=== PATIENT | female | born 1955 | race Hispanic/Latino ===

== ENCOUNTER 2017-08-01 07:33 | Emergency (ER) | payer MEDICAID, OTHER ==
[2017-08-01] MEDS: diphenhydrAMINE INJ 50MG/ML VIAL (J1200) IV (08:08)
[2017-08-01] MEDS: PROMETHAZINE INJ 25 MG/ML VIAL (J2550) IV (08:15)
[2017-08-01] MEDS: NS 1,000 ML IV (08:15)
[2017-08-01 09:16] LABS: ALBUMIN 3.6 GM/DL (3.2-5.2); ALBUMIN/GLOBULIN RATIO 1.03 (1.00-1.93); ALKALINE PHOSPHATASE 126 U/L (45-117); ALT/SGPT 15 U/L (12-78); ANION GAP 7 MEQ/L (8-16); AST/SGOT 33 U/L (7-37); BILIRUBIN,TOTAL 0.3 MG/DL (0.2-1.0); BLOOD UREA NITROGEN 14 MG/DL (7-18); CALCIUM LEVEL 8.7 MG/DL (8.8-10.2); CARBON DIOXIDE LEVEL 27 MEQ/L (21-32); CHLORIDE LEVEL 109 MEQ/L (98-107); CREATININE FOR GFR 0.67 MG/DL (0.55-1.02); GLOMERULAR FILTRATION RATE > 60.0 (>45); GLUCOSE, FASTING 91 MG/DL (80-110); SODIUM LEVEL 143 MEQ/L (136-145); TOTAL PROTEIN 7.1 GM/DL (6.4-8.2)
[2017-08-01 09:25] LABS: LITHIUM LEVEL < 0.20 MEQ/L (0.60-1.20); POTASSIUM SERUM 4.3 MEQ/L (3.5-5.1)
[2017-08-01 09:27] LABS: ERYTHROCYTE SEDIMENTATION RATE 2 mm/hr (0-30)
[2017-08-01] MEDS: KETOROLAC 30 MG/ML VIAL (J1885) IV (10:09)
== END 2017-08-01 10:41 | disposition home or self-care (01) ==
LOC: M ED 07:33
DX: R51 Headache (principal); E07.9 Disorder of thyroid, unspecified; Z79.890 Hormone replacement therapy; Z79.899 Other long term (current) drug therapy; Z88.8 Allergy status to other drugs, medicaments and biological substances; Z88.1 Allergy status to other antibiotic agents; Z88.2 Allergy status to sulfonamides; Z85.07 Personal history of malignant neoplasm of pancreas; Z98.890 Other specified postprocedural states
CPT/HCPCS: J1200

== ENCOUNTER → 2017-08-15 | Outpatient (REF) | payer MEDICAID ==
[2017-08-15 15:17] LABS: VITAMIN B12 LEVEL 491 PG/ML (247-911)
[2017-08-15 15:18] LABS: FOLATE 17.7 NG/ML (>5.4)
[2017-08-15 15:19] LABS: BASO # 0.1 10^3/uL (0.0-0.2); BASO % 1.3 % (0.0-1.0); EOS # 0.5 10^3/uL (0.0-0.50); EOS % 5.1 % (0.0-3.0); HEMATOCRIT 42.6 % (36.0-47.0); HEMOGLOBIN 13.3 g/dl (12.0-16.0); IMMATURE GRANULOCYTE % 0.2 % (0-0); LYMPH # 2.7 10^3/uL (1.5-4.5); LYMPH % 29.6 % (24.0-44.0); MEAN CORPUSCULAR HEMOGLOBIN 25.1 pg (27.0-33.0); MEAN CORPUSCULAR HGB CONC 31.2 g/dl (32.0-36.5); MEAN CORPUSCULAR VOLUME 80.4 fl (80.0-96.0); MONO # 0.5 10^3/uL (0.0-0.8); MONO % 5.9 % (0.0-5.0); NEUTROPHILS # 5.2 10^3/uL (1.8-7.7); NEUTROPHILS % 57.9 % (36.0-66.0); PLATELET COUNT, AUTOMATED 269 10^3/uL (150-450); RED CELL DISTRIBUTION WIDTH 15.6 % (11.5-14.5); WHITE BLOOD COUNT 9.1 10^3/uL (4.0-10.0)
[2017-08-15 15:58] LABS: ALBUMIN 3.7 GM/DL (3.2-5.2); ALBUMIN/GLOBULIN RATIO 1.06 (1.00-1.93); ALKALINE PHOSPHATASE 127 U/L (45-117); ALT/SGPT 16 U/L (12-78); ANION GAP 9 MEQ/L (8-16); AST/SGOT 20 U/L (7-37); BILIRUBIN,TOTAL 0.4 MG/DL (0.2-1.0); BLOOD UREA NITROGEN 16 MG/DL (7-18); CALCIUM LEVEL 8.8 MG/DL (8.8-10.2); CARBON DIOXIDE LEVEL 24 MEQ/L (21-32); CHLORIDE LEVEL 106 MEQ/L (98-107); CREATININE FOR GFR 0.96 MG/DL (0.55-1.30); FREE T4 0.92 NG/DL (0.76-1.46); GLOMERULAR FILTRATION RATE > 60.0 (>45); GLUCOSE, FASTING 144 MG/DL (70-100); POTASSIUM SERUM 3.9 MEQ/L (3.5-5.1); SODIUM LEVEL 139 MEQ/L (136-145); TOTAL PROTEIN 7.2 GM/DL (6.4-8.2)
[2017-08-15 16:14] LABS: LITHIUM LEVEL < 0.20 MEQ/L (0.60-1.20)
== END ==
LOC: M LAB REF 13:53
DX: Z86.2 Personal history of diseases of the blood and blood-forming organs and certain disorders involving the immune mechanism (principal)

== ENCOUNTER → 2017-08-28 | Outpatient (CLI) | payer OTHER | LOC: M RAD 13:35 | DX: T85.49XD Other mechanical complication of breast prosthesis and implant, subsequent encounter (principal) | CPT/HCPCS: 77065 ==

== ENCOUNTER → 2017-08-29 | Outpatient (CLI) | payer OTHER, MEDICAID | LOC: M RAD 08:10 | DX: N28.1 Cyst of kidney, acquired (principal) | CPT/HCPCS: 76775 ==

== ENCOUNTER → 2017-09-17 | Outpatient (CLI) | payer OTHER ==
[2017-09-17 15:12] LABS: GAMMA GLUTAMYLTRANSPEPTIDASE 24 U/L (5-55)
== END ==
LOC: M LAB 13:48
DX: R74.8 Abnormal levels of other serum enzymes (principal)
CPT/HCPCS: 82977

== ENCOUNTER → 2017-09-17 | Outpatient (CLI) | payer OTHER ==
[2017-09-17 15:17] LABS: BASO # 0.1 10^3/uL (0.0-0.2); BASO % 0.8 % (0.0-1.0); EOS # 0.6 10^3/uL (0.0-0.50); EOS % 7.3 % (0.0-3.0); HEMATOCRIT 39.8 % (36.0-47.0); HEMOGLOBIN 12.8 g/dl (12.0-16.0); IMMATURE GRANULOCYTE % 0.4 % (0-3.0); LYMPH # 2.6 10^3/uL (1.5-4.5); LYMPH % 30.7 % (24.0-44.0); MEAN CORPUSCULAR HEMOGLOBIN 25.8 pg (27.0-33.0); MEAN CORPUSCULAR HGB CONC 32.2 g/dl (32.0-36.5); MEAN CORPUSCULAR VOLUME 80.2 fl (80.0-96.0); MONO # 0.5 10^3/uL (0.0-0.8); MONO % 6.2 % (0.0-5.0); NEUTROPHILS # 4.6 10^3/uL (1.8-7.7); NEUTROPHILS % 54.6 % (36.0-66.0); PLATELET COUNT, AUTOMATED 222 10^3/uL (150-450); RED BLOOD COUNT 4.96 10^6/uL (4.00-5.40); WHITE BLOOD COUNT 8.5 10^3/uL (4.0-10.0)
[2017-09-17 15:27] LABS: ALBUMIN 3.3 GM/DL (3.2-5.2); ALKALINE PHOSPHATASE 126 U/L (45-117); ALT/SGPT 18 U/L (12-78); ANION GAP 8 MEQ/L (8-16); AST/SGOT 19 U/L (7-37); BILIRUBIN,TOTAL 0.2 MG/DL (0.2-1.0); BLOOD UREA NITROGEN 13 MG/DL (7-18); CALCIUM LEVEL 8.5 MG/DL (8.8-10.2); CARBON DIOXIDE LEVEL 27 MEQ/L (21-32); CHLORIDE LEVEL 109 MEQ/L (98-107); CREATININE FOR GFR 0.74 MG/DL (0.55-1.30); GLOMERULAR FILTRATION RATE > 60.0 (>45); GLUCOSE, FASTING 92 MG/DL (70-100); POTASSIUM SERUM 4.2 MEQ/L (3.5-5.1); SODIUM LEVEL 144 MEQ/L (136-145); TOTAL PROTEIN 6.6 GM/DL (6.4-8.2)
[2017-09-17 15:35] LABS: VITAMIN B12 LEVEL 625 PG/ML
[2017-09-17 15:36] LABS: FOLATE 13.5 NG/ML
[2017-09-18 14:01] LABS: ALBUMIN 3.88 GM/DL (3.29-5.55); ALBUMIN % 58.8 % (55.8-66.1); ALPHA-1-GLOBULIN % 4.6 % (2.9-4.9); ALPHA-2-GLOBULINS % 11.8 % (7.1-11.8); BETA-1-GLOBULINS % 8.2 % (4.7-7.2); BETA-2-GLOBULINS % 5.4 % (3.2-6.5); GAMMA GLOBULIN % 11.2 % (11.1-18.8)
[2017-09-18 14:02] LABS: ALPHA-2-GLOBULINS 0.78 GM/DL (0.42-0.99); BETA-1-GLOBULINS 0.54 GM/DL (0.28-0.60); BETA-2-GLOBULINS 0.36 GM/DL (0.19-0.55); GAMMA GLOBULINS 0.74 GM/DL (0.65-1.58); SPEP INTERPRETATION SEE COMM
== END ==
LOC: M LAB 13:51
DX: G62.9 Polyneuropathy, unspecified (principal)
CPT/HCPCS: 82746

== ENCOUNTER → 2017-09-23 | Outpatient (REF) | payer OTHER ==
[2017-09-24 09:54] LABS: CARCINOEMBRYONIC ANTIGEN 4.8 NG/ML (<2.5)
[2017-09-24 10:23] LABS: CA19-9 TUMOR MARKER,CARBOHYDRA 1.2 U/ML (<35.0)
== END ==
LOC: M LAB REF 17:40
DX: C24.0 Malignant neoplasm of extrahepatic bile duct (principal); C7A.098 Malignant carcinoid tumors of other sites

== ENCOUNTER → 2017-09-25 | Outpatient (REF) | payer OTHER, MEDICAID ==
[2017-09-25 13:40] LABS: FERRITIN 15 NG/ML (8-252)
[2017-09-25 13:40] LABS: IRON (FE) 74 UG/DL (50-170)
[2017-09-25 14:23] LABS: FOLATE 16.3 NG/ML; VITAMIN B12 LEVEL 557 PG/ML
== END ==
LOC: M LAB REF 11:47
DX: R53.83 Other fatigue (principal)

== ENCOUNTER → 2017-09-25 | Outpatient (CLI) | payer OTHER ==
[~2017-09-25] MED LIST: GASTROGRAFIN SOLUTION 30ML (Q9963) As Ordered; ISOVUE-370 76% 100ML VIAL (Q9967) As Ordered
== END ==
LOC: M RAD 11:15
DX: R10.9 Unspecified abdominal pain (principal); R06.02 Shortness of breath; M54.9 Dorsalgia, unspecified; Z85.07 Personal history of malignant neoplasm of pancreas; N28.1 Cyst of kidney, acquired; Z98.890 Other specified postprocedural states
CPT/HCPCS: Q9963

== ENCOUNTER → 2017-11-08 | Outpatient (CLI) | payer OTHER ==
[2017-11-08 15:06] LABS: LITHIUM LEVEL 0.34 MEQ/L (0.60-1.20)
== END ==
LOC: M LAB 14:00
DX: F31.4 Bipolar disorder, current episode depressed, severe, without psychotic features (principal)
CPT/HCPCS: 80178

== ENCOUNTER → 2017-11-08 | Outpatient (CLI) | payer OTHER ==
[2017-11-08 14:52] LABS: BASO # 0.1 10^3/uL (0.0-0.2); BASO % 0.7 % (0.0-1.0); EOS # 0.5 10^3/uL (0.0-0.50); EOS % 5.1 % (0.0-3.0); HEMATOCRIT 38.6 % (36.0-47.0); HEMOGLOBIN 12.6 g/dl (12.0-15.5); IMMATURE GRANULOCYTE % 0.5 % (0-3.0); LYMPH # 2.9 10^3/uL (1.5-4.5); LYMPH % 33.1 % (24.0-44.0); MEAN CORPUSCULAR HEMOGLOBIN 26.1 pg (27.0-33.0); MEAN CORPUSCULAR HGB CONC 32.6 g/dl (32.0-36.5); MEAN CORPUSCULAR VOLUME 79.9 fl (80.0-96.0); MONO # 0.7 10^3/uL (0.0-0.8); MONO % 7.6 % (0.0-5.0); NEUTROPHILS # 4.7 10^3/uL (1.8-7.7); PLATELET COUNT, AUTOMATED 245 10^3/uL (150-450); RED BLOOD COUNT 4.83 10^6/uL (4.00-5.40); RED CELL DISTRIBUTION WIDTH 14.6 % (11.5-14.5); WHITE BLOOD COUNT 8.8 10^3/uL (4.0-10.0)
[2017-11-08 14:58] LABS: ESTIMATED AVERAGE GLUCOSE 126 MG/DL (60-110)
[2017-11-08 15:10] LABS: ALBUMIN 3.5 GM/DL (3.2-5.2); ALBUMIN/GLOBULIN RATIO 1.03 (1.00-1.93); ALKALINE PHOSPHATASE 121 U/L (45-117); ALT/SGPT 20 U/L (12-78); ANION GAP 6 MEQ/L (8-16); AST/SGOT 24 U/L (7-37); BILIRUBIN,TOTAL 0.5 MG/DL (0.2-1.0); BLOOD UREA NITROGEN 14 MG/DL (7-18); CALCIUM LEVEL 8.6 MG/DL (8.8-10.2); CARBON DIOXIDE LEVEL 27 MEQ/L (21-32); CHLORIDE LEVEL 110 MEQ/L (98-107); CHOLESTEROL LEVEL 275 MG/DL (<200); CHOLESTEROL RISK RATIO 3.618 (<5); CREATININE FOR GFR 0.86 MG/DL (0.55-1.30); GLOMERULAR FILTRATION RATE > 60.0 (>45); GLUCOSE, FASTING 80 MG/DL (70-100); HDL CHOLESTEROL 76 MG/DL (>40); LDL CHOLESTEROL 170.6 MG/DL (<100); NON-HDL-C 199 MG/DL; POTASSIUM SERUM 4.4 MEQ/L (3.5-5.1); SODIUM LEVEL 143 MEQ/L (136-145); TOTAL PROTEIN 6.9 GM/DL (6.4-8.2); TRIGLYCERIDES LEVEL 142 MG/DL (<150)
[2017-11-08 15:14] LABS: PTH INTACT 88.9 PG/ML (18.5-88.0)
== END ==
LOC: M LAB 13:57
DX: F31.60 Bipolar disorder, current episode mixed, unspecified (principal); E66.3 Overweight; E78.5 Hyperlipidemia, unspecified; E55.9 Vitamin D deficiency, unspecified
CPT/HCPCS: 84443

== ENCOUNTER 2017-11-21 12:14 | Day surgery (SDC) | payer OTHER ==
[2017-11-21] MEDS: NS 1,000 ML IV (12:30)
[2017-11-21] MEDS ORDERED: LIDOCAINE 2% INJ 100 MG/5 ML SDV (FOR ANES.) As Ordered (14:02)
[2017-11-21] MEDS ORDERED: PROPOFOL 200 MG/20 ML VIAL As Ordered (14:02)
[2017-11-21] MEDS ORDERED: fentaNYL 100 MCG/2 ML INJECTION (J3010) As Ordered (14:25)
== END 2017-11-21 15:43 | disposition home or self-care (01) ==
LOC: M OPP 12:14
DX: K64.8 Other hemorrhoids (principal); K57.30 Diverticulosis of large intestine without perforation or abscess without bleeding; K92.1 Melena; K30 Functional dyspepsia; Z98.0 Intestinal bypass and anastomosis status; F32.9 Major depressive disorder, single episode, unspecified; F41.9 Anxiety disorder, unspecified; E78.00 Pure hypercholesterolemia, unspecified; E07.9 Disorder of thyroid, unspecified; Z79.899 Other long term (current) drug therapy; Z88.8 Allergy status to other drugs, medicaments and biological substances; Z90.711 Acquired absence of uterus with remaining cervical stump; Z87.19 Personal history of other diseases of the digestive system; Z86.79 Personal history of other diseases of the circulatory system; Z82.49 Family history of ischemic heart disease and other diseases of the circulatory system; Z82.3 Family history of stroke; Z80.0 Family history of malignant neoplasm of digestive organs
CPT/HCPCS: 45378

== ENCOUNTER → 2017-12-03 | Outpatient (CLI) | payer OTHER | LOC: M WHC 09:42 | DX: Z12.31 Encounter for screening mammogram for malignant neoplasm of breast (principal); M81.0 Age-related osteoporosis without current pathological fracture | CPT/HCPCS: 77067 ==

== ENCOUNTER → 2018-01-06 | Outpatient (REF) | payer OTHER ==
[2018-01-07 09:18] LABS: CARCINOEMBRYONIC ANTIGEN 3.7 NG/ML (<2.5)
[2018-01-11 00:07] LABS: CHROMOGRANIN A 2 nmol/L (0-5)
== END ==
LOC: M LAB REF 17:12
DX: K62.5 Hemorrhage of anus and rectum (principal)
CPT/HCPCS: 82378

== ENCOUNTER 2018-02-23 07:52 | Emergency (ER) | payer OTHER ==
[2018-02-23] MEDS: HYDROMORPHONE HCL 0.5 MG/ 0.5 ML SYRINGE (J1170 PER 1) IV ×2 (08:29)
[2018-02-23] MEDS: ONDANSETRON 4MG/2ML VIAL (J2405) IV ×2 (08:29)
[2018-02-23] MEDS: NS 1,000 ML IV ×2 (08:29)
[2018-02-23 08:32] LABS: BASO # 0.1 10^3/uL (0.0-0.2); BASO % 0.8 % (0.0-1.0); EOS # 0.7 10^3/uL (0.0-0.50); EOS % 7.5 % (0.0-3.0); HEMATOCRIT 42.2 % (36.0-47.0); HEMOGLOBIN 13.3 g/dl (12.0-15.5); IMMATURE GRANULOCYTE % 0.2 % (0-3.0); LYMPH # 3.2 10^3/uL (1.5-4.5); LYMPH % 33.1 % (24.0-44.0); MEAN CORPUSCULAR HEMOGLOBIN 25.5 pg (27.0-33.0); MEAN CORPUSCULAR HGB CONC 31.5 g/dl (32.0-36.5); MEAN CORPUSCULAR VOLUME 80.8 fl (80.0-96.0); MONO # 0.6 10^3/uL (0.0-0.8); MONO % 5.9 % (0.0-5.0); NEUTROPHILS # 5.1 10^3/uL (1.8-7.7); NEUTROPHILS % 52.5 % (36.0-66.0); PLATELET COUNT, AUTOMATED 176 10^3/uL (150-450); RED BLOOD COUNT 5.22 10^6/uL (4.00-5.40); RED CELL DISTRIBUTION WIDTH 14.4 % (11.5-14.5); WHITE BLOOD COUNT 9.7 10^3/uL (4.0-10.0)
[2018-02-23 08:39] LABS: KETONE, URINE AUTO RFX NEGATIVE (NEGATIVE); LEUKOCYTE ESTERASE UR AUTO RFX NEGATIVE (NEGATIVE); MUCUS, URINE RFX SMALL (NEGATIVE); NITRITE, URINE AUTO RFX NEGATIVE (NEGATIVE); RBC, URINE AUTO RFX 0 /HPF (0-3); SPECIFIC GRAVITY UR AUTO RFX 1.008 (1.002-1.035); SQUAM EPITHELIAL CELL UR AURFX 0 /HPF (0-6); WBC, URINE AUTO RFX 0 /HPF (0-3)
[2018-02-23 09:23] LABS: ALBUMIN 3.1 GM/DL (3.2-5.2); ALBUMIN/GLOBULIN RATIO 0.97 (1.00-1.93); ALKALINE PHOSPHATASE 110 U/L (45-117); ALT/SGPT 23 U/L (12-78); AMYLASE 66 U/L (25-115); ANION GAP 4 MEQ/L (8-16); AST/SGOT 20 U/L (7-37); BILIRUBIN,DIRECT < 0.1 MG/DL (0.0-0.2); BLOOD UREA NITROGEN 15 MG/DL (7-18); CALCIUM LEVEL 8.1 MG/DL (8.8-10.2); CARBON DIOXIDE LEVEL 29 MEQ/L (21-32); CHLORIDE LEVEL 111 MEQ/L (98-107); CPK CREATINE PHOSPHOKINASE 57 U/L (26-192); CREATININE FOR GFR 0.84 MG/DL (0.55-1.30); GLOMERULAR FILTRATION RATE > 60.0 (>45); GLUCOSE, FASTING 101 MG/DL (70-100); LIPASE 89 U/L (73-393); POTASSIUM SERUM 4.5 MEQ/L (3.5-5.1); SODIUM LEVEL 144 MEQ/L (136-145); TOTAL PROTEIN 6.3 GM/DL (6.4-8.2); TROPONIN I < 0.02 NG/ML (< 0.10)
[2018-02-23 09:28] LABS: BILIRUBIN,TOTAL 0.2 MG/DL (0.2-1.0); CK-MB VALUE MASS 1.1 NG/ML (<3.6); MB/CK RELATIVE INDEX 1.92 (< OR =4)
[2018-02-23] MEDS ORDERED: ISOVUE-370 76% 100ML VIAL (Q9967) As Ordered ×2 (09:36)
== END 2018-02-23 10:35 | disposition home or self-care (01) ==
LOC: M ED 07:52
DX: K52.9 Noninfective gastroenteritis and colitis, unspecified (principal); E78.5 Hyperlipidemia, unspecified; Z85.07 Personal history of malignant neoplasm of pancreas; Z87.891 Personal history of nicotine dependence
CPT/HCPCS: J2405

== ENCOUNTER 2018-03-09 06:36 | Emergency (ER) | payer OTHER ==
[2018-03-09 07:11] LABS: BASO # 0.1 10^3/uL (0.0-0.2); HEMATOCRIT 42.3 % (36.0-47.0); HEMOGLOBIN 13.7 g/dl (12.0-15.5); IMMATURE GRANULOCYTE % 0.3 % (0-3.0); LYMPH # 3.6 10^3/uL (1.5-4.5); LYMPH % 34.7 % (24.0-44.0); MEAN CORPUSCULAR HEMOGLOBIN 25.8 pg (27.0-33.0); MEAN CORPUSCULAR HGB CONC 32.4 g/dl (32.0-36.5); MEAN CORPUSCULAR VOLUME 79.7 fl (80.0-96.0); MONO # 0.8 10^3/uL (0.0-0.8); MONO % 7.3 % (0.0-5.0); NEUTROPHILS # 4.8 10^3/uL (1.8-7.7); NEUTROPHILS % 46.7 % (36.0-66.0); PLATELET COUNT, AUTOMATED 194 10^3/uL (150-450); RED BLOOD COUNT 5.31 10^6/uL (4.00-5.40); RED CELL DISTRIBUTION WIDTH 14.8 % (11.5-14.5); WHITE BLOOD COUNT 10.3 10^3/uL (4.0-10.0)
[2018-03-09] MEDS ORDERED: ISOVUE-370 76% 100ML VIAL (Q9967) As Ordered (08:25)
[2018-03-09 08:27] LABS: ANION GAP 7 MEQ/L (8-16); BLOOD UREA NITROGEN 13 MG/DL (7-18); CALCIUM LEVEL 8.8 MG/DL (8.8-10.2); CARBON DIOXIDE LEVEL 28 MEQ/L (21-32); CHLORIDE LEVEL 110 MEQ/L (98-107); CK-MB VALUE MASS < 1.0 NG/ML (<3.6); CPK CREATINE PHOSPHOKINASE 67 U/L (26-192); CREATININE FOR GFR 0.85 MG/DL (0.55-1.30); GLOMERULAR FILTRATION RATE > 60.0 (>45); GLUCOSE, FASTING 106 MG/DL (70-100); MB/CK RELATIVE INDEX 1.49 (< OR =4); POTASSIUM SERUM 4.2 MEQ/L (3.5-5.1); SODIUM LEVEL 145 MEQ/L (136-145); TROPONIN I < 0.02 NG/ML (< 0.10)
[2018-03-09] MEDS: GI COCKTAIL 50ML BTL(HYOSCYAMINE/MAALOX/LIDOCAINE VISCOUS)(1:3:1) PO (08:31)
[2018-03-09] MEDS: SUCRALFATE 1 GM TAB PO (08:31)
[2018-03-09] MEDS: FAMOTIDINE 20 MG TAB PO (08:31)
== END 2018-03-09 10:32 | disposition home or self-care (01) ==
LOC: M ED 06:36
DX: K21.9 Gastro-esophageal reflux disease without esophagitis (principal); M19.90 Unspecified osteoarthritis, unspecified site; Z86.718 Personal history of other venous thrombosis and embolism; Z87.891 Personal history of nicotine dependence; Z82.49 Family history of ischemic heart disease and other diseases of the circulatory system; Z82.3 Family history of stroke; Z88.8 Allergy status to other drugs, medicaments and biological substances; Z88.1 Allergy status to other antibiotic agents; Z88.2 Allergy status to sulfonamides; Z79.899 Other long term (current) drug therapy
CPT/HCPCS: Q9967

== ENCOUNTER → 2018-03-12 | Outpatient (CLI) | payer OTHER | LOC: M PAIN 14:00 | DX: M79.1 Myalgia (principal); M96.1 Postlaminectomy syndrome, not elsewhere classified; M54.12 Radiculopathy, cervical region; F31.9 Bipolar disorder, unspecified; E78.5 Hyperlipidemia, unspecified; E03.9 Hypothyroidism, unspecified; J45.909 Unspecified asthma, uncomplicated; K21.9 Gastro-esophageal reflux disease without esophagitis; Z79.899 Other long term (current) drug therapy; Z88.2 Allergy status to sulfonamides; Z88.6 Allergy status to analgesic agent; Z88.8 Allergy status to other drugs, medicaments and biological substances; Z87.890 Personal history of sex reassignment; Z98.890 Other specified postprocedural states | CPT/HCPCS: G0463 ==

== ENCOUNTER → 2018-03-26 | Outpatient (CLI) | payer OTHER | LOC: M SLEEP HO 14:02 | DX: R07.9 Chest pain, unspecified (principal) | CPT/HCPCS: G0399 ==

== ENCOUNTER → 2018-04-03 | Outpatient (CLI) | payer OTHER ==
[~2018-04-03] MED LIST changes: +BUPIVACAINE HCL 0.25% 10 ML VIAL As Ordered; +BUPIVACAINE HCL 0.25% 30 ML VIAL As Ordered; -GASTROGRAFIN SOLUTION 30ML (Q9963) As Ordered; -ISOVUE-370 76% 100ML VIAL (Q9967) As Ordered; +TRIAMCINOLONE ACETONIDE SUSP 40 MG/ML VIAL (J3301) As Ordered; +diazePAM 5 MG TAB As Ordered; +oxyCODONE 5MG TAB As Ordered
== END ==
LOC: M PAIN 11:15
DX: M79.1 Myalgia (principal); K21.9 Gastro-esophageal reflux disease without esophagitis; F31.9 Bipolar disorder, unspecified; E78.5 Hyperlipidemia, unspecified; E03.9 Hypothyroidism, unspecified; Z98.1 Arthrodesis status; Z87.891 Personal history of nicotine dependence; Z85.09 Personal history of malignant neoplasm of other digestive organs; Z86.718 Personal history of other venous thrombosis and embolism; Z90.49 Acquired absence of other specified parts of digestive tract; Z90.710 Acquired absence of both cervix and uterus; Z88.2 Allergy status to sulfonamides; Z88.6 Allergy status to analgesic agent; Z88.8 Allergy status to other drugs, medicaments and biological substances; Z79.899 Other long term (current) drug therapy
CPT/HCPCS: J3301

== ENCOUNTER 2018-04-17 05:21 | Emergency (ER) | payer OTHER ==
[2018-04-17 05:58] LABS: BASO # 0.1 10^3/uL (0.0-0.2); BASO % 0.6 % (0.0-1.0); EOS # 0.5 10^3/uL (0.0-0.50); EOS % 4.3 % (0.0-3.0); HEMATOCRIT 40.6 % (36.0-47.0); HEMOGLOBIN 12.9 g/dl (12.0-15.5); IMMATURE GRANULOCYTE % 0.4 % (0-3.0); LYMPH # 2.6 10^3/uL (1.5-4.5); LYMPH % 25.3 % (24.0-44.0); MEAN CORPUSCULAR HEMOGLOBIN 25.9 pg (27.0-33.0); MEAN CORPUSCULAR HGB CONC 31.8 g/dl (32.0-36.5); MEAN CORPUSCULAR VOLUME 81.4 fl (80.0-96.0); MONO # 0.7 10^3/uL (0.0-0.8); MONO % 6.3 % (0.0-5.0); NEUTROPHILS # 6.6 10^3/uL (1.8-7.7); NEUTROPHILS % 63.1 % (36.0-66.0); PLATELET COUNT, AUTOMATED 227 10^3/uL (150-450); RED BLOOD COUNT 4.99 10^6/uL (4.00-5.40); RED CELL DISTRIBUTION WIDTH 15.5 % (11.5-14.5); WHITE BLOOD COUNT 10.4 10^3/uL (4.0-10.0)
[2018-04-17 06:25] LABS: BLOOD UREA NITROGEN 13 MG/DL (7-18); CREATININE FOR GFR 0.91 MG/DL (0.55-1.30); GLUCOSE, FASTING 109 MG/DL (70-100)
[2018-04-17 06:26] LABS: ANION GAP 7 MEQ/L (8-16); CALCIUM LEVEL 8.8 MG/DL (8.8-10.2); CARBON DIOXIDE LEVEL 27 MEQ/L (21-32); CHLORIDE LEVEL 109 MEQ/L (98-107); CK-MB VALUE MASS < 1.0 NG/ML (<3.6); CPK CREATINE PHOSPHOKINASE 84 U/L (26-192); GLOMERULAR FILTRATION RATE > 60.0 (>45); MB/CK RELATIVE INDEX 1.19 (< OR =4); SODIUM LEVEL 143 MEQ/L (136-145); TROPONIN I < 0.02 NG/ML (< 0.10)
[2018-04-17] MEDS: GI COCKTAIL 50ML BTL(HYOSCYAMINE/MAALOX/LIDOCAINE VISCOUS)(1:3:1) PO (06:54)
[2018-04-17] MEDS ORDERED: ISOVUE-370 76% 100ML VIAL (Q9967) As Ordered (07:16)
[2018-04-17 07:25] LABS: ALBUMIN 3.5 GM/DL (3.2-5.2); ALBUMIN/GLOBULIN RATIO 1.13 (1.00-1.93); ALKALINE PHOSPHATASE 120 U/L (45-117); ALT/SGPT 22 U/L (12-78); AST/SGOT 19 U/L (7-37); BILIRUBIN,DIRECT 0.1 MG/DL (0.0-0.2); BILIRUBIN,TOTAL 0.3 MG/DL (0.2-1.0); LIPASE 77 U/L (73-393); LITHIUM LEVEL < 0.20 MEQ/L (0.60-1.20); TOTAL PROTEIN 6.6 GM/DL (6.4-8.2)
[2018-04-17] MEDS: IBUPROFEN 600 MG TAB PO (07:45)
[2018-04-17] MEDS: METOCLOPRAMIDE INJ 10MG/2ML VIAL (J2765) IV (11:13)
[2018-04-17 12:00] LABS: CK-MB VALUE MASS < 1.0 NG/ML (<3.6); CPK CREATINE PHOSPHOKINASE 70 U/L (26-192); MB/CK RELATIVE INDEX 1.43 (< OR =4); TROPONIN I < 0.02 NG/ML (< 0.10)
== END 2018-04-17 12:55 | disposition home or self-care (01) ==
LOC: M ED 05:21
DX: R07.9 Chest pain, unspecified (principal); R06.02 Shortness of breath; J45.909 Unspecified asthma, uncomplicated; E78.5 Hyperlipidemia, unspecified; K21.9 Gastro-esophageal reflux disease without esophagitis; F31.9 Bipolar disorder, unspecified; E07.9 Disorder of thyroid, unspecified; Z88.8 Allergy status to other drugs, medicaments and biological substances; Z87.891 Personal history of nicotine dependence
CPT/HCPCS: Q9967

== ENCOUNTER → 2018-04-23 | Outpatient (CLI) | payer OTHER | LOC: M PAIN 13:30 | DX: M79.10 Myalgia, unspecified site (principal); M96.1 Postlaminectomy syndrome, not elsewhere classified; M54.12 Radiculopathy, cervical region; K21.9 Gastro-esophageal reflux disease without esophagitis; F31.9 Bipolar disorder, unspecified; E78.5 Hyperlipidemia, unspecified; E03.9 Hypothyroidism, unspecified; M50.31 Other cervical disc degeneration, high cervical region; M50.33 Other cervical disc degeneration, cervicothoracic region; M47.892 Other spondylosis, cervical region; Z98.1 Arthrodesis status; Z90.49 Acquired absence of other specified parts of digestive tract; Z85.09 Personal history of malignant neoplasm of other digestive organs; Z86.718 Personal history of other venous thrombosis and embolism; Z87.891 Personal history of nicotine dependence; Z79.899 Other long term (current) drug therapy; Z88.2 Allergy status to sulfonamides; Z88.6 Allergy status to analgesic agent; Z88.8 Allergy status to other drugs, medicaments and biological substances | CPT/HCPCS: G0463 ==

== ENCOUNTER → 2018-04-28 | Outpatient (REF) | payer OTHER ==
[2018-04-28 12:56] LABS: APPEARANCE, URINE CLEAR (CLEAR); BACTERIA, URINE AUTO NEGATIVE (NEGATIVE); BILIRUBIN, URINE AUTO NEGATIVE (NEGATIVE); BLOOD, URINE BLOOD 1+ (NEGATIVE); COLOR, URINE YELLOW (YELLOW); GLUCOSE, URINE (UA) AUTO NEGATIVE (NEGATIVE); KETONE, URINE AUTO NEGATIVE (NEGATIVE); LEUKOCYTE ESTERASE, URINE AUTO NEGATIVE (NEGATIVE); MUCUS, URINE SMALL (NEGATIVE); NITRITE, URINE AUTO NEGATIVE (NEGATIVE); PROTEIN, URINE AUTO NEGATIVE (NEGATIVE); RBC, URINE AUTO 2 /HPF (0-3); SPECIFIC GRAVITY URINE AUTO 1.011 (1.002-1.035); SQUAMOUS EPITHELIAL CELL UR AU 2 /HPF (0-6); UROBILINOGEN, URINE AUTO 0.2 mg/dL (0.0-2.0); WBC, URINE AUTO 0 /HPF (0-3)
== END ==
LOC: M SFHCPLAZ 11:56
DX: R10.30 Lower abdominal pain, unspecified (principal)

== ENCOUNTER → 2018-05-02 | Outpatient (CLI) | payer OTHER | LOC: M RAD 12:59 | DX: R10.30 Lower abdominal pain, unspecified (principal) | CPT/HCPCS: 76857 ==

== ENCOUNTER → 2018-05-23 | Outpatient (CLI) | payer OTHER | LOC: M PAIN 14:30 | DX: M96.1 Postlaminectomy syndrome, not elsewhere classified (principal); M54.12 Radiculopathy, cervical region; M79.7 Fibromyalgia; K21.9 Gastro-esophageal reflux disease without esophagitis; F31.9 Bipolar disorder, unspecified; E78.5 Hyperlipidemia, unspecified; E03.9 Hypothyroidism, unspecified; Z79.51 Long term (current) use of inhaled steroids; Z79.899 Other long term (current) drug therapy; Z88.2 Allergy status to sulfonamides; Z88.6 Allergy status to analgesic agent; Z88.8 Allergy status to other drugs, medicaments and biological substances; Z98.82 Breast implant status; Z85.09 Personal history of malignant neoplasm of other digestive organs; Z87.891 Personal history of nicotine dependence | CPT/HCPCS: G0463 ==

== ENCOUNTER → 2018-06-12 | Outpatient (CLI) | payer OTHER | LOC: M SLEEP 19:52 | DX: G47.33 Obstructive sleep apnea (adult) (pediatric) (principal) | CPT/HCPCS: 95810 ==

== ENCOUNTER → 2018-07-25 | Outpatient (CLI) | payer OTHER ==
[~2018-07-25] MED LIST changes: +ACET650S3 PR; +ALPR0.25; +ATOR1TAB21; -BUPIVACAINE HCL 0.25% 10 ML VIAL As Ordered; -BUPIVACAINE HCL 0.25% 30 ML VIAL As Ordered; +CETI10TA; +CICL8SOL3; +CREO24CA; +ESTR1TAB PO; +FLUTISP; +LITH150C PO; +LORA0.5T11 PO; +MIRT1TAB PO; +OMEP40CA2 PO; +PANT20TA2 PO; +POLYPOW9 XX; +PROAAER10 INH; +SENN8.6C PO; +STOO100C PO; +TRAM50TA2 PO; +TRIA1CR TOP; -TRIAMCINOLONE ACETONIDE SUSP 40 MG/ML VIAL (J3301) As Ordered; +VENL37TA PO; +ZOFR4TAB14 PO; -diazePAM 5 MG TAB As Ordered; -oxyCODONE 5MG TAB As Ordered
--- NOTE | 2018-07-29 11:17 | SLEEPCENT ---
DATE OF STUDY: 07/25/2018 ORDERED BY: SARAH Vizcarra Nocturnal polysomnography was performed for the titration of pressure therapy in this patient with obstructive sleep apnea syndrome, apnea-hypopnea index 15.8. For testing, the patient was fit with a ResMed AirFit F20 medium sized mask, 4 cm of water pressure were applied to the circuit and the lights extinguished. 8 hours and 3 minutes of data were reviewed. There were 259 minutes of sleep identified. Sleep latency was prolonged at 44 minutes. REM latency was quite prolonged at 405 minutes. Sleep architecture showed poor progression and a prolonged period of wake in the middle of the study resulting in reduced sleep efficiency of 54%. The patient's electrocardiogram showed a sinus rhythm with small complexes, average heart rate 58 beats per minute. EEG showed coarsening in the background. No focal events were identified. Occurrence of obstructive respiratory events late in the study prompted an increase in pressure therapy. Pressure was titrated from the initial 4 to a maximal of 17. Best sleep was seen on CPAP pressure +15. There was minimal activity in the limb leads and remaining measures of sleep physiology were normal. IMPRESSION: Obstructive sleep apnea syndrome (G47.33). RECOMMENDATION: Nightly use of pressure therapy, 15 cm of water.
== END ==
LOC: M SLEEP 19:27
PROVIDERS: ATTEND Physician Assistant
DX: G47.33 Obstructive sleep apnea (adult) (pediatric) (principal)

== ENCOUNTER → 2018-07-28 | Outpatient (REF) | payer OTHER ==
[2018-07-28 12:42] LABS: BASO # 0.1 10^3/uL (0.0-0.2); BASO % 0.9 % (0.0-1.0); EOS # 0.6 10^3/uL (0.0-0.50); HEMATOCRIT 39.2 % (36.0-47.0); HEMOGLOBIN 12.5 g/dl (12.0-15.5); LYMPH % 30.9 % (24.0-44.0); MEAN CORPUSCULAR HEMOGLOBIN 25.7 pg (27.0-33.0); MEAN CORPUSCULAR HGB CONC 31.9 g/dl (32.0-36.5); MEAN CORPUSCULAR VOLUME 80.7 fl (80.0-96.0); MONO # 0.6 10^3/uL (0.0-0.8); MONO % 6.4 % (0.0-5.0); NEUTROPHILS # 5.3 10^3/uL (1.8-7.7); NEUTROPHILS % 55.5 % (36.0-66.0); PLATELET COUNT, AUTOMATED 238 10^3/uL (150-450); RED BLOOD COUNT 4.86 10^6/uL (4.00-5.40); WHITE BLOOD COUNT 9.6 10^3/uL (4.0-10.0)
[2018-07-28 12:59] LABS: CHOLESTEROL LEVEL 304 MG/DL (<200); CHOLESTEROL RISK RATIO 4.108 (<5); FERRITIN 7 NG/ML (8-252); FOLATE 15.4 NG/ML (>5.4); HDL CHOLESTEROL 74 MG/DL (>40); IRON (FE) 57 UG/DL (50-170); LDL CHOLESTEROL 188 MG/DL (<100); LITHIUM LEVEL < 0.20 MEQ/L (0.60-1.20); NON-HDL-C 230 MG/DL; PERCENT SATURATION 12.4 % (13.2-45.0); PTH INTACT 57.5 PG/ML (18.5-88.0); TOTAL 25(OH) VITAMIN D 27.3 NG/ML (30.0-100.0); TOTAL IRON BINDING CAPACITY 459 UG/DL (250-450); TRIGLYCERIDES LEVEL 212 MG/DL (<150); VITAMIN B12 LEVEL 1001 PG/ML (247-911)
[2018-07-28 14:24] LABS: HEMOGLOBIN A1c 6.3 %
[2018-07-28 15:56] LABS: FREE T4 0.86 NG/DL (0.76-1.46)
== END ==
LOC: M SFHCPLAZ 10:16
PROVIDERS: ATTEND Nurse Practitioner Family
DX: R53.83 Other fatigue (principal); F31.60 Bipolar disorder, current episode mixed, unspecified; K21.9 Gastro-esophageal reflux disease without esophagitis; E78.5 Hyperlipidemia, unspecified; E55.9 Vitamin D deficiency, unspecified; R79.89 Other specified abnormal findings of blood chemistry

== ENCOUNTER 2018-09-11 02:36 | Emergency (ER) | payer OTHER ==
[~2018-09-11] VITALS: Ht 165.1 cm; Wt 75.0 kg
[2018-09-11] MEDS ORDERED: ONDANSETRON 4MG/2ML VIAL (J2405) IV ONE (03:15)
[2018-09-11] MEDS ORDERED: MORPHINE 2 MG/ML 1ML SYRINGE (J2270) IV PRN (03:15)
[2018-09-11 03:18] LABS: BASO # 0.1 10^3/uL (0.0-0.2); BASO % 0.7 % (0.0-1.0); EOS # 0.7 10^3/uL (0.0-0.50); HEMATOCRIT 39.1 % (36.0-47.0); HEMOGLOBIN 12.6 g/dl (12.0-15.5); LYMPH # 3.4 10^3/uL (1.5-4.5); LYMPH % 30.9 % (24.0-44.0); MEAN CORPUSCULAR HEMOGLOBIN 26.2 pg (27.0-33.0); MEAN CORPUSCULAR HGB CONC 32.2 g/dl (32.0-36.5); MEAN CORPUSCULAR VOLUME 81.3 fl (80.0-96.0); MONO # 0.7 10^3/uL (0.0-0.8); MONO % 6.8 % (0.0-5.0); NEUTROPHILS % 55.2 % (36.0-66.0); PLATELET COUNT, AUTOMATED 213 10^3/uL (150-450); RED BLOOD COUNT 4.81 10^6/uL (4.00-5.40); WHITE BLOOD COUNT 10.9 10^3/uL (4.0-10.0)
[2018-09-11] MEDS: GASTROGRAFIN SOLUTION 30ML PO SCH ×2 (03:40→04:01)
[2018-09-11 03:54] LABS: ALBUMIN 3.4 GM/DL (3.2-5.2); ALT/SGPT 13 U/L (12-78); BILIRUBIN,DIRECT 0.1 MG/DL (0.0-0.2); BILIRUBIN,TOTAL 0.4 MG/DL (0.2-1.0); BLOOD UREA NITROGEN 13 MG/DL (7-18); CALCIUM LEVEL 8.5 MG/DL (8.8-10.2); CARBON DIOXIDE LEVEL 27 MEQ/L (21-32); CHLORIDE LEVEL 106 MEQ/L (98-107); CREATININE FOR GFR 0.82 MG/DL (0.55-1.30); GLOMERULAR FILTRATION RATE > 60.0 (>45); GLUCOSE, FASTING 96 MG/DL (70-100); LIPASE 84 U/L (73-393); POTASSIUM SERUM 3.7 MEQ/L (3.5-5.1); SODIUM LEVEL 141 MEQ/L (136-145); TOTAL PROTEIN 6.9 GM/DL (6.4-8.2)
[2018-09-11] MEDS ORDERED: ISOVUE-370 76% 100ML VIAL (Q9967) As Ordered ONE (04:15)
--- NOTE | 2018-09-11 05:24 | REPVR ---
EXAM: CT Abdomen and Pelvis With Contrast EXAM DATE/TIME: 09/11/2018 3:11 AM CLINICAL HISTORY: 62 years old, female; Pain; Abdominal pain; Epigastric; Prior surgery; Surgery date: 6+ months; Surgery type: Whipple; Patient HX: HX pancreas CA; Additional info: Epigastric abd pain, n/v/d TECHNIQUE: Axial computed tomography images of the abdomen and pelvis with intravenous contrast. All CT scans at this facility use at least one of these dose optimization techniques: automated exposure control; mA and/or kV adjustment per patient size (includes targeted exams where dose is matched to clinical indication); or iterative reconstruction. Coronal and sagittal reformatted images were created and reviewed. CONTRAST: Contrast Material: 100 ml of iso; Contrast Route: ac COMPARISON: CT ABD/PEL W/IV CONTRAST ONLY 02/23/2018 9:46 AM FINDINGS: Lower thorax: There is 7 mm left lung base calcified granuloma. Bilateral posterior basilar groundglass opacity seen possibly subsegmental atelectasis. ABDOMEN: Liver: Normal. No mass. Gallbladder and bile ducts: The patient status post cholecystectomy. There is no biliary ductal dilatation. Pancreas: Normal. No ductal dilation. Spleen: Normal. No splenomegaly. Adrenals: Normal. No mass. Kidneys and ureters: There are right renal cortical lesions the largest measuring 9 mm measuring higher than simple fluid density. There is a 1 cm right lower pole hypodensity measuring higher than simple fluid. There is 1.9 cm exophytic mid pole renal cyst. Stomach and bowel: The patient is status post Whipple surgery with resection of the pancreatic head. There is descending colon diverticulosis. There is small amount of stool in the right and transverse colon. There is apparent thickening of proximal small bowel loops anastomosing with the stomach and the pancreas. Appendix: The appendix is not visualized. There is no cecal wall thickening or pericecal inflammation. PELVIS: Bladder: Unremarkable as visualized. Reproductive: The patient is status post hysterectomy. There is no adnexal mass. ABDOMEN and PELVIS: Intraperitoneal space: Normal. No free air. No significant fluid collection. Bones/joints: There is L5 S1 disc degenerative changes in lower lumbar spine facet arthrosis. Soft tissues: Partially imaged bilateral breast prostheses. Vasculature: Normal. No abdominal aortic aneurysm. Lymph nodes: Normal. No enlarged lymph nodes. IMPRESSION: 1. Status post Whipple procedure with no gross evidence of tumor recurrence or abnormal adenopathy. No liver metastases seen. 2. Apparent thickening of the proximal bowel loops anastomosing with the stomach and pancreas. This is nonspecific finding. Correlate clinically for enteritis. 3. Status post hysterectomy. 4. Appendix not visualized however no signs of acute appendicitis. 5. Multiple cm right renal cyst in addition to subcentimeter slightly dense incompletely characterized lesions. These can be further characterized with MRI. 6. Partial bilateral breast prosthesis. 7. Descending colon diverticulosis. COMMENT: Consistent with the [employer] Incidental Findings Committee Report (J Am Bhavya Radiol 2010): Unless the patients specific circumstances suggest otherwise, any liver lesion 0.5 cm or less, any cystic kidney lesion less than 1.0 cm, and/or any adrenal lesion 1.0 cm or less not otherwise characterized in this report as possessing suspicious or indeterminate imaging features is/are highly likely to be benign and do not require follow-up imaging or biopsy. Electronically signed by: Meng Smith On 09/11/2018 05:24:08 AM
[2018-09-11] MEDS ORDERED: traMADol 50 MG TAB (BULK 4 TAB ED) PO ONE (06:30)
[2018-09-11] MEDS ORDERED: ONDA4TAB6 PO (06:30)
[2018-09-11 07:12] VITALS: BP 150/68
--- NOTE | 2018-09-11 13:27 | ED PDOC ---
Post-Departure Follow-Up anshul smith faxed formal report of ct abd/p for fu Sean Delaney MD Sep 11, 2018 13:27
[2018-09-18] MEDS ORDERED: CREO24CA PO (10:36)
== END 2018-09-11 07:13 | disposition home or self-care (01) ==
LOC: M ED 02:36
DX: K52.9 Noninfective gastroenteritis and colitis, unspecified (principal); Z85.07 Personal history of malignant neoplasm of pancreas; Z85.09 Personal history of malignant neoplasm of other digestive organs; Z88.8 Allergy status to other drugs, medicaments and biological substances; Z88.2 Allergy status to sulfonamides; Z88.6 Allergy status to analgesic agent; Z79.899 Other long term (current) drug therapy
CPT/HCPCS: 74177; 80048; 80076; 83690; 85025; 93041; 96374; 96375; 99284; J2270; J2405; Q9963; Q9967

== ENCOUNTER → 2018-10-24 | Outpatient (REF) | payer OTHER ==
[~2018-10-24] MED LIST changes: +CREO24CA PO; +ONDA4TAB6 PO; +TRIA0.1C60 TOP; -TRIA1CR TOP
== END ==
LOC: M LAB REF 13:22
PROVIDERS: ATTEND Internal Medicine Gastroenterology
DX: R14.2 Eructation (principal)

== ENCOUNTER 2018-11-27 09:11 | Day surgery (SDC) | payer OTHER ==
[~2018-11-27] VITALS: Ht 167.6 cm; Wt 73.5 kg
[2018-11-27] MEDS ORDERED: NS 1,000 ML IV ONE (09:30)
[2018-11-27] MEDS ORDERED: fentaNYL 100 MCG/2 ML INJECTION (J3010) As Ordered ONE (11:47)
[2018-11-27] MEDS ORDERED: PROPOFOL 500 MG/50 ML VIAL As Ordered ONE (11:47)
[2018-11-27] MEDS ORDERED: LIDOCAINE 2% INJ 100 MG/5 ML SDV (FOR ANES.) As Ordered ONE (11:47)
--- NOTE | 2018-11-27 12:03 | ROOR ---
Patient Name: Clarice De La Garza Procedure Date: 11/27/2018 11:45 AM Date of : 1955 Age: 62 Room: [facility] Gender: Female Note Status: Finalized Procedure: Upper GI endoscopy Indications: Heartburn, Abnormal CT of the GI tract, Assessment following Whipple type surgery Providers: Jak STANLEY MD Referring MD: ROGE JUAREZ [facility] Anna Requesting Provider: Medicines: Monitored Anesthesia Care Complications: No immediate complications. Procedure: Pre-Anesthesia Assessment: - The heart rate, respiratory rate, oxygen saturations, blood pressure, adequacy of pulmonary ventilation, and response to care were monitored throughout the procedure. The Endoscope was introduced through the mouth, and advanced to the third part of duodenum. The upper GI endoscopy was accomplished without difficulty. The patient tolerated the procedure well. Findings: The esophagus was normal. The stomach was normal. The examined duodenum was normal. Bilious fluid was found in the stomach. Impression: - Normal esophagus. - Normal stomach.- Bilious gastric fluid. - Normal examined duodenum. -( History of CholangioCA/s/p Whipple noted--I do not endoscopically see significant anatomic change on this scope) - No specimens collected. Recommendation: - Continue present medications. - Observe patient's clinical course. Jak Stanley MD Jak STANLEY MD 11/27/2018 12:02:42 PM Electronically signed by Jak STANLEY MD Number of Addenda: 0 Note Initiated On: 11/27/2018 11:45 AM Estimated Blood Loss: Estimated blood loss: none.
--- NOTE | 2018-11-27 12:19 | ROOR ---
Patient Name: Clarice De La Garza Procedure Date: 11/27/2018 11:46 AM Date of : 1955 Age: 62 Room: OP02 Gender: Female Note Status: Finalized Procedure: Colonoscopy Indications: Clinically significant diarrhea of unexplained origin (Sx mostly resolved with increased dose of creon and addition of prn dicyclomine) Providers: Jak STANLEY MD Referring MD: [facility]GE [facility] ROGE Castillo Requesting Provider: Medicines: Monitored Anesthesia Care Complications: No immediate complications. Procedure: Pre-Anesthesia Assessment: - The heart rate, respiratory rate, oxygen saturations, blood pressure, adequacy of pulmonary ventilation, and response to care were monitored throughout the procedure. The Colonoscope was introduced through the anus and advanced to 8 cm into the ileum. The colonoscopy was performed without difficulty. The patient tolerated the procedure well. The quality of the bowel preparation was adequate. Findings: The digital rectal exam findings include decreased sphincter tone. Mild sigmoid diverticulosis and small internal hemorrhoids. The exam was otherwise without abnormality on direct and retroflexion views. Biopsies for histology were taken with a cold forceps for evaluation of microscopic colitis. (EXAM: Complete, PREP:Adequate) Impression: - (EXAM: Complete, PREP:Adequate) - Decreased sphincter tone found on digital rectal exam. - Mild sigmoid diverticulosis and small internal hemorrhoids. - The examination was otherwise normal on direct and retroflexion views. - Biopsies were taken with a cold forceps for evaluation of microscopic colitis. Recommendation: - Telephone endoscopist for pathology results in 2 weeks. - Continue present medications. - Return to referring physician as previously scheduled. Jak Stanley MD Jak STANLEY MD 11/27/2018 12:19:11 PM Electronically signed by Jak STANLEY MD Number of Addenda: 0 Note Initiated On: 11/27/2018 11:46 AM Estimated Blood Loss: Estimated blood loss: none.
[2018-11-27 12:35] VITALS: BP 128/61
== END 2018-11-27 12:48 | disposition home or self-care (01) ==
LOC: M OPP 09:11
PROVIDERS: ATTEND Internal Medicine Gastroenterology
DX: K62.89 Other specified diseases of anus and rectum (principal); K64.8 Other hemorrhoids; R19.7 Diarrhea, unspecified; R12 Heartburn; Z90.411 Acquired partial absence of pancreas; R93.3 Abnormal findings on diagnostic imaging of other parts of digestive tract; G47.33 Obstructive sleep apnea (adult) (pediatric); K21.9 Gastro-esophageal reflux disease without esophagitis; K62.5 Hemorrhage of anus and rectum; Z88.2 Allergy status to sulfonamides; Z88.6 Allergy status to analgesic agent; Z88.8 Allergy status to other drugs, medicaments and biological substances; Z79.899 Other long term (current) drug therapy
CPT/HCPCS: 43235; 45380; 88305; J3010

== ENCOUNTER → 2018-12-11 | Outpatient (CLI) | payer OTHER ==
[2018-12-11 11:54] LABS: BASO # 0.1 10^3/uL (0.0-0.2); BASO % 0.8 % (0.0-1.0); EOS # 0.6 10^3/uL (0.0-0.50); EOS % 6.4 % (0.0-3.0); HEMOGLOBIN 13.1 g/dl (12.0-15.5); LYMPH # 2.1 10^3/uL (1.5-4.5); LYMPH % 23.4 % (24.0-44.0); MEAN CORPUSCULAR VOLUME 81.5 fl (80.0-96.0); MONO # 0.6 10^3/uL (0.0-0.8); MONO % 6.4 % (0.0-5.0); NEUTROPHILS # 5.6 10^3/uL (1.8-7.7); NEUTROPHILS % 62.7 % (36.0-66.0); PLATELET COUNT, AUTOMATED 224 10^3/uL (150-450); RED BLOOD COUNT 5.03 10^6/uL (4.00-5.40)
[2018-12-11 12:31] LABS: ALBUMIN 3.4 GM/DL (3.2-5.2); ALT/SGPT 16 U/L (12-78); BILIRUBIN,TOTAL 0.4 MG/DL (0.2-1.0); BLOOD UREA NITROGEN 13 MG/DL (7-18); CALCIUM LEVEL 9.3 MG/DL (8.8-10.2); CARBON DIOXIDE LEVEL 30 MEQ/L (21-32); CHLORIDE LEVEL 108 MEQ/L (98-107); CHOLESTEROL LEVEL 226 MG/DL (<200); CHOLESTEROL RISK RATIO 3.183 (<5); CREATININE FOR GFR 0.84 MG/DL (0.55-1.30); FREE T4 0.87 NG/DL (0.76-1.46); GLOMERULAR FILTRATION RATE > 60.0 (>45); GLUCOSE, FASTING 90 MG/DL (70-100); HDL CHOLESTEROL 71 MG/DL (>40); LDL CHOLESTEROL 128 MG/DL (<100); LITHIUM LEVEL 0.23 MEQ/L (0.60-1.20); NON-HDL-C 155 MG/DL; POTASSIUM SERUM 4.6 MEQ/L (3.5-5.1); SODIUM LEVEL 143 MEQ/L (136-145); TOTAL PROTEIN 6.4 GM/DL (6.4-8.2); TRIGLYCERIDES LEVEL 137 MG/DL (<150)
[2018-12-11 12:43] LABS: HEMOGLOBIN A1c 6.2 %
== END ==
LOC: M LAB 10:51
PROVIDERS: ATTEND Nurse Practitioner Family
DX: R73.01 Impaired fasting glucose (principal); F31.60 Bipolar disorder, current episode mixed, unspecified; E78.5 Hyperlipidemia, unspecified

== ENCOUNTER → 2018-12-25 | Outpatient (CLI) | payer OTHER | LOC: M SMT 10:58 | PROVIDERS: ATTEND Specialist | DX: Z12.9 Encounter for screening for malignant neoplasm, site unspecified (principal) ==

== ENCOUNTER → 2019-02-05 | Outpatient (CLI) | payer OTHER, SELFPAY ==
[~2019-02-05] MED LIST changes: +MM S100C PO; -STOO100C PO
--- NOTE | 2019-02-05 13:53 | REPMRS ---
Patient History The patient states she has not had a clinical breast exam in over a year. Family history of ovarian cancer at age 18 in daughter, prostate cancer at age 70 in father. Pre-pectoral silicone gel implants in both breasts. Taking estrogen for 30 years beginning at age 31. 3D TOMOSYNTHESIS WAS PERFORMED. [facility] lifetime risk for breast cancer is 3.0%. Digital Mammo Screening Bilat: February 05, 2019 - Exam #: [id number] Bilateral CC and MLO view(s) were taken. Technologist: Dorcas Gayle, Technologist Prior study comparison: December 03, 2017, digital woman screen mammo, performed at [facility]. August 28, 2017, right breast digital mammo diagnostic unilateral performed at [facility]. FINDINGS: The breast tissue is heterogeneously dense. This may lower the sensitivity of mammography. There has been no change in the appearance of the mammogram from the prior studies. There is a moderate amount of residual fibroglandular tissue which is fairly symmetric. There is no interval development of dominant mass, areas of architectural distortion, or clustered microcalcification typical of malignancy. Assessment: BI-RADS/ACR category 1 mammogram. Negative Mammogram. Recommendation Routine screening mammogram in 1 year (for women over age 40). This mammogram was interpreted with the aid of an FDA-approved computer-aided dectection system. Electronically Signed By: Asaf Polk MD 02/05/19 [id number]
== END ==
LOC: M RAD 12:19
PROVIDERS: ATTEND Specialist
DX: Z12.31 Encounter for screening mammogram for malignant neoplasm of breast (principal); Z80.41 Family history of malignant neoplasm of ovary; Z98.82 Breast implant status; Z79.818 Long term (current) use of other agents affecting estrogen receptors and estrogen levels

== ENCOUNTER → 2019-02-10 | Outpatient (CLI) | payer OTHER ==
--- NOTE | 2019-02-12 01:37 | ECWPNPC ---
PATIENT NAME: PANCHITO WALKER : 1955 GENDER: FEMALE VISIT DATE: 02/10/2019 DISCHARGE DATE: 02/10/19 1054 VISIT LOCKED DATE TIME: PHYSICIAN: [facility]MU HEALY RESOURCE: [facility] HEALY REASON FOR APPOINTMENT 1. NECK/BACK HISTORY OF PRESENT ILLNESS HISTORY OF PRESENT ILLNESS: PAIN THE PATIENT DESCRIBES THE PAIN... 63 YEAR OLD FEMALE IN FOR CHRONIC PAIN FOLLOW UP. SHE WOULD LIKE TO DISCUSS TPI'S FOR HER NECK. SHE CONTINUES WITH THE MEDICAL MARIJUANA AND ADMITS THAT IT IS HELPFUL. SHE CURRENTLY RATES HER PAIN AT A 5/10 AND DESCRIBES IT SHARP AND BURNING. FALL RISK SCREENING: SCREENING :NO FALLS REPORTED IN THE LAST YEAR CURRENT MEDICATIONS TAKING LITHIUM CARBONATE 150 MG CAPSULE 1 CAPSULE ORALLY TWICE A DAY TAKING ALBUTEROL SULFATE HFA 108 (90 BASE) MCG/ACT AEROSOL SOLUTION 2 PUFFS NEEDED INHALATION EVERY 6 HRS TAKING ARNUITY ELLIPTA 100 MCG/ACT AEROSOL POWDER BREATH ACTIVATED 1 PUFF INHALATION ONCE A DAY TAKING VITAMIN D 1 CAPSULE 1 CAPSULE ORALLY ONCE A DAY TAKING CHOLECALCIFEROL 5000 UNIT CAPSULE 1 CAPSULE ORALLY ONCE A DAY TAKING CALCIUM 1500 MG TABLET 1 TABLET ORALLY DAILY TAKING MAY USE - - CURAMIN 2181 MG TID TAKING VITAMIN C 500 MG CAPSULE 1 TABLET ORALLY DAILY TAKING VITAMIN E 800 UNIT CAPSULE 1 TABLET ORALLY DAILY TAKING VITAMIN B COMPLEX - INJECTABLE 1 ML ORALLY DAILY TAKING FLONASE 50 MCG/ACT SUSPENSION 1 SPRAY IN EACH NOSTRIL NASALLY ONCE A DAY NEEDED FOR ACUTE FLARE TAKING STOOL SOFTENER 100 MG CAPSULE 1 CAPSULE NEEDED ORALLY ONCE A DAY TAKING SALINE NASAL SPRAY 0.65 % SOLUTION 2 SPRAYS IN EACH NOSTRIL NEEDED NASALLY FOUR TIMES DAILY NEEDED TAKING ESTRADIOL 1 MG TABLET 1 TABLET ORALLY ONCE A DAY TAKING OMEPRAZOLE 40 MG CAPSULE DELAYED RELEASE 1 CAPSULE ORALLY ONCE A DAY TAKING CREON [id number] UNIT CAPSULE DELAYED RELEASE PARTICLES ORALLY TID TAKING FERROUS GLUCONATE 324 (38 FE) MG TABLET 1 TABLET ORALLY ONCE A DAY TAKING LOVASTATIN 40 MG TABLET 1 TABLET WITH THE EVENING MEAL ORALLY ONCE A DAY NOT-TAKING TRAMADOL HCL 50 MG TABLET 1 TABLET NEEDED ORALLY EVERY 6 HRS PRN PAIN MDD=4 FOR2 WEEKS SUPPLY MDD=4 NOT-TAKING ROSUVASTATIN CALCIUM 5 MG TABLET 1 TABLET ORALLY ONCE A DAY MEDICATION LIST REVIEWED AND RECONCILED WITH THE PATIENT PAST MEDICAL HISTORY 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 ANTERIOR DISCECTOMY AND FUSION FROM C4-7 PREMATURE MENOPAUSE BILATERAL RENAL CYSTS R 9MM MID POLE/8MM LOVER POLE L 5MM MID POLE 08/2017 EGD, COLONOSCOPY DR. Salazar MILD DIVERTICULOSIS/MODERATE INTERNAL HEMORRHOIDS, DECREASED SPHINTER TONE ANNE -C-PAP 15 CM ALLERGIES ASPIRIN: HIVES - ALLERGY SULFA (FOR ALLERGY USE ONLY): HIVES - ALLERGY TYLENOL: HIVES - ALLERGY CYCLOBENZAPRINE HCL: HIVES - ALLERGY TRAZODONE HCL: HIVES - ALLERGY SURGICAL HISTORY HYSTERECTOMY 1988 PANCREATIC WHIPPLE 04/24/2016 APPENDECTOMY 1971 CHOLCYSTECTOMY 2009 BLADDER SUSPENSION 2010 BREAST IMPLANTS- BILATERAL 1987 CERVICAL FUSION 2010 FAMILY HISTORY FATHER: 74 YRS, OF CANCER, DIAGNOSED WITH HEART DISEASE, CANCER MOTHER: 72 YRS, EMBOLIC HEART ATTACK, HEART DISEASE, STROKE SIBLINGS: , DIET AT 51 HYPERTROPHY HEART DISEASE SON(S): ALIVE DAUGHTER(S): ALIVE 8 BROTHER(S) , 1 SISTER(S) . 2 SON(S) , 2 DAUGHTER(S) . DAUGHTER C OVARIAN CA AT 18SON C BIPOLAR3 BROTHERS C RHEMATIC HEART DISEASE4 BROTHERS 1 SISTER HT, HYPERLIPIDEMIA. SOCIAL HISTORY GENERAL: TOBACCO USE ARE YOU A:FORMER SMOKER HOW LONG HAS IT BEEN SINCE YOU LAST SMOKED?> 10 YEARS HIV / HEP-C SCREENING HIV TEST OFFERED TO PATIENT:YES DATE OFFERED:11/06/2017 PREVIOUSLY DONE HEP-C TEST OFFERED TO PATIENT:YES PREVIOUSLY DONE DATE OFFERED:11/06/2017 BROCHURE PROVIDED TO PATIENTNO OTHERS AT HOME: TIAN. EDUCATION LEVEL OF EDUCATION:FINISHED HIGH SCHOOL DIET: NO HIGH FATS. LANGUAGE LANGUAGES SPOKEN:BOTH ECUADOREAN AND AMHARIC DOMESTIC VIOLENCE DO YOU FEEL SAFE IN YOUR ENVIRONMENT?YES RECREATIONAL DRUG USE DRUG USE?NO EXERCISE: NO REGULAR EXERCISE. LEARNING BARRIERS / SPECIAL NEEDS CHANGE FROM LAST VISIT?YES LOWER ABDOMINAL PAIN. FEELING OF CRAMPS BARRIERS TO LEARNING?NO HEARING IMPAIRED?NO VISION IMPAIRED?YES COGNITIVELY IMPAIRED?NO :CORRECTIVE LENSES READING READINESS TO LEARN?YES LEARNING PREFERENCES?NO LEARNING CAPABILITIES PRESENT?YES EMOTIONAL BARRIERS?NO SPECIAL DEVICES?NO WEB USER EXPERIENCE STRATEGIST NEEDED?YES DEPENDS ON WORDING, PRETTY FLUENT LUNG CANCER SCREENING SMOKING STATUS:FORMER SMOKER IS THE PATIENT BETWEEN THE AGE OF 55 AND 77?YES HAVE YOU QUIT SMOKING WITHIN THE PAST 15 YEARS?NO PAIN CLINIC PFS, CLERGY, PUBLIC HEALTH REFERRALS PFS REFERRAL NEEDED?NO CLERGY REFERRAL NEEDED?NO PUBLIC HEALTH REFERRAL NEEDED?NO WAS THE PROVIDER NOTIFIED OF ANY PERTINENT INFO?YES HAS THE PATIENT BEEN EDUCATED REGARDING HIS/HER PLAN OF CARE?YES HAS THE PATIENT BEEN EDUCATED REGARDING PAIN, THE RISK FOR PAIN, THE IMPORTANCE OF EFFECTIVE PAIN MANAGEMENT, AND THE PAIN ASSESSMENT PROCESS?YES LATEX QUESTIONNAIRE LATEX ALLERGY : HAVE YOU EVER DEVELOPED ANY TYPE OF REACTION AFTER HANDLING LATEX PRODUCTS SUCH RUBBER GLOVES, CONDOMS, DIAPHRAGMS, BALLOONS, SOCKS, OR UNDERWEAR?NO LATEX ALLERGY : HAVE YOU EVER DEVELOPED ANY TYPE OF REACTION DURING OR AFTER DENTAL APPOINTMENT, VAGINAL/RECTAL EXAMINATION, SURGICAL PROCEDURE, OR ANY OTHER EXPOSURE?NO DATE ASKED : 12/03/2018 LATEX RISK : HAVE YOU EVER HAD ANY DIFFICULTY BREATHING OR HIVES AFTER EATING OR HANDLING ANY FRUITS, OR VEGETABLES; SUCH KIWI, BANANAS, STONE FRUITS, OR CHESTNUTSNO LATEX RISK : DO YOU HAVE A PREVIOUS PERSONAL HISTORY OF MORE THAN NINE SURGERIES, SPINA BIFIDA, OR REPEATED CATHERIZATIONS? YES - PLEASE INDICATE : > 9 SURGERIES LATEX RISK : ARE YOU FREQUENTLY EXPOSED TO LATEX PRODUCTS IN YOUR OCCUPATION?YES CAFFEINE CAFFEINE USE?YES HOW OFTEN AND HOW MUCH? 1 CUP OF COFFEE ADVANCE DIRECTIVE ADVANCE DIRECTIVE DISCUSSED WITH PATIENT:YES PT DECLINED INFORMATION AT THIS TIME 05/23/18 JUDAISM [id number] SYNAGOGUE MARITAL STATUS: ENGAGED. ALCOHOL SCREENING DID YOU HAVE A DRINK CONTAINING ALCOHOL IN THE PAST YEAR?NO POINTS0 INTERPRETATIONNEGATIVE OCCUPATION: DISABLED. SEXUAL HX HAD SEX IN THE LAST 12 MONTHS (VAGINAL, ORAL, OR ANAL)?YES WITHMEN ONLY REVIEWED WITH PT 05/23/18 1446 BVREVIEWED WITH PT 02/10/19 1030 NLJ. HOSPITALIZATION/MAJOR DIAGNOSTIC PROCEDURE SURGERY RELATAED REVIEW OF SYSTEMS REVIEWED BY: PROVIDER: IDALIA HOFFMANN . CONSTITUTIONAL: ANY CHANGE IN YOUR MEDICAL CONDITION? NO . CHILLS NO . FEVER NO . INFECTION: DO YOU HAVE NEW INFECTIONS? NO . DO YOU HAVE HISTORY OF MRSA? NO . MUSCULOSKELETAL: ANY NEW PATTERNS OF PAIN OR NUMBNESS? YES-INCEASE IN PAIN AND BURNING IN NECK AND LOWER BACK . GASTROENTEROLOGY: ANY NEW CHANGE IN BOWEL CONTROL? NO . GENITOURINARY: ANY NEW CHANGE IN BLADDER CONTROL? NO . IS THERE A CHANCE YOU COULD BE ? NO . HEMATOLOGY/LYMPH: DO YOU TAKE ANY BLOOD THINNERS? (FOR EXAMPLE- COUMADIN, PLAVIX, AGGRENOX, PLATEL, PRADAXA, OR XARELTO) NO . WHEN WAS YOUR LAST DOSE? DATE: TIME: . NEUROLOGY: HAVE YOU FALLEN IN THE PAST 12 MONTHS? NO . ANY NEW EXTREMITY NUMBNESS OR WEAKNESS? NO . CARDIOLOGY: DO YOU HAVE A PACEMAKER OR DEFIBRILLATOR? NO . RESPIRATORY: HAVE YOU BEEN SICK IN THE PAST WEEK? NO . FEVER NO . FLU LIKE SYMPTOMS? NO . COUGH NO . INTEGUMENTARY: DO YOU HAVE ANY RASHES OR OPEN SORES? YES- RASH ON LEFT ANKLE . ALLERGIC/IMMUNO: ARE YOU ALLERGIC TO IV DYE? NO . ANY NEW ALLERGIES? NO . PSYCHIATRIC: DO YOU HAVE THOUGHTS OF HURTING YOURSELF OR SOMEONE ELSE? NO . ARE YOU ABUSED, NEGLECTED, OR IN AN UNSAFE ENVIRONMENT? NO . ENDOCRINOLOGY: ARE YOU DIABETIC? NO . OTHER: DO YOU NEED ANY PRESCRIPTIONS? YES- WANTS TO DISCUSS MEDS AND POSSIBLE INJECTIONS . IF YES, PLEASE LIST: ____ . ANY NEW PROBLEMS WITH YOUR MEDICATIONS? YES- WANTS TO DISCUSS MEDS AND ALTERNATE TREATMENT . WHEN DID YOU LAST EAT? ____ . WHEN DID YOU LAST DRINK? ____ . WHAT DID YOU LAST DRINK? ____ . NAME OF PERSON DRIVING YOU HOME? ____ . DO YOU HAVE ANY OTHER QUESTIONS OR CONCERNS YES- WOULD LIKE TO DISCUSS MEDS AND ALTERNATE TREATMENT . VITAL SIGNS WT 166.6 LBS, HT 64 IN, BMI 28.59 INDEX, BP 130/77 MM HG, HR 64 /MIN, RR 18 /MIN, TEMP 96.6 F, OXYGEN SAT % 96%, NA INITIALS AW 1005. EXAMINATION GENERAL EXAMINATION: GENERALNO ACUTE DISTRESS, WELL NOURISHED AND HYDRATED. PSYCHAPPROPRIATE MOOD AND AFFECT . NECK:POINT TENDER BILATERAL NECK, SURROUNDING SKIN SHOWS NO ERYTHEMA, ECCHYMOSIS, INCREASED WARMTH, AND/OR SKIN ERUPTIONS. . LUNGS:CLEAR TO AUSCULTATION BILATERALLY, NO WHEEZES, RHONCHI, RALES. HEART:NO MURMURS, REGULAR RATE AND RHYTHM. BACK: POINT TENDER ALONG SPINAL COLUMN, SURROUNDING SKIN SHOWS NO ERYTHEMA . ASSESSMENTS MYALGIA - M79.1 (PRIMARY) CERVICAL RADICULOPATHY - M54.12 TREATMENT MYALGIA NOTES: BILATERAL TPI OF THE NECK . CLINICAL NOTES: 63 YEAR OLD FEMALE IN FOR CHRONIC PAIN FOLLOW UP. GIVEN PRESENTING SYMPTOMS AND RESULTS OF PHYSICAL EXAMINATION RECOMMENDED BILATERAL TPI OF THE NECK AND CONTINUATION OF MEDICAL MARIJUANA. PATIENT HAS EXPRESSED UNDERSTANDING OF AND WAS IN AGREEMENT WITH TREATMENT PLAN. GIVEN TIME TO ASK QUESTIONS AND EXPRESS CONCERNS. , ISTOP REGISTRY REVIEWED AND DEMONSTRATES COMPLLIANCE. (REF # [id number] ) BRINGS IN MEDICATIONS WHICH IS APPROPRIATE FOR WHAT WAS DISPENSED. RECENT URINE TOXICOLOGY REVIEWED. NO UNAUTHORIZED MEDICATIONS. NO ILLICIT SUBSTANCES AND PRESCRIBED MEDICATIONS WERE PRESENT. PROCEDURE CODES FA211 ESTABILISHED PATIENT [facility] FACILITY CHARGE DISPOSITION & COMMUNICATION FOLLOW UP POST PROCEDURE (REASON: BILATERAL TPI OF THE NECK ) ELECTRONICALLY SIGNED BY DARIAN LIMA ON 02/11/2019 AT 08:57 AM EDT DISCLAIMER : THIS IS A VISIT SUMMARY EXTRACTED FROM THE [employer] CHART. IT IS NOT A COPY OF THE [employer] PROGRESS NOTE. MERLE
== END ==
LOC: M PAIN 10:00
PROVIDERS: ATTEND Family Medicine
DX: M79.18 Myalgia, other site (principal); M54.12 Radiculopathy, cervical region; K21.9 Gastro-esophageal reflux disease without esophagitis; F31.9 Bipolar disorder, unspecified; Z86.718 Personal history of other venous thrombosis and embolism; E78.5 Hyperlipidemia, unspecified; M47.812 Spondylosis without myelopathy or radiculopathy, cervical region; Z98.1 Arthrodesis status; G47.33 Obstructive sleep apnea (adult) (pediatric); K57.90 Diverticulosis of intestine, part unspecified, without perforation or abscess without bleeding; K64.8 Other hemorrhoids; Z90.710 Acquired absence of both cervix and uterus; Z90.49 Acquired absence of other specified parts of digestive tract; Z87.891 Personal history of nicotine dependence; Z88.2 Allergy status to sulfonamides; Z88.6 Allergy status to analgesic agent; Z88.8 Allergy status to other drugs, medicaments and biological substances; Z98.82 Breast implant status; Z79.899 Other long term (current) drug therapy

== ENCOUNTER → 2019-03-19 | Outpatient (CLI) | payer OTHER ==
[~2019-03-19] MED LIST changes: +BUPIVACAINE HCL 0.25% 10 ML VIAL As Ordered ONE; +BUPIVACAINE HCL 0.25% 30 ML VIAL As Ordered ONE; +TRIAMCINOLONE ACETONIDE SUSP 40 MG/ML VIAL (J3301) As Ordered ONE; +diazePAM 5 MG TAB As Ordered ONE; +oxyCODONE 5MG TAB As Ordered ONE
--- NOTE | 2019-04-01 01:09 | ECWPNPC ---
PATIENT NAME: PANCHITO WALKER : 1955 GENDER: FEMALE VISIT DATE: 03/19/2019 DISCHARGE DATE: 03/19/19 1101 VISIT LOCKED DATE TIME: PHYSICIAN: HAYLEE COHEN MD RESOURCE: HAYLEE COHEN MD REASON FOR APPOINTMENT 1. ISRAEL NECK, ISRAEL SHOULDER, RT THORACIC HISTORY OF PRESENT ILLNESS HISTORY OF PRESENT ILLNESS: PAIN THE PATIENT DESCRIBES THE PAIN... FALL RISK SCREENING: SCREENING :NO FALLS REPORTED IN THE LAST YEAR CURRENT MEDICATIONS TAKING CALCIUM 1500 MG TABLET 1 TABLET ORALLY DAILY TAKING MAY USE - - CURAMIN 2181 MG TID TAKING VITAMIN C 500 MG CAPSULE 1 TABLET ORALLY DAILY TAKING VITAMIN E 800 UNIT CAPSULE 1 TABLET ORALLY DAILY TAKING VITAMIN B COMPLEX - INJECTABLE 1 ML ORALLY DAILY TAKING FLONASE 50 MCG/ACT SUSPENSION 1 SPRAY IN EACH NOSTRIL NASALLY ONCE A DAY NEEDED FOR ACUTE FLARE TAKING STOOL SOFTENER 100 MG CAPSULE 1 CAPSULE NEEDED ORALLY ONCE A DAY TAKING SALINE NASAL SPRAY 0.65 % SOLUTION 2 SPRAYS IN EACH NOSTRIL NEEDED NASALLY FOUR TIMES DAILY NEEDED TAKING ESTRADIOL 2 MG TABLET 1 TABLET ORALLY ONCE A DAY TAKING OMEPRAZOLE 40 MG CAPSULE DELAYED RELEASE 1 CAPSULE ORALLY ONCE A DAY NOT-TAKING TRAMADOL HCL 50 MG TABLET 1 TABLET NEEDED ORALLY EVERY 6 HRS PRN PAIN MDD=4 FOR2 WEEKS SUPPLY MDD=4 NOT-TAKING ROSUVASTATIN CALCIUM 5 MG TABLET 1 TABLET ORALLY ONCE A DAY UNKNOWN VITAMIN D 1 CAPSULE 1 CAPSULE ORALLY ONCE A DAY UNKNOWN LITHIUM CARBONATE 150 MG CAPSULE 1 CAPSULE ORALLY TWICE A DAY UNKNOWN ALBUTEROL SULFATE HFA 108 (90 BASE) MCG/ACT AEROSOL SOLUTION 2 PUFFS NEEDED INHALATION EVERY 6 HRS UNKNOWN ARNUITY ELLIPTA 100 MCG/ACT AEROSOL POWDER BREATH ACTIVATED 1 PUFF INHALATION ONCE A DAY UNKNOWN CREON [id number] UNIT CAPSULE DELAYED RELEASE PARTICLES ORALLY TID UNKNOWN FERROUS GLUCONATE 324 (38 FE) MG TABLET 1 TABLET ORALLY ONCE A DAY UNKNOWN LOVASTATIN 40 MG TABLET 1 TABLET WITH THE EVENING MEAL ORALLY ONCE A DAY UNKNOWN CHOLECALCIFEROL 5000 UNIT CAPSULE 1 CAPSULE ORALLY ONCE A DAY MEDICATION LIST REVIEWED AND RECONCILED WITH THE PATIENT PAST MEDICAL HISTORY CHOLANGIOCARCINOMA S/P PYLORIS PRESERVING WHIPPLE PROCEDURE ON 04/24/2016 GERD BIPOLAR- [facility] LLE DVT S/P VERICOSE VEIN REPAIR 30 YEARS AGO HYPERLIPIDEMIA 10/2017 MRI CERVICAL SPINE: OSTOARTHRITIC CHANGES R C2-3 RIGHT C7-T1, MILD CERVCAL SPONDYLOSIS AT C3-4. ANTERIOR DISCECTOMY AND FUSION FROM C4-7 PREMATURE MENOPAUSE BILATERAL RENAL CYSTS R 9MM MID POLE/8MM LOVER POLE L 5MM MID POLE 08/2017 EGD, COLONOSCOPY DR. Salazar MILD DIVERTICULOSIS/MODERATE INTERNAL HEMORRHOIDS, DECREASED SPHINTER TONE ANNE -C-PAP 15 CM ALLERGIES ASPIRIN: HIVES - ALLERGY SULFA (FOR ALLERGY USE ONLY): HIVES - ALLERGY TYLENOL: HIVES - ALLERGY CYCLOBENZAPRINE HCL: HIVES - ALLERGY TRAZODONE HCL: HIVES - ALLERGY SURGICAL HISTORY HYSTERECTOMY 1988 PANCREATIC WHIPPLE 04/24/2016 APPENDECTOMY 1971 CHOLCYSTECTOMY 2009 BLADDER SUSPENSION 2010 BREAST IMPLANTS- BILATERAL 1987 CERVICAL FUSION 2010 FAMILY HISTORY FATHER: 74 YRS, OF CANCER, DIAGNOSED WITH UNSPECIFIED HEART DISEASE, OTHER MALIGNANT NEOPLASM OF UNSPECIFIED SITE MOTHER: 72 YRS, EMBOLIC HEART ATTACK, UNSPECIFIED HEART DISEASE, UNSPECIFIED CEREBRAL ARTERY OCCLUSION WITH CEREBRAL INFARCTION SIBLINGS: , DIET AT 51 HYPERTROPHY HEART DISEASE SON(S): ALIVE DAUGHTER(S): ALIVE 8 BROTHER(S) , 1 SISTER(S) . 2 SON(S) , 2 DAUGHTER(S) . DAUGHTER C OVARIAN CA AT 18SON C BIPOLAR3 BROTHERS C RHEMATIC HEART DISEASE4 BROTHERS 1 SISTER HT, HYPERLIPIDEMIA. SOCIAL HISTORY GENERAL: TOBACCO USE ARE YOU A:FORMER SMOKER HOW LONG HAS IT BEEN SINCE YOU LAST SMOKED?> 10 YEARS HIV / HEP-C SCREENING HIV TEST OFFERED TO PATIENT:YES DATE OFFERED:11/06/2017 PREVIOUSLY DONE HEP-C TEST OFFERED TO PATIENT:YES PREVIOUSLY DONE DATE OFFERED:11/06/2017 BROCHURE PROVIDED TO PATIENTNO OTHERS AT HOME: TIAN. EDUCATION LEVEL OF EDUCATION:FINISHED HIGH SCHOOL DIET: NO HIGH FATS. LANGUAGE LANGUAGES SPOKEN:BOTH ROMANSH AND NORTHERN IRISH DOMESTIC VIOLENCE DO YOU FEEL SAFE IN YOUR ENVIRONMENT?YES RECREATIONAL DRUG USE DRUG USE?NO EXERCISE: NO REGULAR EXERCISE. LEARNING BARRIERS / SPECIAL NEEDS CHANGE FROM LAST VISIT?YES LOWER ABDOMINAL PAIN. FEELING OF CRAMPS BARRIERS TO LEARNING?NO HEARING IMPAIRED?NO VISION IMPAIRED?YES COGNITIVELY IMPAIRED?NO :CORRECTIVE LENSES READING READINESS TO LEARN?YES LEARNING PREFERENCES?NO LEARNING CAPABILITIES PRESENT?YES EMOTIONAL BARRIERS?NO SPECIAL DEVICES?NO EVAPORATOR HELPER NEEDED?YES DEPENDS ON WORDING, PRETTY FLUENT LUNG CANCER SCREENING SMOKING STATUS:FORMER SMOKER IS THE PATIENT BETWEEN THE AGE OF 55 AND 77?YES HAVE YOU QUIT SMOKING WITHIN THE PAST 15 YEARS?NO PAIN CLINIC PFS, CLERGY, PUBLIC HEALTH REFERRALS PFS REFERRAL NEEDED?NO CLERGY REFERRAL NEEDED?NO PUBLIC HEALTH REFERRAL NEEDED?NO WAS THE PROVIDER NOTIFIED OF ANY PERTINENT INFO?YES HAS THE PATIENT BEEN EDUCATED REGARDING HIS/HER PLAN OF CARE?YES HAS THE PATIENT BEEN EDUCATED REGARDING PAIN, THE RISK FOR PAIN, THE IMPORTANCE OF EFFECTIVE PAIN MANAGEMENT, AND THE PAIN ASSESSMENT PROCESS?YES LATEX QUESTIONNAIRE LATEX ALLERGY : HAVE YOU EVER DEVELOPED ANY TYPE OF REACTION AFTER HANDLING LATEX PRODUCTS SUCH RUBBER GLOVES, CONDOMS, DIAPHRAGMS, BALLOONS, SOCKS, OR UNDERWEAR?NO LATEX ALLERGY : HAVE YOU EVER DEVELOPED ANY TYPE OF REACTION DURING OR AFTER DENTAL APPOINTMENT, VAGINAL/RECTAL EXAMINATION, SURGICAL PROCEDURE, OR ANY OTHER EXPOSURE?NO DATE ASKED : 12/03/2018 LATEX RISK : HAVE YOU EVER HAD ANY DIFFICULTY BREATHING OR HIVES AFTER EATING OR HANDLING ANY FRUITS, OR VEGETABLES; SUCH KIWI, BANANAS, STONE FRUITS, OR CHESTNUTSNO LATEX RISK : DO YOU HAVE A PREVIOUS PERSONAL HISTORY OF MORE THAN NINE SURGERIES, SPINA BIFIDA, OR REPEATED CATHERIZATIONS? YES - PLEASE INDICATE : > 9 SURGERIES LATEX RISK : ARE YOU FREQUENTLY EXPOSED TO LATEX PRODUCTS IN YOUR OCCUPATION?YES CAFFEINE CAFFEINE USE?YES HOW OFTEN AND HOW MUCH? 1 CUP OF COFFEE ADVANCE DIRECTIVE ADVANCE DIRECTIVE DISCUSSED WITH PATIENT:YES PT DECLINED INFORMATION AT THIS TIME 05/23/18 JAIN [id number] RESTORATIONISM MARITAL STATUS: ENGAGED. ALCOHOL SCREENING DID YOU HAVE A DRINK CONTAINING ALCOHOL IN THE PAST YEAR?NO POINTS0 INTERPRETATIONNEGATIVE OCCUPATION: DISABLED. SEXUAL HX HAD SEX IN THE LAST 12 MONTHS (VAGINAL, ORAL, OR ANAL)?YES WITHMEN ONLY REVIEWED WITH PT 05/23/18 1446 BVREVIEWED WITH PT 02/10/19 1030 NLJ. HOSPITALIZATION/MAJOR DIAGNOSTIC PROCEDURE SURGERY RELATAED REVIEW OF SYSTEMS REVIEWED BY: PROVIDER: . CONSTITUTIONAL: ANY CHANGE IN YOUR MEDICAL CONDITION? NO . CHILLS NO . FEVER NO . INFECTION: DO YOU HAVE NEW INFECTIONS? NO . DO YOU HAVE HISTORY OF MRSA? NO . MUSCULOSKELETAL: ANY NEW PATTERNS OF PAIN OR NUMBNESS? YES . GASTROENTEROLOGY: ANY NEW CHANGE IN BOWEL CONTROL? NO . GENITOURINARY: ANY NEW CHANGE IN BLADDER CONTROL? NO . IS THERE A CHANCE YOU COULD BE ? NO . HEMATOLOGY/LYMPH: DO YOU TAKE ANY BLOOD THINNERS? (FOR EXAMPLE- COUMADIN, PLAVIX, AGGRENOX, PLATEL, PRADAXA, OR XARELTO) NO . WHEN WAS YOUR LAST DOSE? DATE: TIME: . NEUROLOGY: HAVE YOU FALLEN IN THE PAST 12 MONTHS? NO . ANY NEW EXTREMITY NUMBNESS OR WEAKNESS? NO . CARDIOLOGY: DO YOU HAVE A PACEMAKER OR DEFIBRILLATOR? NO . RESPIRATORY: HAVE YOU BEEN SICK IN THE PAST WEEK? NO . FEVER NO . FLU LIKE SYMPTOMS? NO . COUGH NO . INTEGUMENTARY: DO YOU HAVE ANY RASHES OR OPEN SORES? NO . ALLERGIC/IMMUNO: ARE YOU ALLERGIC TO IV DYE? NO . ANY NEW ALLERGIES? NO . PSYCHIATRIC: DO YOU HAVE THOUGHTS OF HURTING YOURSELF OR SOMEONE ELSE? NO . ARE YOU ABUSED, NEGLECTED, OR IN AN UNSAFE ENVIRONMENT? NO . ENDOCRINOLOGY: ARE YOU DIABETIC? NO . OTHER: DO YOU NEED ANY PRESCRIPTIONS? NO . IF YES, PLEASE LIST: ____ . ANY NEW PROBLEMS WITH YOUR MEDICATIONS? NO . WHEN DID YOU LAST EAT? ____LAST EVENING 830 PM . WHEN DID YOU LAST DRINK? ____LAST NIGHT 9 PM . WHAT DID YOU LAST DRINK? ____WATER . NAME OF PERSON DRIVING YOU HOME? ____PEDROROSA CARTAGENA . DO YOU HAVE ANY OTHER QUESTIONS OR CONCERNS NO . VITAL SIGNS WT 170.8 LBS, HT 64 IN, BMI 29.31 INDEX, BP 136/63 MM HG, HR 56 /MIN, RR 18 /MIN, TEMP 97.3 F, OXYGEN SAT % 97%, SAFE IN ENV? (Y/N) Y, NA INITIALS AW 0940, REVIEWED BY: KG. ASSESSMENTS MYALGIA, OTHER SITE - M79.18 (PRIMARY) PROCEDURES PN TRIGGER POINT INJECTION WITH STEROIDS PRE PROCEDURE DIAGNOSIS 1. MYALGIA 2. PAIN AT BILATERAL NECK AREA, BILATERAL SHOULDER AREA, AND RIGHT THORACIC AREA. POST PROCEDURE DIAGNOSIS 1. MYALGIA 2. PAIN AT BILATERAL NECK AREA, BILATERAL SHOULDER AREA, AND RIGHT THORACIC AREA. PROCEDURE TRIGGER POINT INJECTION AT RIGHT AND LEFT NECK AREA, RIGHT AND LEFT SHOULDER AREA, AND RIGHT THORACIC AREA. SURGEON DR. HAYLEE COHEN DEVELOPER ADVISOR NONE ANESTHESIA LOCAL PRE PROCEDURE NOTE THE PATIENT HAS A HISTORY OF CHRONIC PAIN AT THE RIGHT AND LEFT NECK AREA, RIGHT AND LEFT SHOULDER AREA, AND RIGHT THORACIC AREA. I EVALUATED THE PATIENT AND REVIEWED THE CHART. THERE IS EVIDENCE OF BANDS OF TISSUE WITH RESTRICTION OF MOVEMENT AND PRESENCE OF TRIGGER POINT AT THE AFFECTED AREA. I WENT OVER THE RISKS, ALTERNATIVES, AND BENEFITS ASSOCIATED WITH THIS PROCEDURE. THE PATIENT WOULD LIKE TO PROCEED AND GIVES CONSENT TO PERFORM THE PROCEDURE. THE PATIENT DENIES UNEXPLAINABLE WEIGHT LOSS, FEVER, CHILLS, OR NEW CHANGES IN URINARY OR BOWEL CONTROL DESCRIPTION OF PROCEDURE THE PATIENT WAS BROUGHT TO THE PROCEDURE ROOM AND PLACED IN THE SITTING POSITION. THE AREA WAS CLEANED WITH ALCOHOL. THE PROCEDURE WAS DONE USING ASEPTIC STERILE TECHNIQUE. I CHECKED LATERALITY AND THE LEVEL WHERE THE PROCEDURE WAS GOING TO BE PERFORMED WITH THE PATIENT AND THE SUPPORTING STAFF AT THE MOMENT OF THE TIME OUT IN THE PROCEDURE ROOM. USING A 25-GAUGE NEEDLE, TRIGGER POINTS WERE INJECTED AT THE RIGHT AND LEFT NECK AREA, RIGHT AND LEFT SHOULDER AREA, AND RIGHT THORACIC AREA WITH A TOTAL OF 40 ML OF BUPIVACAINE 0.25% AND KENALOG 40 MG. THERE WAS NO EVIDENCE OF BLOOD, PARESTHESIA OR CEREBROSPINAL FLUID DURING THE PROCEDURE. THE PATIENT WAS SENT TO THE RECOVERY ROOM. THE PATIENT WAS MOVING THE EXTREMITIES AND DOING WELL. THERE WAS NO COMPLICATION DURING THE PROCEDURE POST PROCEDURE NOTE THE PATIENT WILL BE SEEN IN A FOLLOW UP IN THE NEXT FEW WEEKS. INSTRUCTIONS WERE GIVEN, QUESTIONS WERE ANSWERED, AND THE PATIENT EXPRESSED UNDERSTANDING AND AGREES WITH THE PLAN. I, NASREEN MONTES, DOCUMENTED THE ABOVE INFORMATION ACTING A SCRIBE FOR DR. COHEN. I HAVE REVIEWED THE ABOVE DOCUMENT, WRITTEN BY NASREEN MONTES SCRIBKarol AND I VERIFY THAT IT IS ACCURATE. PROCEDURE CODES 05511 INJECT TRIGGER POINTS 3/> DISPOSITION & COMMUNICATION FOLLOW UP 3 WEEKS ELECTRONICALLY SIGNED BY HAYLEE CHOEN MD, MD ON 03/31/2019 AT 10:48 AM EDT DISCLAIMER : THIS IS A VISIT SUMMARY EXTRACTED FROM THE [employer] CHART. IT IS NOT A COPY OF THE [employer] PROGRESS NOTE. MERLE
== END ==
LOC: M PAIN 09:45
PROVIDERS: ATTEND Anesthesiology
DX: M79.18 Myalgia, other site (principal); K21.9 Gastro-esophageal reflux disease without esophagitis; F31.9 Bipolar disorder, unspecified; E78.5 Hyperlipidemia, unspecified; G47.33 Obstructive sleep apnea (adult) (pediatric); Z87.891 Personal history of nicotine dependence; Z79.899 Other long term (current) drug therapy; Z98.1 Arthrodesis status; Z90.49 Acquired absence of other specified parts of digestive tract; Z90.710 Acquired absence of both cervix and uterus; Z88.2 Allergy status to sulfonamides; Z88.6 Allergy status to analgesic agent; Z88.8 Allergy status to other drugs, medicaments and biological substances
CPT/HCPCS: 20553; J3301

== ENCOUNTER → 2019-04-02 | Outpatient (CLI) | payer OTHER ==
[~2019-04-02] MED LIST changes: +ATOR1TAB21 PO; +AUGM875T28 PO; -BUPIVACAINE HCL 0.25% 10 ML VIAL As Ordered ONE; -BUPIVACAINE HCL 0.25% 30 ML VIAL As Ordered ONE; +CIPR-249 PO; +CLON-412 PO; -LORA0.5T11 PO; +LORA0.5T5 PO; -OMEP40CA2 PO; +OMEP40CA97 PO; -TRIAMCINOLONE ACETONIDE SUSP 40 MG/ML VIAL (J3301) As Ordered ONE; -diazePAM 5 MG TAB As Ordered ONE; -oxyCODONE 5MG TAB As Ordered ONE
--- NOTE | 2019-04-04 01:17 | ECWPNPC ---
PATIENT NAME: PANCHITO WALKER : 1955 GENDER: FEMALE VISIT DATE: 04/02/2019 DISCHARGE DATE: 04/02/19943 VISIT LOCKED DATE TIME: PHYSICIAN: UMU HEALY RESOURCE: UMU HEALY REASON FOR APPOINTMENT 1. POST TPI HISTORY OF PRESENT ILLNESS HISTORY OF PRESENT ILLNESS: PAIN THE PATIENT DESCRIBES THE PAIN... 63-YEAR-OLD FEMALE IN FOR POST TPI FOLLOW-UP. SHE RATES HER PAIN PREPROCEDURE AT AN 8-9 OUT OF 10 AND POSTPROCEDURE AT A 0 OUT OF 10. SHE DOES ADMIT THAT THE PAIN HAS STARTED TO RETURN. SHE RATES HER PAIN CURRENTLY AT A 4 OUT OF 10 AND DESCRIBES IT BURNING, AND SHOOTING. FALL RISK SCREENING: SCREENING :NO FALLS REPORTED IN THE LAST YEAR CURRENT MEDICATIONS TAKING CALCIUM 1500 MG TABLET 1 TABLET ORALLY DAILY TAKING MAY USE - - CURAMIN 2181 MG TID TAKING VITAMIN C 500 MG CAPSULE 1 TABLET ORALLY DAILY TAKING VITAMIN E 800 UNIT CAPSULE 1 TABLET ORALLY DAILY TAKING VITAMIN B COMPLEX - INJECTABLE 1 ML ORALLY DAILY TAKING FLONASE 50 MCG/ACT SUSPENSION 1 SPRAY IN EACH NOSTRIL NASALLY ONCE A DAY NEEDED FOR ACUTE FLARE TAKING STOOL SOFTENER 100 MG CAPSULE 1 CAPSULE NEEDED ORALLY ONCE A DAY TAKING SALINE NASAL SPRAY 0.65 % SOLUTION 2 SPRAYS IN EACH NOSTRIL NEEDED NASALLY FOUR TIMES DAILY NEEDED TAKING ESTRADIOL 2 MG TABLET 1 TABLET ORALLY ONCE A DAY TAKING LIPITOR 20 MG TABLET 1 TABLET ORALLY ONCE A DAY TAKING CREON [id number] UNIT CAPSULE DELAYED RELEASE PARTICLES ORALLY TID NOT-TAKING OMEPRAZOLE 40 MG CAPSULE DELAYED RELEASE 1 CAPSULE ORALLY ONCE A DAY NOT-TAKING TRAMADOL HCL 50 MG TABLET 1 TABLET NEEDED ORALLY EVERY 6 HRS PRN PAIN MDD=4 FOR2 WEEKS SUPPLY MDD=4 NOT-TAKING ROSUVASTATIN CALCIUM 5 MG TABLET 1 TABLET ORALLY ONCE A DAY NOT-TAKING VITAMIN D 1 CAPSULE 1 CAPSULE ORALLY ONCE A DAY NOT-TAKING LITHIUM CARBONATE 150 MG CAPSULE 1 CAPSULE ORALLY TWICE A DAY NOT-TAKING ALBUTEROL SULFATE HFA 108 (90 BASE) MCG/ACT AEROSOL SOLUTION 2 PUFFS NEEDED INHALATION EVERY 6 HRS NOT-TAKING ARNUITY ELLIPTA 100 MCG/ACT AEROSOL POWDER BREATH ACTIVATED 1 PUFF INHALATION ONCE A DAY NOT-TAKING FERROUS GLUCONATE 324 (38 FE) MG TABLET 1 TABLET ORALLY ONCE A DAY NOT-TAKING LOVASTATIN 40 MG TABLET 1 TABLET WITH THE EVENING MEAL ORALLY ONCE A DAY NOT-TAKING CHOLECALCIFEROL 5000 UNIT CAPSULE 1 CAPSULE ORALLY ONCE A DAY MEDICATION LIST REVIEWED AND RECONCILED WITH THE PATIENT PAST MEDICAL HISTORY CHOLANGIOCARCINOMA S/P PYLORIS PRESERVING WHIPPLE PROCEDURE ON 04/24/2016 GERD BIPOLAR- [facility] LLE DVT S/P VERICOSE VEIN REPAIR 30 YEARS AGO HYPERLIPIDEMIA 10/2017 MRI CERVICAL SPINE: OSTOARTHRITIC CHANGES R C2-3 RIGHT C7-T1, MILD CERVCAL SPONDYLOSIS AT C3-4. ANTERIOR DISCECTOMY AND FUSION FROM C4-7 PREMATURE MENOPAUSE BILATERAL RENAL CYSTS R 9MM MID POLE/8MM LOVER POLE L 5MM MID POLE 08/2017 EGD, COLONOSCOPY DR. Salazar MILD DIVERTICULOSIS/MODERATE INTERNAL HEMORRHOIDS, DECREASED SPHINTER TONE ANNE -C-PAP 15 CM ALLERGIES ASPIRIN: HIVES - ALLERGY SULFA (FOR ALLERGY USE ONLY): HIVES - ALLERGY TYLENOL: HIVES - ALLERGY CYCLOBENZAPRINE HCL: HIVES - ALLERGY TRAZODONE HCL: HIVES - ALLERGY SURGICAL HISTORY HYSTERECTOMY 1988 PANCREATIC WHIPPLE 04/24/2016 APPENDECTOMY 1971 CHOLCYSTECTOMY 2009 BLADDER SUSPENSION 2010 BREAST IMPLANTS- BILATERAL 1987 CERVICAL FUSION 2010 FAMILY HISTORY FATHER: 74 YRS, OF CANCER, DIAGNOSED WITH UNSPECIFIED HEART DISEASE, OTHER MALIGNANT NEOPLASM OF UNSPECIFIED SITE MOTHER: 72 YRS, EMBOLIC HEART ATTACK, UNSPECIFIED HEART DISEASE, UNSPECIFIED CEREBRAL ARTERY OCCLUSION WITH CEREBRAL INFARCTION SIBLINGS: , DIET AT 51 HYPERTROPHY HEART DISEASE SON(S): ALIVE DAUGHTER(S): ALIVE 8 BROTHER(S) , 1 SISTER(S) . 2 SON(S) , 2 DAUGHTER(S) . DAUGHTER C OVARIAN CA AT 18SON C BIPOLAR3 BROTHERS C RHEMATIC HEART DISEASE4 BROTHERS 1 SISTER HT, HYPERLIPIDEMIA. SOCIAL HISTORY GENERAL: TOBACCO USE ARE YOU A:FORMER SMOKER HOW LONG HAS IT BEEN SINCE YOU LAST SMOKED?> 10 YEARS HIV / HEP-C SCREENING HIV TEST OFFERED TO PATIENT:YES DATE OFFERED:11/06/2017 PREVIOUSLY DONE HEP-C TEST OFFERED TO PATIENT:YES PREVIOUSLY DONE DATE OFFERED:11/06/2017 BROCHURE PROVIDED TO PATIENTNO OTHERS AT HOME: TIAN. EDUCATION LEVEL OF EDUCATION:FINISHED HIGH SCHOOL DIET: NO HIGH FATS. LANGUAGE LANGUAGES SPOKEN:BOTH SWAZI AND NEPALI DOMESTIC VIOLENCE DO YOU FEEL SAFE IN YOUR ENVIRONMENT?YES RECREATIONAL DRUG USE DRUG USE?NO EXERCISE: NO REGULAR EXERCISE. LEARNING BARRIERS / SPECIAL NEEDS CHANGE FROM LAST VISIT?YES LOWER ABDOMINAL PAIN. 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 HELPER NEEDED?YES DEPENDS ON WORDING, PRETTY FLUENT LUNG CANCER SCREENING SMOKING STATUS:FORMER SMOKER IS THE PATIENT BETWEEN THE AGE OF 55 AND 77?YES HAVE YOU QUIT SMOKING WITHIN THE PAST 15 YEARS?NO PAIN CLINIC PFS, CLERGY, PUBLIC HEALTH REFERRALS PFS REFERRAL NEEDED?NO CLERGY REFERRAL NEEDED?NO PUBLIC HEALTH REFERRAL NEEDED?NO WAS THE PROVIDER NOTIFIED OF ANY PERTINENT INFO?YES HAS THE PATIENT BEEN EDUCATED REGARDING HIS/HER PLAN OF CARE?YES HAS THE PATIENT BEEN EDUCATED REGARDING PAIN, THE RISK FOR PAIN, THE IMPORTANCE OF EFFECTIVE PAIN MANAGEMENT, AND THE PAIN ASSESSMENT PROCESS?YES LATEX QUESTIONNAIRE LATEX ALLERGY : HAVE YOU EVER DEVELOPED ANY TYPE OF REACTION AFTER HANDLING LATEX PRODUCTS SUCH RUBBER GLOVES, CONDOMS, DIAPHRAGMS, BALLOONS, SOCKS, OR UNDERWEAR?NO LATEX ALLERGY : HAVE YOU EVER DEVELOPED ANY TYPE OF REACTION DURING OR AFTER DENTAL APPOINTMENT, VAGINAL/RECTAL EXAMINATION, SURGICAL PROCEDURE, OR ANY OTHER EXPOSURE?NO LATEX RISK : HAVE YOU EVER HAD ANY DIFFICULTY BREATHING OR HIVES AFTER EATING OR HANDLING ANY FRUITS, OR VEGETABLES; SUCH KIWI, BANANAS, STONE FRUITS, OR CHESTNUTSNO LATEX RISK : DO YOU HAVE A PREVIOUS PERSONAL HISTORY OF MORE THAN NINE SURGERIES, SPINA BIFIDA, OR REPEATED CATHERIZATIONS? YES - PLEASE INDICATE : > 9 SURGERIES LATEX RISK : ARE YOU FREQUENTLY EXPOSED TO LATEX PRODUCTS IN YOUR OCCUPATION?YES DATE ASKED : 12/03/2018 CAFFEINE CAFFEINE USE?YES HOW OFTEN AND HOW MUCH? 1 CUP OF COFFEE ADVANCE DIRECTIVE ADVANCE DIRECTIVE DISCUSSED WITH PATIENT:YES PT DECLINED HCP INFORMATION, STATES SHE HAS THE INFORMATION AT HOME. MOSQUE [id number] CONGREGATIONAL MARITAL STATUS: ENGAGED. ALCOHOL SCREENING DID YOU HAVE A DRINK CONTAINING ALCOHOL IN THE PAST YEAR?NO POINTS0 INTERPRETATIONNEGATIVE OCCUPATION: DISABLED. SEXUAL HX HAD SEX IN THE LAST 12 MONTHS (VAGINAL, ORAL, OR ANAL)?YES WITHMEN ONLY REVIEWED WITH PT 05/23/18 1446 BVREVIEWED WITH PT 02/10/19 1030 NLJREVIEWED WITH PATIENT 04/02/19 0979 JS. HOSPITALIZATION/MAJOR DIAGNOSTIC PROCEDURE SURGERY RELATAED REVIEW OF SYSTEMS REVIEWED BY: PROVIDER: IDALIA HEALY INFORMATICA DEVELOPER-C . CONSTITUTIONAL: ANY CHANGE IN YOUR MEDICAL CONDITION? NO . CHILLS NO . FEVER NO . INFECTION: DO YOU HAVE NEW INFECTIONS? NO . DO YOU HAVE HISTORY OF MRSA? NO . MUSCULOSKELETAL: ANY NEW PATTERNS OF PAIN OR NUMBNESS? NO . GASTROENTEROLOGY: ANY NEW CHANGE IN BOWEL CONTROL? NO . GENITOURINARY: ANY NEW CHANGE IN BLADDER CONTROL? NO . IS THERE A CHANCE YOU COULD BE ? NO . HEMATOLOGY/LYMPH: DO YOU TAKE ANY BLOOD THINNERS? (FOR EXAMPLE- COUMADIN, PLAVIX, AGGRENOX, PLATEL, PRADAXA, OR XARELTO) NO . WHEN WAS YOUR LAST DOSE? DATE: TIME: . NEUROLOGY: HAVE YOU FALLEN IN THE PAST 12 MONTHS? NO . ANY NEW EXTREMITY NUMBNESS OR WEAKNESS? NO . CARDIOLOGY: DO YOU HAVE A PACEMAKER OR DEFIBRILLATOR? NO . RESPIRATORY: HAVE YOU BEEN SICK IN THE PAST WEEK? NO . FEVER NO . FLU LIKE SYMPTOMS? NO . COUGH NO . INTEGUMENTARY: DO YOU HAVE ANY RASHES OR OPEN SORES? NO . ALLERGIC/IMMUNO: ARE YOU ALLERGIC TO IV DYE? NO . ANY NEW ALLERGIES? NO . PSYCHIATRIC: DO YOU HAVE THOUGHTS OF HURTING YOURSELF OR SOMEONE ELSE? NO . ARE YOU ABUSED, NEGLECTED, OR IN AN UNSAFE ENVIRONMENT? NO . ENDOCRINOLOGY: ARE YOU DIABETIC? NO . OTHER: DO YOU NEED ANY PRESCRIPTIONS? NO . IF YES, PLEASE LIST: ____ . ANY NEW PROBLEMS WITH YOUR MEDICATIONS? NO . WHEN DID YOU LAST EAT? ____ . WHEN DID YOU LAST DRINK? ____ . WHAT DID YOU LAST DRINK? ____ . NAME OF PERSON DRIVING YOU HOME? ____ . DO YOU HAVE ANY OTHER QUESTIONS OR CONCERNS NO . VITAL SIGNS WT 168.8 LBS, HT 64 IN, BMI 28.97 INDEX, BP 127/60 MM HG, HR 59 /MIN, RR 18 /MIN, TEMP 96.2 F, OXYGEN SAT % 97%, SAFE IN ENV? (Y/N) YES, NA INITIALS HI 09:33, REVIEWED BY: VEDA. EXAMINATION GENERAL EXAMINATION: GENERALNO ACUTE DISTRESS, WELL NOURISHED AND HYDRATED. PSYCHAPPROPRIATE MOOD AND AFFECT . NECK:POINT TENDER BILATERAL NECK AND SHOULDERS, STARTING SKIN SHOWS NO ERYTHEMA, ECCHYMOSIS, INCREASED WARMTH, AND/OR SKIN ERUPTIONS NOTED.. LUNGS:CLEAR TO AUSCULTATION BILATERALLY, NO WHEEZES, RHONCHI, RALES. HEART:NO MURMURS, REGULAR RATE AND RHYTHM. BACK:POINT TENDER BILATERAL LOW BACK , SURROUNDING SKIN SHOWS NO ERYTHEMA, ECCHYMOSIS, INCREASED WARMTH, AND/OR SKIN ERUPTIONS NOTED. . ASSESSMENTS MYALGIA, OTHER SITE - M79.18 (PRIMARY) TREATMENT MYALGIA, OTHER SITE CLINICAL NOTES: 63-YEAR-OLD FEMALE IN FOR POST TPI FOLLOW-UP. GIVEN PRESENTING SYMPTOMS AND RESULTS OF PHYSICAL EXAMINATION RECOMMENDED TPI OF BILATERAL NECK, SHOULDERS, AND LOW BACK. PATIENT HAS EXPRESSED UNDERSTANDING OF AND WAS IN AGREEMENT WITH TREATMENT PLAN. GIVEN TIME TO ASK QUESTIONS AND EXPRESS CONCERNS. PREVENTIVE MEDICINE PAIN CLINIC TEACHING: PROCEDURE TEACHING REVIEWED INFORMATION ON TRIGGER POINT INJECTIONS WITH PATIENT. ALSO REVIEWED PRE-PROCEDURE INSTRUCTIONS. PATIENT VERBALIZED AN UNDERSTANDING. SHIRA SOMMERS 04/02/2019 9:43:09 AM > . PROCEDURE CODES FA211 ESTABILISHED PATIENT [facility] CHARGE DISPOSITION & COMMUNICATION FOLLOW UP POST PROCEDURE (REASON: BILATERAL TPI OF THE NECK, SHOULDERS, AND LOW BACK) ELECTRONICALLY SIGNED BY DARIAN LIMA ON 04/03/2019 AT 10:20 AM EDT DISCLAIMER : THIS IS A VISIT SUMMARY EXTRACTED FROM THE [employer] CHART. IT IS NOT A COPY OF THE [employer] PROGRESS NOTE. MERLE
== END ==
LOC: M PAIN 09:00
PROVIDERS: ATTEND Family Medicine
DX: M79.18 Myalgia, other site (principal); Z86.59 Personal history of other mental and behavioral disorders; E78.5 Hyperlipidemia, unspecified; G47.33 Obstructive sleep apnea (adult) (pediatric); Z87.891 Personal history of nicotine dependence; Z88.2 Allergy status to sulfonamides; Z88.6 Allergy status to analgesic agent; Z88.8 Allergy status to other drugs, medicaments and biological substances; Z79.899 Other long term (current) drug therapy

== ENCOUNTER 2019-05-11 08:44 | Emergency (ER) | payer MEDICAID, OTHER ==
[~2019-05-11] VITALS: Ht 162.6 cm; Wt 74.5 kg
[~2019-05-11 08:44] MED LIST changes: -ATOR1TAB21 PO; -AUGM875T28 PO; -CIPR-249 PO; -CLON-412 PO; +LORA0.5T11 PO; -LORA0.5T5 PO
--- NOTE | 2019-05-11 09:40 | REP ---
Clinical: Acute chest pain . Comparison: 03/09/2018 . Findings: The mediastinum and cardiac silhouette are stable and within normal limits for portable technique. The lung nur are clear without acute consolidation, effusion, or pneumothorax. Skeletal structures are intact. Impression: No acute cardiopulmonary process appreciated. Electronically Signed by Jameson Vela MD 05/11/2019 09:32 A
[2019-05-11 09:46] LABS: BASO # 0.1 10^3/uL (0.0-0.2); EOS # 0.6 10^3/uL (0.0-0.5); EOS % 6.3 % (0.0-3.0); HEMOGLOBIN 12.5 g/dl (12.0-15.5); LYMPH # 2.5 10^3/uL (1.5-5.0); LYMPH % 24.4 % (24.0-44.0); MEAN CORPUSCULAR HEMOGLOBIN 26.5 pg (27.0-33.0); MEAN CORPUSCULAR HGB CONC 32.1 g/dl (32.0-36.5); MEAN CORPUSCULAR VOLUME 82.8 fl (80.0-96.0); MONO # 0.6 10^3/uL (0.0-0.8); MONO % 6.1 % (0.0-5.0); NEUTROPHILS # 6.3 10^3/uL (1.5-8.5); NEUTROPHILS % 61.9 % (36.0-66.0); PLATELET COUNT, AUTOMATED 214 10^3/uL (150-450); RED BLOOD COUNT 4.71 10^6/uL (4.00-5.40); WHITE BLOOD COUNT 10.1 10^3/uL (4.0-10.0)
[2019-05-11] MEDS ORDERED: ISOVUE-370 76% 100ML VIAL (Q9967) As Ordered ONE (09:46)
[2019-05-11] MEDS ORDERED: CLON-412 PO (09:50)
[2019-05-11] MEDS ORDERED: ATOR1TAB21 PO (09:50)
[2019-05-11 10:18] LABS: ALBUMIN 2.9 GM/DL (3.2-5.2); ALT/SGPT 12 U/L (12-78); BILIRUBIN,DIRECT < 0.1 MG/DL (0.0-0.2); BILIRUBIN,TOTAL 0.2 MG/DL (0.2-1.0); CK-MB VALUE MASS < 1.0 NG/ML (<3.6); CPK CREATINE PHOSPHOKINASE 39 U/L (26-192); FREE T4 0.98 NG/DL (0.76-1.46); LIPASE 57 U/L (73-393); MB/CK RELATIVE INDEX 2.56 (< OR =4); TROPONIN I < 0.02 NG/ML (< 0.10)
--- NOTE | 2019-05-11 10:24 | REP ---
Clinical: Acute chest pain and shortness of breath with history of pancreatic carcinoma. Technique: Axial contrast enhanced images from the thoracic inlet to the upper abdomen using 100 ml Isovue 370 intravenous contrast material and multiplanar re-formations including MIP reconstructions. Pulmonary embolus technique. Findings: Satisfactory enhancement of the pulmonary vasculature is achieved and no filling defects are identified to suggest pulmonary embolus. Thoracic aorta is normal and without aneurysm or dissection. Heart and pericardium are normal. Lung nur demonstrate minimal posterior basilar dependent changes. No focal consolidation or effusion. No obvious nodule or mass. No pneumothorax. No adenopathy. Bilateral mammoplasty. Osseous structures are intact without focal abnormality. Impression: No evidence for pulmonary embolus. Normal thoracic aorta. No acute mediastinal or pleuroparenchymal process. Electronically Signed by Jameson Vela MD 05/11/2019 10:16 A
--- NOTE | 2019-05-11 10:27 | REP ---
Clinical: Acute chest and abdominal pain. History of pancreatic carcinoma. Technique: Axial contrast enhanced images from the lung bases to the pubic symphysis using 100 ml Isovue 370 intravenous contrast material with coronal and sagittal re-formations. Comparison: 09/11/2018. Findings: Lung bases are clear. Visualized heart and pericardium normal. The liver, spleen, bilateral adrenal glands and kidneys are essentially normal/stable. Small renal hypodensities are again noted and consistent with cysts. No perinephric stranding or hydronephrosis noted. Evidence of prior Whipple procedure. No biliary ductal dilatation is appreciated. Evaluation of the enteric system suggests mucosal thickening involving the transverse and proximal descending colon suggesting the possibility of colitis. No bowel obstruction. Sigmoid diverticula noted without acute diverticulitis. Normal terminal ileum and cecum identified in the right lower quadrant. Pelvis demonstrates normal bladder and evidence for prior hysterectomy. No ascites. No free air. No adenopathy. Abdominal aorta and vasculature without aneurysm or dissection. Musculoskeletal structures intact. Impression: 1. Findings to suggest fracture/inflammatory colitis and correlation is recommended. 2. Scattered sigmoid diverticula without acute diverticulitis. 3. Stable small renal hypodensities compatible with cysts. 4. Evidence of prior Whipple procedure. Electronically Signed by Jameson Vela MD 05/11/2019 10:20 A
[2019-05-11 13:18] LABS: CK-MB VALUE MASS < 1.0 NG/ML (<3.6); CPK CREATINE PHOSPHOKINASE 37 U/L (26-192); TROPONIN I < 0.02 NG/ML (< 0.10)
[2019-05-11 13:42] LABS: HEMOGLOBIN A1c 6.3 %
[2019-05-11] MEDS ORDERED: CIPR-249 PO (13:56)
[2019-05-11] MEDS ORDERED: metroNIDAZOLE (FLAGYL) 500 MG TAB PO ONE (14:00)
[2019-05-11] MEDS ORDERED: CIPROFLOXACIN 500 MG TAB PO ONE (14:00)
[2019-05-11] MEDS ORDERED: AUGM875T28 PO (14:02)
[2019-05-11 14:15] VITALS: BP 132/62
[2019-05-11] MEDS ORDERED: AUGMENTIN 875 MG TAB PO ONE (14:15)
--- NOTE | 2019-05-11 20:22 | ECGEPIP ---
[facility] - ED Test Date: 2019-05-11 Pat Name: PANCHITO WALKER Department: Room: - Gender: Female Preload Supervisor: vanessa : 1955 Requested By: Poornima Beckwith Order Number: [id number] Reading MD: Sean Collado Measurements Intervals [place] Rate: 62 P: 64 PA: 160 QRS: 49 QRSD: 89 T: 47 QT: 427 QTc: 436 Interpretive Statements SINUS RHYTHM POSSIBLE RIGHT VENTRICULAR CONDUCTION DELAY NONSPECIFIC ST T WAVE CHANGES CW 04/17/[address] T WAVE CHANGES Electronically Signed on 05-11-2019 20:22:32 EDT by Sean Collado
--- NOTE | 2019-05-11 20:32 | ECGEPIP ---
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
== END 2019-05-11 14:38 | disposition home or self-care (01) ==
LOC: M ED 08:44
DX: R07.89 Other chest pain (principal); K52.9 Noninfective gastroenteritis and colitis, unspecified; E11.9 Type 2 diabetes mellitus without complications; E78.5 Hyperlipidemia, unspecified; Z85.07 Personal history of malignant neoplasm of pancreas; Z87.891 Personal history of nicotine dependence; Z88.2 Allergy status to sulfonamides; Z88.6 Allergy status to analgesic agent; Z88.8 Allergy status to other drugs, medicaments and biological substances; Z79.899 Other long term (current) drug therapy; Z79.890 Hormone replacement therapy
CPT/HCPCS: 71045; 71275; 74177; 80047; 80076; 81001; 82550; 82553; 83036; 83690; 84439; 84443; 85025; 93005; 93041; 94760; 99285; Q9967

== ENCOUNTER → 2019-05-13 | Outpatient (CLI) | payer OTHER ==
[~2019-05-13] MED LIST changes: +ATOR1TAB21 PO; +AUGM875T28 PO; +BUPIVACAINE HCL 0.25% 10 ML VIAL As Ordered ONE; +BUPIVACAINE HCL 0.25% 30 ML VIAL As Ordered ONE; +CIPR-249 PO; +CLON-412 PO; +TRIAMCINOLONE ACETONIDE SUSP 40 MG/ML VIAL (J3301) As Ordered ONE; +diazePAM 5 MG TAB As Ordered ONE; +oxyCODONE 5MG TAB As Ordered ONE
--- NOTE | 2019-06-02 06:13 | ECWPNPC ---
PATIENT NAME: PANCHITO WALKER : 1955 GENDER: FEMALE VISIT DATE: 05/13/2019 DISCHARGE DATE: 05/13/19 1324 VISIT LOCKED DATE TIME: PHYSICIAN: HAYLEE COHEN MD RESOURCE: HAYLEE COHEN MD REASON FOR APPOINTMENT 1. BILATERAL TPI OF THE NECK, SHOULDERS, AND THORACIC HISTORY OF PRESENT ILLNESS HISTORY OF PRESENT ILLNESS: PAIN THE PATIENT DESCRIBES THE PAIN... FALL RISK SCREENING: SCREENING :NO FALLS REPORTED IN THE LAST YEAR CURRENT MEDICATIONS TAKING VITAMIN C 500 MG CAPSULE 1 TABLET ORALLY DAILY, NOTES: 05/03/19 TAKING VITAMIN B COMPLEX - INJECTABLE 1 ML ORALLY DAILY, NOTES: 05/10/19 TAKING STOOL SOFTENER 100 MG CAPSULE 1 CAPSULE NEEDED ORALLY ONCE A DAY, NOTES: 05/11/19 TAKING SALINE NASAL SPRAY 0.65 % SOLUTION 2 SPRAYS IN EACH NOSTRIL NEEDED NASALLY FOUR TIMES DAILY NEEDED, NOTES: 05/11/19 TAKING ESTRADIOL 2 MG TABLET 1 TABLET ORALLY ONCE A DAY, NOTES: 05/12/19 TAKING LIPITOR 20 MG TABLET 1 TABLET ORALLY ONCE A DAY, NOTES: 3 WEEKS AGO TAKING CREON [id number] UNIT CAPSULE DELAYED RELEASE PARTICLES ORALLY TID, NOTES: 05/12/19 NOT-TAKING OMEPRAZOLE 40 MG CAPSULE DELAYED RELEASE 1 CAPSULE ORALLY ONCE A DAY NOT-TAKING TRAMADOL HCL 50 MG TABLET 1 TABLET NEEDED ORALLY EVERY 6 HRS PRN PAIN MDD=4 FOR2 WEEKS SUPPLY MDD=4 NOT-TAKING ROSUVASTATIN CALCIUM 5 MG TABLET 1 TABLET ORALLY ONCE A DAY NOT-TAKING VITAMIN D 1 CAPSULE 1 CAPSULE ORALLY ONCE A DAY NOT-TAKING LITHIUM CARBONATE 150 MG CAPSULE 1 CAPSULE ORALLY TWICE A DAY NOT-TAKING ALBUTEROL SULFATE HFA 108 (90 BASE) MCG/ACT AEROSOL SOLUTION 2 PUFFS NEEDED INHALATION EVERY 6 HRS NOT-TAKING ARNUITY ELLIPTA 100 MCG/ACT AEROSOL POWDER BREATH ACTIVATED 1 PUFF INHALATION ONCE A DAY NOT-TAKING FERROUS GLUCONATE 324 (38 FE) MG TABLET 1 TABLET ORALLY ONCE A DAY NOT-TAKING LOVASTATIN 40 MG TABLET 1 TABLET WITH THE EVENING MEAL ORALLY ONCE A DAY NOT-TAKING CHOLECALCIFEROL 5000 UNIT CAPSULE 1 CAPSULE ORALLY ONCE A DAY DISCONTINUED CALCIUM 1500 MG TABLET 1 TABLET ORALLY DAILY DISCONTINUED MAY USE - - CURAMIN 2181 MG TID DISCONTINUED VITAMIN E 800 UNIT CAPSULE 1 TABLET ORALLY DAILY DISCONTINUED FLONASE 50 MCG/ACT SUSPENSION 1 SPRAY IN EACH NOSTRIL NASALLY ONCE A DAY NEEDED FOR ACUTE FLARE MEDICATION LIST REVIEWED AND RECONCILED WITH THE PATIENT PAST MEDICAL HISTORY CHOLANGIOCARCINOMA S/P PYLORIS PRESERVING WHIPPLE PROCEDURE ON 04/24/2016 GERD BIPOLAR- [facility] DVT S/P VERICOSE VEIN REPAIR 30 YEARS AGO HYPERLIPIDEMIA 10/2017 MRI CERVICAL SPINE: OSTOARTHRITIC CHANGES R C2-3 RIGHT C7-T1, MILD CERVCAL SPONDYLOSIS AT C3-4. ANTERIOR DISCECTOMY AND FUSION FROM C4-7 PREMATURE MENOPAUSE BILATERAL RENAL CYSTS R 9MM MID POLE/8MM LOVER POLE L 5MM MID POLE 08/2017 EGD, COLONOSCOPY DR. Salazar MILD DIVERTICULOSIS/MODERATE INTERNAL HEMORRHOIDS, DECREASED SPHINTER TONE ANNE -C-PAP 15 CM ALLERGIES ASPIRIN: HIVES - ALLERGY SULFA (FOR ALLERGY USE ONLY): HIVES - ALLERGY TYLENOL: HIVES - ALLERGY CYCLOBENZAPRINE HCL: HIVES - ALLERGY TRAZODONE HCL: HIVES - ALLERGY SURGICAL HISTORY HYSTERECTOMY 1988 PANCREATIC WHIPPLE 04/24/2016 APPENDECTOMY 1971 CHOLCYSTECTOMY 2009 BLADDER SUSPENSION 2010 BREAST IMPLANTS- BILATERAL 1987 CERVICAL FUSION 2010 FAMILY HISTORY FATHER: 74 YRS, OF CANCER, DIAGNOSED WITH UNSPECIFIED HEART DISEASE, OTHER MALIGNANT NEOPLASM OF UNSPECIFIED SITE MOTHER: 72 YRS, EMBOLIC HEART ATTACK, UNSPECIFIED HEART DISEASE, UNSPECIFIED CEREBRAL ARTERY OCCLUSION WITH CEREBRAL INFARCTION SIBLINGS: , DIET AT 51 HYPERTROPHY HEART DISEASE SON(S): ALIVE DAUGHTER(S): ALIVE 8 BROTHER(S) , 1 SISTER(S) . 2 SON(S) , 2 DAUGHTER(S) . DAUGHTER C OVARIAN CA AT 18SON C BIPOLAR3 BROTHERS C RHEMATIC HEART DISEASE4 BROTHERS 1 SISTER HT, HYPERLIPIDEMIA. SOCIAL HISTORY GENERAL: TOBACCO USE ARE YOU A:FORMER SMOKER HOW LONG HAS IT BEEN SINCE YOU LAST SMOKED?> 10 YEARS HIV / HEP-C SCREENING HIV TEST OFFERED TO PATIENT:YES DATE OFFERED:11/06/2017 PREVIOUSLY DONE HEP-C TEST OFFERED TO PATIENT:YES PREVIOUSLY DONE DATE OFFERED:11/06/2017 BROCHURE PROVIDED TO PATIENTNO OTHERS AT HOME: TIAN. EDUCATION LEVEL OF EDUCATION:FINISHED HIGH SCHOOL DIET: NO HIGH FATS. LANGUAGE LANGUAGES SPOKEN:BOTH SYRIAC AND TELUGU DOMESTIC VIOLENCE DO YOU FEEL SAFE IN YOUR ENVIRONMENT?YES RECREATIONAL DRUG USE DRUG USE?NO EXERCISE: NO REGULAR EXERCISE. LEARNING BARRIERS / SPECIAL NEEDS CHANGE FROM LAST VISIT?YES LOWER ABDOMINAL PAIN. FEELING OF CRAMPS BARRIERS TO LEARNING?NO HEARING IMPAIRED?NO VISION IMPAIRED?YES COGNITIVELY IMPAIRED?NO :CORRECTIVE LENSES READING READINESS TO LEARN?YES LEARNING PREFERENCES?NO LEARNING CAPABILITIES PRESENT?YES EMOTIONAL BARRIERS?NO SPECIAL DEVICES?NO INSURANCE EXAMINING CLERK NEEDED?YES DEPENDS ON WORDING, PRETTY FLUENT LUNG CANCER SCREENING SMOKING STATUS:FORMER SMOKER IS THE PATIENT BETWEEN THE AGE OF 55 AND 77?YES HAVE YOU QUIT SMOKING WITHIN THE PAST 15 YEARS?NO PAIN CLINIC PFS, CLERGY, PUBLIC HEALTH REFERRALS PFS REFERRAL NEEDED?NO CLERGY REFERRAL NEEDED?NO PUBLIC HEALTH REFERRAL NEEDED?NO WAS THE PROVIDER NOTIFIED OF ANY PERTINENT INFO?YES HAS THE PATIENT BEEN EDUCATED REGARDING HIS/HER PLAN OF CARE?YES HAS THE PATIENT BEEN EDUCATED REGARDING PAIN, THE RISK FOR PAIN, THE IMPORTANCE OF EFFECTIVE PAIN MANAGEMENT, AND THE PAIN ASSESSMENT PROCESS?YES LATEX QUESTIONNAIRE LATEX ALLERGY : HAVE YOU EVER DEVELOPED ANY TYPE OF REACTION AFTER HANDLING LATEX PRODUCTS SUCH RUBBER GLOVES, CONDOMS, DIAPHRAGMS, BALLOONS, SOCKS, OR UNDERWEAR?NO LATEX ALLERGY : HAVE YOU EVER DEVELOPED ANY TYPE OF REACTION DURING OR AFTER DENTAL APPOINTMENT, VAGINAL/RECTAL EXAMINATION, SURGICAL PROCEDURE, OR ANY OTHER EXPOSURE?NO DATE ASKED : 12/03/2018 LATEX RISK : HAVE YOU EVER HAD ANY DIFFICULTY BREATHING OR HIVES AFTER EATING OR HANDLING ANY FRUITS, OR VEGETABLES; SUCH KIWI, BANANAS, STONE FRUITS, OR CHESTNUTSNO LATEX RISK : DO YOU HAVE A PREVIOUS PERSONAL HISTORY OF MORE THAN NINE SURGERIES, SPINA BIFIDA, OR REPEATED CATHERIZATIONS? YES - PLEASE INDICATE : > 9 SURGERIES LATEX RISK : ARE YOU FREQUENTLY EXPOSED TO LATEX PRODUCTS IN YOUR OCCUPATION?YES CAFFEINE CAFFEINE USE?YES HOW OFTEN AND HOW MUCH? 1 CUP OF COFFEE ADVANCE DIRECTIVE ADVANCE DIRECTIVE DISCUSSED WITH PATIENT:YES PT DECLINED HCP INFORMATION, STATES SHE HAS THE INFORMATION AT HOME. PENTECOSTAL USTDUACT13 JAIN MARITAL STATUS: ENGAGED. ALCOHOL SCREENING DID YOU HAVE A DRINK CONTAINING ALCOHOL IN THE PAST YEAR?NO POINTS0 INTERPRETATIONNEGATIVE OCCUPATION: DISABLED. SEXUAL HX HAD SEX IN THE LAST 12 MONTHS (VAGINAL, ORAL, OR ANAL)?YES WITHMEN ONLY REVIEWED WITH PT 05/23/18 1446 BVREVIEWED WITH PT 02/10/19 1030 NLJREVIEWED WITH PATIENT 04/02/19 0956 JS. HOSPITALIZATION/MAJOR DIAGNOSTIC PROCEDURE SURGERY RELATAED REVIEW OF SYSTEMS REVIEWED BY: PROVIDER: . CONSTITUTIONAL: ANY CHANGE IN YOUR MEDICAL CONDITION? NO . CHILLS NO . FEVER NO . INFECTION: DO YOU HAVE NEW INFECTIONS? NO . DO YOU HAVE HISTORY OF MRSA? NO . MUSCULOSKELETAL: ANY NEW PATTERNS OF PAIN OR NUMBNESS? NO . GASTROENTEROLOGY: ANY NEW CHANGE IN BOWEL CONTROL? NO . GENITOURINARY: ANY NEW CHANGE IN BLADDER CONTROL? NO . IS THERE A CHANCE YOU COULD BE ? NO . HEMATOLOGY/LYMPH: DO YOU TAKE ANY BLOOD THINNERS? (FOR EXAMPLE- COUMADIN, PLAVIX, AGGRENOX, PLATEL, PRADAXA, OR XARELTO) NO . WHEN WAS YOUR LAST DOSE? DATE: TIME: . NEUROLOGY: HAVE YOU FALLEN IN THE PAST 12 MONTHS? NO . ANY NEW EXTREMITY NUMBNESS OR WEAKNESS? NO . CARDIOLOGY: DO YOU HAVE A PACEMAKER OR DEFIBRILLATOR? NO . RESPIRATORY: HAVE YOU BEEN SICK IN THE PAST WEEK? NO . FEVER NO . FLU LIKE SYMPTOMS? NO . COUGH NO . INTEGUMENTARY: DO YOU HAVE ANY RASHES OR OPEN SORES? NO . ALLERGIC/IMMUNO: ARE YOU ALLERGIC TO IV DYE? NO . ANY NEW ALLERGIES? NO . PSYCHIATRIC: DO YOU HAVE THOUGHTS OF HURTING YOURSELF OR SOMEONE ELSE? NO . ARE YOU ABUSED, NEGLECTED, OR IN AN UNSAFE ENVIRONMENT? NO . ENDOCRINOLOGY: ARE YOU DIABETIC? NO . OTHER: DO YOU NEED ANY PRESCRIPTIONS? NO . IF YES, PLEASE LIST: ____ . ANY NEW PROBLEMS WITH YOUR MEDICATIONS? NO . WHEN DID YOU LAST EAT? 05/12/19 . WHEN DID YOU LAST DRINK? 05/13/19 AM . WHAT DID YOU LAST DRINK? TEA . NAME OF PERSON DRIVING YOU HOME? MARCELLA . DO YOU HAVE ANY OTHER QUESTIONS OR CONCERNS NO . VITAL SIGNS WT 167 LBS, HT 64 IN, BMI 28.66 INDEX, BP 129/60 MM HG, HR 61 /MIN, RR 18 /MIN, TEMP 96 F,9 F, OXYGEN SAT % 97%, NA INITIALS SC 11:56, REVIEWED BY: DANILO. ASSESSMENTS MYALGIA, OTHER SITE - M79.18 (PRIMARY) PROCEDURES PN TRIGGER POINT INJECTION WITH STEROIDS PRE PROCEDURE DIAGNOSIS 1. MYALGIA 2. PAIN AT BILATERAL NECK AREA, BILATERAL SHOULDER AREA, AND RIGHT THORACIC AREA. POST PROCEDURE DIAGNOSIS 1. MYALGIA 2. PAIN AT BILATERAL NECK AREA, BILATERAL SHOULDER AREA, AND RIGHT THORACIC AREA. PROCEDURE TRIGGER POINT INJECTION AT RIGHT AND LEFT NECK AREA, RIGHT AND LEFT SHOULDER AREA, AND RIGHT THORACIC AREA. SURGEON DR. HAYLEE COHEN AIRPLANE PILOT CHIEF NONE ANESTHESIA LOCAL PRE PROCEDURE NOTE THE PATIENT HAS A HISTORY OF CHRONIC PAIN AT THE RIGHT AND LEFT NECK AREA, RIGHT AND LEFT SHOULDER AREA, AND RIGHT THORACIC AREA. I EVALUATED THE PATIENT AND REVIEWED THE CHART. THERE IS EVIDENCE OF BANDS OF TISSUE WITH RESTRICTION OF MOVEMENT AND PRESENCE OF TRIGGER POINT AT THE AFFECTED AREA. I WENT OVER THE RISKS, ALTERNATIVES, AND BENEFITS ASSOCIATED WITH THIS PROCEDURE. THE PATIENT WOULD LIKE TO PROCEED AND GIVES CONSENT TO PERFORM THE PROCEDURE. THE PATIENT DENIES UNEXPLAINABLE WEIGHT LOSS, FEVER, CHILLS, OR NEW CHANGES IN URINARY OR BOWEL CONTROL DESCRIPTION OF PROCEDURE THE PATIENT WAS BROUGHT TO THE PROCEDURE ROOM AND PLACED IN THE SITTING POSITION. THE AREA WAS CLEANED WITH ALCOHOL. THE PROCEDURE WAS DONE USING ASEPTIC STERILE TECHNIQUE. I CHECKED LATERALITY AND THE LEVEL WHERE THE PROCEDURE WAS GOING TO BE PERFORMED WITH THE PATIENT AND THE SUPPORTING STAFF AT THE MOMENT OF THE TIME OUT IN THE PROCEDURE ROOM. USING A 25-GAUGE NEEDLE, TRIGGER POINTS WERE INJECTED AT THE RIGHT AND LEFT NECK AREA, RIGHT AND LEFT SHOULDER AREA, AND RIGHT THORACIC AREA WITH A TOTAL OF 40 ML OF BUPIVACAINE 0.25% AND KENALOG 40 MG. THERE WAS NO EVIDENCE OF BLOOD, PARESTHESIA OR CEREBROSPINAL FLUID DURING THE PROCEDURE. THE PATIENT WAS SENT TO THE RECOVERY ROOM. THE PATIENT WAS MOVING THE EXTREMITIES AND DOING WELL. THERE WAS NO COMPLICATION DURING THE PROCEDURE POST PROCEDURE NOTE THE PATIENT WILL BE SEEN IN A FOLLOW UP IN THE NEXT FEW WEEKS. INSTRUCTIONS WERE GIVEN, QUESTIONS WERE ANSWERED, AND THE PATIENT EXPRESSED UNDERSTANDING AND AGREES WITH THE PLAN. I, NASREEN MONTES, DOCUMENTED THE ABOVE INFORMATION ACTING A SCRIBE FOR DR. COHEN. I HAVE REVIEWED THE ABOVE DOCUMENT, WRITTEN BY NASREEN WOODY AND I VERIFY THAT IT IS ACCURATE. PROCEDURE CODES 22119 INJECT TRIGGER POINTS 3/> DISPOSITION & COMMUNICATION FOLLOW UP 3 WEEKS ELECTRONICALLY SIGNED BY HAYLEE COHEN MD, MD ON 06/01/2019 AT 04:47 PM EST DISCLAIMER : THIS IS A VISIT SUMMARY EXTRACTED FROM THE [employer] CHART. IT IS NOT A COPY OF THE [employer] PROGRESS NOTE. MTDSandra
== END ==
LOC: M PAIN 11:30
PROVIDERS: ATTEND Anesthesiology
DX: M79.18 Myalgia, other site (principal); E78.5 Hyperlipidemia, unspecified; Z79.899 Other long term (current) drug therapy; Z87.891 Personal history of nicotine dependence; Z88.2 Allergy status to sulfonamides; Z88.6 Allergy status to analgesic agent; Z88.8 Allergy status to other drugs, medicaments and biological substances
CPT/HCPCS: 20553; J3301

== ENCOUNTER → 2019-05-25 | Outpatient (CLI) | payer OTHER ==
[~2019-05-25] MED LIST changes: -BUPIVACAINE HCL 0.25% 10 ML VIAL As Ordered ONE; -BUPIVACAINE HCL 0.25% 30 ML VIAL As Ordered ONE; -TRIAMCINOLONE ACETONIDE SUSP 40 MG/ML VIAL (J3301) As Ordered ONE; -diazePAM 5 MG TAB As Ordered ONE; -oxyCODONE 5MG TAB As Ordered ONE
[2019-05-25 12:56] LABS: BASO # 0.1 10^3/uL (0.0-0.2); BASO % 0.5 % (0.0-1.0); EOS # 0.5 10^3/uL (0.0-0.5); EOS % 4.1 % (0.0-3.0); HEMATOCRIT 42.9 % (36.0-47.0); HEMOGLOBIN 13.5 g/dl (12.0-15.5); LYMPH # 2.4 10^3/uL (1.5-5.0); MEAN CORPUSCULAR HEMOGLOBIN 26.8 pg (27.0-33.0); MEAN CORPUSCULAR HGB CONC 31.5 g/dl (32.0-36.5); MEAN CORPUSCULAR VOLUME 85.3 fl (80.0-96.0); MONO # 0.7 10^3/uL (0.0-0.8); MONO % 5.1 % (0.0-5.0); NEUTROPHILS # 9.4 10^3/uL (1.5-8.5); NEUTROPHILS % 71.8 % (36.0-66.0); PLATELET COUNT, AUTOMATED 261 10^3/uL (150-450); RED BLOOD COUNT 5.03 10^6/uL (4.00-5.40); WHITE BLOOD COUNT 13.1 10^3/uL (4.0-10.0)
[2019-05-25 13:36] LABS: ALBUMIN 3.2 GM/DL (3.2-5.2); ALT/SGPT 13 U/L (12-78); BILIRUBIN,TOTAL 0.4 MG/DL (0.2-1.0); BLOOD UREA NITROGEN 10 MG/DL (7-18); CALCIUM LEVEL 9.1 MG/DL (8.8-10.2); CARBON DIOXIDE LEVEL 28 MEQ/L (21-32); CHLORIDE LEVEL 107 MEQ/L (98-107); CHOLESTEROL LEVEL 195 MG/DL (<200); CHOLESTEROL RISK RATIO 2.468 (<5); CPK CREATINE PHOSPHOKINASE 50 U/L (26-192); CREATININE FOR GFR 0.78 MG/DL (0.55-1.30); GLOMERULAR FILTRATION RATE > 60.0 (>45); GLUCOSE, FASTING 87 MG/DL (70-100); HDL CHOLESTEROL 79 MG/DL (>40); LDL CHOLESTEROL 91 MG/DL (<100); LITHIUM LEVEL < 0.20 MEQ/L (0.60-1.20); NON-HDL-C 116 MG/DL; POTASSIUM SERUM 4.3 MEQ/L (3.5-5.1); SODIUM LEVEL 140 MEQ/L (136-145); TOTAL PROTEIN 6.6 GM/DL (6.4-8.2); TRIGLYCERIDES LEVEL 123 MG/DL (<150)
== END ==
LOC: M LAB 12:24
PROVIDERS: ATTEND Nurse Practitioner Family
DX: E78.5 Hyperlipidemia, unspecified (principal); E61.1 Iron deficiency; F31.60 Bipolar disorder, current episode mixed, unspecified

== ENCOUNTER → 2019-06-15 | Outpatient (CLI) | payer OTHER ==
[2019-06-15 11:47] LABS: BASO # 0.1 10^3/uL (0.0-0.2); BASO % 0.8 % (0.0-1.0); EOS # 1.3 10^3/uL (0.0-0.5); EOS % 12.5 % (0.0-3.0); HEMATOCRIT 40.6 % (36.0-47.0); LYMPH # 2.2 10^3/uL (1.5-5.0); LYMPH % 21.2 % (24.0-44.0); MEAN CORPUSCULAR VOLUME 84.4 fl (80.0-96.0); MONO # 0.7 10^3/uL (0.0-0.8); MONO % 6.8 % (0.0-5.0); NEUTROPHILS # 6.1 10^3/uL (1.5-8.5); NEUTROPHILS % 58.3 % (36.0-66.0); PLATELET COUNT, AUTOMATED 224 10^3/uL (150-450); RED BLOOD COUNT 4.81 10^6/uL (4.00-5.40); WHITE BLOOD COUNT 10.5 10^3/uL (4.0-10.0)
== END ==
LOC: M LAB 10:52
PROVIDERS: ATTEND Nurse Practitioner Family
DX: D72.829 Elevated white blood cell count, unspecified (principal)

== ENCOUNTER → 2019-07-28 | Outpatient (CLI) | payer OTHER ==
[~2019-07-28] MED LIST changes: -LORA0.5T11 PO; +LORA0.5T5 PO
--- NOTE | 2019-07-30 01:03 | ECWPNPC ---
PATIENT NAME: PANCHITO WALKER : 1955 GENDER: FEMALE VISIT DATE: 07/28/2019 DISCHARGE DATE: 07/28/19 1151 VISIT LOCKED DATE TIME: PHYSICIAN: UMU HEALY RESOURCE: UMU HEALY REASON FOR APPOINTMENT 1. NECK HISTORY OF PRESENT ILLNESS HISTORY OF PRESENT ILLNESS: PAIN THE PATIENT DESCRIBES THE PAIN... 63-YEAR-OLD FEMALE IN FOR CHRONIC PAIN FOLLOW-UP. SHE RATES HER PAIN CURRENTLY AT A 6 OUT OF 10 AND DESCRIBES IT ACHING, AND SHOOTING. HER PAIN IS LOCATED IN HER CERVICAL SPINE AND SHE DOES ADMITS TO RADICULOPATHY DOWN THE LEFT ARM. FALL RISK SCREENING: SCREENING :NO FALLS REPORTED IN THE LAST YEAR CURRENT MEDICATIONS TAKING LITHIUM CARBONATE 150 MG CAPSULE 1 CAPSULE ORALLY TWICE A DAY TAKING ALBUTEROL SULFATE HFA 108 (90 BASE) MCG/ACT AEROSOL SOLUTION 2 PUFFS NEEDED INHALATION EVERY 6 HRS TAKING CREON [id number] UNIT CAPSULE DELAYED RELEASE PARTICLES ORALLY TID TAKING CLOBETASOL PROP EMOLLIENT BASE 0.05 % CREAM 1 APPLICATION ON TOP OF NOSE EXTERNALLY TWICE A DAY TAKING VITAMIN C 500 MG CAPSULE 1 TABLET ORALLY DAILY TAKING VITAMIN B COMPLEX - INJECTABLE 1 ML ORALLY DAILY TAKING STOOL SOFTENER 100 MG CAPSULE 1 CAPSULE NEEDED ORALLY ONCE A DAY TAKING SALINE NASAL SPRAY 0.65 % SOLUTION 2 SPRAYS IN EACH NOSTRIL NEEDED NASALLY FOUR TIMES DAILY NEEDED TAKING VITAMIN D 1 CAPSULE 1 CAPSULE ORALLY ONCE A DAY TAKING LITHIUM CARBONATE 150 MG CAPSULE TAKE ONE CAPSULE BY MOUTH TWICE DAILY ORAL TAKING ESTRADIOL 2 MG TABLET TAKE ONE TABLET BY MOUTH ONCE DAILY ORAL TAKING LIPITOR 20 MG TABLET 1 TABLET ORALLY ONCE A DAY [id number] TAKING AIRDUO RESPICLICK 232/14 232-14 MCG/ACT AEROSOL POWDER BREATH ACTIVATED 1 PUFF INHALATION TWICE A DAY TAKING FERROUS GLUCONATE 324 (38 FE) MG TABLET 1 TABLET ORALLY ONCE A DAY MEDICATION LIST REVIEWED AND RECONCILED WITH THE PATIENT PAST MEDICAL HISTORY CHOLANGIOCARCINOMA S/P PYLORIS PRESERVING WHIPPLE PROCEDURE ON 04/24/2016 GERD BIPOLAR- [facility] LLE DVT S/P VERICOSE VEIN REPAIR 30 YEARS AGO HYPERLIPIDEMIA 10/2017 MRI CERVICAL SPINE: OSTOARTHRITIC CHANGES R C2-3 RIGHT C7-T1, MILD CERVCAL SPONDYLOSIS AT C3-4. ANTERIOR DISCECTOMY AND FUSION FROM C4-7 PREMATURE MENOPAUSE BILATERAL RENAL CYSTS R 9MM MID POLE/8MM LOVER POLE L 5MM MID POLE 08/2017 EGD, COLONOSCOPY DR. Salazar MILD DIVERTICULOSIS/MODERATE INTERNAL HEMORRHOIDS, DECREASED SPHINTER TONE ANNE -C-PAP 15 CM ALLERGIES ASPIRIN: HIVES - ALLERGY SULFA (FOR ALLERGY USE ONLY): HIVES - ALLERGY TYLENOL: HIVES - ALLERGY CYCLOBENZAPRINE HCL: HIVES - ALLERGY TRAZODONE HCL: HIVES - ALLERGY METFORMIN HCL: NAUSEA/VOMITING - SIDE EFFECTS SURGICAL HISTORY HYSTERECTOMY 1988 PANCREATIC WHIPPLE 04/24/2016 APPENDECTOMY 1971 CHOLCYSTECTOMY 2009 BLADDER SUSPENSION 2010 BREAST IMPLANTS- BILATERAL 1987 CERVICAL FUSION 2010 FAMILY HISTORY FATHER: 74 YRS, OF CANCER, DIAGNOSED WITH UNSPECIFIED HEART DISEASE, OTHER MALIGNANT NEOPLASM OF UNSPECIFIED SITE MOTHER: 72 YRS, EMBOLIC HEART ATTACK, UNSPECIFIED HEART DISEASE, UNSPECIFIED CEREBRAL ARTERY OCCLUSION WITH CEREBRAL INFARCTION SIBLINGS: , DIET AT 51 HYPERTROPHY HEART DISEASE SON(S): ALIVE DAUGHTER(S): ALIVE 8 BROTHER(S) , 1 SISTER(S) . 2 SON(S) , 2 DAUGHTER(S) . DAUGHTER C OVARIAN CA AT 18SON C BIPOLAR3 BROTHERS C RHEMATIC HEART DISEASE4 BROTHERS 1 SISTER HT, HYPERLIPIDEMIA. SOCIAL HISTORY GENERAL: TOBACCO USE ARE YOU A:FORMER SMOKER HOW LONG HAS IT BEEN SINCE YOU LAST SMOKED?> 10 YEARS HIV / HEP-C SCREENING HIV TEST OFFERED TO PATIENT:YES DATE OFFERED:11/06/2017 PREVIOUSLY DONE HEP-C TEST OFFERED TO PATIENT:YES PREVIOUSLY DONE DATE OFFERED:11/06/2017 BROCHURE PROVIDED TO PATIENTNO OTHERS AT HOME: TIAN. EDUCATION LEVEL OF EDUCATION:FINISHED HIGH SCHOOL DIET: NO HIGH FATS. LANGUAGE LANGUAGES SPOKEN:BOTH HONDURAN AND GEORGIAN DOMESTIC VIOLENCE DO YOU FEEL SAFE IN YOUR ENVIRONMENT?YES RECREATIONAL DRUG USE DRUG USE?NO EXERCISE: NO REGULAR EXERCISE. LEARNING BARRIERS / SPECIAL NEEDS CHANGE FROM LAST VISIT?YES LOWER ABDOMINAL PAIN. FEELING OF CRAMPS BARRIERS TO LEARNING?NO HEARING IMPAIRED?NO VISION IMPAIRED?YES COGNITIVELY IMPAIRED?NO :CORRECTIVE LENSES READING READINESS TO LEARN?YES LEARNING PREFERENCES?NO LEARNING CAPABILITIES PRESENT?YES EMOTIONAL BARRIERS?NO SPECIAL DEVICES?NO PILE DRIVING SETTER NEEDED?YES DEPENDS ON WORDING, PRETTY FLUENT LUNG CANCER SCREENING SMOKING STATUS:FORMER SMOKER IS THE PATIENT BETWEEN THE AGE OF 55 AND 77?YES HAVE YOU QUIT SMOKING WITHIN THE PAST 15 YEARS?NO PAIN CLINIC PFS, CLERGY, PUBLIC HEALTH REFERRALS PFS REFERRAL NEEDED?NO CLERGY REFERRAL NEEDED?NO PUBLIC HEALTH REFERRAL NEEDED?NO WAS THE PROVIDER NOTIFIED OF ANY PERTINENT INFO?YES HAS THE PATIENT BEEN EDUCATED REGARDING HIS/HER PLAN OF CARE?YES HAS THE PATIENT BEEN EDUCATED REGARDING PAIN, THE RISK FOR PAIN, THE IMPORTANCE OF EFFECTIVE PAIN MANAGEMENT, AND THE PAIN ASSESSMENT PROCESS?YES LATEX QUESTIONNAIRE LATEX ALLERGY : HAVE YOU EVER DEVELOPED ANY TYPE OF REACTION AFTER HANDLING LATEX PRODUCTS SUCH RUBBER GLOVES, CONDOMS, DIAPHRAGMS, BALLOONS, SOCKS, OR UNDERWEAR?NO LATEX ALLERGY : HAVE YOU EVER DEVELOPED ANY TYPE OF REACTION DURING OR AFTER DENTAL APPOINTMENT, VAGINAL/RECTAL EXAMINATION, SURGICAL PROCEDURE, OR ANY OTHER EXPOSURE?NO LATEX RISK : HAVE YOU EVER HAD ANY DIFFICULTY BREATHING OR HIVES AFTER EATING OR HANDLING ANY FRUITS, OR VEGETABLES; SUCH KIWI, BANANAS, STONE FRUITS, OR CHESTNUTSNO LATEX RISK : DO YOU HAVE A PREVIOUS PERSONAL HISTORY OF MORE THAN NINE SURGERIES, SPINA BIFIDA, OR REPEATED CATHERIZATIONS? YES - PLEASE INDICATE : > 9 SURGERIES LATEX RISK : ARE YOU FREQUENTLY EXPOSED TO LATEX PRODUCTS IN YOUR OCCUPATION?YES DATE ASKED : 07/28/2019 CAFFEINE CAFFEINE USE?YES HOW OFTEN AND HOW MUCH? 1 CUP OF COFFEE ADVANCE DIRECTIVE ADVANCE DIRECTIVE DISCUSSED WITH PATIENT:YES PT DECLINED HCP INFORMATION, STATES SHE HAS THE INFORMATION AT HOME, DECLINED ASSISTANCE WITH PAPERWORK. DS ZOROASTRIANISM [id number] SABIANISM MARITAL STATUS: ENGAGED. ALCOHOL SCREENING DID YOU HAVE A DRINK CONTAINING ALCOHOL IN THE PAST YEAR?NO POINTS0 INTERPRETATIONNEGATIVE OCCUPATION: DISABLED. SEXUAL HX HAD SEX IN THE LAST 12 MONTHS (VAGINAL, ORAL, OR ANAL)?YES WITHMEN ONLY REVIEWED WITH PT 05/23/18 1446 BVREVIEWED WITH PT 02/10/19 1030 NLJREVIEWED WITH PATIENT 04/02/19 0927 JSREVIEWED WITH PATIENT 05/28/19 0917 BVREVIEWED WITH PATIENT 07/28/2019 DS. HOSPITALIZATION/MAJOR DIAGNOSTIC PROCEDURE SURGERY RELATAED REVIEW OF SYSTEMS REVIEWED BY: PROVIDER: IDALIA HOFFMANN . CONSTITUTIONAL: ANY CHANGE IN YOUR MEDICAL CONDITION? PT STATES THAT SHE WAS DIAGNOSED BY MD DELGADO WITH A CYST IN HER BRAIN. DS . CHILLS NO . FEVER NO . INFECTION: DO YOU HAVE NEW INFECTIONS? NO . DO YOU HAVE HISTORY OF MRSA? NO . MUSCULOSKELETAL: ANY NEW PATTERNS OF PAIN OR NUMBNESS? NO . GASTROENTEROLOGY: ANY NEW CHANGE IN BOWEL CONTROL? NO . GENITOURINARY: ANY NEW CHANGE IN BLADDER CONTROL? NO . IS THERE A CHANCE YOU COULD BE ? NO . HEMATOLOGY/LYMPH: DO YOU TAKE ANY BLOOD THINNERS? (FOR EXAMPLE- COUMADIN, PLAVIX, AGGRENOX, PLATEL, PRADAXA, OR XARELTO) NO . WHEN WAS YOUR LAST DOSE? DATE: TIME: . NEUROLOGY: HAVE YOU FALLEN IN THE PAST 12 MONTHS? NO . ANY NEW EXTREMITY NUMBNESS OR WEAKNESS? PT STATES THAT NUMBNESS IS NOW RADIATING DOWN LEFT ARM, MORE INTENSE . CARDIOLOGY: DO YOU HAVE A PACEMAKER OR DEFIBRILLATOR? NO . RESPIRATORY: HAVE YOU BEEN SICK IN THE PAST WEEK? NO . FEVER NO . FLU LIKE SYMPTOMS? NO . COUGH NO . INTEGUMENTARY: DO YOU HAVE ANY RASHES OR OPEN SORES? NO . ALLERGIC/IMMUNO: ARE YOU ALLERGIC TO IV DYE? NO . ANY NEW ALLERGIES? NO . PSYCHIATRIC: DO YOU HAVE THOUGHTS OF HURTING YOURSELF OR SOMEONE ELSE? NO . ARE YOU ABUSED, NEGLECTED, OR IN AN UNSAFE ENVIRONMENT? NO . ENDOCRINOLOGY: ARE YOU DIABETIC? NO . OTHER: DO YOU NEED ANY PRESCRIPTIONS? NO . IF YES, PLEASE LIST: ____ . ANY NEW PROBLEMS WITH YOUR MEDICATIONS? NO . WHEN DID YOU LAST EAT? ____ . WHEN DID YOU LAST DRINK? ____ . WHAT DID YOU LAST DRINK? ____ . NAME OF PERSON DRIVING YOU HOME? ____ . DO YOU HAVE ANY OTHER QUESTIONS OR CONCERNS NO . VITAL SIGNS WT 171.0 LBS, HT 64 IN, BMI 29.35 INDEX, BP 128/71 MM HG, HR 63 /MIN, RR 16 /MIN, TEMP 97.8 F, OXYGEN SAT % 98, SAFE IN ENV? (Y/N) Y, REVIEWED BY: ISMAEL. EXAMINATION GENERAL EXAMINATION: GENERALNO ACUTE DISTRESS, WELL NOURISHED AND HYDRATED. PSYCHAPPROPRIATE MOOD AND AFFECT . NECK:POINT TENDER ALONG CERVICAL SPINE, SURROUNDING SKIN SHOWS NO ERYTHEMA, ECCHYMOSIS, INCREASED WARMTH, AND/OR SKIN ERUPTIONS NOTED. PATIENT DOES ENDORSE INCREASED PAIN WHEN ASKED TO LIFT ARMS AGAINST RESISTANCE. . LUNGS:CLEAR TO AUSCULTATION BILATERALLY, NO WHEEZES, RHONCHI, RALES. HEART:NO MURMURS, REGULAR RATE AND RHYTHM. ASSESSMENTS CERVICAL RADICULOPATHY - M54.12 (PRIMARY) TREATMENT CERVICAL RADICULOPATHY START LYRICA CAPSULE, 50 MG, 1 CAPSULE, ORALLY, ONCE A DAY, 30 DAYS, 30 CAPSULE NOTES: HEATHER C3-C4 C4-[id number] MATERIAL ON LYRICA REVIEWED AND GIVEN TO PT, PT ACKNOWLEDGED UNDERSTANDING. CLINICAL NOTES: 63-YEAR-OLD FEMALE IN FOR CHRONIC PAIN FOLLOW-UP. GIVEN PRESENTING SYMPTOMS AND RESULTS OF PHYSICAL EXAMINATION RECOMMENDED HEATHER C3-C4 C4-C5, AND STARTING LYRICA 50 MG DAILY WITH FOLLOW-UP POST PROCEDURE. PATIENT HAS EXPRESSED UNDERSTANDING OF AND WAS IN AGREEMENT WITH TREATMENT PLAN. GIVEN TIME TO ASK QUESTIONS AND EXPRESS CONCERNS., ISTOP REGISTRY REVIEWED AND DEMONSTRATES COMPLLIANCE. (REF #[id number] ) BRINGS IN MEDICATIONS WHICH IS APPROPRIATE FOR WHAT WAS DISPENSED. RECENT URINE TOXICOLOGY REVIEWED. NO UNAUTHORIZED MEDICATIONS. NO ILLICIT SUBSTANCES AND PRESCRIBED MEDICATIONS WERE PRESENT. PREVENTIVE MEDICINE PAIN CLINIC TEACHING: THE PATIENT HAS BEEN EDUCATED REGARDING PAIN, THE RISK FOR PAIN, THE IMPORTANCE OF EFFECTIVE PAIN MANAGEMENT, AND THE PAIN ASSESSMENT PROCESS. : REVIEWED AND DISCUSSED WRITTEN AND VERBAL INSTRUCTIONS WITH PATIENT, DISCUSSED WRITTEN MATERIAL REGARDING FOR PRE-PROCEDURE TEACHING ON CERVICAL EPIDURAL, PT ACKNOWLEDGED UNDERSTANDING. DS PROCEDURE CODES FA211 ESTABILISHED PATIENT [facility] CHARGE DISPOSITION & COMMUNICATION FOLLOW UP POSTPROCEDURE (REASON: HEATHER C3-C4 C4-C5) ELECTRONICALLY SIGNED BY DARIAN LIMA ON 07/29/2019 AT 03:48 PM EST DISCLAIMER : THIS IS A VISIT SUMMARY EXTRACTED FROM THE [email or web address] CHART. IT IS NOT A COPY OF THE [email or web address] PROGRESS NOTE. MERLE
== END ==
LOC: M PAIN 11:00
PROVIDERS: ATTEND Family Medicine
DX: M54.12 Radiculopathy, cervical region (principal)

== ENCOUNTER → 2019-08-26 | Outpatient (CLI) | payer OTHER ==
[~2019-08-26] MED LIST changes: +ISOVUE-M 300 61% 15ML VIAL (Q9967) As Ordered ONE; +LIDOCAINE 1% SDV INJ 30 ML VIAL As Ordered ONE; +diazePAM 5 MG TAB As Ordered ONE; +methylPREDNISolone SUSP 40 MG/ML (DEPO-medrol) VIAL (J1030) As Ordered ONE; +oxyCODONE 5MG TAB As Ordered ONE
--- NOTE | 2019-08-26 13:50 | REP ---
Partial cervical spine series: Three views. History: Injection procedure for pain. 24 seconds of fluoroscopy time was utilized. Findings: A sequence of three last image hold fluoroscopically obtained spot radiographs of the cervicothoracic junction document needle position and contrast injection associated with injection procedure. Electronically Signed by Delvin Aiken MD 08/26/2019 01:41 P
--- NOTE | 2019-09-15 06:18 | ECWPNPC ---
PATIENT NAME: PANCHITO WALKER : 1955 GENDER: FEMALE VISIT DATE: 08/26/2019 DISCHARGE DATE: 08/26/19 1050 VISIT LOCKED DATE TIME: PHYSICIAN: HAYLEE COHEN MD RESOURCE: HAYLEE COHEN MD REASON FOR APPOINTMENT 1. HEATHER C7-T1 HISTORY OF PRESENT ILLNESS HISTORY OF PRESENT ILLNESS: PAIN THE PATIENT DESCRIBES THE PAIN... FALL RISK SCREENING: SCREENING :NO FALLS REPORTED IN THE LAST YEAR CURRENT MEDICATIONS TAKING CREON [id number] UNIT CAPSULE DELAYED RELEASE PARTICLES ORALLY TID, NOTES: 08/25 6AM TAKING CLOBETASOL PROP EMOLLIENT BASE 0.05 % CREAM 1 APPLICATION ON TOP OF NOSE EXTERNALLY TWICE A DAY, NOTES: 08/25 6AM TAKING VITAMIN C 500 MG CAPSULE 1 TABLET ORALLY DAILY, NOTES: 08/25 6AM TAKING VITAMIN B COMPLEX - INJECTABLE 1 ML ORALLY DAILY, NOTES: 08/25 6AM TAKING STOOL SOFTENER 100 MG CAPSULE 1 CAPSULE NEEDED ORALLY ONCE A DAY, NOTES: 1 WEEK TAKING SALINE NASAL SPRAY 0.65 % SOLUTION 2 SPRAYS IN EACH NOSTRIL NEEDED NASALLY FOUR TIMES DAILY NEEDED, NOTES: 08/25 6PM TAKING VITAMIN D 1 CAPSULE 1 CAPSULE ORALLY ONCE A DAY, NOTES: 08/25 6AM TAKING ESTRADIOL 2 MG TABLET TAKE ONE TABLET BY MOUTH ONCE DAILY ORAL , NOTES: 08/25 6AM TAKING LIPITOR 20 MG TABLET 1 TABLET ORALLY ONCE A DAY [id number], NOTES: 08/24 TAKING AIRDUO RESPICLICK 232/14 232-14 MCG/ACT AEROSOL POWDER BREATH ACTIVATED 1 PUFF INHALATION TWICE A DAY, NOTES: 08/25 6AM TAKING FERROUS GLUCONATE 324 (38 FE) MG TABLET 1 TABLET ORALLY ONCE A DAY, NOTES: 3 DAYS AGO TAKING LYRICA 50 MG CAPSULE 1 CAPSULE ORALLY ONCE A DAY, NOTES: 08/24 TAKING ALBUTEROL SULFATE HFA 108 (90 BASE) MCG/ACT AEROSOL SOLUTION 2 PUFFS NEEDED INHALATION EVERY 6 HRS, NOTES: 08/25 6PM TAKING REXULTI 1 MG TABLET 1 TABLET ORALLY ONCE A DAY, NOTES: 08/25 6AM NOT-TAKING LITHIUM CARBONATE 150 MG CAPSULE 1 CAPSULE ORALLY TWICE A DAY NOT-TAKING LITHIUM CARBONATE 150 MG CAPSULE TAKE ONE CAPSULE BY MOUTH TWICE DAILY ORAL MEDICATION LIST REVIEWED AND RECONCILED WITH THE PATIENT PAST MEDICAL HISTORY CHOLANGIOCARCINOMA S/P PYLORIS PRESERVING WHIPPLE PROCEDURE ON 04/24/2016 GERD BIPOLAR- [facility] DVT S/P VERICOSE VEIN REPAIR 30 YEARS AGO HYPERLIPIDEMIA 10/2017 MRI CERVICAL SPINE: OSTOARTHRITIC CHANGES R C2-3 RIGHT C7-T1, MILD CERVCAL SPONDYLOSIS AT C3-4. ANTERIOR DISCECTOMY AND FUSION FROM C4-7 PREMATURE MENOPAUSE BILATERAL RENAL CYSTS R 9MM MID POLE/8MM LOVER POLE L 5MM MID POLE 08/2017 EGD, COLONOSCOPY DR. Salazar MILD DIVERTICULOSIS/MODERATE INTERNAL HEMORRHOIDS, DECREASED SPHINTER TONE ANNE -C-PAP 15 CM ALLERGIES ASPIRIN: HIVES - ALLERGY SULFA (FOR ALLERGY USE ONLY): HIVES - ALLERGY TYLENOL: HIVES - ALLERGY CYCLOBENZAPRINE HCL: HIVES - ALLERGY TRAZODONE HCL: HIVES - ALLERGY METFORMIN HCL: NAUSEA/VOMITING - SIDE EFFECTS SURGICAL HISTORY HYSTERECTOMY 1988 PANCREATIC WHIPPLE 04/24/2016 APPENDECTOMY 1971 CHOLCYSTECTOMY 2009 BLADDER SUSPENSION 2010 BREAST IMPLANTS- BILATERAL 1987 CERVICAL FUSION 2010 FAMILY HISTORY FATHER: 74 YRS, OF CANCER, DIAGNOSED WITH UNSPECIFIED HEART DISEASE, OTHER MALIGNANT NEOPLASM OF UNSPECIFIED SITE MOTHER: 72 YRS, EMBOLIC HEART ATTACK, UNSPECIFIED HEART DISEASE, UNSPECIFIED CEREBRAL ARTERY OCCLUSION WITH CEREBRAL INFARCTION SIBLINGS: , DIET AT 51 HYPERTROPHY HEART DISEASE SON(S): ALIVE DAUGHTER(S): ALIVE 8 BROTHER(S) , 1 SISTER(S) . 2 SON(S) , 2 DAUGHTER(S) . DAUGHTER C OVARIAN CA AT 18SON C BIPOLAR3 BROTHERS C RHEMATIC HEART DISEASE4 BROTHERS 1 SISTER HT, HYPERLIPIDEMIA. SOCIAL HISTORY GENERAL: TOBACCO USE ARE YOU A:FORMER SMOKER HOW LONG HAS IT BEEN SINCE YOU LAST SMOKED?> 10 YEARS HIV / HEP-C SCREENING HIV TEST OFFERED TO PATIENT:YES DATE OFFERED:11/06/2017 PREVIOUSLY DONE HEP-C TEST OFFERED TO PATIENT:YES PREVIOUSLY DONE DATE OFFERED:11/06/2017 BROCHURE PROVIDED TO PATIENTNO OTHERS AT HOME: TIAN. EDUCATION LEVEL OF EDUCATION:FINISHED HIGH SCHOOL DIET: NO HIGH FATS. LANGUAGE LANGUAGES SPOKEN:BOTH [place] AND GERMAN DOMESTIC VIOLENCE DO YOU FEEL SAFE IN YOUR ENVIRONMENT?YES RECREATIONAL DRUG USE DRUG USE?NO EXERCISE: NO REGULAR EXERCISE. LEARNING BARRIERS / SPECIAL NEEDS CHANGE FROM LAST VISIT?YES LOWER ABDOMINAL PAIN. FEELING OF CRAMPS BARRIERS TO LEARNING?NO HEARING IMPAIRED?NO VISION IMPAIRED?YES COGNITIVELY IMPAIRED?NO :CORRECTIVE LENSES READING READINESS TO LEARN?YES LEARNING PREFERENCES?NO LEARNING CAPABILITIES PRESENT?YES EMOTIONAL BARRIERS?NO SPECIAL DEVICES?NO SENIOR UI DEVELOPER NEEDED?YES DEPENDS ON WORDING, PRETTY FLUENT LUNG CANCER SCREENING SMOKING STATUS:FORMER SMOKER IS THE PATIENT BETWEEN THE AGE OF 55 AND 77?YES HAVE YOU QUIT SMOKING WITHIN THE PAST 15 YEARS?NO PAIN CLINIC PFS, CLERGY, PUBLIC HEALTH REFERRALS PFS REFERRAL NEEDED?NO CLERGY REFERRAL NEEDED?NO PUBLIC HEALTH REFERRAL NEEDED?NO WAS THE PROVIDER NOTIFIED OF ANY PERTINENT INFO?YES HAS THE PATIENT BEEN EDUCATED REGARDING HIS/HER PLAN OF CARE?YES HAS THE PATIENT BEEN EDUCATED REGARDING PAIN, THE RISK FOR PAIN, THE IMPORTANCE OF EFFECTIVE PAIN MANAGEMENT, AND THE PAIN ASSESSMENT PROCESS?YES LATEX QUESTIONNAIRE LATEX ALLERGY : HAVE YOU EVER DEVELOPED ANY TYPE OF REACTION AFTER HANDLING LATEX PRODUCTS SUCH RUBBER GLOVES, CONDOMS, DIAPHRAGMS, BALLOONS, SOCKS, OR UNDERWEAR?NO LATEX ALLERGY : HAVE YOU EVER DEVELOPED ANY TYPE OF REACTION DURING OR AFTER DENTAL APPOINTMENT, VAGINAL/RECTAL EXAMINATION, SURGICAL PROCEDURE, OR ANY OTHER EXPOSURE?NO LATEX RISK : HAVE YOU EVER HAD ANY DIFFICULTY BREATHING OR HIVES AFTER EATING OR HANDLING ANY FRUITS, OR VEGETABLES; SUCH KIWI, BANANAS, STONE FRUITS, OR CHESTNUTSNO LATEX RISK : DO YOU HAVE A PREVIOUS PERSONAL HISTORY OF MORE THAN NINE SURGERIES, SPINA BIFIDA, OR REPEATED CATHERIZATIONS? YES - PLEASE INDICATE : > 9 SURGERIES LATEX RISK : ARE YOU FREQUENTLY EXPOSED TO LATEX PRODUCTS IN YOUR OCCUPATION?YES DATE ASKED : 08/26/2019 CAFFEINE CAFFEINE USE?YES HOW OFTEN AND HOW MUCH? 1 CUP OF COFFEE ADVANCE DIRECTIVE ADVANCE DIRECTIVE DISCUSSED WITH PATIENT:YES PT DECLINED HCP INFORMATION, STATES SHE HAS THE INFORMATION AT HOME, DECLINED ASSISTANCE WITH PAPERWORK. ANABAPTISM [id number] RESTORATIONISM MARITAL STATUS: ENGAGED. ALCOHOL SCREENING DID YOU HAVE A DRINK CONTAINING ALCOHOL IN THE PAST YEAR?NO POINTS0 INTERPRETATIONNEGATIVE OCCUPATION: DISABLED. SEXUAL HX HAD SEX IN THE LAST 12 MONTHS (VAGINAL, ORAL, OR ANAL)?YES WITHMEN ONLY REVIEWED WITH PT 05/23/18 1446 BVREVIEWED WITH PT 02/10/19 1030 NLJREVIEWED WITH PATIENT 04/02/19 0927 JSREVIEWED WITH PATIENT 05/28/19 0917 BVREVIEWED WITH PATIENT 07/28/2019 DSREVIEWED WITH PATIENT 08/26/2019 DS. HOSPITALIZATION/MAJOR DIAGNOSTIC PROCEDURE SURGERY RELATAED REVIEW OF SYSTEMS REVIEWED BY: PROVIDER: . CONSTITUTIONAL: ANY CHANGE IN YOUR MEDICAL CONDITION? NO . CHILLS NO . FEVER NO . INFECTION: DO YOU HAVE NEW INFECTIONS? NO . DO YOU HAVE HISTORY OF MRSA? NO . MUSCULOSKELETAL: ANY NEW PATTERNS OF PAIN OR NUMBNESS? NO . GASTROENTEROLOGY: ANY NEW CHANGE IN BOWEL CONTROL? NO . GENITOURINARY: ANY NEW CHANGE IN BLADDER CONTROL? NO . IS THERE A CHANCE YOU COULD BE ? NO . HEMATOLOGY/LYMPH: DO YOU TAKE ANY BLOOD THINNERS? (FOR EXAMPLE- COUMADIN, PLAVIX, AGGRENOX, PLATEL, PRADAXA, OR XARELTO) NO . WHEN WAS YOUR LAST DOSE? DATE: TIME: . NEUROLOGY: HAVE YOU FALLEN IN THE PAST 12 MONTHS? NO . ANY NEW EXTREMITY NUMBNESS OR WEAKNESS? NO . CARDIOLOGY: DO YOU HAVE A PACEMAKER OR DEFIBRILLATOR? NO . RESPIRATORY: HAVE YOU BEEN SICK IN THE PAST WEEK? NO . FEVER NO . FLU LIKE SYMPTOMS? NO . COUGH NO . INTEGUMENTARY: DO YOU HAVE ANY RASHES OR OPEN SORES? NO . ALLERGIC/IMMUNO: ARE YOU ALLERGIC TO IV DYE? NO . ANY NEW ALLERGIES? NO . PSYCHIATRIC: DO YOU HAVE THOUGHTS OF HURTING YOURSELF OR SOMEONE ELSE? NO . ARE YOU ABUSED, NEGLECTED, OR IN AN UNSAFE ENVIRONMENT? NO . ENDOCRINOLOGY: ARE YOU DIABETIC? NO . OTHER: DO YOU NEED ANY PRESCRIPTIONS? NO . IF YES, PLEASE LIST: ____ . ANY NEW PROBLEMS WITH YOUR MEDICATIONS? NO . WHEN DID YOU LAST EAT? 08/25 6PM . WHEN DID YOU LAST DRINK? 08/26 0530A . WHAT DID YOU LAST DRINK? WATER . NAME OF PERSON DRIVING YOU HOME? MARCELLA CARTAGENA . DO YOU HAVE ANY OTHER QUESTIONS OR CONCERNS NO . VITAL SIGNS WT 172.6 LBS, HT 64 IN, BMI 29.62 INDEX, BP 147/67 MM HG, HR 68 /MIN, RR 18 /MIN, TEMP 96.0 F, OXYGEN SAT % 98%, SAFE IN ENV? (Y/N) Y, NA INITIALS AW 0908, REVIEWED BY: ISMAEL. ASSESSMENTS CERVICAL DISC DISORDER WITH RADICULOPATHY, UNSPECIFIED CERVICAL REGION - M50.10 (PRIMARY) PROCEDURES PN CERVICAL EPIDURAL PRE PROCEDURE DIAGNOSIS CERVICAL DISC DISORDER WITH RADICULOPATHY , CERVICAL SPINAL STENOSIS POST PROCEDURE DIAGNOSIS CERVICAL DISC DISORDER WITH RADICULOPATHY , CERVICAL SPINAL STENOSIS PROCEDURE CERVICAL EPIDURAL STEROID INJECTION UNDER FLUOROSCOPIC GUIDANCE SURGEON DR. HAYLEE COHEN BROACH OPERATOR NONE ANESTHESIA LOCAL PRE PROCEDURE NOTE THE PATIENT HAS A HISTORY OF CHRONIC CERVICAL PAIN. I EVALUATED THE PATIENT AND REVIEWED THE CHART. I WENT OVER THE RISKS, ALTERNATIVES, AND BENEFITS ASSOCIATED WITH THIS PROCEDURE. THE PATIENT WOULD LIKE TO PROCEED AND GIVE CONSENT TO PERFORMED THE PROCEDURE. THE PATIENT DENIES UNEXPLAINABLE WEIGHT LOSS, FEVER, CHILLS, OR NEW CHANGES IN URINARY OR BOWEL CONTROL DESCRIPTION OF PROCEDURE THE PATIENT WAS BROUGHT TO THE PROCEDURE ROOM AND PLACED IN THE PRONE POSITION. THE CERVICOTHORACIC AREA WAS CLEANED WITH BETADINE SOLUTION AND DRAPED ASEPTICALLY. THE PROCEDURE WAS DONE UNDER STERILE CONDITIONS. I CHECKED LATERALITY AND THE LEVEL WHERE THE PROCEDURE WAS GOING TO BE PERFORMED WITH THE PATIENT AND THE SUPPORTING STAFF AT THE MOMENT OF THE TIME OUT IN THE PROCEDURE ROOM. UNDER FLUOROSCOPIC GUIDANCE, THE TARGET WAS SELECTED AT THE INTERLAMINAR LEVEL OF C7-T1. LIDOCAINE WAS USED TO NUMB THE SKIN AND THE SUBCUTANEOUS TISSUE BELOW IT. EPIDURAL TUOHY NEEDLE 17-GAUGE WAS ADVANCED UNDER FLUOROSCOPIC GUIDANCE AND FOLLOWING PATIENT FEEDBACK UNTIL THE EPIDURAL SPACE WAS REACHED 6 CM DEEP INTO THE SKIN BY THE LOSS OF RESISTANCE TECHNIQUE. ISOVUE M DYE 30%, 0.25 ML, WAS INJECTED SHOWING ADEQUATE SPREAD OF THE DYE. THEN, A SOLUTION OF 3 ML OF NORMAL SALINE WITH DEPO-MEDROL 60 MG WAS INJECTED SLOWLY FOLLOWING PATIENT FEEDBACK. THERE WAS NO EVIDENCE OF BLOOD, PARESTHESIA OR CEREBROSPINAL FLUID DURING THE PROCEDURE. THE PATIENT WAS SENT TO THE RECOVERY ROOM. THE PATIENT WAS MOVING THE EXTREMITIES AND DOING WELL. THERE WAS NO COMPLICATION DURING THE PROCEDURE. FLUOROSCOPY TIME WAS 24 SECONDS POST PROCEDURE NOTE THE PATIENT WILL BE SEEN IN A FOLLOW UP IN THE NEXT FEW WEEKS. INSTRUCTIONS WERE GIVEN, QUESTIONS WERE ANSWERED, AND THE PATIENT EXPRESSED UNDERSTANDING AND AGREES WITH THE PLAN. I, NASREEN MONTES, DOCUMENTED THE ABOVE INFORMATION ACTING A SCRIBE FOR DR. COHEN. I HAVE REVIEWED THE ABOVE DOCUMENT, WRITTEN BY NASREEN WOODY AND I VERIFY THAT IT IS ACCURATE. DIAGNOSTIC IMAGING [facility] FLUORO GUIDE SPINE INJECTION (PAIN)[id number] PROCEDURE CODES 82573 CERVICAL/THORACIC W/ IMAGING 6045F RADXPS IN END [id number] PXD DISPOSITION & COMMUNICATION FOLLOW UP 3 WEEKS ELECTRONICALLY SIGNED BY HAYLEE COHEN MD, MD ON 09/14/2019 AT 09:22 AM EST DISCLAIMER : THIS IS A VISIT SUMMARY EXTRACTED FROM THE [employer] CHART. IT IS NOT A COPY OF THE [employer] PROGRESS NOTE. MERLE
== END ==
LOC: M PAIN 09:00
PROVIDERS: ATTEND Anesthesiology
DX: M50.10 Cervical disc disorder with radiculopathy, unspecified cervical region (principal)
CPT/HCPCS: 62321; J1030; Q9967

== ENCOUNTER → 2019-10-09 | Outpatient (CLI) | payer OTHER ==
[~2019-10-09] MED LIST changes: +FEOS200T2 PO; +FERR325T3 PO; +FERR32TA PO; -ISOVUE-M 300 61% 15ML VIAL (Q9967) As Ordered ONE; -LIDOCAINE 1% SDV INJ 30 ML VIAL As Ordered ONE; +METF-791 PO; +PREG50CA2 PO; +PROC10TA4 PO; +RA B1TAB2 PO; +REXU1TAB3 PO; +VITA200028 PO; +VITA500C24 PO; +XANA0.25 PO; -diazePAM 5 MG TAB As Ordered ONE; -methylPREDNISolone SUSP 40 MG/ML (DEPO-medrol) VIAL (J1030) As Ordered ONE; -oxyCODONE 5MG TAB As Ordered ONE
--- NOTE | 2019-10-13 01:38 | ECWPNPC ---
PATIENT NAME: PANCHITO WALKER : 1955 GENDER: FEMALE VISIT DATE: 10/09/2019 DISCHARGE DATE: 10/09/19 1117 VISIT LOCKED DATE TIME: PHYSICIAN: UMU HEALY RESOURCE: UMU HEALY REASON FOR APPOINTMENT 1. POST HEATHER HISTORY OF PRESENT ILLNESS HISTORY OF PRESENT ILLNESS: PAIN THE PATIENT DESCRIBES THE PAINAFTER THE PROCEDURE SEVERITY - PAIN SCORE OF4/10 LOCATIONSUPPER BACK, MID BACK, LOWER BACK QUALITYACHING , BURNING, SHARP DURATIONCONTINUOUS, CONSTANT, ALL DAY, AWAKENS FROM SLEEEP PAIN IS INCREASED BY:ACTIVITIES WALKING, CLEANING PAIN IS DECREASED BY:USE OF PAIN MEDICATIONS, SITTING PERMISSION REQUESTED AND RECEIVED FROM PATIENT TO PERFORM TELEHEALTH VISIT. 63-YEAR-OLD FEMALE IN FOR POST CERVICAL EPIDURAL FOLLOW-UP. SHE FEELS THE PROCEDURE WAS SUCCESSFUL OVERALL RATING HER PAIN PREPROCEDURE AT A 5-6 OUT OF 10 AND POSTPROCEDURE AT A 0-4/10. SHE FEELS THE PROCEDURE CONTINUES TO HELP HER TODAY. SHE DOES STATE THE PAIN HAS STARTED TO RETURN HOWEVER. SHE FEELS HER MEDICATIONS ARE HELPFUL AND DENIES MED SIDE EFFECTS AT THIS TIME. FALL RISK SCREENING: SCREENING :NO FALLS REPORTED IN THE LAST YEAR CURRENT MEDICATIONS TAKING CLOBETASOL PROP EMOLLIENT BASE 0.05 % CREAM 1 APPLICATION ON TOP OF NOSE EXTERNALLY TWICE A DAY, NOTES: 08/25 6AM TAKING VITAMIN C 500 MG CAPSULE 1 TABLET ORALLY DAILY, NOTES: 08/25 6AM TAKING VITAMIN B COMPLEX - INJECTABLE 1 ML ORALLY DAILY, NOTES: 08/25 6AM TAKING STOOL SOFTENER 100 MG CAPSULE 1 CAPSULE NEEDED ORALLY ONCE A DAY, NOTES: 1 WEEK TAKING SALINE NASAL SPRAY 0.65 % SOLUTION 2 SPRAYS IN EACH NOSTRIL NEEDED NASALLY FOUR TIMES DAILY NEEDED, NOTES: 08/25 6PM TAKING VITAMIN D 1 CAPSULE 1 CAPSULE ORALLY ONCE A DAY, NOTES: 08/25 6AM TAKING ESTRADIOL 2 MG TABLET TAKE ONE TABLET BY MOUTH ONCE DAILY ORAL , NOTES: 08/25 6AM TAKING LIPITOR 20 MG TABLET 1 TABLET ORALLY ONCE A DAY [id number], NOTES: 08/24 TAKING AIRDUO RESPICLICK 232/14 232-14 MCG/ACT AEROSOL POWDER BREATH ACTIVATED 1 PUFF INHALATION TWICE A DAY, NOTES: 08/25 6AM TAKING FERROUS GLUCONATE 324 (38 FE) MG TABLET 1 TABLET ORALLY ONCE A DAY, NOTES: 3 DAYS AGO TAKING LYRICA 50 MG CAPSULE 1 CAPSULE ORALLY ONCE A DAY, NOTES: 08/24 TAKING ALBUTEROL SULFATE HFA 108 (90 BASE) MCG/ACT AEROSOL SOLUTION 2 PUFFS NEEDED INHALATION EVERY 6 HRS, NOTES: 08/25 6PM TAKING REXULTI 1 MG TABLET 1 TABLET ORALLY ONCE A DAY, NOTES: 08/25 6AM TAKING METFORMIN HCL ER 500 MG TABLET EXTENDED RELEASE 24 HOUR 1 TABLET WITH EVENING MEAL ORALLY ONCE A DAY TAKING CREON [id number] UNIT CAPSULE DELAYED RELEASE PARTICLES 1 TAB ORALLY TID, NOTES: 08/25 6AM UNKNOWN LITHIUM CARBONATE 150 MG CAPSULE 1 CAPSULE ORALLY TWICE A DAY UNKNOWN LITHIUM CARBONATE 150 MG CAPSULE TAKE ONE CAPSULE BY MOUTH TWICE DAILY ORAL MEDICATION LIST REVIEWED AND RECONCILED WITH THE PATIENT PAST MEDICAL HISTORY CHOLANGIOCARCINOMA S/P PYLORIS PRESERVING WHIPPLE PROCEDURE ON 04/24/2016 GERD BIPOLAR- [facility] DVT S/P VERICOSE VEIN REPAIR 30 YEARS AGO HYPERLIPIDEMIA 10/2017 MRI CERVICAL SPINE: OSTOARTHRITIC CHANGES R C2-3 RIGHT C7-T1, MILD CERVCAL SPONDYLOSIS AT C3-4. ANTERIOR DISCECTOMY AND FUSION FROM C4-7 PREMATURE MENOPAUSE BILATERAL RENAL CYSTS R 9MM MID POLE/8MM LOVER POLE L 5MM MID POLE 08/2017 EGD, COLONOSCOPY DR. Salazar MILD DIVERTICULOSIS/MODERATE INTERNAL HEMORRHOIDS, DECREASED SPHINTER TONE ANNE -C-PAP 15 CM ALLERGIES ASPIRIN: HIVES - ALLERGY SULFA (FOR ALLERGY USE ONLY): HIVES - ALLERGY TYLENOL: HIVES - ALLERGY CYCLOBENZAPRINE HCL: HIVES - ALLERGY TRAZODONE HCL: HIVES - ALLERGY METFORMIN HCL: NAUSEA/VOMITING - SIDE EFFECTS SURGICAL HISTORY HYSTERECTOMY 1988 PANCREATIC WHIPPLE 04/24/2016 APPENDECTOMY 1971 CHOLCYSTECTOMY 2009 BLADDER SUSPENSION 2010 BREAST IMPLANTS- BILATERAL 1987 CERVICAL FUSION 2010 FAMILY HISTORY FATHER: 74 YRS, OF CANCER, DIAGNOSED WITH UNSPECIFIED HEART DISEASE, OTHER MALIGNANT NEOPLASM OF UNSPECIFIED SITE MOTHER: 72 YRS, EMBOLIC HEART ATTACK, UNSPECIFIED HEART DISEASE, UNSPECIFIED CEREBRAL ARTERY OCCLUSION WITH CEREBRAL INFARCTION SIBLINGS: , DIET AT 51 HYPERTROPHY HEART DISEASE SON(S): ALIVE DAUGHTER(S): ALIVE 8 BROTHER(S) , 1 SISTER(S) . 2 SON(S) , 2 DAUGHTER(S) . DAUGHTER C OVARIAN CA AT 18SON C BIPOLAR3 BROTHERS C RHEMATIC HEART DISEASE4 BROTHERS 1 SISTER HT, HYPERLIPIDEMIA. SOCIAL HISTORY GENERAL: TOBACCO USE ARE YOU A:FORMER SMOKER HOW LONG HAS IT BEEN SINCE YOU LAST SMOKED?> 10 YEARS HIV / HEP-C SCREENING HIV TEST OFFERED TO PATIENT:YES DATE OFFERED:11/06/2017 PREVIOUSLY DONE HEP-C TEST OFFERED TO PATIENT:YES PREVIOUSLY DONE DATE OFFERED:11/06/2017 BROCHURE PROVIDED TO PATIENTNO OTHERS AT HOME: TIAN. EDUCATION LEVEL OF EDUCATION:FINISHED HIGH SCHOOL DIET: NO HIGH FATS. LANGUAGE LANGUAGES SPOKEN:BOTH LATVIAN AND GUYANESE DOMESTIC VIOLENCE DO YOU FEEL SAFE IN YOUR ENVIRONMENT?YES RECREATIONAL DRUG USE DRUG USE?NO EXERCISE: NO REGULAR EXERCISE. LEARNING BARRIERS / SPECIAL NEEDS CHANGE FROM LAST VISIT?YES LOWER ABDOMINAL PAIN. FEELING OF CRAMPS BARRIERS TO LEARNING?NO HEARING IMPAIRED?NO VISION IMPAIRED?YES COGNITIVELY IMPAIRED?NO :CORRECTIVE LENSES READING READINESS TO LEARN?YES LEARNING PREFERENCES?NO LEARNING CAPABILITIES PRESENT?YES EMOTIONAL BARRIERS?NO SPECIAL DEVICES?NO SUPERVISOR TUNNEL HEADING NEEDED?YES DEPENDS ON WORDING, PRETTY FLUENT LUNG CANCER SCREENING SMOKING STATUS:FORMER SMOKER IS THE PATIENT BETWEEN THE AGE OF 55 AND 77?YES HAVE YOU QUIT SMOKING WITHIN THE PAST 15 YEARS?NO PAIN CLINIC PFS, CLERGY, PUBLIC HEALTH REFERRALS PFS REFERRAL NEEDED?NO CLERGY REFERRAL NEEDED?NO PUBLIC HEALTH REFERRAL NEEDED?NO WAS THE PROVIDER NOTIFIED OF ANY PERTINENT INFO?YES HAS THE PATIENT BEEN EDUCATED REGARDING HIS/HER PLAN OF CARE?YES HAS THE PATIENT BEEN EDUCATED REGARDING PAIN, THE RISK FOR PAIN, THE IMPORTANCE OF EFFECTIVE PAIN MANAGEMENT, AND THE PAIN ASSESSMENT PROCESS?YES LATEX QUESTIONNAIRE LATEX ALLERGY : HAVE YOU EVER DEVELOPED ANY TYPE OF REACTION AFTER HANDLING LATEX PRODUCTS SUCH RUBBER GLOVES, CONDOMS, DIAPHRAGMS, BALLOONS, SOCKS, OR UNDERWEAR?NO LATEX ALLERGY : HAVE YOU EVER DEVELOPED ANY TYPE OF REACTION DURING OR AFTER DENTAL APPOINTMENT, VAGINAL/RECTAL EXAMINATION, SURGICAL PROCEDURE, OR ANY OTHER EXPOSURE?NO DATE ASKED : 08/26/2019 LATEX RISK : HAVE YOU EVER HAD ANY DIFFICULTY BREATHING OR HIVES AFTER EATING OR HANDLING ANY FRUITS, OR VEGETABLES; SUCH KIWI, BANANAS, STONE FRUITS, OR CHESTNUTSNO LATEX RISK : DO YOU HAVE A PREVIOUS PERSONAL HISTORY OF MORE THAN NINE SURGERIES, SPINA BIFIDA, OR REPEATED CATHERIZATIONS? YES - PLEASE INDICATE : > 9 SURGERIES LATEX RISK : ARE YOU FREQUENTLY EXPOSED TO LATEX PRODUCTS IN YOUR OCCUPATION?YES CAFFEINE CAFFEINE USE?YES HOW OFTEN AND HOW MUCH? 1 CUP OF COFFEE ADVANCE DIRECTIVE ADVANCE DIRECTIVE DISCUSSED WITH PATIENT:YES PT DECLINED HCP INFORMATION, STATES SHE HAS THE INFORMATION AT HOME, DECLINED ASSISTANCE WITH PAPERWORK. FAITH [id number] JEHOVAH'S WITNESS MARITAL STATUS: ENGAGED. ALCOHOL SCREENING DID YOU HAVE A DRINK CONTAINING ALCOHOL IN THE PAST YEAR?NO POINTS0 INTERPRETATIONNEGATIVE OCCUPATION: DISABLED. SEXUAL HX HAD SEX IN THE LAST 12 MONTHS (VAGINAL, ORAL, OR ANAL)?YES WITHMEN ONLY HOSPITALIZATION/MAJOR DIAGNOSTIC PROCEDURE SURGERY RELATAED REVIEW OF SYSTEMS REVIEWED BY: PROVIDER: IDALIA HEALY PROFESSOR OF LITERATURE-C . CONSTITUTIONAL: ANY CHANGE IN YOUR MEDICAL CONDITION? NO . CHILLS NO . FEVER NO . INFECTION: DO YOU HAVE NEW INFECTIONS? NO . DO YOU HAVE HISTORY OF MRSA? NO . MUSCULOSKELETAL: ANY NEW PATTERNS OF PAIN OR NUMBNESS? NO . GASTROENTEROLOGY: ANY NEW CHANGE IN BOWEL CONTROL? NO . GENITOURINARY: ANY NEW CHANGE IN BLADDER CONTROL? NO . IS THERE A CHANCE YOU COULD BE ? NO . HEMATOLOGY/LYMPH: DO YOU TAKE ANY BLOOD THINNERS? (FOR EXAMPLE- COUMADIN, PLAVIX, AGGRENOX, PLATEL, PRADAXA, OR XARELTO) NO . WHEN WAS YOUR LAST DOSE? DATE: TIME: . NEUROLOGY: HAVE YOU FALLEN IN THE PAST 12 MONTHS? NO . ANY NEW EXTREMITY NUMBNESS OR WEAKNESS? NO . CARDIOLOGY: DO YOU HAVE A PACEMAKER OR DEFIBRILLATOR? NO . RESPIRATORY: HAVE YOU BEEN SICK IN THE PAST WEEK? NO . FEVER NO . FLU LIKE SYMPTOMS? YES, SINUS, BODYACHE, HEADACHE . COUGH NO . INTEGUMENTARY: DO YOU HAVE ANY RASHES OR OPEN SORES? NO . ALLERGIC/IMMUNO: ARE YOU ALLERGIC TO IV DYE? NO . ANY NEW ALLERGIES? NO . PSYCHIATRIC: DO YOU HAVE THOUGHTS OF HURTING YOURSELF OR SOMEONE ELSE? NO . ARE YOU ABUSED, NEGLECTED, OR IN AN UNSAFE ENVIRONMENT? NO . ENDOCRINOLOGY: ARE YOU DIABETIC? YES, BORDERLINE . OTHER: DO YOU NEED ANY PRESCRIPTIONS? NO . IF YES, PLEASE LIST: ____ . ANY NEW PROBLEMS WITH YOUR MEDICATIONS? NO . WHEN DID YOU LAST EAT? ____ . WHEN DID YOU LAST DRINK? ____ . WHAT DID YOU LAST DRINK? ____ . NAME OF PERSON DRIVING YOU HOME? ____ . DO YOU HAVE ANY OTHER QUESTIONS OR CONCERNS NO . ASSESSMENTS CERVICAL DISC DISORDER WITH RADICULOPATHY, UNSPECIFIED CERVICAL REGION - M50.10 (PRIMARY) TREATMENT CERVICAL DISC DISORDER WITH RADICULOPATHY, UNSPECIFIED CERVICAL REGION CLINICAL NOTES: 63-YEAR-OLD FEMALE IN FOR POST HEATHER FOLLOW-UP. GIVEN PRESENTING SYMPTOMS AND RESULTS OF PHYSICAL EXAMINATION RECOMMENDED FOLLOW-UP IN ONE MONTH. PATIENT HAS EXPRESSED UNDERSTANDING OF AND WAS IN AGREEMENT WITH TREATMENT PLAN. GIVEN TIME TO ASK QUESTIONS AND EXPRESS CONCERNS., ISTOP REGISTRY REVIEWED AND DEMONSTRATES COMPLLIANCE. (REF # [id number] ) BRINGS IN MEDICATIONS WHICH IS APPROPRIATE FOR WHAT WAS DISPENSED. RECENT URINE TOXICOLOGY REVIEWED. NO UNAUTHORIZED MEDICATIONS. NO ILLICIT SUBSTANCES AND PRESCRIBED MEDICATIONS WERE PRESENT. THIS VISITS TO BE BILLED BASED ON TIME SPENT WITH PATIENT. TIME SPENT WITH PATIENT 11 MINUTES. DISPOSITION & COMMUNICATION FOLLOW UP 4 WEEKS (REASON: NECK PAIN) ELECTRONICALLY SIGNED BY DARIAN LIMA ON 10/12/2019 AT 08:42 AM EDT DISCLAIMER : THIS IS A VISIT SUMMARY EXTRACTED FROM THE [employer] CHART. IT IS NOT A COPY OF THE [employer] PROGRESS NOTE. MERLE
== END ==
LOC: M PAIN 10:45
PROVIDERS: ATTEND Family Medicine
DX: M50.10 Cervical disc disorder with radiculopathy, unspecified cervical region (principal); Z86.59 Personal history of other mental and behavioral disorders; E78.5 Hyperlipidemia, unspecified; E11.9 Type 2 diabetes mellitus without complications; G47.33 Obstructive sleep apnea (adult) (pediatric); Z87.891 Personal history of nicotine dependence; Z88.2 Allergy status to sulfonamides; Z88.6 Allergy status to analgesic agent; Z88.8 Allergy status to other drugs, medicaments and biological substances; Z79.84 Long term (current) use of oral hypoglycemic drugs; Z79.899 Other long term (current) drug therapy

== ENCOUNTER → 2019-11-09 | Outpatient (CLI) | payer OTHER ==
--- NOTE | 2019-11-11 02:40 | ECWPNPC ---
PATIENT NAME: PANCHITO WALKER : 1955 GENDER: FEMALE VISIT DATE: 11/09/2019 DISCHARGE DATE: 11/09/19 0948 VISIT LOCKED DATE TIME: PHYSICIAN: UMU HEALY RESOURCE: UMU HEALY REASON FOR APPOINTMENT 1. 4 WEEKS HISTORY OF PRESENT ILLNESS HISTORY OF PRESENT ILLNESS: PAIN THE PATIENT DESCRIBES THE PAIN... 63-YEAR-OLD FEMALE IN FOR CHRONIC PAIN FOLLOW-UP. SHE RATES HER PAIN CURRENTLY AT A 4 OUT OF 10. SHE WOULD LIKE TO DISCUSS A REPEAT CERVICAL EPIDURAL SHE'S HAD THESE IN THE PAST WITH GOOD RESULTS. FALL RISK SCREENING: SCREENING :NO FALLS REPORTED IN THE LAST YEAR CURRENT MEDICATIONS TAKING CLOBETASOL PROP EMOLLIENT BASE 0.05 % CREAM 1 APPLICATION ON TOP OF NOSE EXTERNALLY TWICE A DAY TAKING VITAMIN C 500 MG CAPSULE 1 TABLET ORALLY DAILY TAKING VITAMIN B COMPLEX - TABLET 1 TABLET ORALLY DAILY TAKING STOOL SOFTENER 100 MG CAPSULE 1 CAPSULE NEEDED ORALLY ONCE A DAY TAKING SALINE NASAL SPRAY 0.65 % SOLUTION 2 SPRAYS IN EACH NOSTRIL NEEDED NASALLY FOUR TIMES DAILY NEEDED TAKING VITAMIN D 1 CAPSULE 1 CAPSULE ORALLY ONCE A DAY TAKING ESTRADIOL 2 MG TABLET TAKE ONE TABLET BY MOUTH ONCE DAILY ORAL TAKING LIPITOR 20 MG TABLET 1 TABLET ORALLY ONCE A DAY [id number] TAKING AIRDUO RESPICLICK 232/14 232-14 MCG/ACT AEROSOL POWDER BREATH ACTIVATED 1 PUFF INHALATION TWICE A DAY TAKING FERROUS GLUCONATE 324 (38 FE) MG TABLET 1 TABLET ORALLY ONCE A DAY TAKING LYRICA 50 MG CAPSULE 1 CAPSULE ORALLY ONCE A DAY TAKING ALBUTEROL SULFATE HFA 108 (90 BASE) MCG/ACT AEROSOL SOLUTION 2 PUFFS NEEDED INHALATION EVERY 6 HRS TAKING REXULTI 1 MG TABLET 1 TABLET ORALLY ONCE A DAY TAKING METFORMIN HCL ER 500 MG TABLET EXTENDED RELEASE 24 HOUR 1 TABLET WITH EVENING MEAL ORALLY ONCE A DAY TAKING CREON [id number] UNIT CAPSULE DELAYED RELEASE PARTICLES 1 TAB ORALLY TID UNKNOWN LITHIUM CARBONATE 150 MG CAPSULE 1 CAPSULE ORALLY TWICE A DAY UNKNOWN LITHIUM CARBONATE 150 MG CAPSULE TAKE ONE CAPSULE BY MOUTH TWICE DAILY ORAL MEDICATION LIST REVIEWED AND RECONCILED WITH THE PATIENT PAST MEDICAL HISTORY 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 ANTERIOR DISCECTOMY AND FUSION FROM C4-7 PREMATURE MENOPAUSE BILATERAL RENAL CYSTS R 9MM MID POLE/8MM LOVER POLE L 5MM MID POLE 08/2017 EGD, COLONOSCOPY DR. Salazar MILD DIVERTICULOSIS/MODERATE INTERNAL HEMORRHOIDS, DECREASED SPHINTER TONE ANNE -C-PAP 15 CM ALLERGIES ASPIRIN: HIVES - ALLERGY SULFA (FOR ALLERGY USE ONLY): HIVES - ALLERGY TYLENOL: HIVES - ALLERGY CYCLOBENZAPRINE HCL: HIVES - ALLERGY TRAZODONE HCL: HIVES - ALLERGY METFORMIN HCL: NAUSEA/VOMITING - SIDE EFFECTS SURGICAL HISTORY HYSTERECTOMY 1988 PANCREATIC WHIPPLE 04/24/2016 APPENDECTOMY 1971 CHOLCYSTECTOMY 2009 BLADDER SUSPENSION 2010 BREAST IMPLANTS- BILATERAL 1987 CERVICAL FUSION 2010 FAMILY HISTORY FATHER: 74 YRS, OF CANCER, DIAGNOSED WITH UNSPECIFIED HEART DISEASE, OTHER MALIGNANT NEOPLASM OF UNSPECIFIED SITE MOTHER: 72 YRS, EMBOLIC HEART ATTACK, UNSPECIFIED HEART DISEASE, UNSPECIFIED CEREBRAL ARTERY OCCLUSION WITH CEREBRAL INFARCTION SIBLINGS: , DIET AT 51 HYPERTROPHY HEART DISEASE SON(S): ALIVE DAUGHTER(S): ALIVE 8 BROTHER(S) , 1 SISTER(S) . 2 SON(S) , 2 DAUGHTER(S) . DAUGHTER C OVARIAN CA AT 18SON C BIPOLAR3 BROTHERS C RHEMATIC HEART DISEASE4 BROTHERS 1 SISTER HT, HYPERLIPIDEMIA. SOCIAL HISTORY GENERAL: TOBACCO USE ARE YOU A:FORMER SMOKER HOW LONG HAS IT BEEN SINCE YOU LAST SMOKED?> 10 YEARS LATEX QUESTIONNAIRE LATEX ALLERGY : HAVE YOU EVER DEVELOPED ANY TYPE OF REACTION AFTER HANDLING LATEX PRODUCTS SUCH RUBBER GLOVES, CONDOMS, DIAPHRAGMS, BALLOONS, SOCKS, OR UNDERWEAR?NO LATEX ALLERGY : HAVE YOU EVER DEVELOPED ANY TYPE OF REACTION DURING OR AFTER DENTAL APPOINTMENT, VAGINAL/RECTAL EXAMINATION, SURGICAL PROCEDURE, OR ANY OTHER EXPOSURE?NO DATE ASKED : 08/26/2019 LATEX RISK : HAVE YOU EVER HAD ANY DIFFICULTY BREATHING OR HIVES AFTER EATING OR HANDLING ANY FRUITS, OR VEGETABLES; SUCH KIWI, BANANAS, STONE FRUITS, OR CHESTNUTSNO LATEX RISK : DO YOU HAVE A PREVIOUS PERSONAL HISTORY OF MORE THAN NINE SURGERIES, SPINA BIFIDA, OR REPEATED CATHERIZATIONS? YES - PLEASE INDICATE : > 9 SURGERIES LATEX RISK : ARE YOU FREQUENTLY EXPOSED TO LATEX PRODUCTS IN YOUR OCCUPATION?YES LUNG CANCER SCREENING SMOKING STATUS:FORMER SMOKER IS THE PATIENT BETWEEN THE AGE OF 55 AND 77?YES HAVE YOU QUIT SMOKING WITHIN THE PAST 15 YEARS?NO ALCOHOL SCREENING DID YOU HAVE A DRINK CONTAINING ALCOHOL IN THE PAST YEAR?NO POINTS0 INTERPRETATIONNEGATIVE RECREATIONAL DRUG USE DRUG USE?NO CAFFEINE CAFFEINE USE?YES HOW OFTEN AND HOW MUCH? 1 CUP OF COFFEE SEXUAL HX HAD SEX IN THE LAST 12 MONTHS (VAGINAL, ORAL, OR ANAL)?YES WITHMEN ONLY HIV / HEP-C SCREENING HIV TEST OFFERED TO PATIENT:YES DATE OFFERED:11/06/2017 PREVIOUSLY DONE HEP-C TEST OFFERED TO PATIENT:YES PREVIOUSLY DONE DATE OFFERED:11/06/2017 BROCHURE PROVIDED TO PATIENTNO CONFUCIANISM [id number] YARSANI LANGUAGE LANGUAGES SPOKEN:BOTH CITIZEN OF [place] AND [place] AND [place] EDUCATION LEVEL OF EDUCATION:FINISHED HIGH SCHOOL LEARNING BARRIERS / SPECIAL NEEDS CHANGE FROM LAST VISIT?YES LOWER ABDOMINAL PAIN. FEELING OF CRAMPS BARRIERS TO LEARNING?NO HEARING IMPAIRED?NO VISION IMPAIRED?YES COGNITIVELY IMPAIRED?NO :CORRECTIVE LENSES READING READINESS TO LEARN?YES LEARNING PREFERENCES?NO LEARNING CAPABILITIES PRESENT?YES EMOTIONAL BARRIERS?NO SPECIAL DEVICES?NO MEDICAL FIELD REPRESENTATIVE NEEDED?YES DEPENDS ON WORDING, PRETTY FLUENT DOMESTIC VIOLENCE DO YOU FEEL SAFE IN YOUR ENVIRONMENT?YES OCCUPATION: DISABLED. DIET: NO HIGH FATS. EXERCISE: NO REGULAR EXERCISE. MARITAL STATUS: ENGAGED. OTHERS AT HOME: FIANCEE. NEW PATIENT PAIN DIARY PATIENT DESCRIBES PAIN :ACHING, BURNING, HAVE IT ALL THE TIME, SHARP, STABBING, TENDER, THROBBING, SORE, SHOOTING FROM 0-10, WHAT LEVEL IS YOUR PAIN TODAY?4 11/09/19 PRECIPITATING FACTORS ACTIVITY, STAYING IN ONE POSITION FOR A LONG TIME ALLEVIATING FACTORS POSITION CHANGE PAIN CLINIC PFS, CLERGY, PUBLIC HEALTH REFERRALS PFS REFERRAL NEEDED?NO CLERGY REFERRAL NEEDED?NO PUBLIC HEALTH REFERRAL NEEDED?NO WAS THE PROVIDER NOTIFIED OF ANY PERTINENT INFO?YES HAS THE PATIENT BEEN EDUCATED REGARDING HIS/HER PLAN OF CARE?YES HAS THE PATIENT BEEN EDUCATED REGARDING PAIN, THE RISK FOR PAIN, THE IMPORTANCE OF EFFECTIVE PAIN MANAGEMENT, AND THE PAIN ASSESSMENT PROCESS?YES ADVANCE DIRECTIVE ADVANCE DIRECTIVE DISCUSSED WITH PATIENT:YES PT DECLINED HCP INFORMATION, STATES SHE HAS THE INFORMATION AT HOME, DECLINED ASSISTANCE WITH PAPERWORK. HOSPITALIZATION/MAJOR DIAGNOSTIC PROCEDURE SURGERY RELATAED REVIEW OF SYSTEMS REVIEWED BY: PROVIDER: IDALIA FARMER-C . CONSTITUTIONAL: ANY CHANGE IN YOUR MEDICAL CONDITION? NO . CHILLS NO . FEVER NO . INFECTION: DO YOU HAVE NEW INFECTIONS? NO. DID HAVE A SINUS PROBLEM 2 WEEKS AGO. NOW RESOLVED. . DO YOU HAVE HISTORY OF MRSA? NO . MUSCULOSKELETAL: ANY NEW PATTERNS OF PAIN OR NUMBNESS? NO . GASTROENTEROLOGY: ANY NEW CHANGE IN BOWEL CONTROL? YES, CONSTIPATION IMPROVED . GENITOURINARY: ANY NEW CHANGE IN BLADDER CONTROL? NO . IS THERE A CHANCE YOU COULD BE ? NO . HEMATOLOGY/LYMPH: DO YOU TAKE ANY BLOOD THINNERS? (FOR EXAMPLE- COUMADIN, PLAVIX, AGGRENOX, PLATEL, PRADAXA, OR XARELTO) NO . WHEN WAS YOUR LAST DOSE? DATE: TIME: . NEUROLOGY: HAVE YOU FALLEN IN THE PAST 12 MONTHS? NO . ANY NEW EXTREMITY NUMBNESS OR WEAKNESS? NO . CARDIOLOGY: DO YOU HAVE A PACEMAKER OR DEFIBRILLATOR? NO . RESPIRATORY: HAVE YOU BEEN SICK IN THE PAST WEEK? NO . FEVER NO . FLU LIKE SYMPTOMS? NO . COUGH NO . INTEGUMENTARY: DO YOU HAVE ANY RASHES OR OPEN SORES? NO . ALLERGIC/IMMUNO: ARE YOU ALLERGIC TO IV DYE? NO . ANY NEW ALLERGIES? NO . PSYCHIATRIC: DO YOU HAVE THOUGHTS OF HURTING YOURSELF OR SOMEONE ELSE? NO . ARE YOU ABUSED, NEGLECTED, OR IN AN UNSAFE ENVIRONMENT? NO . ENDOCRINOLOGY: ARE YOU DIABETIC? NO . OTHER: DO YOU NEED ANY PRESCRIPTIONS? YES . IF YES, PLEASE LIST: LYRICA . ANY NEW PROBLEMS WITH YOUR MEDICATIONS? NO . WHEN DID YOU LAST EAT? ____ . WHEN DID YOU LAST DRINK? ____ . WHAT DID YOU LAST DRINK? ____ . NAME OF PERSON DRIVING YOU HOME? ____ . DO YOU HAVE ANY OTHER QUESTIONS OR CONCERNS NO . VITAL SIGNS WT 178.4 LBS, HT 64 IN, BMI 30.62 INDEX, BP 144/67 MM HG, HR 60 /MIN, RR 16 /MIN, OXYGEN SAT % 97, REVIEWED BY: MAGNO. EXAMINATION GENERAL EXAMINATION: GENERALNO ACUTE DISTRESS, WELL NOURISHED AND HYDRATED. PSYCHAPPROPRIATE MOOD AND AFFECT . NECK:POINT TENDER ALONG CERVICAL SPINE, SURROUNDING SKIN SHOWS NO ERYTHEMA, ECCHYMOSIS, INCREASED WARMTH, AND/OR SKIN ERUPTIONS NOTED. PATIENT DOES ENDORSE INCREASED PAIN ON THE LEFT SIDE WHEN ASKED TO LIFT ARMS AGAINST RESISTANCE . LUNGS:CLEAR TO AUSCULTATION BILATERALLY, NO WHEEZES, RHONCHI, RALES. HEART:NO MURMURS, REGULAR RATE AND RHYTHM. ASSESSMENTS CERVICAL DISC DISORDER WITH RADICULOPATHY, UNSPECIFIED CERVICAL REGION - M50.10 (PRIMARY) TREATMENT CERVICAL DISC DISORDER WITH RADICULOPATHY, UNSPECIFIED CERVICAL REGION REFILL LYRICA CAPSULE, 50 MG, 1 CAPSULE, ORALLY, ONCE A DAY, 30 DAYS, 30 CAPSULE NOTES: HEATHER C7-T1. CLINICAL NOTES: 63-YEAR-OLD FEMALE IN FOR CHRONIC PAIN FOLLOW-UP. GIVEN PRESENTING SYMPTOMS AND RESULTS OF PHYSICAL EXAMINATION RECOMMEND HEATHER C7-T1 WITH POSTPROCEDURAL FOLLOW-UP. PATIENT HAS EXPRESSED UNDERSTANDING OF AND WAS IN AGREEMENT WITH TREATMENT PLAN. GIVEN TIME TO ASK QUESTIONS AND EXPRESS CONCERNS. , ISTOP REGISTRY REVIEWED AND DEMONSTRATES COMPLLIANCE. (REF # [id number] ) BRINGS IN MEDICATIONS WHICH IS APPROPRIATE FOR WHAT WAS DISPENSED. RECENT URINE TOXICOLOGY REVIEWED. NO UNAUTHORIZED MEDICATIONS. NO ILLICIT SUBSTANCES AND PRESCRIBED MEDICATIONS WERE PRESENT. OTHERS NOTES: CERVICAL EPIDURAL INJECTION MATERIAL WAS PRINTED. PREVENTIVE MEDICINE PAIN CLINIC TEACHING: PROCEDURE TEACHING PRE CERVICAL EPIDURAL STEROID INJECTION INSTRUCTIONS REVIEWED WITH PT. VERBALIZED UNDERSTANDING.. PROCEDURE CODES FA211 ESTABILISHED PATIENT [facility] CHARGE DISPOSITION & COMMUNICATION FOLLOW UP POSTPROCEDURE (REASON: HEATHER C7-T1) ELECTRONICALLY SIGNED BY DARIAN LIMA ON 11/10/2019 AT 08:58 AM EDT DISCLAIMER : THIS IS A VISIT SUMMARY EXTRACTED FROM THE [employer] CHART. IT IS NOT A COPY OF THE [employer] PROGRESS NOTE. MERLE
== END ==
LOC: M PAIN 08:45
PROVIDERS: ATTEND Family Medicine
DX: M50.10 Cervical disc disorder with radiculopathy, unspecified cervical region (principal); Z79.84 Long term (current) use of oral hypoglycemic drugs; Z79.899 Other long term (current) drug therapy; Z79.82 Long term (current) use of aspirin; Z88.2 Allergy status to sulfonamides; Z88.8 Allergy status to other drugs, medicaments and biological substances; Z87.891 Personal history of nicotine dependence

== ENCOUNTER → 2019-11-20 | Outpatient (CLI) | payer OTHER, MEDICAID ==
[~2019-11-20] MED LIST changes: -METF-791 PO; +METF-838 PO
[2019-11-20 11:24] LABS: BASO # 0.1 10^3/uL (0.0-0.2); BASO % 0.8 % (0.0-1.0); EOS # 0.5 10^3/uL (0.0-0.5); EOS % 4.7 % (0.0-3.0); HEMATOCRIT 43.4 % (36.0-47.0); HEMOGLOBIN 13.8 g/dl (12.0-15.5); LYMPH # 2.7 10^3/uL (1.5-5.0); LYMPH % 26.1 % (24.0-44.0); MEAN CORPUSCULAR HEMOGLOBIN 26.6 pg (27.0-33.0); MEAN CORPUSCULAR HGB CONC 31.8 g/dl (32.0-36.5); MEAN CORPUSCULAR VOLUME 83.6 fl (80.0-96.0); MONO # 0.7 10^3/uL (0.0-0.8); MONO % 6.5 % (0.0-5.0); NEUTROPHILS # 6.3 10^3/uL (1.5-8.5); NEUTROPHILS % 61.5 % (36.0-66.0); PLATELET COUNT, AUTOMATED 221 10^3/uL (150-450); RED BLOOD COUNT 5.19 10^6/uL (4.00-5.40); WHITE BLOOD COUNT 10.3 10^3/uL (4.0-10.0)
== END ==
LOC: M LAB 10:35
PROVIDERS: ATTEND Internal Medicine Medical Oncology
DX: Z79.899 Other long term (current) drug therapy (principal)

== ENCOUNTER → 2019-11-21 | Outpatient (CLI) | payer OTHER | LOC: M LABSMTC 08:52 | PROVIDERS: ATTEND Anesthesiology | DX: Z01.818 Encounter for other preprocedural examination (principal); Z11.59 Encounter for screening for other viral diseases ==

== ENCOUNTER → 2019-11-24 | Outpatient (CLI) | payer OTHER ==
[~2019-11-24] MED LIST changes: +ISOVUE-M 300 61% 15ML VIAL As Ordered ONE; +LIDOCAINE 1% SDV 30ML VIAL As Ordered ONE; -PANT20TA2 PO; +PANT20TA6 PO; +SIME180C PO; +VITA500045 PO; +dexameTHASONE 10MG/1ML VIAL PRES.FREE (J1100 PER 1MG) As Ordered ONE; +diazePAM 5MG TABLET As Ordered ONE; +oxyCODONE 5MG TAB As Ordered ONE
--- NOTE | 2019-11-24 14:38 | REP ---
C-ARM VIEWS CERVICAL SPINE: CLINICAL HISTORY: Pain. Two C-arm views of the cervical spine performed during injection performed by Dr. Khan. Metallic plate and screws are seen in the lower cervical spine. A needle is seen at the cervicothoracic junction. 10 seconds of fluoroscopy time is utilized. Electronically Signed by Asaf Polk MD 11/24/2019 03:37 P
--- NOTE | 2019-11-25 01:11 | ECWPNPC ---
PATIENT NAME: PANCHITO WALKER : 1955 GENDER: FEMALE VISIT DATE: 11/24/2019 DISCHARGE DATE: 11/24/19 1427 VISIT LOCKED DATE TIME: PHYSICIAN: HAYLEE COHEN MD RESOURCE: HAYLEE COHEN MD REASON FOR APPOINTMENT 1. HEATHER C7-T1 PAT DONE HISTORY OF PRESENT ILLNESS HISTORY OF PRESENT ILLNESS: PAIN THE PATIENT DESCRIBES THE PAIN... FALL RISK SCREENING: SCREENING :NO FALLS REPORTED IN THE LAST YEAR CURRENT MEDICATIONS TAKING CLOBETASOL PROP EMOLLIENT BASE 0.05 % CREAM 1 APPLICATION ON TOP OF NOSE EXTERNALLY TWICE A DAY, NOTES: 11/22 8AM TAKING VITAMIN C 500 MG CAPSULE 1 TABLET ORALLY DAILY, NOTES: 11/22 8A TAKING VITAMIN B COMPLEX - TABLET 1 TABLET ORALLY DAILY, NOTES: 11/22 8A TAKING STOOL SOFTENER 100 MG CAPSULE 1 CAPSULE NEEDED ORALLY ONCE A DAY, NOTES: 2WEEKS TAKING SALINE NASAL SPRAY 0.65 % SOLUTION 2 SPRAYS IN EACH NOSTRIL NEEDED NASALLY FOUR TIMES DAILY NEEDED, NOTES: 11/22 8A TAKING VITAMIN D 1 CAPSULE 1 CAPSULE ORALLY ONCE A DAY, NOTES: 11/22 8A TAKING ESTRADIOL 2 MG TABLET TAKE ONE TABLET BY MOUTH ONCE DAILY ORAL , NOTES: 11/22 8A TAKING LIPITOR 20 MG TABLET 1 TABLET ORALLY ONCE A DAY [facility], NOTES: 11/21 8P TAKING AIRDUO RESPICLICK 232/14 232-14 MCG/ACT AEROSOL POWDER BREATH ACTIVATED 1 PUFF INHALATION TWICE A DAY, NOTES: 11/22 8A TAKING FERROUS GLUCONATE 324 (38 FE) MG TABLET 1 TABLET ORALLY ONCE A DAY, NOTES: 11/22 8A TAKING ALBUTEROL SULFATE HFA 108 (90 BASE) MCG/ACT AEROSOL SOLUTION 2 PUFFS NEEDED INHALATION EVERY 6 HRS, NOTES: 11/22 8A TAKING REXULTI 1 MG TABLET 1 TABLET ORALLY ONCE A DAY, NOTES: 11/22 8A TAKING METFORMIN HCL ER 500 MG TABLET EXTENDED RELEASE 24 HOUR 1 TABLET WITH EVENING MEAL ORALLY ONCE A DAY, NOTES: 11/22 2PM TAKING CREON [id number] UNIT CAPSULE DELAYED RELEASE PARTICLES 1 TAB ORALLY TID, NOTES: 11/22 6P TAKING LYRICA 50 MG CAPSULE 1 CAPSULE ORALLY ONCE A DAY, NOTES: 11/22 6P UNKNOWN LITHIUM CARBONATE 150 MG CAPSULE 1 CAPSULE ORALLY TWICE A DAY UNKNOWN LITHIUM CARBONATE 150 MG CAPSULE TAKE ONE CAPSULE BY MOUTH TWICE DAILY ORAL MEDICATION LIST REVIEWED AND RECONCILED WITH THE PATIENT PAST MEDICAL HISTORY CHOLANGIOCARCINOMA S/P PYLORIS PRESERVING WHIPPLE PROCEDURE ON 04/24/2016 GERD BIPOLAR- [facility] LLE DVT S/P VERICOSE VEIN REPAIR 30 YEARS AGO HYPERLIPIDEMIA 10/2017 MRI CERVICAL SPINE: OSTOARTHRITIC CHANGES R C2-3 RIGHT C7-T1, MILD CERVCAL SPONDYLOSIS AT C3-4. ANTERIOR DISCECTOMY AND FUSION FROM C4-7 PREMATURE MENOPAUSE BILATERAL RENAL CYSTS R 9MM MID POLE/8MM LOVER POLE L 5MM MID POLE 08/2017 EGD, COLONOSCOPY DR. Salazar MILD DIVERTICULOSIS/MODERATE INTERNAL HEMORRHOIDS, DECREASED SPHINTER TONE ANNE -C-PAP 15 CM ALLERGIES ASPIRIN: HIVES - ALLERGY SULFA (FOR ALLERGY USE ONLY): HIVES - ALLERGY TYLENOL: HIVES - ALLERGY CYCLOBENZAPRINE HCL: HIVES - ALLERGY TRAZODONE HCL: HIVES - ALLERGY SURGICAL HISTORY HYSTERECTOMY 1988 PANCREATIC WHIPPLE 04/24/2016 APPENDECTOMY 1971 CHOLCYSTECTOMY 2009 BLADDER SUSPENSION 2010 BREAST IMPLANTS- BILATERAL 1987 CERVICAL FUSION 2010 WHIPPLE PANCREAS 2015 FAMILY HISTORY FATHER: 74 YRS, OF CANCER, DIAGNOSED WITH UNSPECIFIED HEART DISEASE, OTHER MALIGNANT NEOPLASM OF UNSPECIFIED SITE MOTHER: 72 YRS, EMBOLIC HEART ATTACK, UNSPECIFIED HEART DISEASE, UNSPECIFIED CEREBRAL ARTERY OCCLUSION WITH CEREBRAL INFARCTION SIBLINGS: , DIET AT 51 HYPERTROPHY HEART DISEASE SON(S): ALIVE DAUGHTER(S): ALIVE 8 BROTHER(S) , 1 SISTER(S) . 2 SON(S) , 2 DAUGHTER(S) . DAUGHTER C OVARIAN CA AT 18SON C BIPOLAR3 BROTHERS C RHEMATIC HEART DISEASE4 BROTHERS 1 SISTER HT, HYPERLIPIDEMIA. SOCIAL HISTORY GENERAL: TOBACCO USE ARE YOU A:FORMER SMOKER HOW LONG HAS IT BEEN SINCE YOU LAST SMOKED?> 10 YEARS LATEX QUESTIONNAIRE LATEX ALLERGY : HAVE YOU EVER DEVELOPED ANY TYPE OF REACTION AFTER HANDLING LATEX PRODUCTS SUCH RUBBER GLOVES, CONDOMS, DIAPHRAGMS, BALLOONS, SOCKS, OR UNDERWEAR?NO LATEX ALLERGY : HAVE YOU EVER DEVELOPED ANY TYPE OF REACTION DURING OR AFTER DENTAL APPOINTMENT, VAGINAL/RECTAL EXAMINATION, SURGICAL PROCEDURE, OR ANY OTHER EXPOSURE?NO LATEX RISK : HAVE YOU EVER HAD ANY DIFFICULTY BREATHING OR HIVES AFTER EATING OR HANDLING ANY FRUITS, OR VEGETABLES; SUCH KIWI, BANANAS, STONE FRUITS, OR CHESTNUTSNO LATEX RISK : DO YOU HAVE A PREVIOUS PERSONAL HISTORY OF MORE THAN NINE SURGERIES, SPINA BIFIDA, OR REPEATED CATHERIZATIONS? YES - PLEASE INDICATE : > 9 SURGERIES LATEX RISK : ARE YOU FREQUENTLY EXPOSED TO LATEX PRODUCTS IN YOUR OCCUPATION?YES DATE ASKED : 11/24/2019 LUNG CANCER SCREENING SMOKING STATUS:FORMER SMOKER IS THE PATIENT BETWEEN THE AGE OF 55 AND 77?YES HAVE YOU QUIT SMOKING WITHIN THE PAST 15 YEARS?NO ALCOHOL SCREENING DID YOU HAVE A DRINK CONTAINING ALCOHOL IN THE PAST YEAR?NO POINTS0 INTERPRETATIONNEGATIVE RECREATIONAL DRUG USE DRUG USE?NO CAFFEINE CAFFEINE USE?YES HOW OFTEN AND HOW MUCH? 1 CUP OF COFFEE SEXUAL HX HAD SEX IN THE LAST 12 MONTHS (VAGINAL, ORAL, OR ANAL)?YES WITHMEN ONLY HIV / HEP-C SCREENING HIV TEST OFFERED TO PATIENT:YES DATE OFFERED:11/06/2017 PREVIOUSLY DONE HEP-C TEST OFFERED TO PATIENT:YES PREVIOUSLY DONE DATE OFFERED:11/06/2017 BROCHURE PROVIDED TO PATIENTNO RASTAFARIAN [id number] ROMAN CATHOLIC LANGUAGE LANGUAGES SPOKEN:BOTH KHMER AND [place]ITHU[place]IAN EDUCATION LEVEL OF EDUCATION:FINISHED HIGH SCHOOL LEARNING BARRIERS / SPECIAL NEEDS CHANGE FROM LAST VISIT?YES LOWER ABDOMINAL PAIN. FEELING OF CRAMPS BARRIERS TO LEARNING?NO HEARING IMPAIRED?NO VISION IMPAIRED?YES COGNITIVELY IMPAIRED?NO :CORRECTIVE LENSES READING READINESS TO LEARN?YES LEARNING PREFERENCES?NO LEARNING CAPABILITIES PRESENT?YES EMOTIONAL BARRIERS?NO SPECIAL DEVICES?NO WHEAT CLEANER NEEDED?YES DEPENDS ON WORDING, PRETTY FLUENT DOMESTIC VIOLENCE DO YOU FEEL SAFE IN YOUR ENVIRONMENT?YES OCCUPATION: DISABLED. DIET: NO HIGH FATS. EXERCISE: NO REGULAR EXERCISE. MARITAL STATUS: ENGAGED. OTHERS AT HOME: FIANCEE. NEW PATIENT PAIN DIARY TODAY'S VISIT 11/24/19 PATIENT DESCRIBES PAIN :ACHING, BURNING, HAVE IT ALL THE TIME, SHARP, STABBING, TENDER, THROBBING, SORE, SHOOTING FROM 0-10, WHAT LEVEL IS YOUR PAIN TODAY?5 PRECIPITATING FACTORS ACTIVITY, STAYING IN ONE POSITION FOR A LONG TIME ALLEVIATING FACTORS POSITION CHANGE PAIN CLINIC PFS, CLERGY, PUBLIC HEALTH REFERRALS PFS REFERRAL NEEDED?NO CLERGY REFERRAL NEEDED?NO PUBLIC HEALTH REFERRAL NEEDED?NO WAS THE PROVIDER NOTIFIED OF ANY PERTINENT INFO?YES HAS THE PATIENT BEEN EDUCATED REGARDING HIS/HER PLAN OF CARE?YES HAS THE PATIENT BEEN EDUCATED REGARDING PAIN, THE RISK FOR PAIN, THE IMPORTANCE OF EFFECTIVE PAIN MANAGEMENT, AND THE PAIN ASSESSMENT PROCESS?YES ADVANCE DIRECTIVE ADVANCE DIRECTIVE DISCUSSED WITH PATIENT:YES PT DECLINED HCP INFORMATION, STATES SHE HAS THE INFORMATION AT HOME, DECLINED ASSISTANCE WITH PAPERWORK. HOSPITALIZATION/MAJOR DIAGNOSTIC PROCEDURE SURGERY RELATAED REVIEW OF SYSTEMS REVIEWED BY: PROVIDER: HAYLEE COHEN MD . CONSTITUTIONAL: ANY CHANGE IN YOUR MEDICAL CONDITION? NO . CHILLS NO . FEVER NO . INFECTION: DO YOU HAVE NEW INFECTIONS? NO . DO YOU HAVE HISTORY OF MRSA? NO . MUSCULOSKELETAL: ANY NEW PATTERNS OF PAIN OR NUMBNESS? NO . GASTROENTEROLOGY: ANY NEW CHANGE IN BOWEL CONTROL? NO . GENITOURINARY: ANY NEW CHANGE IN BLADDER CONTROL? NO . IS THERE A CHANCE YOU COULD BE ? NO . HEMATOLOGY/LYMPH: DO YOU TAKE ANY BLOOD THINNERS? (FOR EXAMPLE- COUMADIN, PLAVIX, AGGRENOX, PLATEL, PRADAXA, OR XARELTO) NO . WHEN WAS YOUR LAST DOSE? DATE: TIME: . NEUROLOGY: HAVE YOU FALLEN IN THE PAST 12 MONTHS? NO . ANY NEW EXTREMITY NUMBNESS OR WEAKNESS? NO . CARDIOLOGY: DO YOU HAVE A PACEMAKER OR DEFIBRILLATOR? NO . RESPIRATORY: HAVE YOU BEEN SICK IN THE PAST WEEK? NO . FEVER NO . FLU LIKE SYMPTOMS? NO . COUGH NO . INTEGUMENTARY: DO YOU HAVE ANY RASHES OR OPEN SORES? NO . ALLERGIC/IMMUNO: ARE YOU ALLERGIC TO IV DYE? NO . ANY NEW ALLERGIES? NO . PSYCHIATRIC: DO YOU HAVE THOUGHTS OF HURTING YOURSELF OR SOMEONE ELSE? NO . ARE YOU ABUSED, NEGLECTED, OR IN AN UNSAFE ENVIRONMENT? NO . ENDOCRINOLOGY: ARE YOU DIABETIC? NO . OTHER: DO YOU NEED ANY PRESCRIPTIONS? NO . IF YES, PLEASE LIST: ____ . ANY NEW PROBLEMS WITH YOUR MEDICATIONS? NO . WHEN DID YOU LAST EAT? 11/22 7PM . WHEN DID YOU LAST DRINK? 11/23 0900 . WHAT DID YOU LAST DRINK? WATER . NAME OF PERSON DRIVING YOU HOME? MARCELLA . DO YOU HAVE ANY OTHER QUESTIONS OR CONCERNS NO . VITAL SIGNS WT 176.8 LBS, HT 64 IN, BMI 30.34 INDEX, BP 118/57 MM HG, HR 60 /MIN, RR 18 /MIN, TEMP 96.8 F, OXYGEN SAT % 98%, SAFE IN ENV? (Y/N) Y, NA INITIALS AW 1150, REVIEWED BY: EM. ASSESSMENTS CERVICAL POST-LAMINECTOMY SYNDROME - M96.1 (PRIMARY) PROCEDURES PN CERVICAL EPIDURAL PRE PROCEDURE DIAGNOSIS CERVICAL POST LAMINECTOMY PAIN SYNDROME POST PROCEDURE DIAGNOSIS CERVICAL POST LAMINECTOMY PAIN SYNDROME PROCEDURE CERVICAL EPIDURAL STEROID INJECTION UNDER FLUOROSCOPIC GUIDANCE SURGEON DR. HAYLEE COHEN ELECTRONICS REPAIR TECHNICIAN NONE ANESTHESIA LOCAL PRE PROCEDURE NOTE THE PATIENT HAS A HISTORY OF CHRONIC CERVICAL PAIN. I EVALUATED THE PATIENT AND REVIEWED THE CHART. I WENT OVER THE RISKS, ALTERNATIVES, AND BENEFITS ASSOCIATED WITH THIS PROCEDURE. I DISCUSSED WITH THE PATIENT THAT THE USE OF STEROIDS MAY CONTRIBUTE TO IMMUNOSUPPRESSION OF HER BODY AGAINST INFECTIONS SUCH THE MURRAY VIRUS, COVID-19. SHE IS AWARE OF THE POTENTIAL COMPLICATIONS ASSOCIATED WITH AN INFECTION OF THIS VIRUS INCLUDING . THE PATIENT WOULD LIKE TO PROCEED AND GIVE CONSENT TO PERFORMED THE PROCEDURE. THE PATIENT DENIES UNEXPLAINABLE WEIGHT LOSS, FEVER, CHILLS, OR NEW CHANGES IN URINARY OR BOWEL CONTROL. THE PATIENT IS COVID-19 NEGATIVE DESCRIPTION OF PROCEDURE THE PATIENT WAS BROUGHT TO THE PROCEDURE ROOM AND PLACED IN THE PRONE POSITION. THE CERVICOTHORACIC AREA WAS CLEANED WITH BETADINE SOLUTION AND DRAPED ASEPTICALLY. THE PROCEDURE WAS DONE UNDER STERILE CONDITIONS. I CHECKED LATERALITY AND THE LEVEL WHERE THE PROCEDURE WAS GOING TO BE PERFORMED WITH THE PATIENT AND THE SUPPORTING STAFF AT THE MOMENT OF THE TIME OUT IN THE PROCEDURE ROOM. UNDER FLUOROSCOPIC GUIDANCE, THE TARGET WAS SELECTED AT THE INTERLAMINAR LEVEL OF C7-T1. LIDOCAINE WAS USED TO NUMB THE SKIN AND THE SUBCUTANEOUS TISSUE BELOW IT. EPIDURAL TUOHY NEEDLE 17-GAUGE WAS ADVANCED UNDER FLUOROSCOPIC GUIDANCE AND FOLLOWING PATIENT FEEDBACK UNTIL THE EPIDURAL SPACE WAS REACHED 8 CM DEEP INTO THE SKIN BY THE LOSS OF RESISTANCE TECHNIQUE. ISOVUE M DYE 30%, 0.25 ML, WAS INJECTED SHOWING ADEQUATE SPREAD OF THE DYE. THEN, A SOLUTION OF 3 ML OF NORMAL SALINE WITH DEXAMETHASONE 10 MG WAS INJECTED SLOWLY FOLLOWING PATIENT FEEDBACK. THERE WAS NO EVIDENCE OF BLOOD, PARESTHESIA OR CEREBROSPINAL FLUID DURING THE PROCEDURE. THE PATIENT WAS SENT TO THE RECOVERY ROOM. THE PATIENT WAS MOVING THE EXTREMITIES AND DOING WELL. THERE WAS NO COMPLICATION DURING THE PROCEDURE. FLUOROSCOPY TIME WAS 10 SECONDS POST PROCEDURE NOTE THE PATIENT WILL BE SEEN IN A FOLLOW UP IN THE NEXT FEW WEEKS. I AM LOOKING FOR LONG LASTING PAIN RELIEF FOR THE PATIENT WITH THIS INJECTION. INSTRUCTIONS WERE GIVEN, QUESTIONS WERE ANSWERED, AND THE PATIENT EXPRESSED UNDERSTANDING AND AGREES WITH THE PLAN. I INSTRUCTED THE PATIENT TO STAY HOME, IF POSSIBLE, FOR A WEEK DUE TO COVID-19. I, PERCY CALDWELL, DOCUMENTED THE ABOVE INFORMATION ACTING A SCRIBE FOR DR. COHEN. I HAVE REVIEWED THE ABOVE DOCUMENT, WRITTEN BY ANNALISE GALLEGOS, AND I VERIFY THAT IT IS ACCURATE DIAGNOSTIC IMAGING [facility] FLUORO GUIDE SPINE INJECTION (PAIN)[id number] PROCEDURE CODES 70660 CERVICAL/THORACIC W/ IMAGING DISPOSITION & COMMUNICATION FOLLOW UP F/UP WITH FACILITIES LOCATOR (REASON: POST-PROCEDURE F/UP-NECK PAIN) ELECTRONICALLY SIGNED BY HAYLEE COHEN MD, MD ON 11/24/2019 AT 06:24 PM EDT DISCLAIMER : THIS IS A VISIT SUMMARY EXTRACTED FROM THE [facility] CHART. IT IS NOT A COPY OF THE [employer] PROGRESS NOTE. MTDD
== END ==
LOC: M PAIN 11:45
PROVIDERS: ATTEND Anesthesiology
DX: M96.1 Postlaminectomy syndrome, not elsewhere classified (principal); Z86.59 Personal history of other mental and behavioral disorders; G47.33 Obstructive sleep apnea (adult) (pediatric); Z87.891 Personal history of nicotine dependence; Z88.2 Allergy status to sulfonamides; Z88.6 Allergy status to analgesic agent; Z88.8 Allergy status to other drugs, medicaments and biological substances; Z79.899 Other long term (current) drug therapy
CPT/HCPCS: 62321; J1100; Q9967

== ENCOUNTER → 2019-12-14 | Outpatient (CLI) | payer OTHER ==
[~2019-12-14] MED LIST changes: -ISOVUE-M 300 61% 15ML VIAL As Ordered ONE; -LIDOCAINE 1% SDV 30ML VIAL As Ordered ONE; +PANT20TA2 PO; -PANT20TA6 PO; -SIME180C PO; -VITA500045 PO; -dexameTHASONE 10MG/1ML VIAL PRES.FREE (J1100 PER 1MG) As Ordered ONE; -diazePAM 5MG TABLET As Ordered ONE; -oxyCODONE 5MG TAB As Ordered ONE
--- NOTE | 2019-12-17 02:27 | ECWPNPC ---
PATIENT NAME: PANCHITO WALKER : 1955 GENDER: FEMALE VISIT DATE: 12/14/2019 DISCHARGE DATE: 12/14/19 1340 VISIT LOCKED DATE TIME: PHYSICIAN: [facility] HEALY RESOURCE: [facility] HE[facility] REASON FOR APPOINTMENT 1. POST HEATHER [phone] PAT DONE HISTORY OF PRESENT ILLNESS GENERAL: -63-YEAR-OLD FEMALE IN FOR POST HEATHER FOLLOW-UP. SHE FEELS THE PROCEDURE WAS EFFECTIVE OVERALL RATING HER PAIN PREPROCEDURE AT A 4-5 OUT OF 10 AND POST PROCEDURE AT A 0-3 OUT OF 10. SHE FURTHER STATES THE PROCEDURE CONTINUES TO HELP HER TODAY AND SHE FEELS HER MEDICATIONS ARE HELPFUL AND THERE IS NO SIDE EFFECTS. PAIN SCREENING: PATIENT HAS A COMPLAINT OF ACUTE OR CHRONIC PAIN :YES LOCATION OF PAIN:LOW BACK INTENSITY OF PAIN (SCALE OF 1 TO 10):3 PRE PROCEDURE -11/21, [id number]-7/10 WHAT DOES YOUR PAIN FEEL LIKE:ACHING, BURNING, SHARP DURATION:CONTINOUS, CONSTANT, ALL DAY PAIN IS INCREASED BY:ACTIVITIES, PROLONGED STANDING PAIN IS DECREASED BY:USE OF PAIN MEDICATIONS LYING DOWN FALL RISK SCREENING: SCREENING :NO FALLS REPORTED IN THE LAST YEAR DEPRESSION SCREENING: PHQ-9 LITTLE INTEREST OR PLEASURE IN DOING THINGSMORE THAN HALF THE DAYS FEELING DOWN, DEPRESSED, OR HOPELESSMORE THAN HALF THE DAYS TROUBLE FALLING OR STAYING ASLEEP, OR SLEEPING TOO MUCHNEARLY EVERY DAY FEELING TIRED OR HAVING LITTLE ENERGYMORE THAN HALF THE DAYS POOR APPETITE OR OVEREATING SEVERAL DAYS FEELING BAD ABOUT YOURSELF-OR THAT YOU ARE A FAILURE OR HAVE LET YOURSELF OR YOUR FAMILY DOWN NOT AT ALL TROUBLE CONCENTRATING ON THINGS, SUCH READING THE NEWSPAPER OR WATCHING TELEVISION NOT AT ALL MOVING OR SPEAKING SO SLOWLY THAT OTHER PEOPLE COULD HAVE NOTICED. OR THE OPPOSITE- BEING SO FIDGETY OR RESTLESS THAT YOU HAVE BEEN MOVING AROUND A LOT MORE THAN USUALNOT AT ALL THOUGHTS THAT YOU WOULD BE BETTER OFF , OR OF HURTING YOURSELF IN SOME WAY?NOT AT ALL TOTAL SCORE:10 INTERPRETATIONMODERATE DEPRESSION PHQ-2 (2015 EDITION) LITTLE INTEREST OR PLEASURE IN DOING THINGS?MORE THAN HALF THE DAYS FEELING DOWN, DEPRESSED, OR HOPELESS?MORE THAN HALF THE DAYS TOTAL SCORE4 PAIN CENTER INTAKE QUESTIONS: DO YOU HAVE A HISTORY OF MRSA? :NO DO YOU TAKE A BLOOD THINNERS? :NO DO YOU HAVE ANY BLEEDING DISORDERS? :NO ANY NEW NUMBNESS OR WEAKNESS IN YOUR LEGS OR ARMS? :NO ANY PACEMAKER,DEFIBRILLATOR, OR DORSAL COLUMN STIMULATOR? :NO DO YOU HAVE ANY RASHES OR OPEN SORES? :NO ARE YOU ALLERGIC TO IV DYE? :NO ARE YOU DIABETIC? :YES BORDERLINE ANY NEW PROBLEMS WITH YOUR MEDICATIONS? :NO HAVE YOU RECEIVED A VACCINE IN THE PAST 30 DAYS? :NO DO YOU PLAN TO RECEIVE A VACCINE IN THE NEXT 21 DAYS? :NO DO YOU NEED ANY PRESCRIPTION? :NO DO YOU TAKE ANY IMMUNOSUPPRESSIVE MEDICATIONS? :NO NURSING NOTE: PT. STATED PROCEDURE DID HELP A LOT-. CURRENT MEDICATIONS TAKING CLOBETASOL PROP EMOLLIENT BASE 0.05 % CREAM 1 APPLICATION ON TOP OF NOSE EXTERNALLY TWICE A DAY, NOTES: 11/22 8AM TAKING VITAMIN C 500 MG CAPSULE 1 TABLET ORALLY DAILY, NOTES: 11/22 8A TAKING VITAMIN B COMPLEX - TABLET 1 TABLET ORALLY DAILY, NOTES: 11/22 8A TAKING STOOL SOFTENER 100 MG CAPSULE 1 CAPSULE NEEDED ORALLY ONCE A DAY, NOTES: 2WEEKS TAKING SALINE NASAL SPRAY 0.65 % SOLUTION 2 SPRAYS IN EACH NOSTRIL NEEDED NASALLY FOUR TIMES DAILY NEEDED, NOTES: 11/22 8A TAKING VITAMIN D 1 CAPSULE 1 CAPSULE ORALLY ONCE A DAY, NOTES: 11/22 8A TAKING ESTRADIOL 2 MG TABLET TAKE ONE TABLET BY MOUTH ONCE DAILY ORAL , NOTES: 11/22 8A TAKING LIPITOR 20 MG TABLET 1 TABLET ORALLY ONCE A DAY [id number], NOTES: 11/21 8P TAKING AIRDUO RESPICLICK 232/14 232-14 MCG/ACT AEROSOL POWDER BREATH ACTIVATED 1 PUFF INHALATION TWICE A DAY, NOTES: 11/22 8A TAKING FERROUS GLUCONATE 324 (38 FE) MG TABLET 1 TABLET ORALLY ONCE A DAY, NOTES: 11/22 8A TAKING ALBUTEROL SULFATE HFA 108 (90 BASE) MCG/ACT AEROSOL SOLUTION 2 PUFFS NEEDED INHALATION EVERY 6 HRS, NOTES: 11/22 8A TAKING REXULTI 1 MG TABLET 1 TABLET ORALLY ONCE A DAY, NOTES: 11/22 8A TAKING METFORMIN HCL ER 500 MG TABLET EXTENDED RELEASE 24 HOUR 1 TABLET WITH EVENING MEAL ORALLY ONCE A DAY, NOTES: 11/22 2PM TAKING CREON [id number] UNIT CAPSULE DELAYED RELEASE PARTICLES 1 TAB ORALLY TID, NOTES: 11/22 6P TAKING LYRICA 50 MG CAPSULE 1 CAPSULE ORALLY ONCE A DAY, NOTES: 11/22 6P NOT-TAKING LITHIUM CARBONATE 150 MG CAPSULE 1 CAPSULE ORALLY TWICE A DAY NOT-TAKING LITHIUM CARBONATE 150 MG CAPSULE TAKE ONE CAPSULE BY MOUTH TWICE DAILY ORAL MEDICATION LIST REVIEWED AND RECONCILED WITH THE PATIENT PAST MEDICAL HISTORY 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 ANTERIOR DISCECTOMY AND FUSION FROM C4-7 PREMATURE MENOPAUSE BILATERAL RENAL CYSTS R 9MM MID POLE/8MM LOVER POLE L 5MM MID POLE 08/2017 EGD, COLONOSCOPY DR. Salazar MILD DIVERTICULOSIS/MODERATE INTERNAL HEMORRHOIDS, DECREASED SPHINTER TONE ANNE -C-PAP 15 CM ALLERGIES ASPIRIN: HIVES - ALLERGY SULFA (FOR ALLERGY USE ONLY): HIVES - ALLERGY TYLENOL: HIVES - ALLERGY CYCLOBENZAPRINE HCL: HIVES - ALLERGY TRAZODONE HCL: HIVES - ALLERGY SURGICAL HISTORY HYSTERECTOMY 1988 PANCREATIC WHIPPLE 04/24/2016 APPENDECTOMY 1971 CHOLCYSTECTOMY 2010 BLADDER SUSPENSION 2010 BREAST IMPLANTS- BILATERAL 1987 CERVICAL FUSION 2010 WHIPPLE PANCREAS 2016 FAMILY HISTORY FATHER: 74 YRS, OF CANCER, DIAGNOSED WITH OTHER MALIGNANT NEOPLASM OF UNSPECIFIED SITE, UNSPECIFIED HEART DISEASE MOTHER: 72 YRS, EMBOLIC HEART ATTACK, UNSPECIFIED HEART DISEASE, UNSPECIFIED CEREBRAL ARTERY OCCLUSION WITH CEREBRAL INFARCTION SIBLINGS: , DIET AT 51 HYPERTROPHY HEART DISEASE SON(S): ALIVE DAUGHTER(S): ALIVE 8 BROTHER(S) , 1 SISTER(S) . 2 SON(S) , 2 DAUGHTER(S) . DAUGHTER C OVARIAN CA AT 18SON C BIPOLAR3 BROTHERS C RHEMATIC HEART DISEASE4 BROTHERS 1 SISTER HT, HYPERLIPIDEMIA. SOCIAL HISTORY GENERAL: TOBACCO USE ARE YOU A:FORMER SMOKER HOW LONG HAS IT BEEN SINCE YOU LAST SMOKED?> 10 YEARS LATEX QUESTIONNAIRE LATEX ALLERGY : HAVE YOU EVER DEVELOPED ANY TYPE OF REACTION AFTER HANDLING LATEX PRODUCTS SUCH RUBBER GLOVES, CONDOMS, DIAPHRAGMS, BALLOONS, SOCKS, OR UNDERWEAR?NO LATEX ALLERGY : HAVE YOU EVER DEVELOPED ANY TYPE OF REACTION DURING OR AFTER DENTAL APPOINTMENT, VAGINAL/RECTAL EXAMINATION, SURGICAL PROCEDURE, OR ANY OTHER EXPOSURE?NO DATE ASKED : 11/24/2019 LATEX RISK : HAVE YOU EVER HAD ANY DIFFICULTY BREATHING OR HIVES AFTER EATING OR HANDLING ANY FRUITS, OR VEGETABLES; SUCH KIWI, BANANAS, STONE FRUITS, OR CHESTNUTSNO LATEX RISK : DO YOU HAVE A PREVIOUS PERSONAL HISTORY OF MORE THAN NINE SURGERIES, SPINA BIFIDA, OR REPEATED CATHERIZATIONS? YES - PLEASE INDICATE : > 9 SURGERIES LATEX RISK : ARE YOU FREQUENTLY EXPOSED TO LATEX PRODUCTS IN YOUR OCCUPATION?YES LUNG CANCER SCREENING SMOKING STATUS:FORMER SMOKER IS THE PATIENT BETWEEN THE AGE OF 55 AND 77?YES HAVE YOU QUIT SMOKING WITHIN THE PAST 15 YEARS?NO ALCOHOL SCREENING DID YOU HAVE A DRINK CONTAINING ALCOHOL IN THE PAST YEAR?NO POINTS0 INTERPRETATIONNEGATIVE RECREATIONAL DRUG USE DRUG USE?NO CAFFEINE CAFFEINE USE?YES HOW OFTEN AND HOW MUCH? 1 CUP OF COFFEE SEXUAL HX HAD SEX IN THE LAST 12 MONTHS (VAGINAL, ORAL, OR ANAL)?YES WITHMEN ONLY HIV / HEP-C SCREENING HIV TEST OFFERED TO PATIENT:YES DATE OFFERED:11/06/2017 PREVIOUSLY DONE HEP-C TEST OFFERED TO PATIENT:YES PREVIOUSLY DONE DATE OFFERED:11/06/2017 BROCHURE PROVIDED TO PATIENTNO HOAHAOISM [id number] ORTHODOX LANGUAGE LANGUAGES SPOKEN:BOTH SYRIAC AND GAMBIAN EDUCATION LEVEL OF EDUCATION:FINISHED HIGH SCHOOL LEARNING BARRIERS / SPECIAL NEEDS CHANGE FROM LAST VISIT?YES LOWER ABDOMINAL PAIN. FEELING OF CRAMPS BARRIERS TO LEARNING?NO HEARING IMPAIRED?NO VISION IMPAIRED?YES COGNITIVELY IMPAIRED?NO :CORRECTIVE LENSES READING READINESS TO LEARN?YES LEARNING PREFERENCES?NO LEARNING CAPABILITIES PRESENT?YES EMOTIONAL BARRIERS?NO SPECIAL DEVICES?NO ICT QUALITY ASSURANCE ENGINEER NEEDED?YES DEPENDS ON WORDING, PRETTY FLUENT DOMESTIC VIOLENCE DO YOU FEEL SAFE IN YOUR ENVIRONMENT?YES OCCUPATION: DISABLED. DIET: NO HIGH FATS. EXERCISE: NO REGULAR EXERCISE. MARITAL STATUS: ENGAGED. OTHERS AT HOME: FIANCEE. NEW PATIENT PAIN DIARY TODAY'S VISIT 11/24/19 PATIENT DESCRIBES PAIN :ACHING, BURNING, HAVE IT ALL THE TIME, SHARP, STABBING, TENDER, THROBBING, SORE, SHOOTING FROM 0-10, WHAT LEVEL IS YOUR PAIN TODAY?5 PRECIPITATING FACTORS ACTIVITY, STAYING IN ONE POSITION FOR A LONG TIME ALLEVIATING FACTORS POSITION CHANGE PAIN CLINIC PFS, CLERGY, PUBLIC HEALTH REFERRALS PFS REFERRAL NEEDED?NO CLERGY REFERRAL NEEDED?NO PUBLIC HEALTH REFERRAL NEEDED?NO WAS THE PROVIDER NOTIFIED OF ANY PERTINENT INFO?YES HAS THE PATIENT BEEN EDUCATED REGARDING HIS/HER PLAN OF CARE?YES HAS THE PATIENT BEEN EDUCATED REGARDING PAIN, THE RISK FOR PAIN, THE IMPORTANCE OF EFFECTIVE PAIN MANAGEMENT, AND THE PAIN ASSESSMENT PROCESS?YES ADVANCE DIRECTIVE ADVANCE DIRECTIVE DISCUSSED WITH PATIENT:YES PT DECLINED HCP INFORMATION, STATES SHE HAS THE INFORMATION AT HOME, DECLINED ASSISTANCE WITH PAPERWORK. HOSPITALIZATION/MAJOR DIAGNOSTIC PROCEDURE SURGERY RELATAED REVIEW OF SYSTEMS CONSTITUTIONAL: ANY RECENT FEVER OR ILLNESS NO . CHILLS NO . GASTROENTEROLOGY: BOWEL INCONTINENCE NO . ANY NEW CHANGE IN BOWEL CONTROL? NO . ABDOMINAL PAIN NO . CONSTIPATION NO . GENITOURINARY: ANY NEW CHANGE IN BLADDER CONTROL? NO . IS THERE A CHANCE YOU COULD BE ? NO . URINARY INCONTINENCE NO . CARDIOLOGY: CHEST PRESSURE NO . CHEST PAIN NO . RESPIRATORY: COUGH NO . SHORTNESS OF BREATH NO . VITAL SIGNS WT 178.4 LBS, HT 64 IN, BMI 30.62 INDEX, BP 129/58 MM HG, HR 64 /MIN, RR 16 /MIN, TEMP 97.1 F, OXYGEN SAT % 98%, SAFE IN ENV? 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 EXAMINATION GENERAL EXAMINATION: GENERALNO ACUTE DISTRESS, WELL NOURISHED AND HYDRATED. PSYCHAPPROPRIATE MOOD AND AFFECT . LUNGS:CLEAR TO AUSCULTATION BILATERALLY, NO WHEEZES, RHONCHI, RALES. HEART:NO MURMURS, REGULAR RATE AND RHYTHM. ASSESSMENTS CERVICAL RADICULOPATHY - M54.12 (PRIMARY) TREATMENT CERVICAL RADICULOPATHY CLINICAL NOTES: 63-YEAR-OLD FEMALE IN FOR POST PROCEDURAL FOLLOW-UP. GIVEN PRESENTING SYMPTOMS RECOMMEND FOLLOW-UP IN 2 MONTHS. PATIENT HAS EXPRESSED UNDERSTANDING OF AND WAS IN AGREEMENT WITH TREATMENT PLAN. GIVEN TIME TO ASK QUESTIONS AND EXPRESS CONCERNS. , ISTOP REGISTRY REVIEWED AND DEMONSTRATES COMPLLIANCE. (REF # [id number] ) BRINGS IN MEDICATIONS WHICH IS APPROPRIATE FOR WHAT WAS DISPENSED. RECENT URINE TOXICOLOGY REVIEWED. NO UNAUTHORIZED MEDICATIONS. NO ILLICIT SUBSTANCES AND PRESCRIBED MEDICATIONS WERE PRESENT. OTHERS NOTES: VITALS NOT OBTAINED DUE TO VIRTUAL VISIT, PRE SCREENING COMPLETED, 12/11/19, NA. PROCEDURE CODES FA211 ESTABILISHED PATIENT [facility] CHARGE DISPOSITION & COMMUNICATION FOLLOW UP 2 MONTHS (REASON: NECK PAIN) ELECTRONICALLY SIGNED BY DARIAN LIMA ON 12/16/2019 AT 07:52 AM EDT DISCLAIMER : THIS IS A VISIT SUMMARY EXTRACTED FROM THE ECLINICALWORKS CHART. IT IS NOT A COPY OF THE [facility] PROGRESS NOTE. MTDD
== END ==
LOC: M PAIN 13:15
PROVIDERS: ATTEND Family Medicine
DX: M54.12 Radiculopathy, cervical region (principal); Z79.84 Long term (current) use of oral hypoglycemic drugs; Z79.899 Other long term (current) drug therapy; Z88.2 Allergy status to sulfonamides; Z88.8 Allergy status to other drugs, medicaments and biological substances; Z87.891 Personal history of nicotine dependence

== ENCOUNTER → 2019-12-15 | Outpatient (CLI) | payer OTHER ==
[~2019-12-15] MED LIST changes: +GASTROGRAFIN SOLUTION 30ML (Q9963) As Ordered ONE; +ISOVUE-370 76% 100ML VIAL As Ordered ONE
--- NOTE | 2019-12-16 03:57 | REP ---
Clinical: Pancreatic carcinoma. Technique: Axial contrast enhanced images from the thoracic inlet to the upper abdomen followed by CT of the abdomen and pelvis using 100 ml Isovue 370 intravenous contrast material. Coronal and sagittal re-formations obtained. Comparison: 05/11/2019. Findings: The bilateral lung nur are relatively well aerated. Minimal linear scarring at the right lower lobe is identified along with calcified granuloma in the left lower lobe unchanged from prior examination. No acute consolidation, significant new nodule or mass lesion. No pleural effusion. No pneumothorax. Tracheobronchial tree is patent. No obvious axillary, hilar, or mediastinal adenopathy. Mediastinum demonstrates normal thoracic aorta, pulmonary vasculature, and heart/pericardium. Evidence for bilateral mammoplasty noted. Osseous structures are intact without acute focal abnormality. Impression: No acute mediastinal or pleuroparenchymal process. No evidence for metastatic disease. Electronically Signed by Jameson Vela MD 12/16/2019 03:49 A
--- NOTE | 2019-12-16 04:02 | REP ---
Clinical: Pancreatic cancer. Abdominal pain. Technique: Axial contrast enhanced images from the lung bases to the pubic symphysis using oral (per protocol) and 100 ml Isovue 370 intravenous contrast material with coronal and sagittal re-formations. Comparison: 05/11/2019. Findings: Findings suggest prior Whipple procedure. Liver, spleen, residual pancreas, bilateral adrenal glands are normal. The kidneys demonstrate bilateral scattered hypodensities measuring up to 1 cm compatible with small cysts. The enteric system is without obstruction or acute inflammatory process. Scattered colonic and sigmoid diverticulosis noted without acute diverticulitis. Pelvis demonstrates normal bladder and evidence for prior hysterectomy. No ascites. No free air. No obvious adenopathy. No recurrent/new mass lesion. Abdominal aorta and vasculature without aneurysm or dissection. Musculoskeletal structures demonstrate age-related changes without acute osseous abnormality. Impression: 1. Evidence of prior Whipple procedure. No obvious recurrence or metastatic disease noted. 2. Scattered colonic diverticulosis without acute diverticulitis. 3. Small scattered renal cysts up to 1 cm noted bilaterally. 4. No further acute abdominopelvic pathology appreciated. Electronically Signed by Jameson Vela MD 12/16/2019 03:54 A
== END ==
LOC: M RAD 10:45
PROVIDERS: ATTEND Internal Medicine Medical Oncology
DX: R10.9 Unspecified abdominal pain (principal); K57.30 Diverticulosis of large intestine without perforation or abscess without bleeding; N28.1 Cyst of kidney, acquired; Z85.07 Personal history of malignant neoplasm of pancreas
CPT/HCPCS: 71260; 74177; Q9963; Q9967

== ENCOUNTER → 2020-01-07 | Outpatient (REF) | payer OTHER ==
[~2020-01-07] MED LIST changes: -GASTROGRAFIN SOLUTION 30ML (Q9963) As Ordered ONE; -ISOVUE-370 76% 100ML VIAL As Ordered ONE
[2020-01-17 13:23] LABS: FATS NEUTRAL Normal (.); FATS TOTAL Normal (.); PANCREATIC ELASTASE STOOL 437 (>200)
== END ==
LOC: M LAB REF 13:49
PROVIDERS: ATTEND Internal Medicine Gastroenterology
DX: K86.81 Exocrine pancreatic insufficiency (principal)

== ENCOUNTER → 2020-02-15 | Outpatient (CLI) | payer OTHER, MEDICAID ==
[~2020-02-15] MED LIST changes: -PANT20TA2 PO; +PANT20TA6 PO
== END ==
LOC: M PAIN 11:15
PROVIDERS: ATTEND Family Medicine
DX: M54.12 Radiculopathy, cervical region (principal)

== ENCOUNTER → 2020-03-09 | Outpatient (CLI) | payer MEDICAID, OTHER ==
--- NOTE | 2020-03-10 06:48 | REPMRS ---
Patient History The patient states she has not had a clinical breast exam in over a year. Family history of ovarian cancer at age 18 in daughter, prostate cancer at age 70 in father. Pre-pectoral silicone gel implants in both breasts. Taking estrogen for 30 years beginning at age 31. Digital Woman Screen Mammo: March 09, 2020 - Exam #: [id number] Bilateral CC and MLO view(s) were taken. Technologist: Janie Hardwick Technologist Prior study comparison: February 05, 2019, bilateral digital mammo screening bilat, performed at [facility]. December 03, 2017, digital woman screen mammo performed at [facility]. FINDINGS: The breast tissue is extremely dense which could obscure a lesion on mammography. The visualized implant margins are smooth. Breast parenchymal density pattern is essentially symmetric. No dominant mass, grouped microcalcification, or architectural distortion is evident on either side. 3-D tomosynthesis shows no additional findings. No significant changes when compared with prior studies. Assessment: BI-RADS/ACR category 2 mammogram. Benign Findings. Recommendation Routine screening mammogram of both breasts in 1 year (for women over age 40). This patient's Lifetime Breast Cancer RIsk is estimated at 2.9 %. This mammogram was interpreted with the aid of an FDA-approved computer-aided dectection system. Electronically Signed By: Son Aiken MD 03/10/20 0647
== END ==
LOC: M WHC 12:48
PROVIDERS: ATTEND Specialist
DX: Z12.31 Encounter for screening mammogram for malignant neoplasm of breast (principal); Z98.82 Breast implant status; Z79.899 Other long term (current) drug therapy; Z80.41 Family history of malignant neoplasm of ovary

== ENCOUNTER → 2020-03-23 | Outpatient (CLI) | payer OTHER, MEDICAID ==
[2020-03-23 18:16] LABS: HEMOGLOBIN 13.1 g/dl (12.0-15.5); MEAN CORPUSCULAR HEMOGLOBIN 27.6 pg (27.0-33.0); MEAN CORPUSCULAR HGB CONC 32.8 g/dl (32.0-36.5); MEAN CORPUSCULAR VOLUME 84.2 fl (80.0-96.0); PLATELET COUNT, AUTOMATED 216 10^3/uL (150-450); RED BLOOD COUNT 4.75 10^6/uL (4.00-5.40); WHITE BLOOD COUNT 9.9 10^3/uL (4.0-10.0)
[2020-03-23 18:24] LABS: APPEARANCE, URINE CLEAR (CLEAR); BACTERIA, URINE AUTO NEGATIVE (NEGATIVE); BILIRUBIN, URINE AUTO NEGATIVE (NEGATIVE); BLOOD, URINE BLOOD 1+ (NEGATIVE); COLOR, URINE YELLOW (YELLOW); GLUCOSE, URINE (UA) AUTO NEGATIVE (NEGATIVE); KETONE, URINE AUTO NEGATIVE (NEGATIVE); LEUKOCYTE ESTERASE, URINE AUTO NEGATIVE (NEGATIVE); MUCUS, URINE SMALL (NEGATIVE); NITRITE, URINE AUTO NEGATIVE (NEGATIVE); PROTEIN, URINE AUTO NEGATIVE (NEGATIVE); RBC, URINE AUTO 1 /HPF (0-3); SQUAMOUS EPITHELIAL CELL UR AU 1 /HPF (0-6); UROBILINOGEN, URINE AUTO 0.2 mg/dL (0.0-2.0); WBC, URINE AUTO 1 /HPF (0-3)
[2020-03-23 18:29] LABS: ALBUMIN 3.1 GM/DL (3.2-5.2); ALT/SGPT 12 U/L (12-78); BILIRUBIN,TOTAL 0.2 MG/DL (0.2-1.0); BLOOD UREA NITROGEN 11 MG/DL (7-18); CALCIUM LEVEL 8.7 MG/DL (8.8-10.2); CARBON DIOXIDE LEVEL 26 MEQ/L (21-32); CHLORIDE LEVEL 110 MEQ/L (98-107); CHOLESTEROL LEVEL 199 MG/DL (<200); CHOLESTEROL RISK RATIO 2.763 (<5); CREATININE FOR GFR 0.81 MG/DL (0.55-1.30); FREE T4 1.09 NG/DL (0.76-1.46); GLOMERULAR FILTRATION RATE > 60.0 (>45); GLUCOSE, FASTING 105 MG/DL (70-100); HDL CHOLESTEROL 72 MG/DL (>40); LDL CHOLESTEROL 92 MG/DL (<100); NON-HDL-C 127 MG/DL; POTASSIUM SERUM 4.1 MEQ/L (3.5-5.1); SODIUM LEVEL 141 MEQ/L (136-145); TOTAL PROTEIN 6.4 GM/DL (6.4-8.2); TRIGLYCERIDES LEVEL 176 MG/DL (<150)
[2020-03-23 18:54] LABS: CREATININE, URINE 84.1 MG/DL; MALB URINE SIEMENS 7.8 MG/L; MAU/CREAT RATIO 9.2 MCG/MG (0.0-30.0)
== END ==
LOC: M PLALAB 14:49
PROVIDERS: ATTEND Nurse Practitioner Family
DX: M54.12 Radiculopathy, cervical region (principal); E78.5 Hyperlipidemia, unspecified; E55.9 Vitamin D deficiency, unspecified; N39.3 Stress incontinence (female) (male)

== ENCOUNTER → 2020-04-20 | Outpatient (CLI) | payer OTHER ==
--- NOTE | 2020-04-21 14:14 | ECWPNPC ---
PATIENT NAME: PANCHITO WALKER : 1955 GENDER: FEMALE VISIT DATE: 04/20/2020 DISCHARGE DATE: 04/20/20 1005 VISIT LOCKED DATE TIME: PHYSICIAN: [facility] PHYSICIAN PAGER NO: ACTIVE RESOURCE: [facility] REASON FOR APPOINTMENT 1. NECK HISTORY OF PRESENT ILLNESS GENERAL: - 64-YEAR-OLD FEMALE IN FOR CHRONIC PAIN FOLLOW-UP. SHE RATES HER PAIN CURRENTLY AT A 4 OUT OF 10 AND DESCRIBES IT ACHING, AND BURNING. PATIENT HAS HAD CERVICAL EPIDURALS IN THE PAST WITH GOOD RELIEF AND WE WILL DISCUSS REPEAT PROCEDURES TODAY. FALL RISK SCREENING: SCREENING :NO FALLS REPORTED IN THE LAST YEAR PAIN SCREENING: PATIENT HAS A COMPLAINT OF ACUTE OR CHRONIC PAIN :YES LOCATION OF PAIN:NECK INTENSITY OF PAIN (SCALE OF 1 TO 10):4 WHAT DOES YOUR PAIN FEEL LIKE:ACHING, BURNING DURATION:CONTINOUS, AWAKENS FROM SLEEP PAIN IS INCREASED BY:ACTIVITIES PAIN IS DECREASED BY:USE OF PAIN MEDICATIONS NURSING NOTE: -. PAIN CENTER INTAKE QUESTIONS: DO YOU HAVE A HISTORY OF MRSA? :NO DO YOU TAKE A BLOOD THINNERS? :NO DO YOU HAVE ANY BLEEDING DISORDERS? :NO ANY NEW NUMBNESS OR WEAKNESS IN YOUR LEGS OR ARMS? :NO ANY PACEMAKER,DEFIBRILLATOR, OR DORSAL COLUMN STIMULATOR? :NO DO YOU HAVE ANY RASHES OR OPEN SORES? :NO ARE YOU ALLERGIC TO IV DYE? :NO ARE YOU DIABETIC? :NO ANY NEW PROBLEMS WITH YOUR MEDICATIONS? :NO HAVE YOU RECEIVED A VACCINE IN THE PAST 30 DAYS? :NO DO YOU PLAN TO RECEIVE A VACCINE IN THE NEXT 21 DAYS? :YES PATIENT INTENDS ON GETTING THE FLU SHOT NEXT WEEK. DO YOU NEED ANY PRESCRIPTION? :YES PATIENT NEEDS A REFILL ON HER LYRICA MEDICATION. DO YOU TAKE ANY IMMUNOSUPPRESSIVE MEDICATIONS? :NO IS THERE A CHANCE YOU COULD BE ? :NO ARE YOU BREAST FEEDING? :NO CURRENT MEDICATIONS TAKING VITAMIN C 500 MG CAPSULE 1 TABLET ORALLY DAILY, NOTES: 11/22 8A TAKING VITAMIN B COMPLEX - TABLET 1 TABLET ORALLY DAILY, NOTES: 11/22 8A TAKING STOOL SOFTENER 100 MG CAPSULE 1 CAPSULE NEEDED ORALLY ONCE A DAY, NOTES: 2WEEKS TAKING SALINE NASAL SPRAY 0.65 % SOLUTION 2 SPRAYS IN EACH NOSTRIL NEEDED NASALLY FOUR TIMES DAILY NEEDED, NOTES: 11/22 8A TAKING VITAMIN D 1 CAPSULE 1 CAPSULE ORALLY ONCE A DAY, NOTES: 11/22 8A TAKING ESTRADIOL 2 MG TABLET TAKE ONE TABLET BY MOUTH ONCE DAILY ORAL , NOTES: 11/22 8A TAKING AIRDUO RESPICLICK 232/14 232-14 MCG/ACT AEROSOL POWDER BREATH ACTIVATED 1 PUFF INHALATION TWICE A DAY, NOTES: 11/22 8A TAKING FERROUS GLUCONATE 324 (38 FE) MG TABLET 1 TABLET ORALLY ONCE A DAY, NOTES: 11/22 TAKING ALBUTEROL SULFATE HFA 108 (90 BASE) MCG/ACT AEROSOL SOLUTION 2 PUFFS NEEDED INHALATION EVERY 6 HRS, NOTES: 11/22 8A TAKING REXULTI 1 MG TABLET 1 TABLET ORALLY ONCE A DAY, NOTES: 11/22 8A TAKING CREON [id number] UNIT CAPSULE DELAYED RELEASE PARTICLES 1 TAB ORALLY TID, NOTES: 11/22 6P TAKING LYRICA 50 MG CAPSULE 1 CAPSULE ORALLY ONCE A DAY, NOTES: 11/22 6P TAKING ESTRADIOL 2 MG TABLET 1 TABLET ORALLY ONCE A DAY TAKING LIPITOR 20 MG TABLET 1 TABLET ORALLY ONCE A DAY [id number], NOTES: 11/21 8P TAKING METFORMIN HCL ER 500 MG TABLET EXTENDED RELEASE 24 HOUR 1 TABLET WITH EVENING MEAL ORALLY ONCE A DAY NOT-TAKING CLOBETASOL PROP EMOLLIENT BASE 0.05 % CREAM 1 APPLICATION ON TOP OF NOSE EXTERNALLY TWICE A DAY, NOTES: 11/22 8AM NOT-TAKING LITHIUM CARBONATE 150 MG CAPSULE 1 CAPSULE ORALLY TWICE A DAY NOT-TAKING LITHIUM CARBONATE 150 MG CAPSULE TAKE ONE CAPSULE BY MOUTH TWICE DAILY ORAL MEDICATION LIST REVIEWED AND RECONCILED WITH THE PATIENT PAST MEDICAL HISTORY 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 ANTERIOR DISCECTOMY AND FUSION FROM C4-7 PREMATURE MENOPAUSE BILATERAL RENAL CYSTS R 9MM MID POLE/8MM LOVER POLE L 5MM MID POLE 08/2017 EGD, COLONOSCOPY DR. Salazar MILD DIVERTICULOSIS/MODERATE INTERNAL HEMORRHOIDS, DECREASED SPHINTER TONE ANNE -C-PAP 15 CM ALLERGIES ASPIRIN: HIVES - ALLERGY SULFA (FOR ALLERGY USE ONLY): HIVES - ALLERGY TYLENOL: HIVES - ALLERGY CYCLOBENZAPRINE HCL: HIVES - ALLERGY TRAZODONE HCL: HIVES - ALLERGY SURGICAL HISTORY HYSTERECTOMY 1988 PANCREATIC WHIPPLE 04/24/2016 APPENDECTOMY 1971 CHOLCYSTECTOMY 2009 BLADDER SUSPENSION 2010 BREAST IMPLANTS- BILATERAL 1988 CERVICAL FUSION 2010 WHIPPLE PANCREAS 2015 FAMILY HISTORY FATHER: 74 YRS, OF CANCER, DIAGNOSED WITH OTHER MALIGNANT NEOPLASM OF UNSPECIFIED SITE, UNSPECIFIED HEART DISEASE MOTHER: 72 YRS, EMBOLIC HEART ATTACK, UNSPECIFIED HEART DISEASE, UNSPECIFIED CEREBRAL ARTERY OCCLUSION WITH CEREBRAL INFARCTION SIBLINGS: , DIET AT 51 HYPERTROPHY HEART DISEASE SON(S): ALIVE DAUGHTER(S): ALIVE 8 BROTHER(S) , 1 SISTER(S) . 2 SON(S) , 2 DAUGHTER(S) . DAUGHTER C OVARIAN CA AT 18SON C BIPOLAR3 BROTHERS C RHEMATIC HEART DISEASE4 BROTHERS 1 SISTER HT, HYPERLIPIDEMIA. SOCIAL HISTORY GENERAL: TOBACCO USE ARE YOU A:FORMER SMOKER HOW LONG HAS IT BEEN SINCE YOU LAST SMOKED?> 10 YEARS LATEX QUESTIONNAIRE LATEX ALLERGY : HAVE YOU EVER DEVELOPED ANY TYPE OF REACTION AFTER HANDLING LATEX PRODUCTS SUCH RUBBER GLOVES, CONDOMS, DIAPHRAGMS, BALLOONS, SOCKS, OR UNDERWEAR?NO LATEX ALLERGY : HAVE YOU EVER DEVELOPED ANY TYPE OF REACTION DURING OR AFTER DENTAL APPOINTMENT, VAGINAL/RECTAL EXAMINATION, SURGICAL PROCEDURE, OR ANY OTHER EXPOSURE?NO LATEX RISK : HAVE YOU EVER HAD ANY DIFFICULTY BREATHING OR HIVES AFTER EATING OR HANDLING ANY FRUITS, OR VEGETABLES; SUCH KIWI, BANANAS, STONE FRUITS, OR CHESTNUTSNO LATEX RISK : DO YOU HAVE A PREVIOUS PERSONAL HISTORY OF MORE THAN NINE SURGERIES, SPINA BIFIDA, OR REPEATED CATHERIZATIONS? YES - PLEASE INDICATE : > 9 SURGERIES LATEX RISK : ARE YOU FREQUENTLY EXPOSED TO LATEX PRODUCTS IN YOUR OCCUPATION?YES DATE ASKED : 04/20/2020 LUNG CANCER SCREENING SMOKING STATUS:FORMER SMOKER IS THE PATIENT BETWEEN THE AGE OF 55 AND 77?YES HAVE YOU QUIT SMOKING WITHIN THE PAST 15 YEARS?NO ALCOHOL SCREENING DID YOU HAVE A DRINK CONTAINING ALCOHOL IN THE PAST YEAR?NO POINTS0 INTERPRETATIONNEGATIVE RECREATIONAL DRUG USE DRUG USE?NO CAFFEINE CAFFEINE USE?YES HOW OFTEN AND HOW MUCH? 1 CUP OF COFFEE SEXUAL HX HAD SEX IN THE LAST 12 MONTHS (VAGINAL, ORAL, OR ANAL)?YES WITHMEN ONLY HIV / HEP-C SCREENING HIV TEST OFFERED TO PATIENT:YES DATE OFFERED:11/06/2017 PREVIOUSLY DONE HEP-C TEST OFFERED TO PATIENT:YES PREVIOUSLY DONE DATE OFFERED:11/06/2017 BROCHURE PROVIDED TO PATIENTNO ORTHODOXY [id number] [employer] LANGUAGES SPOKEN:BOTH [place] AND [place] EDUCATION LEVEL OF EDUCATION:FINISHED HIGH SCHOOL LEARNING BARRIERS / SPECIAL NEEDS CHANGE FROM LAST VISIT?YES LOWER ABDOMINAL PAIN. FEELING OF CRAMPS BARRIERS TO LEARNING?NO HEARING IMPAIRED?NO VISION IMPAIRED?YES COGNITIVELY IMPAIRED?NO :CORRECTIVE LENSES READING READINESS TO LEARN?YES LEARNING PREFERENCES?NO LEARNING CAPABILITIES PRESENT?YES EMOTIONAL BARRIERS?NO SPECIAL DEVICES?NO SALESPERSON MEN'S HATS NEEDED?YES DEPENDS ON WORDING, PRETTY FLUENT DOMESTIC VIOLENCE DO YOU FEEL SAFE IN YOUR ENVIRONMENT?YES OCCUPATION: DISABLED. DIET: NO HIGH FATS. EXERCISE: NO REGULAR EXERCISE. MARITAL STATUS: ENGAGED. OTHERS AT HOME: FI[place]E. NEW PATIENT PAIN DIARY TODAY'S VISIT 11/24/19 PATIENT DESCRIBES PAIN :ACHING, BURNING, HAVE IT ALL THE TIME, SHARP, STABBING, TENDER, THROBBING, SORE, SHOOTING FROM 0-10, WHAT LEVEL IS YOUR PAIN TODAY?5 PRECIPITATING FACTORS ACTIVITY, STAYING IN ONE POSITION FOR A LONG TIME ALLEVIATING FACTORS POSITION CHANGE PAIN CLINIC PFS, CLERGY, PUBLIC HEALTH REFERRALS PFS REFERRAL NEEDED?NO CLERGY REFERRAL NEEDED?NO PUBLIC HEALTH REFERRAL NEEDED?NO WAS THE PROVIDER NOTIFIED OF ANY PERTINENT INFO?YES HAS THE PATIENT BEEN EDUCATED REGARDING HIS/HER PLAN OF CARE?YES HAS THE PATIENT BEEN EDUCATED REGARDING PAIN, THE RISK FOR PAIN, THE IMPORTANCE OF EFFECTIVE PAIN MANAGEMENT, AND THE PAIN ASSESSMENT PROCESS?YES ADVANCE DIRECTIVE ADVANCE DIRECTIVE DISCUSSED WITH PATIENT:YES PT DECLINED HCP INFORMATION, STATES SHE HAS THE INFORMATION AT HOME, DECLINED ASSISTANCE WITH PAPERWORK. HOSPITALIZATION/MAJOR DIAGNOSTIC PROCEDURE SURGERY RELATAED REVIEW OF SYSTEMS CONSTITUTIONAL: ANY RECENT FEVER NO . CHILLS NO . WEIGHT CHANGE OF UNKNOWN REASONS NO . GASTROENTEROLOGY: NEW UNEXPLAINABLE CHANGES IN BOWEL CONTROL NO . CONSTIPATION NO . GENITOURINARY: ANY NEW CHANGE IN BLADDER CONTROL? NO . NEUROLOGY: NEW ONSET DIZZINESS OR NEUROLOGICAL CHANGES NOT MENTIONED NO . NEW NUMBNESS OR PAIN PATTERNS NOT MENTIONED AND PERTINENT TO TODAY'S VISIT NO . CARDIOLOGY: NEW CHEST PRESSURE NO . NEW CHEST PAIN NO . RESPIRATORY: UNEXPLAINABLE COUGH NO . NEW SHORTNESS OF BREATH NO . VITAL SIGNS WT 175.0 LBS, HT 64 IN, BMI 30.04 INDEX, BP 144/67 MM HG, HR 66 /MIN, RR 18 /MIN, TEMP 96.6 F, OXYGEN SAT % 98%, NA INITIALS [id number], REVIEWED BY: JEVON KNIGHT [facility]. EXAMINATION GENERAL EXAMINATION: GENERALNO ACUTE DISTRESS, WELL NOURISHED AND HYDRATED. PSYCHAPPROPRIATE MOOD AND AFFECT . NECK:POINT TENDER ALONG CERVICAL SPINE, SURROUNDING SKIN SHOWS NO ERYTHEMA, ECCHYMOSIS, INCREASED WARMTH, AND/OR SKIN ERUPTIONS NOTED. PATIENT DOES ENDORSE INCREASED PAIN WHEN ASKED TO LIFT ARMS AGAINST RESISTANCE. . LUNGS:CLEAR TO AUSCULTATION BILATERALLY, NO WHEEZES, RHONCHI, RALES. HEART:NO MURMURS, REGULAR RATE AND RHYTHM. ASSESSMENTS CERVICAL DISC DISORDER WITH RADICULOPATHY, UNSPECIFIED CERVICAL REGION - M50.10 (PRIMARY) TREATMENT CERVICAL DISC DISORDER WITH RADICULOPATHY, UNSPECIFIED CERVICAL REGION NOTES: HEATHER C7-T1. CLINICAL NOTES: 64-YEAR-OLD FEMALE IN FOR CHRONIC PAIN FOLLOW-UP. GIVEN PRESENTING SYMPTOMS AND RESULTS OF PHYSICAL EXAMINATION RECOMMEND HEATHER C7-T1 WITH POST PROCEDURAL FOLLOW-UP. PATIENT HAS EXPRESSED UNDERSTANDING OF AND WAS IN AGREEMENT WITH TREATMENT PLAN. GIVEN TIME TO ASK QUESTIONS AND EXPRESS CONCERNS. PREVENTIVE MEDICINE PAIN CLINIC TEACHING: THE PATIENT HAS BEEN EDUCATED REGARDING PAIN, THE RISK FOR PAIN, THE IMPORTANCE OF EFFECTIVE PAIN MANAGEMENT, AND THE PAIN ASSESSMENT PROCESS. : REVIEWED PATIENT CARE PLAN AND DISCUSSED THE PRE PROCEDURE TEACHING INSTRUCTIONS FOR A CERVICAL EPIDURAL STEROID INJECTION C7-T1. PATIENT EXPRESSED UNDERSTANDING. PROCEDURE CODES [id number] ESTABILISHED PATIENT [facility] CHARGE DISPOSITION & COMMUNICATION FOLLOW UP POSTPROCEDURE (REASON: HEATHER C7-T1) ELECTRONICALLY SIGNED BY DARIAN LIMA ON 04/21/2020 AT 02:10 PM EDT DISCLAIMER : THIS IS A VISIT SUMMARY EXTRACTED FROM THE [employer] CHART. IT IS NOT A COPY OF THE [employer] PROGRESS NOTE. MERLE
== END ==
LOC: M PAIN 09:30
PROVIDERS: ATTEND Family Medicine
DX: M50.10 Cervical disc disorder with radiculopathy, unspecified cervical region (principal); K21.9 Gastro-esophageal reflux disease without esophagitis; F31.9 Bipolar disorder, unspecified; E78.5 Hyperlipidemia, unspecified; G47.33 Obstructive sleep apnea (adult) (pediatric); Z79.84 Long term (current) use of oral hypoglycemic drugs; Z79.899 Other long term (current) drug therapy; Z87.891 Personal history of nicotine dependence; Z88.2 Allergy status to sulfonamides; Z88.6 Allergy status to analgesic agent; Z88.8 Allergy status to other drugs, medicaments and biological substances

== ENCOUNTER → 2020-05-26 | Outpatient (CLI) | payer OTHER | LOC: M LABSMTC 10:10 | PROVIDERS: ATTEND Anesthesiology | DX: Z20.828 Contact with and (suspected) exposure to other viral communicable diseases (principal) ==

== ENCOUNTER → 2020-05-31 | Outpatient (CLI) | payer OTHER ==
[~2020-05-31] MED LIST changes: +ISOVUE-M 300 61% 15ML VIAL As Ordered ONE; +LIDOCAINE 1% SDV 30ML VIAL As Ordered ONE; +diazePAM 5 MG TAB As Ordered ONE; +methylPREDNISolone SUSP 40MG/ML 1ML VIAL (DEPO MEDROL) As Ordered ONE; +oxyCODONE 5MG TAB As Ordered ONE
--- NOTE | 2020-05-31 11:04 | REP ---
INDICATION: HEATHER C7/T1. Pain COMPARISON: 11/24/2019. TECHNIQUE: Three C-arm views cervical spine region performed. FINDINGS: A needle is seen at the cervicothoracic junction. IMPRESSION: 20 seconds of fluoroscopy time was utilized. <Electronically signed by Asaf Polk > 05/31/20 1100
--- NOTE | 2020-06-01 01:21 | ECWPNPC ---
PATIENT NAME: PANCHITO WALKER : 1955 GENDER: FEMALE VISIT DATE: 05/31/2020 DISCHARGE DATE: 05/31/20 1120 VISIT LOCKED DATE TIME: PHYSICIAN: HAYLEE COHEN MD PHYSICIAN PAGER NO: ACTIVE RESOURCE: HAYLEE COHEN MD REASON FOR APPOINTMENT 1. HEATHER C7-T1 HISTORY OF PRESENT ILLNESS GENERAL: -. FALL RISK SCREENING: SCREENING :NO FALLS REPORTED IN THE LAST YEAR PAIN SCREENING: PATIENT HAS A COMPLAINT OF ACUTE OR CHRONIC PAIN :YES LOCATION OF PAIN:NECK, BOTH SHOULDERS, UPPER BACK, MID BACK, LOW BACK, LEFT HIP, RIGHT HIP, BACK, HAND(S), LEG(S), THIGH(S), KNEES, FEET, ANKLE(S) INTENSITY OF PAIN (SCALE OF 1 TO 10):5 WHAT DOES YOUR PAIN FEEL LIKE:ACHING, BURNING, CONTINOUS, SHARP, TENDER, SORE DURATION:CONTINOUS, CONSTANT PAIN IS INCREASED BY:ACTIVITIES, OTHERS PROLONGED POSITIONING PAIN IS DECREASED BY:USE OF PAIN MEDICATIONS, OTHERS HEAT NURSING NOTE: -. PAIN CENTER INTAKE QUESTIONS: DO YOU HAVE A HISTORY OF MRSA? :NO DO YOU TAKE A BLOOD THINNERS? :NO DO YOU HAVE ANY BLEEDING DISORDERS? :NO ANY NEW NUMBNESS OR WEAKNESS IN YOUR LEGS OR ARMS? :NO ANY PACEMAKER,DEFIBRILLATOR, OR DORSAL COLUMN STIMULATOR? :NO DO YOU HAVE ANY RASHES OR OPEN SORES? :NO ARE YOU ALLERGIC TO IV DYE? :NO ARE YOU DIABETIC? :NO ANY NEW PROBLEMS WITH YOUR MEDICATIONS? :NO HAVE YOU RECEIVED A VACCINE IN THE PAST 30 DAYS? :YES IF SO WHAT VACCINE AND WHEN? FLU VACCINE 3 WEEKS AGO DO YOU PLAN TO RECEIVE A VACCINE IN THE NEXT 21 DAYS? :NO DO YOU TAKE ANY IMMUNOSUPPRESSIVE MEDICATIONS? :NO ANY HISTORY OF SEIZURES? :NO ANY HISTORY OF CARDIAC ISSUES OR EVENTS? :NO DO YOU HAVE SLEEP APNEA? :YES DO YOU WEAR A CPAP? WEARS CPAP ANY RECENT HEAD INJURY? :NO DO YOU HAVE ANY NEW INFECTIONS? :NO IS THERE A CHANCE YOU COULD BE ? :NO ARE YOU BREAST FEEDING? :NO WHEN DID YOU LAST EAT? : 05/30/201929 WHEN DID YOU LAST DRINK? : 05/30/201929 WHAT DID YOU LAST DRINK? : WATER NAME OF PERSON DRIVING YOU HOME? : MARCELLA DO YOU HAVE ANY OTHER QUESTIONS OR CONCERNS? : NO CURRENT MEDICATIONS TAKING VITAMIN C 500 MG CAPSULE 1 TABLET ORALLY DAILY, NOTES: 05/30 1000 TAKING VITAMIN B COMPLEX - TABLET 1 TABLET ORALLY DAILY, NOTES: 05/30 1000 TAKING STOOL SOFTENER 100 MG CAPSULE 1 CAPSULE NEEDED ORALLY ONCE A DAY, NOTES: 05/29/20 TAKING SALINE NASAL SPRAY 0.65 % SOLUTION 2 SPRAYS IN EACH NOSTRIL NEEDED NASALLY FOUR TIMES DAILY NEEDED, NOTES: 05/30 PM TAKING VITAMIN D 1 CAPSULE 1 CAPSULE ORALLY ONCE A DAY, NOTES: 05/30 1000 TAKING ESTRADIOL 2 MG TABLET TAKE ONE TABLET BY MOUTH ONCE DAILY ORAL , NOTES: 05/30 1000 TAKING AIRDUO RESPICLICK 232/14 232-14 MCG/ACT AEROSOL POWDER BREATH ACTIVATED 1 PUFF INHALATION TWICE A DAY, NOTES: 05/30 PM TAKING FERROUS GLUCONATE 324 (38 FE) MG TABLET 1 TABLET ORALLY ONCE A DAY, NOTES: 05/29 TAKING REXULTI 1 MG TABLET 1 TABLET ORALLY ONCE A DAY, NOTES: 05/30 1000 TAKING CREON [id number] UNIT CAPSULE DELAYED RELEASE PARTICLES 1 TAB ORALLY TID, NOTES: 05/30 1930 TAKING LYRICA 50 MG CAPSULE 1 CAPSULE ORALLY ONCE A DAY, NOTES: 05/30 1000 TAKING LIPITOR 20 MG TABLET 1 TABLET ORALLY ONCE A DAY [id number], NOTES: 05/30 1000 TAKING METFORMIN HCL ER 500 MG TABLET EXTENDED RELEASE 24 HOUR 1 TABLET WITH EVENING MEAL ORALLY ONCE A DAY, NOTES: 05/30 1000 TAKING ALBUTEROL SULFATE HFA 108 (90 BASE) MCG/ACT AEROSOL SOLUTION 2 PUFFS NEEDED INHALATION EVERY 6 HRS, NOTES: 05/29 UNKNOWN CLOBETASOL PROP EMOLLIENT BASE 0.05 % CREAM 1 APPLICATION ON TOP OF NOSE EXTERNALLY TWICE A DAY, NOTES: 11/22 8AM UNKNOWN LITHIUM CARBONATE 150 MG CAPSULE 1 CAPSULE ORALLY TWICE A DAY UNKNOWN LITHIUM CARBONATE 150 MG CAPSULE TAKE ONE CAPSULE BY MOUTH TWICE DAILY ORAL MEDICATION LIST REVIEWED AND RECONCILED WITH THE PATIENT PAST MEDICAL HISTORY 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 ANTERIOR DISCECTOMY AND FUSION FROM C4-7 PREMATURE MENOPAUSE BILATERAL RENAL CYSTS R 9MM MID POLE/8MM LOVER POLE L 5MM MID POLE 08/2017 EGD, COLONOSCOPY DR. Salazar MILD DIVERTICULOSIS/MODERATE INTERNAL HEMORRHOIDS, DECREASED SPHINTER TONE ANNE -C-PAP 15 CM ALLERGIES ASPIRIN: HIVES - ALLERGY SULFA (FOR ALLERGY USE ONLY): HIVES - ALLERGY TYLENOL: HIVES - ALLERGY CYCLOBENZAPRINE HCL: HIVES - ALLERGY TRAZODONE HCL: HIVES - ALLERGY SURGICAL HISTORY HYSTERECTOMY 1988 PANCREATIC WHIPPLE 04/24/2016 APPENDECTOMY 1971 CHOLCYSTECTOMY 2009 BLADDER SUSPENSION 2010 BREAST IMPLANTS- BILATERAL 1988 CERVICAL FUSION 2010 WHIPPLE PANCREAS 2015 FAMILY HISTORY FATHER: 74 YRS, OF CANCER, DIAGNOSED WITH UNSPECIFIED HEART DISEASE, OTHER MALIGNANT NEOPLASM OF UNSPECIFIED SITE MOTHER: 72 YRS, EMBOLIC HEART ATTACK, UNSPECIFIED HEART DISEASE, UNSPECIFIED CEREBRAL ARTERY OCCLUSION WITH CEREBRAL INFARCTION SIBLINGS: , DIET AT 51 HYPERTROPHY HEART DISEASE SON(S): ALIVE DAUGHTER(S): ALIVE 8 BROTHER(S) , 1 SISTER(S) . 2 SON(S) , 2 DAUGHTER(S) . DAUGHTER C OVARIAN CA AT 18SON C BIPOLAR3 BROTHERS C RHEMATIC HEART DISEASE4 BROTHERS 1 SISTER HT, HYPERLIPIDEMIA. SOCIAL HISTORY GENERAL: TOBACCO USE ARE YOU A:FORMER SMOKER HOW LONG HAS IT BEEN SINCE YOU LAST SMOKED?> 10 YEARS LATEX QUESTIONNAIRE LATEX ALLERGY : HAVE YOU EVER DEVELOPED ANY TYPE OF REACTION AFTER HANDLING LATEX PRODUCTS SUCH RUBBER GLOVES, CONDOMS, DIAPHRAGMS, BALLOONS, SOCKS, OR UNDERWEAR?NO LATEX ALLERGY : HAVE YOU EVER DEVELOPED ANY TYPE OF REACTION DURING OR AFTER DENTAL APPOINTMENT, VAGINAL/RECTAL EXAMINATION, SURGICAL PROCEDURE, OR ANY OTHER EXPOSURE?NO LATEX RISK : HAVE YOU EVER HAD ANY DIFFICULTY BREATHING OR HIVES AFTER EATING OR HANDLING ANY FRUITS, OR VEGETABLES; SUCH KIWI, BANANAS, STONE FRUITS, OR CHESTNUTSNO LATEX RISK : DO YOU HAVE A PREVIOUS PERSONAL HISTORY OF MORE THAN NINE SURGERIES, SPINA BIFIDA, OR REPEATED CATHERIZATIONS? YES - PLEASE INDICATE : > 9 SURGERIES LATEX RISK : ARE YOU FREQUENTLY EXPOSED TO LATEX PRODUCTS IN YOUR OCCUPATION?YES DATE ASKED : 05/30/2020 LUNG CANCER SCREENING SMOKING STATUS:FORMER SMOKER IS THE PATIENT BETWEEN THE AGE OF 55 AND 77?YES HAVE YOU QUIT SMOKING WITHIN THE PAST 15 YEARS?NO ALCOHOL SCREENING DID YOU HAVE A DRINK CONTAINING ALCOHOL IN THE PAST YEAR?NO POINTS0 INTERPRETATIONNEGATIVE RECREATIONAL DRUG USE DRUG USE?NO CAFFEINE CAFFEINE USE?YES HOW OFTEN AND HOW MUCH? 1 CUP OF COFFEE SEXUAL HX HAD SEX IN THE LAST 12 MONTHS (VAGINAL, ORAL, OR ANAL)?YES WITHMEN ONLY HIV / HEP-C SCREENING HIV TEST OFFERED TO PATIENT:YES DATE OFFERED:11/06/2017 PREVIOUSLY DONE HEP-C TEST OFFERED TO PATIENT:YES PREVIOUSLY DONE DATE OFFERED:11/06/2017 BROCHURE PROVIDED TO PATIENTNO TAOIST [id number] EVANGELICAL LANGUAGE LANGUAGES SPOKEN:BOTH [place] AND [employer] EDUCATION LEVEL OF EDUCATION:FINISHED HIGH SCHOOL LEARNING BARRIERS / SPECIAL NEEDS CHANGE FROM LAST VISIT?YES LOWER ABDOMINAL PAIN. FEELING OF CRAMPS BARRIERS TO LEARNING?NO HEARING IMPAIRED?NO VISION IMPAIRED?YES :CORRECTIVE LENSES READING COGNITIVELY IMPAIRED?NO READINESS TO LEARN?YES LEARNING PREFERENCES?NO LEARNING CAPABILITIES PRESENT?YES EMOTIONAL BARRIERS?NO SPECIAL DEVICES?NO RESIDENT CARE SPEC NEEDED?NO DEPENDS ON WORDING, PRETTY FLUENT DOMESTIC VIOLENCE DO YOU FEEL SAFE IN YOUR ENVIRONMENT?YES OCCUPATION: DISABLED. DIET: NO HIGH FATS. EXERCISE: NO REGULAR EXERCISE. MARITAL STATUS: ENGAGED. OTHERS AT HOME: FI[place]. TODAY'S VISIT 11/24/19 PATIENT DESCRIBES PAIN :ACHING, BURNING, HAVE IT ALL THE TIME, SHARP, STABBING, TENDER, THROBBING, SORE, SHOOTING FROM 0-10, WHAT LEVEL IS YOUR PAIN TODAY?5 PRECIPITATING FACTORS ACTIVITY, STAYING IN ONE POSITION FOR A LONG TIME ALLEVIATING FACTORS POSITION CHANGE PAIN CLINIC PFS, CLERGY, PUBLIC HEALTH REFERRALS PFS REFERRAL NEEDED?NO CLERGY REFERRAL NEEDED?NO PUBLIC HEALTH REFERRAL NEEDED?NO WAS THE PROVIDER NOTIFIED OF ANY PERTINENT INFO?YES HAS THE PATIENT BEEN EDUCATED REGARDING HIS/HER PLAN OF CARE?YES HAS THE PATIENT BEEN EDUCATED REGARDING PAIN, THE RISK FOR PAIN, THE IMPORTANCE OF EFFECTIVE PAIN MANAGEMENT, AND THE PAIN ASSESSMENT PROCESS?YES ADVANCE DIRECTIVE ADVANCE DIRECTIVE DISCUSSED WITH PATIENT:YES PT DECLINED HCP INFORMATION, STATES SHE HAS THE INFORMATION AT HOME, DECLINED ASSISTANCE WITH PAPERWORK. HOSPITALIZATION/MAJOR DIAGNOSTIC PROCEDURE SURGERY RELATAED VITAL SIGNS WT 172.4 LBS, HT 64 IN, BMI 29.59 INDEX, BP 141/65 MM HG, HR 62 /MIN, RR 16 /MIN, TEMP 96.5 F, OXYGEN SAT % 96%, SAFE IN ENV? (Y/N) YES, NA INITIALS SD 09:18, REVIEWED BY: MTM. CEDENO FITNESS CONSULTANT. EXAMINATION GENERAL EXAMINATION: THE PATIENT IS ALERT, ORIENTED TIMES THREE AND COOPERATIVE. HEART SHOWS REGULAR RHYTHM, NO MURMURS AND NO GALLOPS. LUNGS ARE CLEAR TO AUSCULTATION. ASSESSMENTS CERVICAL POST-LAMINECTOMY SYNDROME - M96.1 (PRIMARY) TREATMENT CERVICAL POST-LAMINECTOMY SYNDROME [facility] FLUORO GUIDE SPINE INJECTION (PAIN)[id number] MEDICATION: VALIUM TAB 5MG ORALLY (DIAZEPAM)RAJESH CEDENO 05/31/2020 9:39:26 AM > LOT #: [id number] EXP: 11/02. MICHAEL CHAVEZ 05/31/2020 9:42:00 AM > VERIFIED RAJESH CEDENO 05/31/2020 9:44:23 AM > ADMINISTERED. MEDICATION: OXYCODONE HCL TAB 5MG ORALLY RAJESH CEDENO 05/31/2020 9:39:59 AM > LOT # [id number] EXP: 09/05. MICHAEL CHAVEZ 05/31/2020 9:42:14 AM > VERIFIED RAJESH CEDENO 05/31/2020 9:44:40 AM > ADMINISTERED. SALINE LOCKRAJESH CEDENO 05/31/2020 10:08:46 AM > OBTAINED. PROCEDURES PAIN NURSING RECORD PRE-PROCEDURE IV SITE RIGHT HAND, IV STARTED # 22, IV STARTED BY: Mir CEDENO RN, IV ATTEMPTS 2, PRE-PROCEDURE ORAL MEDICATIONS YES SEE TREATMENT SECTION PROCEDURE IN ROOM 1030, PHYSICIAN IN ROOM 1041, START 1045, FINISH 1054, PHYSICIAN OUT OF ROOM 1056, OUT OF ROOM 1103, STEROID DEPOMEDROL, O2 RA, ECG NORMAL SINUS, PATIENT SHIELDED YES, SAFETY STRAP YES, PREP BETADINE Mir CEDENO FITNESS CONSULTANT, IV INFUSED N/A, DRESSING TEGADERM DR. COHEN LOC: RAJESH CEDENO 05/31/2020 10:30:17 AM > 1. ALERT, ORIENTED RESP: RAJESH CEDENO 05/31/2020 10:30:17 AM > 1. REGULAR, NO DYSPNEA COLOR: RAJESH CEDENO 05/31/2020 10:30:17 AM > 1. PINK SKIN: RAJESH CEDENO 05/31/2020 10:30:17 AM > 1. WARM, DRY POSITION: RAJESH CEDENO 05/31/2020 10:30:17 AM > 1. PRONE VITALS: RAJESH CEDENO 05/31/2020 10:35:17 AM > 145/67, 59, 98% RA, 16. RAJESH CEDENO 05/31/2020 10:45:17 AM > 160/71, 59, 100% RA, 16. RAJESH CEDENO 05/31/2020 10:55:16 AM > 168/79, 61, 100% RA, 16. RAJESH CEDENO 05/31/2020 11:10:25 AM > POST PROCEDURE 145/68, 68, 97% RA, 16. DISCHARGE: POST PAIN 12/22, DRESSING SITE DRY AND INTACT, IV N/A, GAIT STEADY, TEACHING COMPLETED, PATIENT ACKNOWLEDGES UNDERSTANDING YES, PATIENT DISCHARGED AT 1120 PN CERVICAL EPIDURAL PRE PROCEDURE DIAGNOSIS CERVICAL POST LAMINECTOMY PAIN SYNDROME POST PROCEDURE DIAGNOSIS CERVICAL POST LAMINECTOMY PAIN SYNDROME PROCEDURE CERVICAL EPIDURAL STEROID INJECTION UNDER FLUOROSCOPIC GUIDANCE SURGEON DR. HAYLEE COHEN CHEST PAINTING LEADER NONE ANESTHESIA LOCAL PRE PROCEDURE NOTE THE PATIENT HAS A HISTORY OF CHRONIC CERVICAL PAIN. I EVALUATED THE PATIENT AND REVIEWED THE CHART. I WENT OVER THE RISKS, ALTERNATIVES, AND BENEFITS ASSOCIATED WITH THIS PROCEDURE. I DISCUSSED THAT THE USE OF STEROIDS MAY CONTRIBUTE TO IMMUNOSUPPRESSION OF THE PATIENT'S BODY AGAINST INFECTIONS SUCH COVID-19. THE PATIENT IS AWARE OF THE POTENTIAL COMPLICATIONS ASSOCIATED WITH THIS VIRUS, INCLUDING, BUT NOT LIMITED TO, . THE PATIENT WOULD LIKE TO PROCEED AND GIVE CONSENT TO PERFORMED THE PROCEDURE. THE PATIENT DENIES UNEXPLAINABLE WEIGHT LOSS, FEVER, CHILLS, OR NEW CHANGES IN URINARY OR BOWEL CONTROL. THE PATIENT IS COVID-19 NEGATIVE DESCRIPTION OF PROCEDURE THE PATIENT WAS BROUGHT TO THE PROCEDURE ROOM AND PLACED IN THE PRONE POSITION. THE CERVICOTHORACIC AREA WAS CLEANED WITH BETADINE SOLUTION AND DRAPED ASEPTICALLY. THE PROCEDURE WAS DONE UNDER STERILE CONDITIONS. A TIMEOUT WAS PERFORMED WHERE LATERALITY AND THE SITE OF THE PROCEDURE WERE CHECKED AND CONFIRMED WITH EVERYONE IN THE ROOM. UNDER FLUOROSCOPIC GUIDANCE, THE TARGET WAS SELECTED AT THE INTERLAMINAR LEVEL OF C7-T1. I CONFIRMED AGAIN WITH EVERYONE IN THE ROOM THE LATERALITY OF THE TARGET AT 1045. LIDOCAINE WAS USED TO NUMB THE SKIN AND THE SUBCUTANEOUS TISSUE BELOW IT. EPIDURAL TUOHY NEEDLE, 17-GAUGE, WAS ADVANCED UNDER FLUOROSCOPIC GUIDANCE AND FOLLOWING PATIENT FEEDBACK UNTIL THE EPIDURAL SPACE WAS REACHED 6 CM DEEP INTO THE SKIN BY THE LOSS OF RESISTANCE TECHNIQUE. ISOVUE-M DYE 30%, 0.25 ML, WAS INJECTED SHOWING ADEQUATE SPREAD OF THE DYE. THEN, A SOLUTION OF 3 ML OF NORMAL SALINE WITH DEPO-MEDROL 80MG WAS INJECTED SLOWLY FOLLOWING PATIENT FEEDBACK. THE MEDICATIONS WERE VERIFIED WITH THE NURSE. THERE WAS NO EVIDENCE OF BLOOD, PARESTHESIA OR CEREBROSPINAL FLUID DURING THE PROCEDURE. ESTIMATED BLOOD LOSS WAS LESS THAN 5 ML. THE PATIENT WAS SENT TO THE RECOVERY ROOM. THE PATIENT WAS MOVING THE EXTREMITIES AND DOING WELL. THERE WERE NO COMPLICATIONS DURING THE PROCEDURE. FLUOROSCOPY TIME WAS 20 SECONDS POST PROCEDURE NOTE THE PATIENT WILL BE SEEN IN A FOLLOW UP IN THE NEXT FEW WEEKS. I AM LOOKING FOR LONG LASTING RELIEF FOR THE PATIENT WITH THIS INTERVENTION. INSTRUCTIONS WERE GIVEN, QUESTIONS WERE ANSWERED, AND THE PATIENT EXPRESSED UNDERSTANDING AND AGREES WITH THE PLAN. I, PERCY CALDWELL, DOCUMENTED THE ABOVE INFORMATION ACTING A SCRIBE FOR DR. COHEN. I HAVE REVIEWED THE ABOVE DOCUMENT, WRITTEN BY PERCY CALDWELL, HOT KETTLE TENDER, AND I VERIFY THAT IT IS ACCURATE PROCEDURE CODES 25159 CERVICAL/THORACIC W/ IMAGING DISPOSITION & COMMUNICATION FOLLOW UP FOLLOW UP WITH INTERMISSION COORDINATOR (REASON: POST HEATHER) ELECTRONICALLY SIGNED BY HAYLEE COHEN MD, MD ON 05/31/2020 AT 02:52 PM EST DISCLAIMER : THIS IS A VISIT SUMMARY EXTRACTED FROM THE [facility] CHART. IT IS NOT A COPY OF THE [facility] PROGRESS NOTE. MERLE
== END ==
LOC: M PAIN 09:00
PROVIDERS: ATTEND Anesthesiology
DX: M96.1 Postlaminectomy syndrome, not elsewhere classified (principal); G47.33 Obstructive sleep apnea (adult) (pediatric); E78.5 Hyperlipidemia, unspecified; Z86.59 Personal history of other mental and behavioral disorders; Z87.891 Personal history of nicotine dependence; Z88.2 Allergy status to sulfonamides; Z88.6 Allergy status to analgesic agent; Z88.8 Allergy status to other drugs, medicaments and biological substances; Z79.899 Other long term (current) drug therapy
CPT/HCPCS: 62321; J1030; Q9967

== ENCOUNTER → 2020-06-15 | Outpatient (CLI) | payer OTHER ==
[~2020-06-15] MED LIST changes: +GASTROGRAFIN SOLUTION 30ML (Q9963) As Ordered ONE; +ISOVUE-370 76% 100ML VIAL As Ordered ONE; -ISOVUE-M 300 61% 15ML VIAL As Ordered ONE; -LIDOCAINE 1% SDV 30ML VIAL As Ordered ONE; -diazePAM 5 MG TAB As Ordered ONE; -methylPREDNISolone SUSP 40MG/ML 1ML VIAL (DEPO MEDROL) As Ordered ONE; -oxyCODONE 5MG TAB As Ordered ONE
--- NOTE | 2020-06-16 04:28 | REP ---
INDICATION: CARCINOID TUMOR COMPARISON: 12/15/2019 TECHNIQUE: Axial contrast enhanced images from the thoracic inlet to the upper abdomen with coronal and sagittal reformations using 100 ml Isovue 370 intravenous contrast material followed by CT of the abdomen and pelvis.. This CT examination was performed using the following dose reduction techniques: Automated exposure control, adjustment of mA and/or kv according to the patient's size, and use of iterative reconstruction technique. FINDINGS: Lung nur again demonstrate minimal scarring at the right base with few scattered small calcified nodules and calcified lymph nodes. No acute consolidation, suspicious nodule or mass lesion appreciated. No pleural effusion. No pneumothorax. Tracheobronchial tree is patent. No adenopathy. Mediastinum demonstrates normal thoracic aorta, pulmonary vasculature, and heart/pericardium. Thyroid gland appears grossly normal. Evidence for prior bilateral mammoplasty. Musculoskeletal structures without acute osseous abnormality. IMPRESSION: Chronic stable changes. No acute mediastinal or pleuroparenchymal process. <Electronically signed by Jameson Vela > 06/16/20 0424
--- NOTE | 2020-06-16 04:40 | REP ---
INDICATION: CARCINOID TUMOR. COMPARISON: 12/15/2019, 05/11/2019 TECHNIQUE: Axial contrast-enhanced images from the lung bases to the pubic symphysis using 100 cc Isovue 370 intravenous contrast material. Delayed images of the abdomen along with coronal and sagittal reformations obtained. This CT examination was performed using the following dose reduction techniques: Automated exposure control, adjustment of mA and/or kv according to the patient's size, and the use of iterative reconstruction technique. FINDINGS: Liver, spleen, residual pancreas, and bilateral adrenal glands are normal. Evidence for prior cholecystectomy. There is evidence for prior Whipple procedure. Kidneys demonstrate bilateral hypodensities which likely represent simple and complex cysts. The enteric system appears normal. No evidence for obstruction or acute inflammatory process. Normal terminal ileum and appendix are identified in the right lower quadrant. Pelvis demonstrates normal bladder and evidence for prior hysterectomy. Scattered sigmoid diverticula noted without acute diverticulitis. No ascites. No free air. No intraperitoneal or retroperitoneal adenopathy. Abdominal aorta and vasculature appear normal. Musculoskeletal structures are intact and without acute osseous abnormality. IMPRESSION: No acute abdominopelvic pathology appreciated. Diverticulosis. No evidence for metastatic disease or recurrence appreciated. <Electronically signed by Jameson Vela > 06/16/20 0433
== END ==
LOC: M RAD 13:29
PROVIDERS: ATTEND Internal Medicine Hematology & Oncology
DX: D3A.00 Benign carcinoid tumor of unspecified site (principal); J98.4 Other disorders of lung
CPT/HCPCS: 71260; 74177; Q9963; Q9967

== ENCOUNTER → 2020-07-06 | Outpatient (CLI) | payer OTHER ==
[~2020-07-06] MED LIST changes: -GASTROGRAFIN SOLUTION 30ML (Q9963) As Ordered ONE; -ISOVUE-370 76% 100ML VIAL As Ordered ONE; +VITA500045 PO
--- NOTE | 2020-07-12 02:29 | ECWPNPC ---
PATIENT NAME: PANCHITO WALKER : 1955 GENDER: FEMALE VISIT DATE: 07/06/2020 DISCHARGE DATE: 07/06/20 1434 VISIT LOCKED DATE TIME: PHYSICIAN: [facility] HEAL[facility] PHYSICIAN PAGER NO: ACTIVE RESOURCE: [facility] HEALY REASON FOR APPOINTMENT 1. POST CERVICAL EPIDURAL STEROID INJECTION C7-T1 HISTORY OF PRESENT ILLNESS PAIN CENTER INTAKE QUESTIONS: 64-YEAR-OLD FEMALE IN FOR POST CERVICAL EPIDURAL STEROID INJECTION FOLLOW-UP. PATIENT FEELS THE PROCEDURE WAS SUCCESSFUL OVERALL STATING SHE HAS NO PAIN CURRENTLY. GENERAL: -. FALL RISK SCREENING: SCREENING :NO FALLS REPORTED IN THE LAST YEAR PAIN SCREENING: PATIENT HAS A COMPLAINT OF ACUTE OR CHRONIC PAIN :YES NURSING NOTE: -. CURRENT MEDICATIONS TAKING VITAMIN C 500 MG CAPSULE 1 TABLET ORALLY DAILY TAKING VITAMIN B COMPLEX - TABLET 1 TABLET ORALLY DAILY TAKING STOOL SOFTENER 100 MG CAPSULE 1 CAPSULE NEEDED ORALLY ONCE A DAY TAKING SALINE NASAL SPRAY 0.65 % SOLUTION 2 SPRAYS IN EACH NOSTRIL NEEDED NASALLY FOUR TIMES DAILY NEEDED TAKING VITAMIN D 1 CAPSULE 1 CAPSULE ORALLY ONCE A DAY TAKING ESTRADIOL 2 MG TABLET TAKE ONE TABLET BY MOUTH ONCE DAILY ORAL TAKING FERROUS GLUCONATE 324 (38 FE) MG TABLET 1 TABLET ORALLY ONCE A DAY TAKING REXULTI 1 MG TABLET 1 TABLET ORALLY ONCE A DAY TAKING CREON [id number] UNIT CAPSULE DELAYED RELEASE PARTICLES 1 TAB ORALLY TID TAKING LYRICA 50 MG CAPSULE 1 CAPSULE ORALLY ONCE A DAY TAKING LIPITOR 20 MG TABLET 1 TABLET ORALLY ONCE A DAY [id number] TAKING ALBUTEROL SULFATE HFA 108 (90 BASE) MCG/ACT AEROSOL SOLUTION 2 PUFFS NEEDED INHALATION EVERY 6 HRS TAKING METFORMIN HCL ER 500 MG TABLET EXTENDED RELEASE 24 HOUR 1 TABLET WITH EVENING MEAL ORALLY ONCE A DAY TAKING AIRDUO RESPICLICK 232/14 232-14 MCG/ACT AEROSOL POWDER BREATH ACTIVATED 1 PUFF INHALATION TWICE A DAY NOT-TAKING CLOBETASOL PROP EMOLLIENT BASE 0.05 % CREAM 1 APPLICATION ON TOP OF NOSE EXTERNALLY TWICE A DAY, NOTES: 11/22 8AM NOT-TAKING LITHIUM CARBONATE 150 MG CAPSULE 1 CAPSULE ORALLY TWICE A DAY NOT-TAKING LITHIUM CARBONATE 150 MG CAPSULE TAKE ONE CAPSULE BY MOUTH TWICE DAILY ORAL MEDICATION LIST REVIEWED AND RECONCILED WITH THE PATIENT PAST MEDICAL HISTORY 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 ANTERIOR DISCECTOMY AND FUSION FROM C4-7 PREMATURE MENOPAUSE BILATERAL RENAL CYSTS R 9MM MID POLE/8MM LOVER POLE L 5MM MID POLE 08/2017 EGD, COLONOSCOPY DR. Salazar MILD DIVERTICULOSIS/MODERATE INTERNAL HEMORRHOIDS, DECREASED SPHINTER TONE ANNE -C-PAP 15 CM NECK PAIN ALLERGIES ASPIRIN: HIVES - ALLERGY SULFA (FOR ALLERGY USE ONLY): HIVES - ALLERGY TYLENOL: HIVES - ALLERGY CYCLOBENZAPRINE HCL: HIVES - ALLERGY TRAZODONE HCL: HIVES - ALLERGY SURGICAL HISTORY HYSTERECTOMY 1988 PANCREATIC WHIPPLE 04/24/2016 APPENDECTOMY 1971 CHOLCYSTECTOMY 2009 BLADDER SUSPENSION 2010 BREAST IMPLANTS- BILATERAL 1988 CERVICAL FUSION 2010 WHIPPLE PANCREAS 2015 FAMILY HISTORY FATHER: 74 YRS, OF CANCER, DIAGNOSED WITH UNSPECIFIED HEART DISEASE, OTHER MALIGNANT NEOPLASM OF UNSPECIFIED SITE MOTHER: 72 YRS, EMBOLIC HEART ATTACK, UNSPECIFIED HEART DISEASE, UNSPECIFIED CEREBRAL ARTERY OCCLUSION WITH CEREBRAL INFARCTION SIBLINGS: , DIET AT 51 HYPERTROPHY HEART DISEASE SON(S): ALIVE DAUGHTER(S): ALIVE 8 BROTHER(S) , 1 SISTER(S) . 2 SON(S) , 2 DAUGHTER(S) . DAUGHTER C OVARIAN CA AT 18SON C BIPOLAR3 BROTHERS C RHEMATIC HEART DISEASE4 BROTHERS 1 SISTER HT, HYPERLIPIDEMIA. SOCIAL HISTORY GENERAL: TOBACCO USE ARE YOU A:FORMER SMOKER HOW LONG HAS IT BEEN SINCE YOU LAST SMOKED?> 10 YEARS LATEX QUESTIONNAIRE LATEX ALLERGY : HAVE YOU EVER DEVELOPED ANY TYPE OF REACTION AFTER HANDLING LATEX PRODUCTS SUCH RUBBER GLOVES, CONDOMS, DIAPHRAGMS, BALLOONS, SOCKS, OR UNDERWEAR?NO LATEX ALLERGY : HAVE YOU EVER DEVELOPED ANY TYPE OF REACTION DURING OR AFTER DENTAL APPOINTMENT, VAGINAL/RECTAL EXAMINATION, SURGICAL PROCEDURE, OR ANY OTHER EXPOSURE?NO DATE ASKED : 05/30/2020 LATEX RISK : HAVE YOU EVER HAD ANY DIFFICULTY BREATHING OR HIVES AFTER EATING OR HANDLING ANY FRUITS, OR VEGETABLES; SUCH KIWI, BANANAS, STONE FRUITS, OR CHESTNUTSNO LATEX RISK : DO YOU HAVE A PREVIOUS PERSONAL HISTORY OF MORE THAN NINE SURGERIES, SPINA BIFIDA, OR REPEATED CATHERIZATIONS? YES - PLEASE INDICATE : > 9 SURGERIES LATEX RISK : ARE YOU FREQUENTLY EXPOSED TO LATEX PRODUCTS IN YOUR OCCUPATION?YES LUNG CANCER SCREENING SMOKING STATUS:FORMER SMOKER IS THE PATIENT BETWEEN THE AGE OF 55 AND 77?YES HAVE YOU QUIT SMOKING WITHIN THE PAST 15 YEARS?NO ALCOHOL SCREENING DID YOU HAVE A DRINK CONTAINING ALCOHOL IN THE PAST YEAR?NO POINTS0 INTERPRETATIONNEGATIVE RECREATIONAL DRUG USE DRUG USE?NO CAFFEINE CAFFEINE USE?YES HOW OFTEN AND HOW MUCH? 1 CUP OF COFFEE SEXUAL HX HAD SEX IN THE LAST 12 MONTHS (VAGINAL, ORAL, OR ANAL)?YES WITHMEN ONLY HIV / HEP-C SCREENING HIV TEST OFFERED TO PATIENT:YES DATE OFFERED:11/06/2017 PREVIOUSLY DONE HEP-C TEST OFFERED TO PATIENT:YES PREVIOUSLY DONE DATE OFFERED:11/06/2017 BROCHURE PROVIDED TO PATIENTNO JEHOVAH'S WITNESS [id number] CATHOLIC LANGUAGE LANGUAGES SPOKEN:BOTH CAMBODIAN AND DJIBOUTIAN EDUCATION LEVEL OF EDUCATION:FINISHED HIGH SCHOOL LEARNING BARRIERS / SPECIAL NEEDS CHANGE FROM LAST VISIT?YES LOWER ABDOMINAL PAIN. FEELING OF CRAMPS BARRIERS TO LEARNING?NO HEARING IMPAIRED?NO VISION IMPAIRED?YES COGNITIVELY IMPAIRED?NO :CORRECTIVE LENSES READING READINESS TO LEARN?YES LEARNING PREFERENCES?NO LEARNING CAPABILITIES PRESENT?YES EMOTIONAL BARRIERS?NO SPECIAL DEVICES?NO SURVEY ENGINEER NEEDED?NO DEPENDS ON WORDING, PRETTY FLUENT DOMESTIC VIOLENCE DO YOU FEEL SAFE IN YOUR ENVIRONMENT?YES OCCUPATION: DISABLED. DIET: NO HIGH FATS. EXERCISE: NO REGULAR EXERCISE. MARITAL STATUS: ENGAGED. OTHERS AT HOME: FIANCEE. TODAY'S VISIT 11/24/19 PATIENT DESCRIBES PAIN :ACHING, BURNING, HAVE IT ALL THE TIME, SHARP, STABBING, TENDER, THROBBING, SORE, SHOOTING FROM 0-10, WHAT LEVEL IS YOUR PAIN TODAY?5 PRECIPITATING FACTORS ACTIVITY, STAYING IN ONE POSITION FOR A LONG TIME ALLEVIATING FACTORS POSITION CHANGE PAIN CLINIC PFS, CLERGY, PUBLIC HEALTH REFERRALS PFS REFERRAL NEEDED?NO CLERGY REFERRAL NEEDED?NO PUBLIC HEALTH REFERRAL NEEDED?NO WAS THE PROVIDER NOTIFIED OF ANY PERTINENT INFO?YES HAS THE PATIENT BEEN EDUCATED REGARDING HIS/HER PLAN OF CARE?YES HAS THE PATIENT BEEN EDUCATED REGARDING PAIN, THE RISK FOR PAIN, THE IMPORTANCE OF EFFECTIVE PAIN MANAGEMENT, AND THE PAIN ASSESSMENT PROCESS?YES ADVANCE DIRECTIVE ADVANCE DIRECTIVE DISCUSSED WITH PATIENT:YES PT DOES NOT HAVE HCP HELP OFFER INCOMPLETING FORMS IF NEEDED HOSPITALIZATION/MAJOR DIAGNOSTIC PROCEDURE SURGERY RELATAED REVIEW OF SYSTEMS CONSTITUTIONAL: ANY RECENT FEVER NO . CHILLS NO . WEIGHT CHANGE OF UNKNOWN REASONS NO . GASTROENTEROLOGY: NEW UNEXPLAINABLE CHANGES IN BOWEL CONTROL NO . CONSTIPATION NO . GENITOURINARY: ANY NEW CHANGE IN BLADDER CONTROL? NO . NEUROLOGY: NEW ONSET DIZZINESS OR NEUROLOGICAL CHANGES NOT MENTIONED NO . NEW NUMBNESS OR PAIN PATTERNS NOT MENTIONED AND PERTINENT TO TODAY'S VISIT NO . CARDIOLOGY: NEW CHEST PRESSURE NO . NEW CHEST PAIN NO . RESPIRATORY: UNEXPLAINABLE COUGH NO . NEW SHORTNESS OF BREATH NO . VITAL SIGNS WT 174 LBS, HT 64 IN, BMI 29.86 INDEX, BP 140/64 MM HG, HR 61 /MIN, RR 16 /MIN, TEMP 97.9 F, OXYGEN SAT % 96%, SAFE IN ENV? (Y/N) YES, NA INITIALS ID 13:[id number], REVIEWED BY: EVENS LOU. EXAMINATION GENERAL EXAMINATION: GENERALNO ACUTE DISTRESS, WELL NOURISHED AND HYDRATED. PSYCHAPPROPRIATE MOOD AND AFFECT . LUNGS:CLEAR TO AUSCULTATION BILATERALLY, NO WHEEZES, RHONCHI, RALES. HEART:NO MURMURS, REGULAR RATE AND RHYTHM. ASSESSMENTS OTHER CHRONIC PAIN - G89.29 (PRIMARY) TREATMENT OTHER CHRONIC PAIN PAIN PROCEDURE LOGDATE OF DRCYLOUSH05/17/20PROCEDURE:CERVICAL EPIDURA STERIOD INJECTIONS C7-[id number] OF PRE SEDATEVALIUM 5MG PO, OXYCODONE 5MG PORESULT:SUCCESSFUL NO PAIN CURRENTLY NOTES: 44-YEAR-OLD FEMALE IN FOR CHRONIC PAIN FOLLOW-UP. GIVEN PRESENTING SYMPTOMS RECOMMENDED FOLLOW-UP IN ONE MONTH. PATIENT HAS EXPRESSED UNDERSTANDING OF AND WAS IN AGREEMENT WITH TREATMENT PLAN. GIVEN TIME TO ASK QUESTIONS AND EXPRESS CONCERNS. PROCEDURE CODES FA211 ESTABILISHED PATIENT [facility] CHARGE DISPOSITION & COMMUNICATION FOLLOW UP 4 WEEKS (REASON: NECK PAIN) ELECTRONICALLY SIGNED BY DARIAN LIMA ON 07/11/2020 AT 10:13 AM EST DISCLAIMER : THIS IS A VISIT SUMMARY EXTRACTED FROM THE [employer] CHART. IT IS NOT A COPY OF THE [employer] PROGRESS NOTE. MERLE
== END ==
LOC: M PAIN 13:30
PROVIDERS: ATTEND Family Medicine
DX: G89.29 Other chronic pain (principal); G47.33 Obstructive sleep apnea (adult) (pediatric); Z86.59 Personal history of other mental and behavioral disorders; Z86.718 Personal history of other venous thrombosis and embolism; Z87.891 Personal history of nicotine dependence; Z88.1 Allergy status to other antibiotic agents; Z88.6 Allergy status to analgesic agent; Z88.8 Allergy status to other drugs, medicaments and biological substances; Z79.899 Other long term (current) drug therapy

== ENCOUNTER → 2020-08-03 | Outpatient (CLI) | payer OTHER ==
[~2020-08-03] MED LIST changes: +SIME180C PO
--- NOTE | 2020-08-05 04:07 | ECWPNPC ---
PATIENT NAME: PANCHITO WALKER : 1955 GENDER: FEMALE VISIT DATE: 08/03/2020 DISCHARGE DATE: 08/03/20 1553 VISIT LOCKED DATE TIME: PHYSICIAN: [facility]MU HEALY PHYSICIAN PAGER NO: ACTIVE RESOURCE: [facility]MU HEALY REASON FOR APPOINTMENT 1. 4 WEEK F/U NECK PAIN HISTORY OF PRESENT ILLNESS DEPRESSION SCREENING: PHQ-9 LITTLE INTEREST OR PLEASURE IN DOING THINGSSEVERAL DAYS FEELING DOWN, DEPRESSED, OR HOPELESSNEARLY EVERY DAY TROUBLE FALLING OR STAYING ASLEEP, OR SLEEPING TOO MUCHNEARLY EVERY DAY FEELING TIRED OR HAVING LITTLE ENERGYNEARLY EVERY DAY POOR APPETITE OR OVEREATING MORE THAN HALF THE DAYS FEELING BAD ABOUT YOURSELF-OR THAT YOU ARE A FAILURE OR HAVE LET YOURSELF OR YOUR FAMILY DOWN NOT AT ALL TROUBLE CONCENTRATING ON THINGS, SUCH READING THE NEWSPAPER OR WATCHING TELEVISION SEVERAL DAYS MOVING OR SPEAKING SO SLOWLY THAT OTHER PEOPLE COULD HAVE NOTICED. OR THE OPPOSITE- BEING SO FIDGETY OR RESTLESS THAT YOU HAVE BEEN MOVING AROUND A LOT MORE THAN USUALSEVERAL DAYS THOUGHTS THAT YOU WOULD BE BETTER OFF , OR OF HURTING YOURSELF IN SOME WAY?NOT AT ALL TOTAL SCORE:14 INTERPRETATIONMODERATE DEPRESSION PHQ-2 (2015 EDITION) LITTLE INTEREST OR PLEASURE IN DOING THINGS?SEVERAL DAYS FEELING DOWN, DEPRESSED, OR HOPELESS?NEARLY EVERY DAY TOTAL SCORE4 54-YEAR-OLD FEMALE IN FOR CHRONIC PAIN FOLLOW-UP. SHE RATES HER PAIN CURRENTLY AT A 3 OUT OF 10 AND DESCRIBES IT BURNING AND CONTINUOUS. PAIN CENTER INTAKE QUESTIONS: DO YOU HAVE A HISTORY OF MRSA? :NO DO YOU TAKE A BLOOD THINNERS? :NO DO YOU HAVE ANY BLEEDING DISORDERS? :NO ANY NEW NUMBNESS OR WEAKNESS IN YOUR LEGS OR ARMS? :NO ANY PACEMAKER,DEFIBRILLATOR, OR DORSAL COLUMN STIMULATOR? :NO DO YOU HAVE ANY RASHES OR OPEN SORES? :NO ARE YOU ALLERGIC TO IV DYE? :NO ARE YOU DIABETIC? :NO ANY NEW PROBLEMS WITH YOUR MEDICATIONS? :NO HAVE YOU RECEIVED A VACCINE IN THE PAST 30 DAYS? :NO DO YOU PLAN TO RECEIVE A VACCINE IN THE NEXT 21 DAYS? :NO DO YOU NEED ANY PRESCRIPTION? :NO DO YOU TAKE ANY IMMUNOSUPPRESSIVE MEDICATIONS? :NO IS THERE A CHANCE YOU COULD BE ? :NO ARE YOU BREAST FEEDING? :NO GENERAL: -. FALL RISK SCREENING: SCREENING :NO FALLS REPORTED IN THE LAST YEAR PAIN SCREENING: PATIENT HAS A COMPLAINT OF ACUTE OR CHRONIC PAIN :YES LOCATION OF PAIN:MID BACK INTENSITY OF PAIN (SCALE OF 1 TO 10):3 WHAT DOES YOUR PAIN FEEL LIKE:BURNING, CONTINOUS DURATION:CONTINOUS, CONSTANT, STEADY, AWAKENS FROM SLEEP PAIN IS INCREASED BY:ACTIVITIES PAIN IS DECREASED BY:USE OF PAIN MEDICATIONS, OTHERS CHANGING POSITION TREATMENT/MEDICATIONS USED TO MANAGE PAIN: PREGABLIN LEVEL OF RELIEF FROM PAIN TREATMENTS IN THE PAST:75% NURSING NOTE: -. CURRENT MEDICATIONS TAKING VITAMIN C 500 MG CAPSULE 1 TABLET ORALLY DAILY TAKING VITAMIN B COMPLEX - TABLET 1 TABLET ORALLY DAILY TAKING STOOL SOFTENER 100 MG CAPSULE 1 CAPSULE NEEDED ORALLY ONCE A DAY TAKING SALINE NASAL SPRAY 0.65 % SOLUTION 2 SPRAYS IN EACH NOSTRIL NEEDED NASALLY FOUR TIMES DAILY NEEDED TAKING VITAMIN D 1 CAPSULE 1 CAPSULE ORALLY ONCE A DAY TAKING FERROUS GLUCONATE 324 (38 FE) MG TABLET 1 TABLET ORALLY ONCE A DAY TAKING REXULTI 1 MG TABLET 1 TABLET ORALLY ONCE A DAY TAKING CREON [id number] UNIT CAPSULE DELAYED RELEASE PARTICLES 1 TAB ORALLY THREE TIMES DAILY TAKING LYRICA 50 MG CAPSULE 1 CAPSULE ORALLY ONCE A DAY TAKING LIPITOR 20 MG TABLET 1 TABLET ORALLY ONCE A DAY OWC-[id number]-[id number] TAKING ALBUTEROL SULFATE HFA 108 (90 BASE) MCG/ACT AEROSOL SOLUTION 2 PUFFS NEEDED INHALATION EVERY 6 HRS TAKING METFORMIN HCL ER 500 MG TABLET EXTENDED RELEASE 24 HOUR 1 TABLET WITH EVENING MEAL ORALLY ONCE A DAY TAKING AIRDUO RESPICLICK 232/14 232-14 MCG/ACT AEROSOL POWDER BREATH ACTIVATED 1 PUFF INHALATION TWICE A DAY TAKING ESTRADIOL 2 MG TABLET TAKE ONE TABLET BY MOUTH ONCE DAILY ORAL NOT-TAKING CLOBETASOL PROP EMOLLIENT BASE 0.05 % CREAM 1 APPLICATION ON TOP OF NOSE EXTERNALLY TWICE A DAY, NOTES: 11/22 8AM NOT-TAKING LITHIUM CARBONATE 150 MG CAPSULE 1 CAPSULE ORALLY TWICE A DAY NOT-TAKING LITHIUM CARBONATE 150 MG CAPSULE TAKE ONE CAPSULE BY MOUTH TWICE DAILY ORAL MEDICATION LIST REVIEWED AND RECONCILED WITH THE PATIENT PAST MEDICAL HISTORY CHOLANGIOCARCINOMA S/P PYLORIS PRESERVING WHIPPLE PROCEDURE ON 04/24/2016 GERD BIPOLAR- [facility] LLE DVT S/P VERICOSE VEIN REPAIR 30 YEARS AGO HYPERLIPIDEMIA 10/2017 MRI CERVICAL SPINE: OSTOARTHRITIC CHANGES R C2-3 RIGHT C7-T1, MILD CERVCAL SPONDYLOSIS AT C3-4. ANTERIOR DISCECTOMY AND FUSION FROM C4-7 PREMATURE MENOPAUSE BILATERAL RENAL CYSTS R 9MM MID POLE/8MM LOVER POLE L 5MM MID POLE 08/2017 EGD, COLONOSCOPY DR. Salazar MILD DIVERTICULOSIS/MODERATE INTERNAL HEMORRHOIDS, DECREASED SPHINTER TONE ANNE -C-PAP 15 CM NECK PAIN ALLERGIES ASPIRIN: HIVES - ALLERGY SULFA (FOR ALLERGY USE ONLY): HIVES - ALLERGY TYLENOL: HIVES - ALLERGY CYCLOBENZAPRINE HCL: HIVES - ALLERGY TRAZODONE HCL: HIVES - ALLERGY SOCIAL HISTORY GENERAL: TOBACCO USE ARE YOU A:FORMER SMOKER HOW LONG HAS IT BEEN SINCE YOU LAST SMOKED?> 10 YEARS LATEX QUESTIONNAIRE LATEX ALLERGY : HAVE YOU EVER DEVELOPED ANY TYPE OF REACTION AFTER HANDLING LATEX PRODUCTS SUCH RUBBER GLOVES, CONDOMS, DIAPHRAGMS, BALLOONS, SOCKS, OR UNDERWEAR?NO LATEX ALLERGY : HAVE YOU EVER DEVELOPED ANY TYPE OF REACTION DURING OR AFTER DENTAL APPOINTMENT, VAGINAL/RECTAL EXAMINATION, SURGICAL PROCEDURE, OR ANY OTHER EXPOSURE?NO LATEX RISK : HAVE YOU EVER HAD ANY DIFFICULTY BREATHING OR HIVES AFTER EATING OR HANDLING ANY FRUITS, OR VEGETABLES; SUCH KIWI, BANANAS, STONE FRUITS, OR CHESTNUTSNO LATEX RISK : DO YOU HAVE A PREVIOUS PERSONAL HISTORY OF MORE THAN NINE SURGERIES, SPINA BIFIDA, OR REPEATED CATHERIZATIONS? YES - PLEASE INDICATE : > 9 SURGERIES LATEX RISK : ARE YOU FREQUENTLY EXPOSED TO LATEX PRODUCTS IN YOUR OCCUPATION?NO DATE ASKED : 08/03/2020 ALCOHOL USE: NO. LUNG CANCER SCREENING SMOKING STATUS:FORMER SMOKER IS THE PATIENT BETWEEN THE AGE OF 55 AND 77?YES HAVE YOU QUIT SMOKING WITHIN THE PAST 15 YEARS?NO ALCOHOL SCREENING DID YOU HAVE A DRINK CONTAINING ALCOHOL IN THE PAST YEAR?NO POINTS0 INTERPRETATIONNEGATIVE RECREATIONAL DRUG USE DRUG USE?NO CAFFEINE CAFFEINE USE?YES HOW OFTEN AND HOW MUCH? 1 CUP OF COFFEE SEXUAL HX HAD SEX IN THE LAST 12 MONTHS (VAGINAL, ORAL, OR ANAL)?YES WITHMEN ONLY HIV / HEP-C SCREENING HIV TEST OFFERED TO PATIENT:YES DATE OFFERED:11/06/2017 PREVIOUSLY DONE HEP-C TEST OFFERED TO PATIENT:YES PREVIOUSLY DONE DATE OFFERED:11/06/2017 BROCHURE PROVIDED TO PATIENTNO YAZIDISM [id number] RELIGIOUS LANGUAGE LANGUAGES SPOKEN:BOTH TUNISIAN AND MONTENEGRIN EDUCATION LEVEL OF EDUCATION:FINISHED HIGH SCHOOL LEARNING BARRIERS / SPECIAL NEEDS CHANGE FROM LAST VISIT?NO BARRIERS TO LEARNING?NO HEARING IMPAIRED?NO VISION IMPAIRED?YES :CORRECTIVE LENSES READING COGNITIVELY IMPAIRED?NO READINESS TO LEARN?YES LEARNING PREFERENCES?NO LEARNING CAPABILITIES PRESENT?YES EMOTIONAL BARRIERS?NO SPECIAL DEVICES?NO CHIEF INFORMATION SECURITY OFFICER NEEDED?NO DEPENDS ON WORDING, PRETTY FLUENT DOMESTIC VIOLENCE DO YOU FEEL SAFE IN YOUR ENVIRONMENT?YES OCCUPATION: DISABLED. DIET: NO HIGH FATS. EXERCISE: NO REGULAR EXERCISE. MARITAL STATUS: ENGAGED. OTHERS AT HOME: FIANCEE. TODAY'S VISIT 11/24/19 PATIENT DESCRIBES PAIN :ACHING, BURNING, HAVE IT ALL THE TIME, SHARP, STABBING, TENDER, THROBBING, SORE, SHOOTING FROM 0-10, WHAT LEVEL IS YOUR PAIN TODAY?5 PRECIPITATING FACTORS ACTIVITY, STAYING IN ONE POSITION FOR A LONG TIME ALLEVIATING FACTORS POSITION CHANGE - PFS REFERRAL NEEDED?NO CLERGY REFERRAL NEEDED?NO PUBLIC HEALTH REFERRAL NEEDED?NO WAS THE PROVIDER NOTIFIED OF ANY PERTINENT INFO?YES HAS THE PATIENT BEEN EDUCATED REGARDING HIS/HER PLAN OF CARE?YES HAS THE PATIENT BEEN EDUCATED REGARDING PAIN, THE RISK FOR PAIN, THE IMPORTANCE OF EFFECTIVE PAIN MANAGEMENT, AND THE PAIN ASSESSMENT PROCESS?YES ADVANCE DIRECTIVE ADVANCE DIRECTIVE DISCUSSED WITH PATIENT:YES PT DOES NOT HAVE HCP HELP OFFER INCOMPLETING FORMS IF NEEDED REVIEW OF SYSTEMS CONSTITUTIONAL: ANY RECENT FEVER NO . CHILLS NO . WEIGHT CHANGE OF UNKNOWN REASONS NO . GASTROENTEROLOGY: NEW UNEXPLAINABLE CHANGES IN BOWEL CONTROL NO . CONSTIPATION NO . GENITOURINARY: ANY NEW CHANGE IN BLADDER CONTROL? NO . NEUROLOGY: NEW ONSET DIZZINESS OR NEUROLOGICAL CHANGES NOT MENTIONED NO . NEW NUMBNESS OR PAIN PATTERNS NOT MENTIONED AND PERTINENT TO TODAY'S VISIT NO . CARDIOLOGY: NEW CHEST PRESSURE NO . NEW CHEST PAIN NO . RESPIRATORY: UNEXPLAINABLE COUGH NO . NEW SHORTNESS OF BREATH NO . VITAL SIGNS WT 174 LBS, HT 64 IN, BMI 29.86 INDEX, BP 119/58 MM HG, HR 60 /MIN, RR 18 /MIN, TEMP 97.5 F, OXYGEN SAT % 95%, SAFE IN ENV? (Y/N) YES, REVIEWED BY: LEONARD OBTAINED AND GIVEN TO PROVIDER. TALI CALIX MA. EXAMINATION GENERAL EXAMINATION: GENERALNO ACUTE DISTRESS, WELL NOURISHED AND HYDRATED. PSYCHAPPROPRIATE MOOD AND AFFECT . NECK:TENDER ALONG CERVICAL SPINE, SURROUNDING SKIN SHOWS NO ERYTHEMA, ECCHYMOSIS, INCREASED WARMTH, AND/OR SKIN ERUPTIONS NOTED. . LUNGS:CLEAR TO AUSCULTATION BILATERALLY, NO WHEEZES, RHONCHI, RALES. HEART:NO MURMURS, REGULAR RATE AND RHYTHM. ASSESSMENTS CERVICAL DISC DISORDER WITH RADICULOPATHY, UNSPECIFIED CERVICAL REGION - M50.10 (PRIMARY) TREATMENT CERVICAL DISC DISORDER WITH RADICULOPATHY, UNSPECIFIED CERVICAL REGION NOTES: 64-YEAR-OLD FEMALE IN FOR CHRONIC PAIN FOLLOW-UP. GIVEN PRESENTING SYMPTOMS AND RESULTS OF PHYSICAL EXAMINATION RECOMMEND CERVICAL EPIDURAL STEROID INJECTION C7-T1 WITH POSTPROCEDURAL FOLLOW-UP. PATIENT HAS EXPRESSED UNDERSTANDING OF AND WAS IN AGREEMENT WITH TREATMENT PLAN. GIVEN TIME TO ASK QUESTIONS AND EXPRESS CONCERNS. , ISTOP REGISTRY REVIEWED AND DEMONSTRATES COMPLLIANCE. (REF # [id number] ). CLINICAL NOTES: PROVIDER NOTIFIED OF PHQ9 AND PROVIDED INFORMATION. PREPROCEDURE AND PROCEDURE INFORMATION PROVIDED TO PATIENT. PATIENT VERBALIZED UNDERSTANDING. TALI CALIX MA . PROCEDURE CODES FA211 ESTABILISHED PATIENT [facility] CHARGE DISPOSITION & COMMUNICATION FOLLOW UP POSTPROCEDURE (REASON: CERVICAL EPIDURAL STEROID INJECTIONS C7-T1) ELECTRONICALLY SIGNED BY DARIAN LIMA ON 08/04/2020 AT 04:17 PM EST DISCLAIMER : THIS IS A VISIT SUMMARY EXTRACTED FROM THE [employer] CHART. IT IS NOT A COPY OF THE [employer] PROGRESS NOTE. MERLE
== END ==
LOC: M PAIN 14:30
PROVIDERS: ATTEND Family Medicine
DX: M50.10 Cervical disc disorder with radiculopathy, unspecified cervical region (principal); K21.9 Gastro-esophageal reflux disease without esophagitis; F31.9 Bipolar disorder, unspecified; E78.5 Hyperlipidemia, unspecified; G47.33 Obstructive sleep apnea (adult) (pediatric); Z87.891 Personal history of nicotine dependence; Z86.718 Personal history of other venous thrombosis and embolism; Z85.09 Personal history of malignant neoplasm of other digestive organs; Z79.84 Long term (current) use of oral hypoglycemic drugs; Z79.899 Other long term (current) drug therapy; Z88.6 Allergy status to analgesic agent; Z88.2 Allergy status to sulfonamides; Z88.8 Allergy status to other drugs, medicaments and biological substances

== ENCOUNTER → 2020-09-20 | Outpatient (REF) | payer OTHER ==
[2020-09-20 14:12] LABS: BASO # 0.1 10^3/uL (0.0-0.2); BASO % 0.8 % (0.0-1.0); EOS # 0.7 10^3/uL (0.0-0.5); EOS % 6.8 % (0.0-3.0); HEMATOCRIT 42.5 % (36.0-47.0); HEMOGLOBIN 13.5 g/dl (12.0-15.5); LYMPH # 2.7 10^3/uL (1.5-5.0); LYMPH % 27.2 % (24.0-44.0); MEAN CORPUSCULAR HEMOGLOBIN 26.5 pg (27.0-33.0); MEAN CORPUSCULAR HGB CONC 31.8 g/dl (32.0-36.5); MEAN CORPUSCULAR VOLUME 83.3 fl (80.0-96.0); MONO # 0.6 10^3/uL (0.0-0.8); MONO % 5.9 % (2.0-8.0); NEUTROPHILS # 5.9 10^3/uL (1.5-8.5); NEUTROPHILS % 58.8 % (36.0-66.0); PLATELET COUNT, AUTOMATED 225 10^3/uL (150-450); WHITE BLOOD COUNT 10.1 10^3/uL (4.0-10.0)
[2020-09-20 14:47] LABS: ALBUMIN 3.2 GM/DL (3.2-5.2); ALT/SGPT 14 U/L (12-78); BILIRUBIN,TOTAL 0.4 MG/DL (0.2-1.0); BLOOD UREA NITROGEN 13 MG/DL (7-18); CALCIUM LEVEL 9.6 MG/DL (8.8-10.2); CARBON DIOXIDE LEVEL 28 MEQ/L (21-32); CHLORIDE LEVEL 107 MEQ/L (98-107); CHOLESTEROL LEVEL 178 MG/DL (<200); CHOLESTEROL RISK RATIO 2.656 (<5); CREATININE FOR GFR 0.83 MG/DL (0.55-1.30); FERRITIN 42 NG/ML (8-252); FREE T4 1.01 NG/DL (0.76-1.46); GLOMERULAR FILTRATION RATE > 60.0 (>45); GLUCOSE, FASTING 91 MG/DL (70-100); HDL CHOLESTEROL 67 MG/DL (>40); LDL CHOLESTEROL 72 MG/DL (<100); NON-HDL-C 111 MG/DL; POTASSIUM SERUM 4.3 MEQ/L (3.5-5.1); SODIUM LEVEL 140 MEQ/L (136-145); TOTAL 25(OH) VITAMIN D 26.6 NG/ML (30.0-100.0); TOTAL PROTEIN 6.4 GM/DL (6.4-8.2); TRIGLYCERIDES LEVEL 195 MG/DL (<150)
== END ==
LOC: M SFHCPLAZ 11:43
PROVIDERS: ATTEND Nurse Practitioner Family
DX: E61.1 Iron deficiency (principal); F31.60 Bipolar disorder, current episode mixed, unspecified; E78.5 Hyperlipidemia, unspecified; R73.01 Impaired fasting glucose; E55.9 Vitamin D deficiency, unspecified

== ENCOUNTER → 2020-10-27 | Outpatient (CLI) | payer OTHER ==
[~2020-10-27] MED LIST changes: -SIME180C PO; +SIME180C25 PO
== END ==
LOC: M LABSMTC 11:52
PROVIDERS: ATTEND Anesthesiology
DX: Z01.812 Encounter for preprocedural laboratory examination (principal); Z20.828 Contact with and (suspected) exposure to other viral communicable diseases

== ENCOUNTER → 2020-11-01 | Outpatient (CLI) | payer OTHER ==
[~2020-11-01] MED LIST changes: +ISOVUE-M 300 61% 15ML VIAL As Ordered ONE; +LIDOCAINE 1% SDV 30ML VIAL As Ordered ONE; +diazePAM 5MG TABLET As Ordered ONE; +methylPREDNISolone SUSP 40MG/ML 1ML VIAL (DEPO MEDROL) As Ordered ONE; +oxyCODONE 5MG TAB As Ordered ONE
--- NOTE | 2020-11-01 10:55 | REP ---
INDICATION: CERVICAL EPIDURAL STEROID INJECTION. COMPARISON: None. TECHNIQUE: One views. 9.4 seconds of fluoroscopy time is reported. FINDINGS: A single last image hold fluoroscopically obtained spot radiograph(s) of the cervical spine document(s) needle position(s) and contrast injection associated with injection procedure. IMPRESSION: Procedural imaging. <Electronically signed by Son Aiken > 11/01/20 [id number]
--- NOTE | 2020-11-04 02:04 | ECWPNPC ---
PATIENT NAME: PANCHITO WALKER : 1955 GENDER: FEMALE VISIT DATE: 11/01/2020 DISCHARGE DATE: 11/01/20 1046 VISIT LOCKED DATE TIME: PHYSICIAN: HAYLEE COHEN MD PHYSICIAN PAGER NO: ACTIVE RESOURCE: HAYLEE COHEN MD REASON FOR APPOINTMENT 1. CERVICAL EPIDURAL STEROID INJECTION HISTORY OF PRESENT ILLNESS GENERAL: -. FALL RISK SCREENING: SCREENING : NO FALLS REPORTED IN THE LAST YEAR. PAIN SCREENING: PATIENT HAS A COMPLAINT OF ACUTE OR CHRONIC PAIN :YES LOCATION OF PAIN:NECK, BOTH SHOULDERS, HAND(S), OTHER: PAIN RADIATES DOWN BILATERAL SHOULDERS INTO ARMS AND HANDS INTENSITY OF PAIN (SCALE OF 1 TO 10):3 RANGES 3-6/10 WHAT DOES YOUR PAIN FEEL LIKE:BURNING, CONTINOUS DURATION:CONTINOUS PAIN IS INCREASED BY:ACTIVITIES PAIN IS DECREASED BY:USE OF PAIN MEDICATIONS PLAN/GOALS/TREATMENT/INTERVENTION/FOLLOW UP:SEE PLAN NURSING NOTE: -. PAIN CENTER INTAKE QUESTIONS: DO YOU HAVE A HISTORY OF MRSA? :NO DO YOU TAKE A BLOOD THINNERS? :NO DO YOU HAVE ANY BLEEDING DISORDERS? :NO ANY NEW NUMBNESS OR WEAKNESS IN YOUR LEGS OR ARMS? :YES INCREASED NUMBNESS AND TINGLING IN BILATERAL HANDS ANY PACEMAKER,DEFIBRILLATOR, OR DORSAL COLUMN STIMULATOR? :NO DO YOU HAVE ANY RASHES OR OPEN SORES? :NO ARE YOU ALLERGIC TO IV DYE? :NO ARE YOU DIABETIC? :YES BORDERLINE- DOES NOT DO FSBS AT HOME ANY NEW PROBLEMS WITH YOUR MEDICATIONS? :NO HAVE YOU RECEIVED A VACCINE IN THE PAST 30 DAYS? :YES IF SO WHAT VACCINE AND WHEN? 2ND COVID VACCINE 10/05/2020 DO YOU PLAN TO RECEIVE A VACCINE IN THE NEXT 21 DAYS? :NO DO YOU TAKE ANY IMMUNOSUPPRESSIVE MEDICATIONS? :NO ANY HISTORY OF SEIZURES? :NO ANY HISTORY OF CARDIAC ISSUES OR EVENTS? :NO DO YOU HAVE ANY KIDNEY OR LIVER DISEASE? :YES RENAL CYSTS DO YOU HAVE SLEEP APNEA? :YES DO YOU WEAR A CPAP?YES ANY RECENT HEAD INJURY? :NO DO YOU HAVE ANY NEW INFECTIONS? :NO IS THERE A CHANCE YOU COULD BE ? :NO ARE YOU BREAST FEEDING? :NO WHEN DID YOU LAST EAT? : 11/01/19 2030 WHEN DID YOU LAST DRINK? : 11/01/20 0700 WHAT DID YOU LAST DRINK? : WATER NAME OF PERSON DRIVING YOU HOME? : SO DO YOU HAVE ANY OTHER QUESTIONS OR CONCERNS? : - CURRENT MEDICATIONS TAKING ZOLPIDEM TARTRATE 10 MG TABLET (SCHEDULE IV DRUG) TAKE ONE TABLET BY MOUTH AT BEDTIME MAX DAILY DOSE ONE TABLET ORAL , NOTES: 10/31/201899 TAKING BACLOFEN 10 MG TABLET TAKE ONE TABLET BY MOUTH TWICE DAILY NEEDED ORAL , NOTES: NOT RECENTLY TAKING ESTRADIOL 2 MG TABLET TAKE ONE TABLET BY MOUTH ONCE DAILY ORAL TAKING VITAMIN C 500 MG CAPSULE 1 TABLET ORALLY DAILY TAKING VITAMIN B COMPLEX - TABLET 1 TABLET ORALLY DAILY TAKING STOOL SOFTENER 100 MG CAPSULE 1 CAPSULE NEEDED ORALLY ONCE A DAY TAKING SALINE NASAL SPRAY 0.65 % SOLUTION 2 SPRAYS IN EACH NOSTRIL NEEDED NASALLY FOUR TIMES DAILY NEEDED TAKING VITAMIN D 1 CAPSULE 1 CAPSULE ORALLY ONCE A DAY TAKING ALBUTEROL SULFATE HFA 108 (90 BASE) MCG/ACT AEROSOL SOLUTION 2 PUFFS NEEDED INHALATION EVERY 6 HRS TAKING PREGABALIN 50 MG CAPSULE (SCHEDULE V DRUG) TAKE ONE CAPSULE BY MOUTH ONCE DAILY, MAX DAILY DOSE ONE CAPSULE ORAL , NOTES: 10/31/20 1800 TAKING CREON [id number] UNIT CAPSULE DELAYED RELEASE PARTICLES ORALLY TID TAKING LIPITOR 20 MG TABLET 1 TABLET ORALLY ONCE A DAY [id number] TAKING FERROUS GLUCONATE 324 (38 FE) MG TABLET 1 TABLET ORALLY ONCE A DAY TAKING OMEPRAZOLE 40 MG CAPSULE DELAYED RELEASE 1 CAPSULE 30 MINUTES BEFORE MORNING MEAL ORALLY ONCE A DAY TAKING ALBUTEROL SULFATE HFA 108 (90 BASE) MCG/ACT AEROSOL SOLUTION 2 PUFFS NEEDED INHALATION EVERY 6 HRS TAKING AIRDUO RESPICLICK 232/14 232-14 MCG/ACT AEROSOL POWDER BREATH ACTIVATED 1 PUFF INHALATION TWICE A DAY TAKING CLOBETASOL PROP EMOLLIENT BASE 0.05 % CREAM 1 APPLICATION ON TOP OF NOSE EXTERNALLY TWICE A DAY TAKING REXULTI 1 MG TABLET TAKE ONE TABLET BY MOUTH ONCE DAILY ORAL TAKING METFORMIN HCL ER 500 MG TABLET EXTENDED RELEASE 24 HOUR 1 TABLET WITH EVENING MEAL ORALLY ONCE A DAY, NOTES: 10/31/201899 MEDICATION LIST REVIEWED AND RECONCILED WITH THE PATIENT PAST MEDICAL HISTORY 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 ANTERIOR DISCECTOMY AND FUSION FROM C4-7 PREMATURE MENOPAUSE BILATERAL RENAL CYSTS R 9MM MID POLE/8MM LOVER POLE L 5MM MID POLE 08/2017 EGD, COLONOSCOPY DR. Salazar MILD DIVERTICULOSIS/MODERATE INTERNAL HEMORRHOIDS, DECREASED SPHINTER TONE ANNE -C-PAP 15 CM NECK PAIN ALLERGIES ASPIRIN: HIVES - ALLERGY SULFA (FOR ALLERGY USE ONLY): HIVES - ALLERGY TYLENOL: HIVES - ALLERGY CYCLOBENZAPRINE HCL: HIVES - ALLERGY TRAZODONE HCL: HIVES - ALLERGY SOCIAL HISTORY GENERAL: TOBACCO USE ARE YOU A:FORMER SMOKER HOW LONG HAS IT BEEN SINCE YOU LAST SMOKED?> 10 YEARS LATEX QUESTIONNAIRE LATEX ALLERGY : HAVE YOU EVER DEVELOPED ANY TYPE OF REACTION AFTER HANDLING LATEX PRODUCTS SUCH RUBBER GLOVES, CONDOMS, DIAPHRAGMS, BALLOONS, SOCKS, OR UNDERWEAR?NO LATEX ALLERGY : HAVE YOU EVER DEVELOPED ANY TYPE OF REACTION DURING OR AFTER DENTAL APPOINTMENT, VAGINAL/RECTAL EXAMINATION, SURGICAL PROCEDURE, OR ANY OTHER EXPOSURE?NO LATEX RISK : HAVE YOU EVER HAD ANY DIFFICULTY BREATHING OR HIVES AFTER EATING OR HANDLING ANY FRUITS, OR VEGETABLES; SUCH KIWI, BANANAS, STONE FRUITS, OR CHESTNUTSNO LATEX RISK : DO YOU HAVE A PREVIOUS PERSONAL HISTORY OF MORE THAN NINE SURGERIES, SPINA BIFIDA, OR REPEATED CATHERIZATIONS? YES - PLEASE INDICATE : > 9 SURGERIES LATEX RISK : ARE YOU FREQUENTLY EXPOSED TO LATEX PRODUCTS IN YOUR OCCUPATION?NO DATE ASKED : 10/27/2020 ALCOHOL USE: NO. LUNG CANCER SCREENING SMOKING STATUS:FORMER SMOKER IS THE PATIENT BETWEEN THE AGE OF 55 AND 77?YES HAVE YOU QUIT SMOKING WITHIN THE PAST 15 YEARS?NO ALCOHOL SCREENING DID YOU HAVE A DRINK CONTAINING ALCOHOL IN THE PAST YEAR?NO POINTS0 INTERPRETATIONNEGATIVE RECREATIONAL DRUG USE DRUG USE?NO CAFFEINE CAFFEINE USE?YES HOW OFTEN AND HOW MUCH? 1 CUP OF COFFEE SEXUAL HX HAD SEX IN THE LAST 12 MONTHS (VAGINAL, ORAL, OR ANAL)?YES WITHMEN ONLY HIV / HEP-C SCREENING HIV TEST OFFERED TO PATIENT:YES DATE OFFERED:11/06/2017 PREVIOUSLY DONE HEP-C TEST OFFERED TO PATIENT:YES PREVIOUSLY DONE DATE OFFERED:11/06/2017 BROCHURE PROVIDED TO PATIENTNO EPISCOPALIAN [id number] RESTORATION LANGUAGE LANGUAGES SPOKEN:BOTH NORTH KOREAN AND ITALIAN EDUCATION LEVEL OF EDUCATION:FINISHED HIGH SCHOOL LEARNING BARRIERS / SPECIAL NEEDS CHANGE FROM LAST VISIT?NO BARRIERS TO LEARNING?NO HEARING IMPAIRED?NO VISION IMPAIRED?YES COGNITIVELY IMPAIRED?NO :CORRECTIVE LENSES READING READINESS TO LEARN?YES LEARNING PREFERENCES?NO LEARNING CAPABILITIES PRESENT?YES EMOTIONAL BARRIERS?NO SPECIAL DEVICES?NO OPERATING ROOM ORDERLY NEEDED?NO DEPENDS ON WORDING, PRETTY FLUENT DOMESTIC VIOLENCE DO YOU FEEL SAFE IN YOUR ENVIRONMENT?YES OCCUPATION: DISABLED. DIET: NO HIGH FATS. EXERCISE: NO REGULAR EXERCISE. MARITAL STATUS: ENGAGED. OTHERS AT HOME: FIANCEE. TODAY'S VISIT 11/24/19 PATIENT DESCRIBES PAIN :ACHING, BURNING, HAVE IT ALL THE TIME, SHARP, STABBING, TENDER, THROBBING, SORE, SHOOTING FROM 0-10, WHAT LEVEL IS YOUR PAIN TODAY?5 PRECIPITATING FACTORS ACTIVITY, STAYING IN ONE POSITION FOR A LONG TIME ALLEVIATING FACTORS POSITION CHANGE - PFS REFERRAL NEEDED?NO CLERGY REFERRAL NEEDED?NO PUBLIC HEALTH REFERRAL NEEDED?NO WAS THE PROVIDER NOTIFIED OF ANY PERTINENT INFO?YES HAS THE PATIENT BEEN EDUCATED REGARDING HIS/HER PLAN OF CARE?YES HAS THE PATIENT BEEN EDUCATED REGARDING PAIN, THE RISK FOR PAIN, THE IMPORTANCE OF EFFECTIVE PAIN MANAGEMENT, AND THE PAIN ASSESSMENT PROCESS?YES ADVANCE DIRECTIVE ADVANCE DIRECTIVE DISCUSSED WITH PATIENT:YES PT DOES NOT HAVE HCP HELP OFFER INCOMPLETING FORMS IF NEEDED VITAL SIGNS WT 165.8 LBS, HT 64 IN, BMI 28.46 INDEX, BP 125/66 MM HG, HR 67 /MIN, RR 18 /MIN, TEMP 98.8 F, OXYGEN SAT % 98%, SAFE IN ENV? (Y/N) YES, NA INITIALS AW 0841, REVIEWED BY: Mir CEDENO JET DYEING MACHINE OPERATOR. EXAMINATION GENERAL: THE PATIENT IS ALERT, ORIENTED TIMES THREE AND COOPERATIVE. LUNGS ARE CLEAR TO AUSCULTATION. HEART SHOWS REGULAR RHYTHM, NO MURMURS AND NO GALLOPS. ASSESSMENTS CERVICAL POST-LAMINECTOMY SYNDROME - M96.1 (PRIMARY) CERVICAL DISC DISORDER WITH RADICULOPATHY - M50.10 TREATMENT CERVICAL POST-LAMINECTOMY SYNDROME COMPLETION OF PROCEDURAL VISIT WHEN MEETS CRITERIA CERVICAL DISC DISORDER WITH RADICULOPATHY [facility] FLUORO GUIDE SPINE INJECTION (PAIN)5962013 MEDICATION: VALIUM TAB 5MG ORALLY (DIAZEPAM)ZORA CORREA 11/01/2020 9:15:33 AM > VERIFIED RAJESH CEDENO 11/01/2020 9:19:57 AM > ADMINISTERED AT 0919. MEDICATION: OXYCODONE HCL TAB 5MG ORALLY ZORA CORREA 11/01/2020 9:15:48 AM > VERIFIED RAJESH CEDENO 11/01/2020 9:20:15 AM > ADMINISTERED AT 0919. SALINE LOCKRAJESH CEDENO 11/01/2020 9:35:57 AM > TWO ATTEMPTS FIRST IN RIGHT HAND, SECOND IN LEFT HAND, POSITIVE FLASH, UNABLE TO ADVANCE IV CATHETER/ SALINE EXTENSION, IV CATHETER TIP INTACT, DISCONTINUED. DSD APPLIED. RAJESH CEDENO 11/01/2020 10:16:42 AM > 22G SALINE LOCK, OBTAINED ON FIRST ATTEMPT BY Cora CHAVEZ JET DYEING MACHINE OPERATOR, POSITIVE FLASH, POSITIVE FLUSH, NO S/S OF INFILTRATION, PATIENT TOLERATED WELL. OTHERS NOTES: 10/27/2020 1145 PRE PROCEDURE PHONE CALL COMPLETED Georgiana GORDILLO RN. PROCEDURES PAIN NURSING RECORD PROCEDURE IN ROOM 0945, PHYSICIAN IN ROOM 1006, START 1012, FINISH 1018, PHYSICIAN OUT OF ROOM 1020, OUT OF ROOM 1026, ECG NORMAL SINUS, PATIENT SHIELDED YES, SAFETY STRAP YES, PREP BETADINE Mir CEDENO RN, DRESSING TEGADERM DR. COHEN LOC: RAJESH CEDENO 11/01/2020 09:45:35 AM > 1. ALERT, ORIENTED LOC REMAINED AT BASELINE THROUGHOUT THE PROCEDURE RESP: RAJESH CEDENO 11/01/2020 09:45:35 AM > 1. REGULAR, NO DYSPNEA COLOR: RAJESH CEDENO 11/01/2020 09:45:35 AM > 1. PINK SKIN: RAJESH CEDENO 11/01/2020 09:45:35 AM > 1. WARM, DRY POSITION: RAJESH CEDENO 11/01/2020 09:45:35 AM > 1. PRONE VITALS: RAJESH CEDENO 11/01/2020 9:35:38 AM > VS COMPLETED BY LENKA JUNIOR S/P PO SEDATION 121/58, 53, 93% RA, 18. RAJESH CEDENO 11/01/2020 10:03:46 AM > 135/71, 60, 97% RA, 18. RAJESH CEDENO 11/01/2020 10:15:59 AM > 134/81, 61, 98% RA, 18. RAJESH CEDENO 11/01/2020 10:30:54 AM > POST PROCEDURE 144/72, 67, 96% RA, 18. COMPLETION OF PROCEDURE APPOINTMENT: POST PAIN 4-5/10 "SORE" AT INJECTION SITE, DRESSING SITE DRY AND INTACT, IV DISCONTINUED, SITE CLEAR, CATHETER INTACT, GAIT STEADY, TEACHING COMPLETED, PATIENT ACKNOWLEDGES UNDERSTANDING YES PATIENT PROVIDED POST PROCEDURE PAIN DIARY, COVID SYMPTOM MONITORING INSTRUCTIONS AND POST PROCEDURE INSTRUCTIONS, HANDOUTS REVIEWED WITH PATIENT; PATIENT VERBALIZES UNDERSTANDING, NO QUESTIONS OR CONCERNS AT THIS TIME., PROCEDURE APPOINTMENT COMPLETED AT 1045 BY: Mir CEDENO RN PN CERVICAL EPIDURAL PRE PROCEDURE DIAGNOSIS CERVICAL POST LAMINECTOMY PAIN SYNDROME, CERVICAL DISC DISORDER WITH RADICULOPATHY POST PROCEDURE DIAGNOSIS CERVICAL POST LAMINECTOMY PAIN SYNDROME, CERVICAL DISC DISORDER WITH RADICULOPATHY PROCEDURE CERVICAL EPIDURAL STEROID INJECTION UNDER FLUOROSCOPIC GUIDANCE SURGEON DR. HAYLEE COHEN ANALYTICAL TECHNICIAN NONE ANESTHESIA LOCAL PRE PROCEDURE NOTE THE PATIENT HAS A HISTORY OF CHRONIC CERVICAL PAIN. I EVALUATED THE PATIENT AND REVIEWED THE CHART. I WENT OVER THE RISKS, ALTERNATIVES, AND BENEFITS ASSOCIATED WITH THIS PROCEDURE. THE PATIENT WOULD LIKE TO PROCEED AND GIVE CONSENT TO PERFORMED THE PROCEDURE. THE PATIENT DENIES UNEXPLAINABLE WEIGHT LOSS, FEVER, CHILLS, OR NEW CHANGES IN URINARY OR BOWEL CONTROL. THE PATIENT IS COVID-19 NEGATIVE DESCRIPTION OF PROCEDURE THE PATIENT WAS BROUGHT TO THE PROCEDURE ROOM AND PLACED IN THE PRONE POSITION. THE CERVICOTHORACIC AREA WAS CLEANED WITH BETADINE SOLUTION AND DRAPED ASEPTICALLY. THE PROCEDURE WAS DONE UNDER STERILE CONDITIONS. A TIMEOUT WAS PERFORMED WHERE THE CONSENTED SITE WAS VERIFIED WITH EVERYONE IN THE ROOM. UNDER FLUOROSCOPIC GUIDANCE, THE TARGET WAS SELECTED AT THE INTERLAMINAR LEVEL OF C7-T1. I CONFIRMED AGAIN THE SITE OF TARGET. LIDOCAINE WAS USED TO NUMB THE SKIN AND THE SUBCUTANEOUS TISSUE BELOW IT. EPIDURAL TUOHY NEEDLE, 17-GAUGE, WAS ADVANCED UNDER FLUOROSCOPIC GUIDANCE AND FOLLOWING PATIENT FEEDBACK UNTIL THE EPIDURAL SPACE WAS REACHED 6 CM DEEP INTO THE SKIN BY THE LOSS OF RESISTANCE TECHNIQUE. ISOVUE-M DYE 30%, 0.25 ML, WAS INJECTED SHOWING ADEQUATE SPREAD OF THE DYE. THEN, A SOLUTION OF 3 ML OF NORMAL SALINE WITH DEPO-MEDROL 40MG WAS INJECTED SLOWLY FOLLOWING PATIENT FEEDBACK. THE MEDICATIONS WERE VERIFIED WITH THE NURSE. THERE WAS NO EVIDENCE OF BLOOD, PARESTHESIA OR CEREBROSPINAL FLUID DURING THE PROCEDURE. ESTIMATED BLOOD LOSS WAS LESS THAN 5 ML. THE PATIENT WAS SENT TO THE RECOVERY ROOM. THE PATIENT WAS MOVING THE EXTREMITIES AND DOING WELL. THERE WERE NO COMPLICATIONS DURING THE PROCEDURE. FLUOROSCOPY TIME WAS 9 SECONDS POST PROCEDURE NOTE THE PATIENT WILL BE SEEN IN A FOLLOW UP IN THE NEXT FEW WEEKS. I AM LOOKING FOR LONG LASTING RELIEF FOR THE PATIENT WITH THIS INTERVENTION. INSTRUCTIONS WERE GIVEN, QUESTIONS WERE ANSWERED, AND THE PATIENT EXPRESSED UNDERSTANDING AND AGREES WITH THE PLAN. I, PERCY CALDWELL, DOCUMENTED THE ABOVE INFORMATION ACTING A SCRIBE FOR DR. COHEN. I HAVE REVIEWED THE ABOVE DOCUMENT, WRITTEN BY PERCY CALDWELL, BLASTING MACHINE OPERATOR, AND I VERIFY THAT IT IS ACCURATE PROCEDURE CODES 39998 CERVICAL/THORACIC W/ IMAGING DISPOSITION & COMMUNICATION FOLLOW UP FOLLOW UP WITH OPERATOR GROUND BASED AIR DEFENCE (REASON: POST CERVICAL EPIDRUAL STEROID INJECTION) ELECTRONICALLY SIGNED BY HAYLEE COHEN MD, MD ON 11/03/2020 AT 06:09 PM EDT DISCLAIMER : THIS IS A VISIT SUMMARY EXTRACTED FROM THE [facility] CHART. IT IS NOT A COPY OF THE [facility] PROGRESS NOTE. MERLE
== END ==
LOC: M PAIN 08:30
PROVIDERS: ATTEND Anesthesiology
DX: M96.1 Postlaminectomy syndrome, not elsewhere classified (principal); M50.10 Cervical disc disorder with radiculopathy, unspecified cervical region; K21.9 Gastro-esophageal reflux disease without esophagitis; F31.9 Bipolar disorder, unspecified; Z86.718 Personal history of other venous thrombosis and embolism; E78.5 Hyperlipidemia, unspecified; Z87.891 Personal history of nicotine dependence; Z79.84 Long term (current) use of oral hypoglycemic drugs; Z79.899 Other long term (current) drug therapy; Z88.2 Allergy status to sulfonamides; Z88.6 Allergy status to analgesic agent; Z88.8 Allergy status to other drugs, medicaments and biological substances
CPT/HCPCS: 62321; J1030; Q9967

== ENCOUNTER → 2020-11-15 | Outpatient (CLI) | payer OTHER ==
[~2020-11-15] MED LIST changes: -ISOVUE-M 300 61% 15ML VIAL As Ordered ONE; -LIDOCAINE 1% SDV 30ML VIAL As Ordered ONE; -diazePAM 5MG TABLET As Ordered ONE; -methylPREDNISolone SUSP 40MG/ML 1ML VIAL (DEPO MEDROL) As Ordered ONE; -oxyCODONE 5MG TAB As Ordered ONE
--- NOTE | 2020-11-17 03:33 | ECWPNPC ---
PATIENT NAME: PANCHITO WALKER : 1955 GENDER: FEMALE VISIT DATE: 11/15/2020 DISCHARGE DATE: 11/15/20 1442 VISIT LOCKED DATE TIME: PHYSICIAN: [facility] HEALY PHYSICIAN PAGER NO: ACTIVE RESOURCE: [facility] HEALY REASON FOR APPOINTMENT 1. POST CERVICAL EPIDURAL STEROID INJECTIONS C7-T1 HISTORY OF PRESENT ILLNESS GENERAL: HPI 64-YEAR-OLD FEMALE IN FOR POST CERVICAL EPIDURAL STEROID INJECTION FOLLOW-UP. SHE RATES HER PAIN PREPROCEDURE AT A 9-10 OUT OF 10 AND POSTPROCEDURE AT A 0 OUT OF 10. SHE FURTHER STATES PROCEDURE CONTINUES TO HELP HER TODAY RATING HER PAIN CURRENTLY AT A 0 OUT OF 10.. -. FALL RISK SCREENING: SCREENING : NO FALLS REPORTED IN THE LAST YEAR. PAIN SCREENING: PATIENT HAS A COMPLAINT OF ACUTE OR CHRONIC PAIN :YES LOCATION OF PAIN:NECK INTENSITY OF PAIN (SCALE OF 1 TO 10):0 PATIENTT REPORTS NO PAIN AFTER PROCEDURE AND AT REST. PATIENT STATES SHE "FEELS THE PAIN ONLY AFTER CLEANING THE HOUSE AND FEELS IT SHOOTING DOWN HER ARMS." NURSING NOTE: -. PAIN CENTER INTAKE QUESTIONS: DO YOU HAVE A HISTORY OF MRSA? :NO DO YOU TAKE A BLOOD THINNERS? :NO DO YOU HAVE ANY BLEEDING DISORDERS? :NO ANY NEW NUMBNESS OR WEAKNESS IN YOUR LEGS OR ARMS? :NO ANY PACEMAKER,DEFIBRILLATOR, OR DORSAL COLUMN STIMULATOR? :NO DO YOU HAVE ANY RASHES OR OPEN SORES? :NO ARE YOU ALLERGIC TO IV DYE? :NO ARE YOU DIABETIC? :NO ANY NEW PROBLEMS WITH YOUR MEDICATIONS? :NO HAVE YOU RECEIVED A VACCINE IN THE PAST 30 DAYS? :NO DO YOU PLAN TO RECEIVE A VACCINE IN THE NEXT 21 DAYS? :NO DO YOU NEED ANY PRESCRIPTION? :NO DO YOU TAKE ANY IMMUNOSUPPRESSIVE MEDICATIONS? :NO IS THERE A CHANCE YOU COULD BE ? :NO ARE YOU BREAST FEEDING? :NO CURRENT MEDICATIONS TAKING ZOLPIDEM TARTRATE 10 MG TABLET (SCHEDULE IV DRUG) TAKE ONE TABLET BY MOUTH AT BEDTIME MAX DAILY DOSE ONE TABLET ORAL TAKING ESTRADIOL 2 MG TABLET TAKE ONE TABLET BY MOUTH ONCE DAILY ORAL TAKING VITAMIN C 500 MG CAPSULE 1 TABLET ORALLY DAILY TAKING VITAMIN B COMPLEX - TABLET 1 TABLET ORALLY DAILY TAKING STOOL SOFTENER 100 MG CAPSULE 1 CAPSULE NEEDED ORALLY ONCE A DAY TAKING SALINE NASAL SPRAY 0.65 % SOLUTION 2 SPRAYS IN EACH NOSTRIL NEEDED NASALLY FOUR TIMES DAILY NEEDED TAKING VITAMIN D 1 CAPSULE 1 CAPSULE ORALLY ONCE A DAY TAKING ALBUTEROL SULFATE HFA 108 (90 BASE) MCG/ACT AEROSOL SOLUTION 2 PUFFS NEEDED INHALATION EVERY 6 HRS TAKING PREGABALIN 50 MG CAPSULE (SCHEDULE V DRUG) TAKE ONE CAPSULE BY MOUTH ONCE DAILY, MAX DAILY DOSE ONE CAPSULE ORAL , NOTES: 10/31/20 1800 TAKING CREON [id number] UNIT CAPSULE DELAYED RELEASE PARTICLES ORALLY TID TAKING LIPITOR 20 MG TABLET 1 TABLET ORALLY ONCE A DAY [id number] TAKING FERROUS GLUCONATE 324 (38 FE) MG TABLET 1 TABLET ORALLY ONCE A DAY TAKING OMEPRAZOLE 40 MG CAPSULE DELAYED RELEASE 1 CAPSULE 30 MINUTES BEFORE MORNING MEAL ORALLY ONCE A DAY TAKING ALBUTEROL SULFATE HFA 108 (90 BASE) MCG/ACT AEROSOL SOLUTION 2 PUFFS NEEDED INHALATION EVERY 6 HRS TAKING AIRDUO RESPICLICK 232/14 232-14 MCG/ACT AEROSOL POWDER BREATH ACTIVATED 1 PUFF INHALATION TWICE A DAY TAKING CLOBETASOL PROP EMOLLIENT BASE 0.05 % CREAM 1 APPLICATION ON TOP OF NOSE EXTERNALLY TWICE A DAY TAKING REXULTI 1 MG TABLET TAKE ONE TABLET BY MOUTH ONCE DAILY ORAL TAKING METFORMIN HCL ER 500 MG TABLET EXTENDED RELEASE 24 HOUR 1 TABLET WITH EVENING MEAL ORALLY ONCE A DAY, NOTES: 10/31/20 1900 NOT-TAKING BACLOFEN 10 MG TABLET TAKE ONE TABLET BY MOUTH TWICE DAILY NEEDED ORAL , NOTES: NOT RECENTLY MEDICATION LIST REVIEWED AND RECONCILED WITH THE PATIENT PAST MEDICAL HISTORY CHOLANGIOCARCINOMA S/P PYLORIS PRESERVING WHIPPLE PROCEDURE ON 04/24/2016 GERD BIPOLAR- [facility] L[facility] DVT S/P VERICOSE VEIN REPAIR 30 YEARS AGO HYPERLIPIDEMIA 10/2017 MRI CERVICAL SPINE: OSTOARTHRITIC CHANGES R C2-3 RIGHT C7-T1, MILD CERVCAL SPONDYLOSIS AT C3-4. ANTERIOR DISCECTOMY AND FUSION FROM C4-7 PREMATURE MENOPAUSE BILATERAL RENAL CYSTS R 9MM MID POLE/8MM LOVER POLE L 5MM MID POLE 08/2017 EGD, COLONOSCOPY DR. Salazar MILD DIVERTICULOSIS/MODERATE INTERNAL HEMORRHOIDS, DECREASED SPHINTER TONE ANNE -C-PAP 15 CM NECK PAIN ALLERGIES ASPIRIN: HIVES - ALLERGY SULFA (FOR ALLERGY USE ONLY): HIVES - ALLERGY TYLENOL: HIVES - ALLERGY CYCLOBENZAPRINE HCL: HIVES - ALLERGY TRAZODONE HCL: HIVES - ALLERGY SOCIAL HISTORY GENERAL: TOBACCO USE ARE YOU A:FORMER SMOKER HOW LONG HAS IT BEEN SINCE YOU LAST SMOKED?> 10 YEARS LATEX QUESTIONNAIRE LATEX ALLERGY : HAVE YOU EVER DEVELOPED ANY TYPE OF REACTION AFTER HANDLING LATEX PRODUCTS SUCH RUBBER GLOVES, CONDOMS, DIAPHRAGMS, BALLOONS, SOCKS, OR UNDERWEAR?NO LATEX ALLERGY : HAVE YOU EVER DEVELOPED ANY TYPE OF REACTION DURING OR AFTER DENTAL APPOINTMENT, VAGINAL/RECTAL EXAMINATION, SURGICAL PROCEDURE, OR ANY OTHER EXPOSURE?NO LATEX RISK : HAVE YOU EVER HAD ANY DIFFICULTY BREATHING OR HIVES AFTER EATING OR HANDLING ANY FRUITS, OR VEGETABLES; SUCH KIWI, BANANAS, STONE FRUITS, OR CHESTNUTSNO LATEX RISK : DO YOU HAVE A PREVIOUS PERSONAL HISTORY OF MORE THAN NINE SURGERIES, SPINA BIFIDA, OR REPEATED CATHERIZATIONS? YES - PLEASE INDICATE : > 9 SURGERIES LATEX RISK : ARE YOU FREQUENTLY EXPOSED TO LATEX PRODUCTS IN YOUR OCCUPATION?NO DATE ASKED : 11/15/2020 ALCOHOL USE: NO. LUNG CANCER SCREENING SMOKING STATUS:FORMER SMOKER IS THE PATIENT BETWEEN THE AGE OF 55 AND 77?YES HAVE YOU QUIT SMOKING WITHIN THE PAST 15 YEARS?NO ALCOHOL SCREENING DID YOU HAVE A DRINK CONTAINING ALCOHOL IN THE PAST YEAR?NO POINTS0 INTERPRETATIONNEGATIVE RECREATIONAL DRUG USE DRUG USE?NO CAFFEINE CAFFEINE USE?YES HOW OFTEN AND HOW MUCH? 1 CUP OF COFFEE SEXUAL HX HAD SEX IN THE LAST 12 MONTHS (VAGINAL, ORAL, OR ANAL)?YES WITHMEN ONLY HIV / HEP-C SCREENING HIV TEST OFFERED TO PATIENT:YES DATE OFFERED:11/06/2017 PREVIOUSLY DONE HEP-C TEST OFFERED TO PATIENT:YES PREVIOUSLY DONE DATE OFFERED:11/06/2017 BROCHURE PROVIDED TO PATIENTNO ORTHODOXY [id number] ORTHODOXY LANGUAGE LANGUAGES SPOKEN:BOTH [place] AND [place] EDUCATION LEVEL OF EDUCATION:FINISHED HIGH SCHOOL LEARNING BARRIERS / SPECIAL NEEDS CHANGE FROM LAST VISIT?NO BARRIERS TO LEARNING?NO HEARING IMPAIRED?NO VISION IMPAIRED?YES :CORRECTIVE LENSES READING COGNITIVELY IMPAIRED?NO READINESS TO LEARN?YES LEARNING PREFERENCES?NO LEARNING CAPABILITIES PRESENT?YES EMOTIONAL BARRIERS?NO SPECIAL DEVICES?NO SONOSCOPE OPERATOR NEEDED?NO DEPENDS ON WORDING, PRETTY FLUENT DOMESTIC VIOLENCE DO YOU FEEL SAFE IN YOUR ENVIRONMENT?YES OCCUPATION: DISABLED. DIET: NO HIGH FATS. EXERCISE: NO REGULAR EXERCISE. MARITAL STATUS: ENGAGED. OTHERS AT HOME: FIANCEE. TODAY'S VISIT 11/24/19 PATIENT DESCRIBES PAIN :ACHING, BURNING, HAVE IT ALL THE TIME, SHARP, STABBING, TENDER, THROBBING, SORE, SHOOTING FROM 0-10, WHAT LEVEL IS YOUR PAIN TODAY?5 PRECIPITATING FACTORS ACTIVITY, STAYING IN ONE POSITION FOR A LONG TIME ALLEVIATING FACTORS POSITION CHANGE - PFS REFERRAL NEEDED?NO CLERGY REFERRAL NEEDED?NO PUBLIC HEALTH REFERRAL NEEDED?NO WAS THE PROVIDER NOTIFIED OF ANY PERTINENT INFO?YES HAS THE PATIENT BEEN EDUCATED REGARDING HIS/HER PLAN OF CARE?YES HAS THE PATIENT BEEN EDUCATED REGARDING PAIN, THE RISK FOR PAIN, THE IMPORTANCE OF EFFECTIVE PAIN MANAGEMENT, AND THE PAIN ASSESSMENT PROCESS?YES ADVANCE DIRECTIVE ADVANCE DIRECTIVE DISCUSSED WITH PATIENT:YES PT DOES NOT HAVE HCP HELP OFFER INCOMPLETING FORMS IF NEEDED REVIEW OF SYSTEMS CONSTITUTIONAL: ANY RECENT FEVER NO . CHILLS NO . WEIGHT CHANGE OF UNKNOWN REASONS NO . GASTROENTEROLOGY: NEW UNEXPLAINABLE CHANGES IN BOWEL CONTROL NO . CONSTIPATION NO . GENITOURINARY: ANY NEW CHANGE IN BLADDER CONTROL? NO . NEUROLOGY: NEW ONSET DIZZINESS OR NEUROLOGICAL CHANGES NOT MENTIONED NO . NEW NUMBNESS OR PAIN PATTERNS NOT MENTIONED AND PERTINENT TO TODAY'S VISIT NO . CARDIOLOGY: NEW CHEST PRESSURE NO . PATIENT DENIES NO . RESPIRATORY: UNEXPLAINABLE COUGH NO . NEW SHORTNESS OF BREATH NO . VITAL SIGNS WT 165.2 LBS, HT 64 IN, BMI 28.35 INDEX, BP 141/66 MM HG, HR 64 /MIN, RR 18 /MIN, TEMP 98.0 F, OXYGEN SAT % 97%, SAFE IN ENV? (Y/N) YES, NA INITIALS AW 1416, REVIEWED BY: CORWIN CALIX MA. EXAMINATION GENERAL EXAMINATION: GENERALNO ACUTE DISTRESS, WELL NOURISHED AND HYDRATED. PSYCHAPPROPRIATE MOOD AND AFFECT . LUNGS:CLEAR TO AUSCULTATION BILATERALLY, NO WHEEZES, RHONCHI, RALES. HEART:NO MURMURS, REGULAR RATE AND RHYTHM. ASSESSMENTS OTHER CHRONIC PAIN - G89.29 (PRIMARY) CERVICAL DISC DISORDER WITH RADICULOPATHY, UNSPECIFIED CERVICAL REGION - M50.10, RISK: (NULL) TREATMENT OTHER CHRONIC PAIN PAIN PROCEDURE LOGDATE OF HNALNSLUO91/20/2021PROCEDURE:CERVICAL EPIDURAL STEROID INJECTIONAMOUNT OF PRE SEDATEVALIUM 5MG; OXYCODONE 5 MGRESULT:PRE-8/10 POST 0/10 CONTINUES TO HELP TODAY NOTES: 64-YEAR-OLD FEMALE IN FOR POST CERVICAL EPIDURAL STEROID INJECTION FOLLOW-UP. GIVEN PRESENTING SYMPTOMS RECOMMEND FOLLOW-UP IN 2 MONTHS. PATIENT HAS EXPRESSED UNDERSTANDING OF AND WAS IN AGREEMENT WITH TREATMENT PLAN. GIVEN TIME TO ASK QUESTIONS AND EXPRESS CONCERNS. PROCEDURE CODES FA211 ESTABILISHED PATIENT [facility] CHARGE DISPOSITION & COMMUNICATION FOLLOW UP 2 MONTHS (REASON: NECK PAIN ) ELECTRONICALLY SIGNED BY DARIAN LIMA ON 11/16/2020 AT 09:55 AM EDT DISCLAIMER : THIS IS A VISIT SUMMARY EXTRACTED FROM THE [employer] CHART. IT IS NOT A COPY OF THE [employer] PROGRESS NOTE. MERLE
== END ==
LOC: M PAIN 14:15
PROVIDERS: ATTEND Family Medicine
DX: G89.29 Other chronic pain (principal); M50.10 Cervical disc disorder with radiculopathy, unspecified cervical region; K21.9 Gastro-esophageal reflux disease without esophagitis; F31.9 Bipolar disorder, unspecified; E78.5 Hyperlipidemia, unspecified; G47.33 Obstructive sleep apnea (adult) (pediatric); Z85.09 Personal history of malignant neoplasm of other digestive organs; Z87.891 Personal history of nicotine dependence; Z79.84 Long term (current) use of oral hypoglycemic drugs; Z79.899 Other long term (current) drug therapy; Z88.6 Allergy status to analgesic agent; Z88.2 Allergy status to sulfonamides; Z88.8 Allergy status to other drugs, medicaments and biological substances

== ENCOUNTER → 2021-01-04 | Outpatient (CLI) | payer MEDICARE, OTHER ==
[~2021-01-04] MED LIST changes: +GASTROGRAFIN SOLUTION 30ML (Q9963) As Ordered ONE; +ISOVUE-370 76% 100ML VIAL As Ordered ONE; +OMEP40CA4 PO; -OMEP40CA97 PO
--- NOTE | 2021-01-04 14:09 | REP ---
INDICATION: [place] DUCT CA COMPARISON: Multiple latest 06/15/2020 also with contrast TECHNIQUE: Standard helical technique after the intravenous administration of 100 cc Isovue 370 FINDINGS: There is no mediastinal or hilar adenopathy. There are no pleural or pericardial effusions. There is no change in the appearance of the imaged upper abdomen or imaged osseous structures. Evaluation of the lung nur shows no new abnormal nodules, masses, or opacities. IMPRESSION: Stable CT examination of the chest. There is no evidence of acute disease. <Electronically signed by Ward Garcia > 01/04/21 [id number]
--- NOTE | 2021-01-04 14:12 | REP ---
INDICATION: ISRAEL DUCT CA. COMPARISON: Multiple the latest 06/15/2020 TECHNIQUE: Standard helical technique after the intravenous administration of 100 cc Isovue 370 and oral bowel preparatory contrast administration. FINDINGS: The liver, spleen, pancreas, adrenal glands, and kidneys are unchanged. There are bilateral renal cysts status quo. The patient is status post cholecystectomy. The abdominal aorta and para-aortic regions are again seen to be within normal limits. There is no significant change in appearance of the bowel loops or the mesenteries. Note is again made of descending colon diverticulosis. There is no mass or adenopathy. There is no free fluid or free air. Bone window technique throughout the examination shows no significant change in appearance of the osseous structures. IMPRESSION: Stable CT examination of the abdomen and pelvis. There is no evidence of acute disease. <Electronically signed by Ward Garcia > 01/04/21 [id number]
== END ==
LOC: M RAD 11:31
PROVIDERS: ATTEND Internal Medicine Hematology & Oncology
DX: C50.919 Malignant neoplasm of unspecified site of unspecified female breast (principal)
CPT/HCPCS: 71260; 74177; Q9963; Q9967

== ENCOUNTER → 2021-01-17 | Outpatient (CLI) | payer MEDICARE, OTHER ==
[~2021-01-17] MED LIST changes: -GASTROGRAFIN SOLUTION 30ML (Q9963) As Ordered ONE; -ISOVUE-370 76% 100ML VIAL As Ordered ONE
--- NOTE | 2021-01-19 03:39 | ECWPNPC ---
PATIENT NAME: PANCHITO WALKER : 1955 GENDER: FEMALE VISIT DATE: 01/17/2021 DISCHARGE DATE: 01/17/21 1427 VISIT LOCKED DATE TIME: PHYSICIAN: [facility] PHYSICIAN PAGER NO: ACTIVE RESOURCE: [facility] REASON FOR APPOINTMENT 1. NECK PAIN HISTORY OF PRESENT ILLNESS GENERAL: HPI 65-YEAR-OLD FEMALE IN FOR CHRONIC PAIN FOLLOW-UP. SHE RATES HER PAIN CURRENTLY AN 8 OUT OF 10 AND DESCRIBES IT ACHING AND CONTINUOUS. PATIENT HAS HAD CERVICAL EPIDURAL STEROID INJECTIONS IN THE PAST WITH GOOD RELIEF EVIDENCED BY DECREASED PAIN AND INCREASED FUNCTIONALITY. WE WILL DISCUSS REPEAT PROCEDURES TODAY.. -. FALL RISK SCREENING: SCREENING : NO FALLS REPORTED IN THE LAST YEAR. PAIN SCREENING: PATIENT HAS A COMPLAINT OF ACUTE OR CHRONIC PAIN :YES LOCATION OF PAIN:NECK, OTHER: BILATERAL AMRS INTENSITY OF PAIN (SCALE OF 1 TO 10):8 WHAT DOES YOUR PAIN FEEL LIKE:ACHING, CONTINOUS DURATION:CONTINOUS, CONSTANT, ALL DAY PAIN IS INCREASED BY:ACTIVITIES PAIN IS DECREASED BY:OTHERS NOT DOING TOO MUCH NURSING NOTE: -. PAIN CENTER INTAKE QUESTIONS: DO YOU HAVE A HISTORY OF MRSA? :NO DO YOU TAKE A BLOOD THINNERS? :NO DO YOU HAVE ANY BLEEDING DISORDERS? :NO ANY NEW NUMBNESS OR WEAKNESS IN YOUR LEGS OR ARMS? :YES BOTH ARMS MOSTLY IN THE LEFT ANY PACEMAKER,DEFIBRILLATOR, OR DORSAL COLUMN STIMULATOR? :NO DO YOU HAVE ANY RASHES OR OPEN SORES? :NO ARE YOU ALLERGIC TO IV DYE? :NO ARE YOU DIABETIC? :NO ANY NEW PROBLEMS WITH YOUR MEDICATIONS? :NO HAVE YOU RECEIVED A VACCINE IN THE PAST 30 DAYS? :YES 1ST COVID SHOT 09/14/2020 2ND COVID 10/05/2020 DO YOU PLAN TO RECEIVE A VACCINE IN THE NEXT 21 DAYS? :NO DO YOU NEED ANY PRESCRIPTION? :NO DO YOU TAKE ANY IMMUNOSUPPRESSIVE MEDICATIONS? :NO IS THERE A CHANCE YOU COULD BE ? :NO ARE YOU BREAST FEEDING? :NO CURRENT MEDICATIONS TAKING ZOLPIDEM TARTRATE 10 MG TABLET (SCHEDULE IV DRUG) TAKE ONE TABLET BY MOUTH AT BEDTIME MAX DAILY DOSE ONE TABLET ORAL TAKING ESTRADIOL 2 MG TABLET TAKE ONE TABLET BY MOUTH ONCE DAILY ORAL TAKING VITAMIN C 500 MG CAPSULE 1 TABLET ORALLY DAILY TAKING VITAMIN B COMPLEX - TABLET 1 TABLET ORALLY DAILY TAKING STOOL SOFTENER 100 MG CAPSULE 1 CAPSULE NEEDED ORALLY ONCE A DAY TAKING SALINE NASAL SPRAY 0.65 % SOLUTION 2 SPRAYS IN EACH NOSTRIL NEEDED NASALLY FOUR TIMES DAILY NEEDED TAKING VITAMIN D 1 CAPSULE 1 CAPSULE ORALLY ONCE A DAY TAKING PREGABALIN 50 MG CAPSULE (SCHEDULE V DRUG) TAKE ONE CAPSULE BY MOUTH ONCE DAILY, MAX DAILY DOSE ONE CAPSULE ORAL TAKING CREON [id number] UNIT CAPSULE DELAYED RELEASE PARTICLES ORALLY TID TAKING FERROUS GLUCONATE 324 (38 FE) MG TABLET 1 TABLET ORALLY ONCE A DAY TAKING OMEPRAZOLE 40 MG CAPSULE DELAYED RELEASE 1 CAPSULE 30 MINUTES BEFORE MORNING MEAL ORALLY ONCE A DAY TAKING AIRDUO RESPICLICK 232/14 232-14 MCG/ACT AEROSOL POWDER BREATH ACTIVATED 1 PUFF INHALATION TWICE A DAY TAKING CLOBETASOL PROP EMOLLIENT BASE 0.05 % CREAM 1 APPLICATION ON TOP OF NOSE EXTERNALLY TWICE A DAY TAKING REXULTI 1 MG TABLET TAKE ONE TABLET BY MOUTH ONCE DAILY ORAL TAKING ALBUTEROL SULFATE HFA 108 (90 BASE) MCG/ACT AEROSOL SOLUTION 2 PUFFS NEEDED INHALATION EVERY 6 HRS TAKING METFORMIN HCL ER 500 MG TABLET EXTENDED RELEASE 24 HOUR 1 TABLET WITH EVENING MEAL ORALLY ONCE A DAY TAKING LIPITOR 20 MG TABLET 1 TABLET ORALLY ONCE A DAY ZYN-JNP-BARDCF TAKING ESTRADIOL 2 MG TABLET 1 TABLET ORALLY ONCE A DAY NOT-TAKING BACLOFEN 10 MG TABLET TAKE ONE TABLET BY MOUTH TWICE DAILY NEEDED ORAL , NOTES: NOT RECENTLY MEDICATION LIST REVIEWED AND RECONCILED WITH THE PATIENT PAST MEDICAL HISTORY 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 ANTERIOR DISCECTOMY AND FUSION FROM C4-7 PREMATURE MENOPAUSE BILATERAL RENAL CYSTS R 9MM MID POLE/8MM LOVER POLE L 5MM MID POLE 08/2017 EGD, COLONOSCOPY DR. Salazar MILD DIVERTICULOSIS/MODERATE INTERNAL HEMORRHOIDS, DECREASED SPHINTER TONE ANNE -C-PAP 15 CM NECK PAIN 1ST COVID SHOT 09/14/2020 2ND COVID 10/05/2020 ALLERGIES ASPIRIN: HIVES - ALLERGY SULFA (FOR ALLERGY USE ONLY): HIVES - ALLERGY TYLENOL: HIVES - ALLERGY CYCLOBENZAPRINE HCL: HIVES - ALLERGY TRAZODONE HCL: HIVES - ALLERGY SOCIAL HISTORY GENERAL: TOBACCO USE ARE YOU A:FORMER SMOKER HOW LONG HAS IT BEEN SINCE YOU LAST SMOKED?> 10 YEARS LATEX QUESTIONNAIRE LATEX ALLERGY : HAVE YOU EVER DEVELOPED ANY TYPE OF REACTION AFTER HANDLING LATEX PRODUCTS SUCH RUBBER GLOVES, CONDOMS, DIAPHRAGMS, BALLOONS, SOCKS, OR UNDERWEAR?NO LATEX ALLERGY : HAVE YOU EVER DEVELOPED ANY TYPE OF REACTION DURING OR AFTER DENTAL APPOINTMENT, VAGINAL/RECTAL EXAMINATION, SURGICAL PROCEDURE, OR ANY OTHER EXPOSURE?NO LATEX RISK : HAVE YOU EVER HAD ANY DIFFICULTY BREATHING OR HIVES AFTER EATING OR HANDLING ANY FRUITS, OR VEGETABLES; SUCH KIWI, BANANAS, STONE FRUITS, OR CHESTNUTSNO LATEX RISK : DO YOU HAVE A PREVIOUS PERSONAL HISTORY OF MORE THAN NINE SURGERIES, SPINA BIFIDA, OR REPEATED CATHERIZATIONS? YES - PLEASE INDICATE : > 9 SURGERIES LATEX RISK : ARE YOU FREQUENTLY EXPOSED TO LATEX PRODUCTS IN YOUR OCCUPATION?NO DATE ASKED : 01/17/2021 ALCOHOL USE: NO. LUNG CANCER SCREENING SMOKING STATUS:FORMER SMOKER IS THE PATIENT BETWEEN THE AGE OF 55 AND 77?YES HAVE YOU QUIT SMOKING WITHIN THE PAST 15 YEARS?NO ALCOHOL SCREENING DID YOU HAVE A DRINK CONTAINING ALCOHOL IN THE PAST YEAR?NO POINTS0 INTERPRETATIONNEGATIVE RECREATIONAL DRUG USE DRUG USE?NO CAFFEINE CAFFEINE USE?YES HOW OFTEN AND HOW MUCH? 1 CUP OF COFFEE SEXUAL HX HAD SEX IN THE LAST 12 MONTHS (VAGINAL, ORAL, OR ANAL)?YES WITHMEN ONLY HIV / HEP-C SCREENING HIV TEST OFFERED TO PATIENT:YES DATE OFFERED:11/06/2017 PREVIOUSLY DONE HEP-C TEST OFFERED TO PATIENT:YES PREVIOUSLY DONE DATE OFFERED:11/06/2017 BROCHURE PROVIDED TO PATIENTNO [id number] RELIGIOUS LANGUAGE LANGUAGES SPOKEN:BOTH PAL[place] AND [place]GI[place] EDUCATION LEVEL OF EDUCATION:FINISHED HIGH SCHOOL LEARNING BARRIERS / SPECIAL NEEDS CHANGE FROM LAST VISIT?NO 01/03/2021 BARRIERS TO LEARNING?NO HEARING IMPAIRED?NO VISION IMPAIRED?YES :CORRECTIVE LENSES READING COGNITIVELY IMPAIRED?NO READINESS TO LEARN?YES LEARNING PREFERENCES?NO LEARNING CAPABILITIES PRESENT?YES EMOTIONAL BARRIERS?NO SPECIAL DEVICES?YES :CANE NEEDED 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 DIET: NO HIGH FATS. EXERCISE: NO REGULAR EXERCISE. MARITAL STATUS: ENGAGED. OTHERS AT HOME: FI[place]E. TODAY'S VISIT 11/24/19 PATIENT DESCRIBES PAIN :ACHING, BURNING, HAVE IT ALL THE TIME, SHARP, STABBING, TENDER, THROBBING, SORE, SHOOTING FROM 0-10, WHAT LEVEL IS YOUR PAIN TODAY?5 PRECIPITATING FACTORS ACTIVITY, STAYING IN ONE POSITION FOR A LONG TIME ALLEVIATING FACTORS POSITION CHANGE - PFS REFERRAL NEEDED?NO CLERGY REFERRAL NEEDED?NO PUBLIC HEALTH REFERRAL NEEDED?NO WAS THE PROVIDER NOTIFIED OF ANY PERTINENT INFO?YES HAS THE PATIENT BEEN EDUCATED REGARDING HIS/HER PLAN OF CARE?YES HAS THE PATIENT BEEN EDUCATED REGARDING PAIN, THE RISK FOR PAIN, THE IMPORTANCE OF EFFECTIVE PAIN MANAGEMENT, AND THE PAIN ASSESSMENT PROCESS?YES ADVANCE DIRECTIVE ADVANCE DIRECTIVE DISCUSSED WITH PATIENT:YES PT DOES NOT HAVE HCP HELP OFFER INCOMPLETING FORMS IF NEEDED REVIEW OF SYSTEMS CONSTITUTIONAL: ANY RECENT FEVER NO . CHILLS NO . WEIGHT CHANGE OF UNKNOWN REASONS NO . GASTROENTEROLOGY: NEW UNEXPLAINABLE CHANGES IN BOWEL CONTROL NO . CONSTIPATION NO . GENITOURINARY: ANY NEW CHANGE IN BLADDER CONTROL? NO . NEUROLOGY: NEW ONSET DIZZINESS OR NEUROLOGICAL CHANGES NOT MENTIONED NO . NEW NUMBNESS OR PAIN PATTERNS NOT MENTIONED AND PERTINENT TO TODAY'S VISIT NO . CARDIOLOGY: NEW CHEST PRESSURE NO . PATIENT DENIES NO . RESPIRATORY: UNEXPLAINABLE COUGH NO . NEW SHORTNESS OF BREATH NO . VITAL SIGNS WT 159 LBS, HT 64 IN, BMI 27.29 INDEX, BP 134/64 MM HG, HR 63 /MIN, RR 18 /MIN, TEMP 97.5 F, OXYGEN SAT % 98%, SAFE IN ENV? (Y/N) YEST.FLORES LOU. EXAMINATION GENERAL EXAMINATION: GENERALNO ACUTE DISTRESS, WELL NOURISHED AND HYDRATED. PSYCHAPPROPRIATE MOOD AND AFFECT . NECK:POINT TENDER ALONG CERVICAL SPINE, SURROUNDING SKIN SHOWS NO ERYTHEMA, ECCHYMOSIS, INCREASED WARMTH, AND/OR SKIN ERUPTIONS NOTED.. LUNGS:CLEAR TO AUSCULTATION BILATERALLY, NO WHEEZES, RHONCHI, RALES. HEART:NO MURMURS, REGULAR RATE AND RHYTHM. ASSESSMENTS CERVICAL DISC DISORDER WITH RADICULOPATHY, UNSPECIFIED CERVICAL REGION - M50.10 (PRIMARY), RISK: (NULL) TREATMENT CERVICAL DISC DISORDER WITH RADICULOPATHY, UNSPECIFIED CERVICAL REGION SALINE LOCK (ORDERED FOR 01/25/2021) MEDICATION: NORCO TABLET 5MG/325MG ORALLY (HYDROCODONE/ACETAMINOPHEN) (ORDERED FOR 01/25/2021) MEDICATION: VALIUM TAB 5MG ORALLY (DIAZEPAM) (ORDERED FOR 01/25/2021) NOTES: 65-YEAR-OLD FEMALE IN FOR CHRONIC PAIN FOLLOW-UP. GIVEN PRESENTING SYMPTOMS AND RESULTS OF PHYSICAL EXAMINATION RECOMMEND CERVICAL EPIDURAL STEROID INJECTION C7-T1 WITH POSTPROCEDURAL FOLLOW-UP. PATIENT HAS EXPRESSED UNDERSTANDING OF AND WAS IN AGREEMENT WITH TREATMENT PLAN. GIVEN TIME TO ASK QUESTIONS AND EXPRESS CONCERNS. PROCEDURE CODES FA211 ESTABILISHED PATIENT [facility] CHARGE DISPOSITION & COMMUNICATION FOLLOW UP POST PROCEDURE (REASON: CERVICAL EPIDURAL STEROID INJECTION C7-T1) ELECTRONICALLY SIGNED BY DARIAN LIMA ON 01/18/2021 AT 08:26 AM EDT DISCLAIMER : THIS IS A VISIT SUMMARY EXTRACTED FROM THE [employer] CHART. IT IS NOT A COPY OF THE [employer] PROGRESS NOTE. MERLE
== END ==
LOC: M PAIN 14:00
PROVIDERS: ATTEND Family Medicine
DX: M50.10 Cervical disc disorder with radiculopathy, unspecified cervical region (principal); K21.9 Gastro-esophageal reflux disease without esophagitis; F31.9 Bipolar disorder, unspecified; Z86.718 Personal history of other venous thrombosis and embolism; E78.5 Hyperlipidemia, unspecified; N28.1 Cyst of kidney, acquired; G47.33 Obstructive sleep apnea (adult) (pediatric); Z85.05 Personal history of malignant neoplasm of liver; Z87.891 Personal history of nicotine dependence; Z79.84 Long term (current) use of oral hypoglycemic drugs; Z79.899 Other long term (current) drug therapy; Z88.6 Allergy status to analgesic agent; Z88.2 Allergy status to sulfonamides; Z88.8 Allergy status to other drugs, medicaments and biological substances

== ENCOUNTER → 2021-03-03 | Outpatient (CLI) | payer OTHER ==
--- NOTE | 2021-03-03 14:39 | DEXAMM ---
INDICATION: Z13.820 SCREENING FOR OSTEOPOROSIS. COMPARISON: 12/03/2017. TECHNIQUE: Bone density was measured using dual-energy x-ray absorptiometry (DEXA). FINDINGS: AP SPINE L1-L4 BMD 1.349 g/cm2 Young Adult T-Score 1.2 Age Matched Z-Score 2.8. LT FEMUR, TOTAL BMD 0.978 g/cm2 Young Adult T-Score -0.2 Age Matched Z-Score 1.0. LT NECK BMD 1.029 g/cm2 Young Adult T-Score -0.1 Age Matched Z-Score 1.4. RT FEMUR, TOTAL BMD 0.983 g/cm2 Young Adult T-Score -0.2 Age Matched Z-Score 1.0. RT NECK BMD 0.944 g/cm2 Young Adult T-Score -0.7 Age Matched Z-Score 0.8. IMPRESSION: There is normal bone density of the spine. There is normal bone density of the left hip. There is normal bone density of the right hip. The density of the spine has increased 5.1% since the initial exam on 12/03/2017. The density of the left hip has increased 4.5% since initial exam on 12/03/2017. The density of the right hip has increased 4.4% since the initial exam on 12/03/2017. FOLLOW-UP: Recommendation for the next bone density exam: 5 years. <Electronically signed by Asaf Polk > 03/03/21 [id number]
--- NOTE | 2021-03-03 16:16 | REPMRS ---
Patient History The patient states she had a clinical breast exam on 01/03/2021. Family history of ovarian cancer at age 18 in daughter, prostate cancer at age 70 in father. Pre-pectoral silicone gel implants in both breasts. Taking estrogen for 30 years beginning at age 31. Patient states no breast complaints today. Patient has signed MRS History Sheet. Digital Woman Screen Mammo: March 03, 2021 - Exam #: [id number] Bilateral CC and MLO view(s) were taken. Technologist: Roopa Dickson, Director Inpatient Headache Program Prior study comparison: March 09, 2020, bilateral digital woman screen mammo performed at [facility] and [facility]. February 05, 2019, bilateral digital mammo screening bilat, performed at [facility]. FINDINGS: The breast tissue is extremely dense which could obscure a lesion on mammography. Screening. Digital screening (2D) mammography was performed bilaterally in the CC and MLO projections. Additionally, breast tomosynthesis (3D mammography) was performed bilaterally in the CC and MLO projections. Todays exam was compared to the prior exam/exams.Both Anne and non-Anne views were obtained. By history, the patient has no complaints of a palpable breast abnormality or other significant breast complaints. The breasts are unchanged in size and shape. Once again, dense heterogenous fibroglandular elements are seen bilaterally in a stable appearing pattern but to such a degree that the sensitivity of the mammogram in detecting cancer is decreased.There are no lissett-soft tissue densities or spiculated masses. There is no internal architectural distortion. There are no suspicious lissett-calcific clusters. Skin thickening or nipple retraction is not present. IMPRESSION: BI-RADS Category 2- Benign Findings. There is no evidence of malignant alteration of the breasts. Followup examination recommended in one year. The Volpara volumetric breast density category is D, the breasts are extremely dense which lowers the sensitivity of mammography. This mammogram was read with the assistance of [employer],an FDA approved computer aided detection system for mammography. The lifetime Tyrer-Cuzick score is 2.8 % Due to the density of the breasts or Tyrer Cuzick score of 20% or greater, MRI/whole breast screening ultrasound is warranted. Negative x-ray reports should not delay surgical consultation if a dominant or clinically suspicious mass is present. Not all breast cancers can be identified by mammography. Therefore, we recommend that you continue to perform regular breast self-examination and physical examination and then promptly contact your physician of any concerns or changes. Adenosis and dense breasts may obscure an underlying neoplasm. Assessment: BI-RADS/ACR category 2 mammogram. Benign Findings. Recommendation Routine screening mammogram of both breasts in 1 year. Electronically Signed By: Ward Garcia DO 03/03/21 [id number]
== END ==
LOC: M WHC 12:51
PROVIDERS: ATTEND Nurse Practitioner Family
DX: Z12.31 Encounter for screening mammogram for malignant neoplasm of breast (principal); Z13.820 Encounter for screening for osteoporosis; M81.0 Age-related osteoporosis without current pathological fracture

== ENCOUNTER → 2021-03-08 | Outpatient (REF) | payer OTHER | LOC: M LAB REF 12:02 | PROVIDERS: ATTEND Internal Medicine Gastroenterology | DX: R19.7 Diarrhea, unspecified (principal) ==

== ENCOUNTER → 2021-03-16 | Outpatient (CLI) | payer MEDICARE, OTHER | LOC: M LABSMTC 09:42 | PROVIDERS: ATTEND Anesthesiology | DX: Z11.52 Encounter for screening for COVID-19 (principal) ==

== ENCOUNTER → 2021-03-21 | Outpatient (CLI) | payer MEDICARE, OTHER ==
[~2021-03-21] MED LIST changes: +ISOVUE-M 300 61% 15ML VIAL As Ordered ONE; +LIDOCAINE 1% SDV 30ML VIAL As Ordered ONE; +NORCO, ANEXSIA 5/325MG TABLET (HYDROcodone/ACETAMINOPHEN) As Ordered ONE; +diazePAM 5MG TABLET As Ordered ONE; +methylPREDNISolone SUSP 40MG/ML 1ML VIAL (DEPO MEDROL) As Ordered ONE
--- NOTE | 2021-03-21 16:13 | REP ---
INDICATION: CERVICAL EPIDURAL STEROID INJECTION. COMPARISON: None. TECHNIQUE: A single views. 10.0 seconds of fluoroscopy time is reported. FINDINGS: A single last image hold fluoroscopically obtained spot radiograph(s) of the cervical spine document(s) needle position(s) and contrast injection associated with injection procedure. IMPRESSION: Procedural imaging. <Electronically signed by Son Aiken > 03/21/21 [id number]
== END ==
LOC: M PAIN 10:20
PROVIDERS: ATTEND Anesthesiology
DX: M50.10 Cervical disc disorder with radiculopathy, unspecified cervical region (principal); K21.9 Gastro-esophageal reflux disease without esophagitis; F31.9 Bipolar disorder, unspecified; E78.5 Hyperlipidemia, unspecified; M47.812 Spondylosis without myelopathy or radiculopathy, cervical region; Z98.1 Arthrodesis status; R73.03 Prediabetes; Z87.891 Personal history of nicotine dependence; Z79.84 Long term (current) use of oral hypoglycemic drugs; Z79.899 Other long term (current) drug therapy; Z88.2 Allergy status to sulfonamides; Z88.6 Allergy status to analgesic agent; Z88.8 Allergy status to other drugs, medicaments and biological substances
CPT/HCPCS: 62321; J1030; Q9967

== ENCOUNTER → 2021-05-05 | Outpatient (CLI) | payer MEDICARE, OTHER ==
[~2021-05-05] MED LIST changes: -ISOVUE-M 300 61% 15ML VIAL As Ordered ONE; -LIDOCAINE 1% SDV 30ML VIAL As Ordered ONE; -NORCO, ANEXSIA 5/325MG TABLET (HYDROcodone/ACETAMINOPHEN) As Ordered ONE; -diazePAM 5MG TABLET As Ordered ONE; -methylPREDNISolone SUSP 40MG/ML 1ML VIAL (DEPO MEDROL) As Ordered ONE
== END ==
LOC: M PAIN 14:00
PROVIDERS: ATTEND Anesthesiology
DX: G89.29 Other chronic pain (principal); M50.10 Cervical disc disorder with radiculopathy, unspecified cervical region; K21.9 Gastro-esophageal reflux disease without esophagitis; F31.9 Bipolar disorder, unspecified; E78.5 Hyperlipidemia, unspecified; G47.33 Obstructive sleep apnea (adult) (pediatric); R73.03 Prediabetes; Z87.891 Personal history of nicotine dependence; Z79.84 Long term (current) use of oral hypoglycemic drugs; Z79.899 Other long term (current) drug therapy; Z88.2 Allergy status to sulfonamides; Z88.6 Allergy status to analgesic agent; Z88.8 Allergy status to other drugs, medicaments and biological substances

== ENCOUNTER → 2021-05-29 | Outpatient (CLI) | payer MEDICARE, OTHER ==
[2021-05-29 17:36] LABS: BASO # 0.1 10^3/uL (0.0-0.2); BASO % 0.6 % (0.0-1.0); EOS # 0.2 10^3/uL (0.0-0.5); EOS % 1.6 % (0.0-3.0); HEMATOCRIT 46.2 % (36.0-47.0); HEMOGLOBIN 14.8 g/dl (12.0-15.5); LYMPH # 2.3 10^3/uL (1.5-5.0); LYMPH % 21.3 % (24.0-44.0); MEAN CORPUSCULAR HEMOGLOBIN 27.1 pg (27.0-33.0); MEAN CORPUSCULAR VOLUME 84.5 fl (80.0-96.0); MONO # 0.6 10^3/uL (0.0-0.8); MONO % 5.9 % (2.0-8.0); NEUTROPHILS # 7.6 10^3/uL (1.5-8.5); NEUTROPHILS % 70.2 % (36.0-66.0); PLATELET COUNT, AUTOMATED 234 10^3/uL (150-450); RED BLOOD COUNT 5.47 10^6/uL (4.00-5.40); WHITE BLOOD COUNT 10.8 10^3/uL (4.0-10.0)
[2021-05-29 18:10] LABS: ALBUMIN 3.4 GM/DL (3.2-5.2); ALT/SGPT 17 U/L (12-78); BILIRUBIN,TOTAL 0.2 MG/DL (0.2-1.0); BLOOD UREA NITROGEN 14 MG/DL (7-18); CALCIUM LEVEL 9.4 MG/DL (8.8-10.2); CARBON DIOXIDE LEVEL 25 MEQ/L (21-32); CHLORIDE LEVEL 108 MEQ/L (98-107); CHOLESTEROL LEVEL 199 MG/DL (<200); CHOLESTEROL RISK RATIO 3.015 (<5); CREATININE FOR GFR 0.82 MG/DL (0.55-1.30); FREE T4 1.14 NG/DL (0.76-1.46); GLOMERULAR FILTRATION RATE > 60.0 (>45); GLUCOSE, FASTING 169 MG/DL (70-100); HDL CHOLESTEROL 66 MG/DL (>40); LDL CHOLESTEROL 100 MG/DL (<100); NON-HDL-C 133 MG/DL; POTASSIUM SERUM 3.9 MEQ/L (3.5-5.1); SODIUM LEVEL 141 MEQ/L (136-145); TOTAL PROTEIN 6.7 GM/DL (6.4-8.2); TRIGLYCERIDES LEVEL 166 MG/DL (<150)
[2021-05-29 18:17] LABS: TOTAL 25(OH) VITAMIN D 34.6 NG/ML (30.0-100.0)
[2021-05-29 19:08] LABS: HEMOGLOBIN A1c 5.9 %
== END ==
LOC: M PLALAB 15:44
PROVIDERS: ATTEND Nurse Practitioner Family
DX: E78.5 Hyperlipidemia, unspecified (principal); R73.01 Impaired fasting glucose; F31.60 Bipolar disorder, current episode mixed, unspecified; E55.9 Vitamin D deficiency, unspecified; Z23 Encounter for immunization
CPT/HCPCS: 36415; 80053; 80061; 82306; 83036; 84439; 84443; 85025; 90682; G0008

== ENCOUNTER 2021-06-23 20:13 | Emergency (ER) | payer MEDICARE, OTHER ==
[~2021-06-23] VITALS: Ht 165.1 cm; Wt 70.0 kg
[~2021-06-23 20:13] MED LIST changes: +CICL6.6S; -CICL8SOL3; -PROC10TA4 PO; +PROC10TA5 PO
[2021-06-23] MEDS ORDERED: GI COCKTAIL 50ML BTL(HYOSCYAMINE/MAALOX/LIDOCAINE VISCOUS)(1:3:1) PO ONE (20:50)
[2021-06-23 21:41] LABS: BASO # 0.1 10^3/uL (0.0-0.2); BASO % 0.7 % (0.0-1.0); EOS # 0.2 10^3/uL (0.0-0.5); HEMOGLOBIN 14.4 g/dl (12.0-15.5); LYMPH # 2.4 10^3/uL (1.5-5.0); MEAN CORPUSCULAR HEMOGLOBIN 27.1 pg (27.0-33.0); MEAN CORPUSCULAR VOLUME 84.7 fl (80.0-96.0); MONO # 0.6 10^3/uL (0.0-0.8); MONO % 6.9 % (2.0-8.0); NEUTROPHILS # 5.9 10^3/uL (1.5-8.5); NEUTROPHILS % 64.2 % (36.0-66.0); PLATELET COUNT, AUTOMATED 215 10^3/uL (150-450); RED BLOOD COUNT 5.31 10^6/uL (4.00-5.40); WHITE BLOOD COUNT 9.1 10^3/uL (4.0-10.0)
[2021-06-23 22:15] VITALS: BP 151/71
[2021-06-23 22:29] LABS: ALBUMIN 3.3 GM/DL (3.2-5.2); ALT/SGPT 19 U/L (12-78); BILIRUBIN,DIRECT < 0.1 MG/DL (0.0-0.2); BILIRUBIN,TOTAL 0.2 MG/DL (0.2-1.0); BLOOD UREA NITROGEN 11 MG/DL (7-18); CARBON DIOXIDE LEVEL 28 MEQ/L (21-32); CHLORIDE LEVEL 109 MEQ/L (98-107); CREATININE FOR GFR 0.87 MG/DL (0.55-1.30); GLOMERULAR FILTRATION RATE > 60.0 (>45); GLUCOSE, FASTING 151 MG/DL (70-100); LIPASE 66 U/L (73-393); NT-PRO BNP 109 PG/ML (<125); POTASSIUM SERUM 4.2 MEQ/L (3.5-5.1); SODIUM LEVEL 144 MEQ/L (136-145); TOTAL PROTEIN 6.8 GM/DL (6.4-8.2)
[2021-06-23] MEDS ORDERED: PROT1TAB2 PO (22:41)
[2021-06-23] MEDS ORDERED: CARA1TAB6 PO (22:41)
== END 2021-06-23 23:12 | disposition home or self-care (01) ==
LOC: M ED 20:13
DX: K21.00 Gastro-esophageal reflux disease with esophagitis, without bleeding (principal); J45.909 Unspecified asthma, uncomplicated; E78.5 Hyperlipidemia, unspecified; Z79.899 Other long term (current) drug therapy; Z79.84 Long term (current) use of oral hypoglycemic drugs; Z88.1 Allergy status to other antibiotic agents; Z88.2 Allergy status to sulfonamides; Z88.8 Allergy status to other drugs, medicaments and biological substances; F12.20 Cannabis dependence, uncomplicated

== ENCOUNTER → 2021-09-25 | Outpatient (CLI) | payer MEDICARE, OTHER ==
[~2021-09-25] MED LIST changes: +CARA1TAB6 PO; +PROT1TAB2 PO
== END ==
LOC: M PAIN 09:45
PROVIDERS: ATTEND Nurse Practitioner Family
DX: M96.1 Postlaminectomy syndrome, not elsewhere classified (principal); M50.10 Cervical disc disorder with radiculopathy, unspecified cervical region; K21.9 Gastro-esophageal reflux disease without esophagitis; F31.9 Bipolar disorder, unspecified; E78.5 Hyperlipidemia, unspecified; M47.812 Spondylosis without myelopathy or radiculopathy, cervical region; G47.33 Obstructive sleep apnea (adult) (pediatric); R73.03 Prediabetes; Z87.891 Personal history of nicotine dependence; Z79.899 Other long term (current) drug therapy

== ENCOUNTER → 2021-10-04 | Outpatient (CLI) | payer MEDICARE, OTHER | LOC: M LABSMTC 11:33 | PROVIDERS: ATTEND Anesthesiology | DX: Z01.818 Encounter for other preprocedural examination (principal); Z11.52 Encounter for screening for COVID-19 ==

== ENCOUNTER 2021-10-09 07:07 | Day surgery (SDC) | payer MEDICARE, OTHER ==
[~2021-10-09] VITALS: Ht 162.6 cm; Wt 64.2 kg
[~2021-10-09 07:07] MED LIST changes: +LIDOCAINE 2% 100MG/5ML SDV (FOR ANES.) As Ordered ONE; +NS 1,000 ML IV ONE; +fentaNYL 100 MCG/2 ML INJECTION As Ordered ONE; +propofoL 500 MG/50 ML VIAL As Ordered ONE
[2021-10-09 09:25] VITALS: BP 129/61
== END 2021-10-09 09:31 | disposition home or self-care (01) ==
LOC: M OPP 07:07
PROVIDERS: ATTEND Internal Medicine Gastroenterology
DX: D12.6 Benign neoplasm of colon, unspecified (principal); K57.30 Diverticulosis of large intestine without perforation or abscess without bleeding; K64.8 Other hemorrhoids; R63.4 Abnormal weight loss; Z98.0 Intestinal bypass and anastomosis status; R11.0 Nausea; Z85.028 Personal history of other malignant neoplasm of stomach; Z79.84 Long term (current) use of oral hypoglycemic drugs; Z79.899 Other long term (current) drug therapy; Z88.2 Allergy status to sulfonamides; Z88.8 Allergy status to other drugs, medicaments and biological substances; Z80.0 Family history of malignant neoplasm of digestive organs; Z80.41 Family history of malignant neoplasm of ovary; Z90.410 Acquired total absence of pancreas
CPT/HCPCS: 43235; 45385; 88305; J3010

== ENCOUNTER → 2021-10-31 | Outpatient (CLI) | payer MEDICARE, OTHER ==
[~2021-10-31] MED LIST changes: -LIDOCAINE 2% 100MG/5ML SDV (FOR ANES.) As Ordered ONE; -NS 1,000 ML IV ONE; -fentaNYL 100 MCG/2 ML INJECTION As Ordered ONE; -propofoL 500 MG/50 ML VIAL As Ordered ONE
[2021-10-31 16:20] LABS: BLOOD UREA NITROGEN 16 MG/DL (7-18); CREATININE FOR GFR 0.86 MG/DL (0.55-1.30); GLOMERULAR FILTRATION RATE > 60.0 (>45)
== END ==
LOC: M LAB 14:41
PROVIDERS: ATTEND Nurse Practitioner Family
DX: M96.1 Postlaminectomy syndrome, not elsewhere classified (principal)

== ENCOUNTER → 2021-11-01 | Outpatient (CLI) | payer MEDICARE, OTHER ==
[~2021-11-01] MED LIST changes: +PROHANCE 279.3MG/ML 15ML VIAL ONE
== END ==
LOC: M PLAIMG 13:05
PROVIDERS: ATTEND Nurse Practitioner Family
DX: M96.1 Postlaminectomy syndrome, not elsewhere classified (principal)
CPT/HCPCS: 72156; A9576

== ENCOUNTER → 2022-01-10 | Outpatient (CLI) | payer MEDICARE, OTHER ==
[~2022-01-10] MED LIST changes: -PROHANCE 279.3MG/ML 15ML VIAL ONE
[2022-01-10 11:22] LABS: BASO # 0.1 10^3/uL (0.0-0.2); BASO % 0.9 % (0.0-1.0); EOS # 0.4 10^3/uL (0.0-0.5); EOS % 5.7 % (0.0-3.0); HEMATOCRIT 41.8 % (36.0-47.0); HEMOGLOBIN 13.3 g/dl (12.0-15.5); LYMPH # 1.8 10^3/uL (1.5-5.0); LYMPH % 24.3 % (24.0-44.0); MEAN CORPUSCULAR HEMOGLOBIN 27.1 pg (27.0-33.0); MEAN CORPUSCULAR HGB CONC 31.8 g/dl (32.0-36.5); MEAN CORPUSCULAR VOLUME 85.1 fl (80.0-96.0); MONO # 0.4 10^3/uL (0.0-0.8); NEUTROPHILS # 4.8 10^3/uL (1.5-8.5); NEUTROPHILS % 63.7 % (36.0-66.0); PLATELET COUNT, AUTOMATED 198 10^3/uL (150-450); RED BLOOD COUNT 4.91 10^6/uL (4.00-5.40); WHITE BLOOD COUNT 7.5 10^3/uL (4.0-10.0)
[2022-01-10 11:46] LABS: HEMOGLOBIN A1c 5.5 %
[2022-01-10 12:13] LABS: ALBUMIN 3.2 GM/DL (3.2-5.2); ALT/SGPT 14 U/L (12-78); BILIRUBIN,TOTAL 1.2 MG/DL (0.2-1.0); BLOOD UREA NITROGEN 14 MG/DL (7-18); CALCIUM LEVEL 8.6 MG/DL (8.8-10.2); CARBON DIOXIDE LEVEL 26 MEQ/L (21-32); CHLORIDE LEVEL 110 MEQ/L (98-107); CHOLESTEROL LEVEL 169 MG/DL (<200); CHOLESTEROL RISK RATIO 2.223 (<5); CREATININE FOR GFR 0.77 MG/DL (0.55-1.30); FREE T4 0.99 NG/DL (0.76-1.46); GLOMERULAR FILTRATION RATE > 60.0 (>45); GLUCOSE, FASTING 99 MG/DL (70-100); HDL CHOLESTEROL 76 MG/DL (>40); IRON (FE) 71 UG/DL (50-170); LDL CHOLESTEROL 74 MG/DL (<100); MAGNESIUM LEVEL 2.2 MG/DL (1.8-2.4); NON-HDL-C 93 MG/DL; POTASSIUM SERUM 4.2 MEQ/L (3.5-5.1); SODIUM LEVEL 141 MEQ/L (136-145); TOTAL PROTEIN 6.1 GM/DL (6.4-8.2); TRIGLYCERIDES LEVEL 94 MG/DL (<150)
[2022-01-10 12:16] LABS: TOTAL 25(OH) VITAMIN D 24.7 NG/ML (30.0-100.0)
== END ==
LOC: M LAB 10:33
PROVIDERS: ATTEND Nurse Practitioner Family
DX: L65.9 Nonscarring hair loss, unspecified (principal); E78.00 Pure hypercholesterolemia, unspecified; F31.9 Bipolar disorder, unspecified; Z79.899 Other long term (current) drug therapy

== ENCOUNTER → 2022-01-10 | Outpatient (CLI) | payer MEDICARE, OTHER, MEDICAID ==
[2022-01-10 11:21] LABS: BASO # 0.1 10^3/uL (0.0-0.2); BASO % 0.9 % (0.0-1.0); EOS # 0.4 10^3/uL (0.0-0.5); EOS % 5.4 % (0.0-3.0); HEMATOCRIT 42.5 % (36.0-47.0); HEMOGLOBIN 13.5 g/dl (12.0-15.5); LYMPH % 24.5 % (24.0-44.0); MEAN CORPUSCULAR HGB CONC 31.8 g/dl (32.0-36.5); MONO # 0.4 10^3/uL (0.0-0.8); MONO % 4.4 % (2.0-8.0); NEUTROPHILS # 5.3 10^3/uL (1.5-8.5); NEUTROPHILS % 64.6 % (36.0-66.0); PLATELET COUNT, AUTOMATED 182 10^3/uL (150-450); WHITE BLOOD COUNT 8.2 10^3/uL (4.0-10.0)
[2022-01-10 11:46] LABS: HEMOGLOBIN A1c 5.5 %
[2022-01-10 12:09] LABS: ALBUMIN 3.3 GM/DL (3.2-5.2); ALT/SGPT 15 U/L (12-78); BILIRUBIN,TOTAL 0.4 MG/DL (0.2-1.0); BLOOD UREA NITROGEN 14 MG/DL (7-18); CARBON DIOXIDE LEVEL 25 MEQ/L (21-32); CHLORIDE LEVEL 112 MEQ/L (98-107); CHOLESTEROL LEVEL 179 MG/DL (<200); CHOLESTEROL RISK RATIO 2.324 (<5); CREATININE FOR GFR 0.79 MG/DL (0.55-1.30); GLOMERULAR FILTRATION RATE > 60.0 (>45); GLUCOSE, FASTING 104 MG/DL (70-100); HDL CHOLESTEROL 77 MG/DL (>40); LDL CHOLESTEROL 83 MG/DL (<100); LITHIUM LEVEL 0.56 MEQ/L (0.60-1.20); NON-HDL-C 102 MG/DL; POTASSIUM SERUM 4.3 MEQ/L (3.5-5.1); SODIUM LEVEL 144 MEQ/L (136-145); TOTAL PROTEIN 6.1 GM/DL (6.4-8.2); TRIGLYCERIDES LEVEL 94 MG/DL (<150)
== END ==
LOC: M LAB 10:27
DX: F31.9 Bipolar disorder, unspecified (principal); E78.00 Pure hypercholesterolemia, unspecified

== ENCOUNTER → 2022-01-19 | Outpatient (CLI) | payer MEDICARE, OTHER | LOC: M PAIN 10:00 | PROVIDERS: ATTEND Nurse Practitioner Family | DX: M96.1 Postlaminectomy syndrome, not elsewhere classified (principal); M50.10 Cervical disc disorder with radiculopathy, unspecified cervical region; K21.9 Gastro-esophageal reflux disease without esophagitis; F31.9 Bipolar disorder, unspecified; E78.5 Hyperlipidemia, unspecified; N28.1 Cyst of kidney, acquired; G47.33 Obstructive sleep apnea (adult) (pediatric); R73.03 Prediabetes; H35.30 Unspecified macular degeneration; Z85.09 Personal history of malignant neoplasm of other digestive organs; Z87.891 Personal history of nicotine dependence; Z79.899 Other long term (current) drug therapy ==

== ENCOUNTER → 2022-03-05 | Outpatient (CLI) | payer MEDICARE, OTHER ==
[~2022-03-05] MED LIST changes: +LITH300C; +LUMA42CA
== END ==
LOC: M PAIN 09:45
PROVIDERS: ATTEND Nurse Practitioner Family
DX: M96.1 Postlaminectomy syndrome, not elsewhere classified (principal); M50.10 Cervical disc disorder with radiculopathy, unspecified cervical region; K21.9 Gastro-esophageal reflux disease without esophagitis; F31.9 Bipolar disorder, unspecified; E78.5 Hyperlipidemia, unspecified; M50.31 Other cervical disc degeneration, high cervical region; N28.1 Cyst of kidney, acquired; G47.33 Obstructive sleep apnea (adult) (pediatric); R73.03 Prediabetes; H35.30 Unspecified macular degeneration; Z86.718 Personal history of other venous thrombosis and embolism; Z98.1 Arthrodesis status; Z85.09 Personal history of malignant neoplasm of other digestive organs; Z87.891 Personal history of nicotine dependence; Z79.899 Other long term (current) drug therapy